=== PATIENT | female | born 1955 | race African-American/Black ===

== ENCOUNTER → 2017-08-27 | Outpatient (CLI) | payer BC ==
[2017-06-03 15:07] VITALS: BP 156/99
[~2017-08-27] MED LIST: CHOL100014 PO; CLOP75TA57 PO; CYAN10005 PO; FERR-26 PO; INSU100V12 SQ; LIRA0.6P2 SQ; LOSA1TAB22 PO; LUBI8CAP4 PO; METO-239 PO; METO25TA4 PO; METO50TA29 PO; MULT-18 PO; OXYC-323 PO; PARO25TA11 PO; PARO40TA61 PO; PREG75CA PO; QUET25TA PO; QUET25TA5 PO; QUET400T PO; QUET400T6 PO; QUET50TA8 PO; RANI150C PO; ROPI0.5T PO; ROPI2TAB PO; ROPI5TAB2 PO; SIMV40TA3 PO
--- NOTE | 2017-08-27 10:16 | RAD ---
DATE: 08/27/2017 EXAM: DIGITAL SCREEN BILAT W/CAD HISTORY: Routine screening COMPARISON: 04/17/2016 This study was interpreted with the benefit of Computerized Aided Detection (CAD). The breast parenchyma shows scattered fibroglandular densities. Breast parenchyma level B. FINDINGS: An unchanged asymmetric density medially in the left breast is probably due to scarring. No new or enlarging breast densities are seen. There are scattered benign type calcifications. No suspicious microcalcifications have developed. IMPRESSION: Stable mammograms without evidence of malignancy. BI-RADS CATEGORY: 2 BENIGN FINDING(S) RECOMMENDED FOLLOW-UP: 12M 12 MONTH FOLLOW-UP PQRS compliance statement: Patient information was entered into a reminder system with a target due date for the next mammogram. Mammography is a sensitive method for finding small breast cancers, but it does not detect them all and is not a substitute for careful clinical examination. A negative mammogram does not negate a clinically suspicious finding and should not result in delay in biopsying a clinically suspicious abnormality. "Our facility is accredited by the [employer]ammography [employer]."
== END | disposition home or self-care (01) ==
LOC: MAMMO 07:59
PROVIDERS: ATTEND Family Medicine
DX: Z12.31 Encounter for screening mammogram for malignant neoplasm of breast (principal)
CPT/HCPCS: G0202; 77067

== ENCOUNTER → 2018-08-17 | Outpatient (CLI) | payer BC ==
[2017-06-03 15:07] VITALS: BP 156/99
[~2018-08-17] MED LIST changes: -FERR-26 PO; +FERR325T14 PO; -ROPI5TAB2 PO; +ROPI5TAB4 PO
--- NOTE | 2018-08-17 17:12 | RAD ---
Indication:Elevated LFT's TECHNIQUE: Grayscale, color Doppler and spectral waveform is of the limited abdomen obtained. COMPARISON:Previous exam from 10/01/2013. FINDINGS: Suboptimal is elevation of pancreas due to overlying bowel gas. No gallstones, pericholecystic fluid or gallbladder wall thickening. IVC is within normal limits. 1.8 x 2.7 x 2.6 cm echogenic lesion is seen in the liver with trace internal vascularity. Main portal vein is patent. CBD measures 3 mm in diameter and is within normal limits. Right kidney measures 11.2 cm in length without hydronephrosis. Liver is normal in size measuring 17 cm in length with diffusely increased echogenicity and decreased through transmission. IMPRESSION: 1. Hepatic steatosis. 2. Echogenic liver lesion likely hemangioma. Nonemergent MRI of the abdomen with IV contrast is recommended for definite confirmation unless this is a known finding on prior or outside imaging. 3. No cholelithiasis or sonographic evidence of acute cholecystitis. Electronically signed by: Saul Bobo DO (08/17/2018 5:08 PM) [facility]
== END | disposition home or self-care (01) ==
LOC: US 10:20
PROVIDERS: ATTEND Family Medicine
DX: K76.0 Fatty (change of) liver, not elsewhere classified (principal); K76.89 Other specified diseases of liver
CPT/HCPCS: 76705

== ENCOUNTER → 2018-09-03 | Outpatient (CLI) | payer BC ==
[2017-06-03 15:07] VITALS: BP 156/99
[~2018-09-03] MED LIST changes: -OXYC-323 PO; +OXYC1TAB15 PO
--- NOTE | 2018-09-04 11:16 | RAD ---
DATE: 09/03/2018 EXAM: MAMMO QUINTIN SCREENING BILATERAL HISTORY: Routine screening COMPARISON: 08/27/2017 This study was interpreted with the benefit of Computerized Aided Detection (CAD). Breast Density: SCATTERED The breast parenchyma shows scattered fibroglandular densities. Breast parenchyma level B. FINDINGS: 2-D and 3-D tomosynthesis imaging was performed in CC and MLO projections. There is an unchanged vague opacity containing a calcification in the medial aspect of the left breast most likely due to scarring. A similar appearance was present on older studies such as 12/23/2013. No new or enlarging breast densities are seen. Additional bilateral breast calcifications are stable and probably benign. IMPRESSION: Stable mammograms without evidence of malignancy. BI-RADS CATEGORY: 2 BENIGN FINDING(S) RECOMMENDED FOLLOW-UP: 12M 12 MONTH FOLLOW-UP PQRS compliance statement: Patient information was entered into a reminder system with a target due date for the next mammogram. Mammography is a sensitive method for finding small breast cancers, but it does not detect them all and is not a substitute for careful clinical examination. A negative mammogram does not negate a clinically suspicious finding and should not result in delay in biopsying a clinically suspicious abnormality. "Our facility is accredited by the [employer]ammography [employer]."
== END | disposition home or self-care (01) ==
LOC: MAMMO 11:04
PROVIDERS: ATTEND Family Medicine
DX: Z12.31 Encounter for screening mammogram for malignant neoplasm of breast (principal)
CPT/HCPCS: 77063; 77067

== ENCOUNTER → 2018-12-16 | Outpatient (CLI) | payer BC, OTHER ==
[2017-06-03 15:07] VITALS: BP 156/99
[~2018-12-16] VITALS: Ht 177.8 cm; Wt 95.7 kg
[~2018-12-16] MED LIST changes: +APIX5TAB PO; -QUET400T6 PO; +QUET400T7 PO; -QUET50TA8 PO; +QUET50TA9 PO; +SINCALIDE 1.91 MCG in IV NORMAL SALINE 50ML 30 ML IV ONE
--- NOTE | 2018-12-16 08:18 | RAD ---
Indication:RUQ PAIN TECHNIQUE: Grayscale, color Doppler and spectral waveform is of the abdomen obtained. COMPARISON:08/17/2018 FINDINGS: Pancreas is not visualized due to overlying bowel gas. IVC is patent. Aorta are not visualized due to overlying bowel gas. Main portal vein is patent. No gallstones, pericholecystic fluid or gallbladder wall thickening. Right kidney measures 10.6 cm in length without hydronephrosis. CBD measures 4 mm in diameter and is within normal limits. Redemonstrated is an echogenic lesion in the liver measuring 3.2 x 2.6 x 2.0 cm without internal vascularity. Spleen measures 10.4 cm in length and is normal in size. Left kidney measures 10.8 cm in length without hydronephrosis. Diffuse echogenic parenchyma of the liver is seen. IMPRESSION: 1. Redemonstration of echogenic lesion in the liver with interval increase in size which may be due to technical differences in obtaining measurements or axial increase in the size of the lesion. Nonemergent MRI of the abdomen with IV contrast is recommended. 2. Mild hepatic steatosis. 3. No cholelithiasis or sonographic evidence of acute cholecystitis. Electronically signed by: Saul Bobo DO (12/16/2018 8:15 AM) [facility]
--- NOTE | 2018-12-16 13:30 | RAD ---
HEPATOBILIARY SCAN WITH EJECTION FRACTION 12/16/2018 1:26 PM History: Right upper quadrant pain x1 month. Procedure: Serial static images are obtained of the liver and biliary system in the frontal projection following IV administration of 5.5 mCi of Technetium 99m Choletec. After filling of the gallbladder, 1.9 mcg of sincalide were infused over 30 minutes and dynamic imaging continued over this period. The gallbladder ejection fraction was calculated. Findings: There is prompt hepatic clearance of tracer from the blood pool. There is homogeneous distribution throughout the liver. The gallbladder ejection fraction measures 68% (normal gallbladder EF is 35% or greater). IMPRESSION: 1. The cystic duct and common bile duct are patent. Negative for acute cholecystitis. 2. The gallbladder ejection fraction is normal Electronically signed by: Priyank Trujillo MD (12/16/2018 1:28 PM) [id number]
== END | disposition home or self-care (01) ==
LOC: US 07:32
PROVIDERS: ATTEND Internal Medicine Gastroenterology
DX: K76.0 Fatty (change of) liver, not elsewhere classified (principal); K76.89 Other specified diseases of liver
CPT/HCPCS: 76700; 78227; A9537; J2805

== ENCOUNTER → 2019-01-06 | Outpatient (CLI) | payer OTHER ==
[2017-06-03 15:07] VITALS: BP 156/99
[~2019-01-06] MED LIST changes: +GADOBUTROL 10 MMOL/10 ML VIAL IV ONE; -SINCALIDE 1.91 MCG in IV NORMAL SALINE 50ML 30 ML IV ONE
[2019-01-06 11:09] LABS: CREATININE 1.4 mg/dL (0.6-1.0); GFR 45.7
== END | disposition home or self-care (01) ==
LOC: MRI 10:41
PROVIDERS: ATTEND Family Medicine
DX: E11.49 Type 2 diabetes mellitus with other diabetic neurological complication (principal)
CPT/HCPCS: 36415; 82565

== ENCOUNTER → 2019-02-01 | Outpatient (CLI) | payer OTHER ==
[2017-06-03 15:07] VITALS: BP 156/99
[~2019-02-01] MED LIST changes: -GADOBUTROL 10 MMOL/10 ML VIAL IV ONE; +GADOTERATE 7.5 MMOL/15ML VIAL. IVP ONE
--- NOTE | 2019-02-01 16:28 | RAD ---
ABDOMEN MRI STUDY WITH AND WITHOUT CONTRAST Clinical indications: Right upper quadrant pain. Echogenic lesion seen within the liver on sonogram dated December 16, 2018. COMPARISON: Abdomen ultrasound study December 16, 2018 and abdomen MRI study dated November 28, 2011. CT study of the abdomen dated October 18, 2011. Technique: T1 and T2 weighted MRI sequences of the abdomen was performed in the axial and coronal planes. In phase and out of phase MRI sequences were performed as well. After IV infusion of 19 mL of Dotarem, multiphasic postcontrast enhanced MRI sequences of the abdomen were performed. Findings: No liver mass is seen to correspond to the abdomen ultrasound or the CT study. There is focal slight decrease in signal here on the out of phase sequence. Therefore, finding is consistent with focal fatty infiltration of the liver. No liver mass is seen on diffusion-weighted sequence. The spleen is not enlarged. Pancreas is normal. The gallbladder is normal. No abnormal dilatation of the intrahepatic or extrahepatic biliary tree is seen. No adrenal gland mass is seen. Both kidneys are normal. No focal aneurysmal dilatation of the abdominal aorta is seen. No enlarged abdominal lymphadenopathy is seen. No ascites is seen.. Impression: The finding seen on ultrasound represents focal fatty infiltration of the liver. No liver mass is seen. Electronically signed by: Ricky Bhakta MD (02/01/2019 4:26 PM) [facility]
== END | disposition home or self-care (01) ==
LOC: MRI 09:45
PROVIDERS: ATTEND Family Medicine
DX: K76.89 Other specified diseases of liver (principal)
CPT/HCPCS: 74183; A9575

== ENCOUNTER 2019-02-27 14:45 | Inpatient (IN) | payer MEDICARE, OTHER ==
[~2019-02-27] VITALS: Ht 177.8 cm; Wt 93.2 kg
[2019-02-27] VITALS (8 sets, daily range): BP systolic 98–135; BP diastolic 57–74
[~2019-02-27 14:45] MED LIST changes: -APIX5TAB PO; -GADOTERATE 7.5 MMOL/15ML VIAL. IVP ONE
[2019-02-27] MEDS ORDERED: IV NORMAL SALINE 1000ML BAG 1,000 ML IV SCH (15:05)
[2019-02-27] MEDS ORDERED: dilTIAZem INJ 125 MG in IV DEXTROSE 5% 100ML 100 ML IV ONE (15:15)
[2019-02-27] MEDS ORDERED: dilTIAZem IV PUSH 25 MG/5 ML VIAL IVP ONE (15:15)
[2019-02-27 15:19] LABS: BASO # 0.1 x10^3/uL (0.0-0.2); BASO % 1 % (0-3); EOS # 0.2 x10^3/uL (0.0-0.7); EOS % 3 % (0-3); HEMATOCRIT 36.2 % (36.0-47.0); HEMOGLOBIN 12.2 g/dL (12.0-15.5); LYMPH # 3.3 x10^3/uL (1.0-4.8); LYMPH % 43 % (24-48); MEAN CORPUSCULAR HEMOGLOBIN 27 pg (25-35); MEAN CORPUSCULAR HGB CONC 34 g/dL (31-37); MEAN CORPUSCULAR VOLUME 81 fL (79-100); MONO # 0.5 x10^3/uL (0.0-1.1); MONO % 7 % (0-9); NEUT # 3.6 x10^3uL (1.8-7.7); NEUT % 47 % (31-73); PLATELET COUNT 293 x10^3/uL (140-400); RED BLOOD COUNT 4.47 x10^6/uL (3.50-5.40); RED CELL DISTRIBUTION WIDTH 15.1 % (11.5-14.5); WHITE BLOOD COUNT 7.7 x10^3/uL (4.0-11.0)
--- NOTE | 2019-02-27 15:26 | PDOC1 ---
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 She is now c/o 7/10 epigastric tenderness. Found in Afib with RVR on telemetry, given 10mg diltiazem bolus and started on 5mg/hr and called for admission. CT head and CXR negative. D dimer also negative. Nuclear cardiac stress testing 06/02/2017 was negative for reversible ischemia, EF 72% at that time. Past Medical History Cardiovascular: AFIB, HTN, Syncope, Hyperlipidemia Pulmonary: No pertinent hx GI: No pertinent hx Heme/Onc: No pertinent hx Hepatobiliary: No pertinent hx Psych: No pertinent hx Rheumatologic: No pertinent hx Infectious disease: No pertinent hx ENT: No pertinent hx Renal/: Chronic renal insuff Endocrine: Diabetes Dermatology: No pertinent hx Past Surgical History Past Surgical History: CABG Family History Family History: Coronary Artery Disease, Diabetes, High Cholestrol, Hypertension Social History Smoke: No ALCOHOL: rare Drugs: None Current Medications Current Medications Current Medications Diltiazem HCl (Cardizem Iv Push) 20 mg 1X ONCE IVP Last administered on 02/27/19at 15:12; Start 02/27/19 at 15:15; Stop 02/27/19 at 15:16; Status DC Diltiazem HCl 125 mg/Dextrose 125 ml @ 10 mls/hr 1X ONCE IV Last administered on 02/27/19at 15:17; Start 02/27/19 at 15:15; Stop 02/28/19 at 03:44 Sodium Chloride 1,000 ml @ 1,000 mls/hr Q1H IV Last administered on 02/27/19at 15:11; Start 02/27/19 at 15:05; Stop 02/27/19 at 16:04 Active Scripts Active Metoprolol Succinate ( Xl ) (Metoprolol Succinate) 25 Mg Tab.er.24h 2 Tab PO DAILY Reported Ferrous Sulfate 325 Mg Tablet 1 Tab PO DAILY Vitamin B-12 (Cyanocobalamin (Vitamin B-12)) 1,000 Mcg Tablet 1 Tab PO DAILY Requip (Ropinirole Hcl) 0.5 Mg Tablet 1 Tab PO QHS Metoprolol Succinate 50 Mg Tab.er.24h 50 Mg PO BID Novolog Mix 70-30 Vial (Insuln Asp Prt/Insulin Aspart) 100 Unit/1 Ml Vial 100 Unit SQ TIDAC Vitamin D3 (Cholecalciferol (Vitamin D3)) 1,000 Unit Capsule 1,000 Unit PO DAILY Amitiza (Lubiprostone) 8 Mcg Capsule 1 Cap PO BID Quetiapine Fumarate 25 Mg Tablet 25 Mg PO BID Ranitidine Hcl 150 Mg Capsule 150 Mg PO BID Seroquel Xr (Quetiapine Fumarate) 400 Mg Tab.er.24h 400 Mg PO HS Lyrica (Pregabalin) 75 Mg Capsule 75 Mg PO BID Daily Vitamin (Multivitamin) 1 Each Tablet 1 Each PO DAILY Plavix (Clopidogrel Bisulfate) 75 Mg Tablet 75 Mg PO DAILY Losartan-Hctz 100-25 Mg Tab (Losartan/Hydrochlorothiazide) 1 Each Tablet 1 Each PO DAILY Allergies Allergies: Coded Allergies: Penicillins (Verified Allergy, Severe, HIVES, SHORTNESS OF BREATH, 07/28/15) clindamycin (Verified Allergy, Severe, shortness of breath and generalized weakness, 07/28/15) Pt states after taking new prescription of ABX she developed SOB and weakness and was brought to ER by friend. Was found to have elevated BP by chance but the reaction was brought her in initially. ibuprofen (Unverified Allergy, Severe, Anaphylaxis, 07/28/15) latex (Verified Allergy, Severe, ITCHING AND SWELLING, 07/28/15) aspirin (Unverified Allergy, Intermediate, Hives, 07/28/15) lisinopril (Verified Allergy, Intermediate, cough, 07/28/15) methocarbamol (Verified Allergy, Intermediate, hives, 07/28/15) metformin (Verified Adverse Reaction, Intermediate, Nausea and Vomiting, 07/28/15) ROS General: YES: Fatigue, Malaise, Appetite; No: Chills, Night Sweats, Other PSYCHOLOGICAL ROS: YES: Anxiety; No: Behavioral Disorder, Concentration difficultie, Decreased libido, Depression, Disorientation, Hallucinations, Hostility, Irritablity, Memory difficulties, Mood Swings, Obsessive thoughts, Physical abuse, Sexual abuse, Sleep disturbances, Suicidal ideation, Other Eyes: No Blurry vision, No Decreased vision, No Double vision, No Dry eyes, No Excessive tearing, No Eye Pain, No Itchy Eyes, No Loss of vision, No Photophobia, No Scotomata, No Uses contacts, No Uses glasses, No Other HEENT: YES: Heacaches; No: Visual Changes, Hearing change, Nasal congestion, Nasal discharge, Oral lesions, Sinus pain, Sore Throat, Epistaxis, Sneezing, Snoring, Tinnitus, Vertigo, Vocal changes, Other ALLERGY AND IMMUNOLOGY: No: Hives, Insect Bite Sensitivity, Itchy/Watery Eyes, Nasal Congestion, Post Nasal Drip, Seasonal Allergies, Other Hematological and Lymphatic: No: Bleeding Problems, Blood Clots, Blood Transfusions, Brusing, Night Sweats, Pallor, Swollen Lymph Nodes, Other ENDOCRINE: No: Breast Changes, Galactorrhea, Hair Pattern Changes, Hot Flashes, Malaise/lethargy, Mood Swings, Palpitations, Polydipsia/polyuria, Skin Changes, Temperature Intolerance, Unexpected Weight Changes, Other Breast: No New/Changing Breast Lumps, No Nipple changes, No Nipple discharge, No Other Respiratory: YES: Shortness of breath; No: Cough, Hemoptysis, Orthopnea, Pleuritic Pain, SOB with excertion, Sputum Changes, Stridor, Tachypnea, Wheezing, Other Cardiovascular: yes Palpitations; No Chest Pain, No Orthopnea, No Paroxysmal Noc. Dyspnea, No Edema, No Lt H eadedness, No Other Gastrointestinal: Yes Nausea, Yes Abdominal Pain; No Vomiting, No Diarrhea, No Constipation, No Melena, No Hematochezia, No Other Genitourinary: No Dysuria, No Frequency, No Incontinence, No Hematuria, No Retention, No Discharge, No Urgency, No Pain, No Flank Pain, No Other, No , No , No , No , No , No , No Musculoskeletal: No Gait Disturbance, No Joint Pain, No Joint Stiffness, No Joint Swelling, No Muscle Pain, No Muscular Weakness, No Pain In:, No Swelling In:, No Other Neurological: No Behavorial Changes, No Bowel/Bladder ControlChng, No Confusion, No Dizziness, No Gait Disturbance, No Headaches, No Impaired Coord/balance, No Memory Loss, No Numbness/Tingling, No Seizures, No Speech Problems, No Tremors, No Visual Changes, No Weakness, No Other Skin: No Dry Skin, No Eczema, No Hair Changes, No Lumps, No Mole Changes, No Mottling, No Nail Changes, No Pruritus, No Rash, No Skin Lesion Changes, No Other, No Acne Physical Exam General: Alert, Oriented X3, Cooperative, No acute distress HEENT: Atraumatic, PERRLA, EOMI, Mucous membr. moist/pink Lungs: Clear to auscultation, Normal air movement Heart: S1S2, irregularly irregular Abdomen: Normal bowel sounds, Soft, No tenderness, No hepatosplenomegaly, No masses Extremities: No clubbing, No cyanosis, No edema, Normal pulses, No tenderness/swelling Skin: No rashes, No breakdown, No significant lesion Neuro: Normal gait, Normal speech, Strength at 5/5 X4 ext, Normal tone, Sensation intact, Cranial nerves 3-12 NL, Reflexes 2+ Psych/Mental Status: Mental status NL, Mood NL Vitals Vitals Vital Signs Date Time Temp Pulse Resp B/P (MAP) Pulse Ox O2 Delivery O2 Flow Rate FiO2 02/27/19 15:12 134 106/63 02/27/19 14:50 97.9 18 99 Room Air 97.9 Images Images CXR - No radiographic evidence of an acute cardiopulmonary process. CT Head - no acute intracranial findings VTE Prophylaxis Ordered VTE Prophylaxis Devices: Yes VTE Pharmacological Prophylaxi: Yes Assessment/Plan Assessment/Plan A/P: Atrial fibrillation with RVR - diltiazem bolus and infusion, restart her home BB. Heparin GTT for elevated [id number] of 4 and 6.7% risk of CVA or systemic embolism Syncope - will obtain echo, CT head. Cardiology to see Epigastric abdominal pain - has had abdominal pain for months, has been evaluated, seen by GI already, had colonoscopy. This is difficult, will consult GI Transaminitis - She has had abdominal pain since prior to November, had recent RUQ US and subsequent HIDA revealing an echogenic liver mass that was not red emonstrated on subsequent MRI on 02/01/19. ALICIA on CKD - likely vasomotor nephropathy. IVF. Baseline Cr 1.4, now 1.9 Coronary artery disease s/p CABG in 2002 or 2005 - cont BB, plavix Hypertension - will cont meds Hyperlipidemia - cont statin for goal LDL < 70mg/dL Depression - cont meds Diabetes mellitus type 2 - sliding scale basal bolus plus regimen Mild rhabdo - likely from syncope, will hydrate gently Medication compliance difficulties - historical, may be cause of her current predicament FEN - ADA cardiac diet PPX - Heparin FULL CODE Admit CVC for afib with RVR and syncope, likely 2 midnights CATHLEEN DRIVER MD Feb 27, 2019 15:26
[2019-02-27 15:28] LABS: PROTHROMBIN TIME PATIENT 13.1 SEC (11.7-14.0)
[2019-02-27 15:31] LABS: D-DIMER 0.45 ug/mlFEU (0.00-0.50)
[2019-02-27 15:42] LABS: CALCIUM 9.2 mg/dL (8.5-10.1); CREATININE 1.9 mg/dL (0.6-1.0); GFR 32.1; POTASSIUM 4.1 mmol/L (3.5-5.1)
[2019-02-27 15:48] LABS: ALBUMIN 3.4 g/dL (3.4-5.0); ALBUMIN/GLOBULIN RATIO 0.8 (1.0-1.7); MAGNESIUM 1.8 mg/dL (1.8-2.4); TOTAL BILIRUBIN 0.8 mg/dL (0.2-1.0); TOTAL PROTEIN 7.6 g/dL (6.4-8.2)
--- NOTE | 2019-02-27 15:56 | PHYS DOC ---
Past Medical History Past Medical History: A-Fib, CAD, Depression, Diabetes-Type II Past Surgical History: Coronary Bypass Surgery Alcohol Use: None Drug Use: None Adult General Chief Complaint Chief Complaint: DIZZY/LIGHT HEADED [facility] HPI Patient is a 63 year old female who presents with complaining of dizziness and chest pain and passing out. Patient states she was at fourth and fifth dizziness with epigastric pain and shortness of breath. Patient had a syncopal episode without having head injury and seizure activity. Patient complaining of lower chest pain and upper abdominal pain and rated her pain 7/10 with shortness of breath, dizziness, nausea and generalized weakness. Patient denies history of syncope. Patient has history of hypertension, dyslipidemia, diabetes mellitus and CABG. Patient states she had irregular heartbeats coded to EMR she has atrial fibrillation. Review of Systems Review of Systems Constitutional: Denies fever or chills [] Eyes: Denies change in visual acuity, redness, or eye pain [] HENT: Denies nasal congestion or sore throat [] Respiratory: Denies cough, reports shortness of breath [] Cardiovascular: No additional information not addressed in HPI [] GI: Denies abdominal pain, nausea, vomiting, bloody stools or diarrhea [] : Denies dysuria or hematuria [] Musculoskeletal: Denies back pain or joint pain [] Integument: Denies rash or skin lesions [] Neurologic: Reports dizziness and headache, denies focal weakness or sensory changes [] Endocrine: Denies polyuria or polydipsia [] All other systems were reviewed and found to be within normal limits, except as documented in this note. Current Medications Current Medications Current Medications Medications (Trade) Dose Ordered Sig/Parul Start Time Stop Time Status Last Admin Dose Admin Sodium Chloride 1,000 ml @ 1,000 mls/hr Q1H 02/27/19 15:05 02/27/19 16:04 DC 02/27/19 15:11 1,000 MLS/HR Allergies Allergies Allergies Coded Allergies Type Severity Reaction Last Updated Verified Penicillins Allergy Severe HIVES, SHORTNESS OF BREATH 07/28/15 Yes clindamycin Allergy Severe shortness of breath and generalized weakness 07/28/15 Yes ibuprofen Allergy Severe Anaphylaxis 07/28/15 No latex Allergy Severe ITCHING AND SWELLING 07/28/15 Yes aspirin Allergy Intermediate Hives 07/28/15 No lisinopril Allergy Intermediate cough 07/28/15 Yes methocarbamol Allergy Intermediate hives 07/28/15 Yes metformin Adverse Reaction Intermediate Nausea and Vomiting 07/28/15 Yes Physical Exam Physical Exam Constitutional: Well developed, well nourished, moderately distress, non-toxic appearance. [] HENT: Normocephalic, atraumatic, oropharynx dry. Eyes: PERRLA, EOMI, conjunctiva normal, no discharge. [] Neck: Normal range of motion, no tenderness, supple, no stridor. [] Cardiovascular: Irregularly irregular rhythm tachycardia, no murmur [] Lungs & Thorax: Bilateral breath sounds clear to auscultation [] Abdomen: Bowel sounds normal, soft, no tenderness, no masses, no pulsatile masses. [] Skin: Warm, dry, no erythema, no rash. [] Back: No tenderness, no CVA tenderness. [] Extremities: No tenderness, no cyanosis, no clubbing, ROM intact, no edema. [] Neurologic: Alert and oriented X 3, normal motor function, normal sensory function, no focal deficits noted. [] Psychologic: Affect normal, judgement normal, mood normal. [] Current Patient Data Vital Signs Vital Signs Date Time Temp Pulse Resp B/P (MAP) Pulse Ox O2 Delivery O2 Flow Rate FiO2 02/27/19 14:50 97.9 128 18 106/63 (77) 99 Room Air 97.9 Lab Values Laboratory Tests Test 02/27/19 15:01 White Blood Count 7.7 x10^3/uL (4.0-11.0) Red Blood Count 4.47 x10^6/uL (3.50-5.40) Hemoglobin 12.2 g/dL (12.0-15.5) Hematocrit 36.2 % (36.0-47.0) Mean Corpuscular Volume 81 fL (79-100) Mean Corpuscular Hemoglobin 27 pg (25-35) Mean Corpuscular Hemoglobin Concent 34 g/dL (31-37) Red Cell Distribution Width 15.1 % (11.5-14.5) H Platelet Count 293 x10^3/uL (140-400) Neutrophils (%) (Auto) 47 % (31-73) Lymphocytes (%) (Auto) 43 % (24-48) Monocytes (%) (Auto) 7 % (0-9) Eosinophils (%) (Auto) 3 % (0-3) Basophils (%) (Auto) 1 % (0-3) Neutrophils # (Auto) 3.6 x10^3uL (1.8-7.7) Lymphocytes # (Auto) 3.3 x10^3/uL (1.0-4.8) Monocytes # (Auto) 0.5 x10^3/uL (0.0-1.1) Eosinophils # (Auto) 0.2 x10^3/uL (0.0-0.7) Basophils # (Auto) 0.1 x10^3/uL (0.0-0.2) Prothrombin Time 13.1 SEC (11.7-14.0) Prothrombin Time INR 1.0 (0.8-1.1) D-Dimer (Jaye) 0.45 ug/mlFEU (0.00-0.50) Sodium Level 140 mmol/L (136-145) Potassium Level 4.1 mmol/L (3.5-5.1) Chloride Level 105 mmol/L (98-107) Carbon Dioxide Level 23 mmol/L (21-32) Anion Gap 12 (6-14) Blood Urea Nitrogen 27 mg/dL (7-20) H Creatinine 1.9 mg/dL (0.6-1.0) H Estimated GFR (Cockcroft-Gault) 32.1 BUN/Creatinine Ratio 14 (6-20) Glucose Level 216 mg/dL (70-99) H Calcium Level 9.2 mg/dL (8.5-10.1) Magnesium Level 1.8 mg/dL (1.8-2.4) Total Bilirubin 0.8 mg/dL (0.2-1.0) Aspartate Amino Transferase (AST) 67 U/L (15-37) H Alanine Aminotransferase (ALT) 70 U/L (14-59) H Alkaline Phosphatase 117 U/L (46-116) H Creatine Kinase 742 U/L (26-192) H Troponin I Quantitative < 0.017 ng/mL (0.000-0.055) IB-Kqk-Z-Type Natriuretic Peptide 710 pg/mL (0-124) H Total Protein 7.6 g/dL (6.4-8.2) Albumin 3.4 g/dL (3.4-5.0) Albumin/Globulin Ratio 0.8 (1.0-1.7) L Lipase 121 U/L (73-393) Laboratory Tests 02/27/19 15:01 Laboratory Tests 02/27/19 15:01 EKG EKG EKG interpreted by me. EKG at 1456 showed atrial fibrilation with RVR, poor R- wave progress in anteroseptal leads, ST depression in inferior leads, no acute ST and T-wave abnormalities. Radiology/Procedures Radiology/Procedures [address] [id number] [place] [address] IMAGING REPORT Signed PATIENT: BRENDA BAR ACCOUNT: [id number] : 1955 LOCATION: [address] [place] [address] AGE: 63 SEX: F EXAM STATUS: ADM IN ORD. PHYSICIAN: STEVEN ALONSO MD REASON: shortness of breath and syncope PROCEDURE: PORTABLE CHEST 1V EXAM: CHEST 1 VIEW History: Shortness of breath COMPARISON: 05/31/2017 TECHNIQUE: Single portable radiograph of the chest FINDINGS: The cardiac silhouette is unremarkable. The lungs are clear bilaterally. The costophrenic sulci are clear and well demarcated. IMPRESSION: No radiographic evidence of an acute cardiopulmonary process. Electronically signed by: Floyd Marcos MD (02/27/2019 4:19 PM) [facility] DICTATED and SIGNED BY: FLOYD MARCOS MD DATE: 02/27/[address] [address] IMAGING REPORT Signed PATIENT: BRENDA BAR ACCOUNT: [id number] : 1955 LOCATION: ER AGE: 63 SEX: F EXAM STATUS: REG ER ORD. PHYSICIAN: STEVEN ALONSO MD REASON: syncope PROCEDURE: CT HEAD WO CONTRAST CT HEAD INDICATION: Syncope COMPARISON: None Available. Exposure: One or more of the following individualized dose reduction techniques were utilized for this examination: 1. Automated exposure control 2. Adjustment of the mA and/or kV according to patient size 3. Use of iterative reconstruction technique TECHNIQUE: 5 mm contiguous axial images were obtained from the skull base to the vertex in both bone and soft tissue algorithm. FINDINGS: No abnormal attenuation within the brain parenchyma. No evidence of acute intracranial hemorrhage. No extra-axial fluid collections. No mass effect or midline shift. Ventricular size is appropriate. Basal cisterns are patent. No fractures identified.Chase-white differentiation is preserved.Globes and orbits are within normal limits. Paranasal sinuses and mastoid air cells are clear. IMPRESSION: No acute intracranial findings. Electronically signed by: Floyd Marcos MD (02/27/2019 3:51 PM) [facility] DICTATED and SIGNED BY: FLOYD MARCOS MD DATE: 02/27/191550 Course & Med Decision Making Course & Med Decision Making Pertinent Labs and Imaging studies reviewed. (See chart for details) Evaluation of patient in ER showed 63-year-old female patient with complaining of dizziness, syncope, chest pain. Patient had atrial flutter patient with RVR and treated with Cardizem bolus and drip with conversion of heart rate to sinus rhythm at rate of 70s improvement of dizziness. CT head and chest x-ray was unremarkable.Patient requiring admission for further evaluation and treatment. Discussed with Dr. Gupta who is in agreement with admission. Discussed findings and plan with patient and family, who acknowledge understanding and agreement. Dragon Disclaimer Dragon Disclaimer This electronic medical record was generated, in whole or in part, using a voice recognition dictation system. Departure Departure Impression: Primary Impression: Atrial fibrillation with RVR Additional Impressions: Syncope Chest pain Renal insufficiency Elevated liver function tests Uncontrolled diabetes mellitus Elevated brain natriuretic peptide (BNP) level Disposition: 09 ADMITTED INPATIENT (at 1515) Admitting Physician: ZAHIDA (Dr. Gupta accepted admission at 1513) Condition: GUARDED Referrals: KELBY BOOGIE MD (PCP) Critical Care Time Critical care time was 60 minutes exclusive of procedures. Problem Qualifiers Additional Impressions: Syncope Syncope type: unspecified Qualified Codes: R55 - Syncope and collapse Chest pain Chest pain type: unspecified Qualified Codes: R07.9 - Chest pain, unspecified STEVEN ALONSO MD Feb 27, 2019 15:56
[2019-02-27] MEDS ORDERED: fentaNYL PF VIAL 100 MCG/2 ML VIAL IV ONE (16:00)
--- NOTE | 2019-02-27 16:22 | RAD ---
EXAM: CHEST 1 VIEW History: Shortness of breath COMPARISON: 05/31/2017 TECHNIQUE: Single portable radiograph of the chest FINDINGS: The cardiac silhouette is unremarkable. The lungs are clear bilaterally. The costophrenic sulci are clear and well demarcated. IMPRESSION: No radiographic evidence of an acute cardiopulmonary process. Electronically signed by: Floyd Marcos MD (02/27/2019 4:19 PM) [facility]
[2019-02-27] MEDS ORDERED: SENNOSIDES/DOCUSATE 8.6/50MG TABLET. PO PRN (17:00)
[2019-02-27] MEDS ORDERED: MORPHINE SULFATE 2 MG/ML VIAL. IV PRN (17:00)
[2019-02-27] MEDS ORDERED: HEPARIN 25,000UTS/500ML PREMIX 500 ML IV PRN (17:00)
[2019-02-27] MEDS ORDERED: DEXTROSE 50% 25 GM / 50ML DISP.SYRIN. IV PRN (17:00)
[2019-02-27] MEDS ORDERED: HEPARIN for IV BOLUS 10,000 UNIT/10 ML VIAL. IV PRN (17:00)
[2019-02-27] MEDS ORDERED: traMADol 50 MG TABLET PO PRN (17:00)
[2019-02-27] MEDS ORDERED: HEPARIN for IV BOLUS 10,000 UNIT/10 ML VIAL. IV ONE (17:00)
[2019-02-27] MEDS ORDERED: ONDANSETRON PF 4 MG/2 ML VIAL. IV PRN (17:00)
[2019-02-27] MEDS ORDERED: ANTI-COAG MONITOR BY PHARMACY. MC PRN (17:15)
--- NOTE | 2019-02-27 18:00 | NUR ---
Patient arrived to room 200 via bed from ER at 1800. Patient A&OX4. VSS. No complaints of pain. Will continue to monitor.
[2019-02-27 18:41] LABS: BILIRUBIN,URINE NEGATIVE (NEG); CLARITY,URINE CLEAR; COLOR,URINE YELLOW; NITRITE,URINE POSITIVE (NEG); PH,URINE 5.5; PROTEIN,URINE NEGATIVE (NEG-TRACE)
[2019-02-27 18:49] LABS: AMPHETAMINE/METHAMPHETAMINE NEG (NEG); BARBITURATES NEG (NEG); BENZODIAZEPINES NEG (NEG); CANNABINOIDS NEG (NEG); COCAINE NEG (NEG); METHADONE NEG (NEG); OPIATES NEG (NEG); PHENCYCLIDINE NEG (NEG)
[2019-02-27 19:01] LABS: BACTERIA,URINE MANY /HPF (0-FEW); RBC,URINE 0 /HPF (0-2); SQUAMOUS EPITHELIAL CELL,UR FEW /LPF
[2019-02-27] MEDS: INSULIN LISPRO 300 UNITS/3 ML INSULN.PEN. SQ SCH (19:28)
[2019-02-27] MEDS ORDERED: PREGABALIN 75 MG CAPSULE PO SCH (21:00)
[2019-02-27] MEDS: INSULIN GLARGINE 300 UNITS/3 ML INSULN.PEN. SQ SCH (21:00)
[2019-02-27] MEDS ORDERED: QUEtiapine 300 MG TAB.ER.24H. PO SCH (21:00)
[2019-02-27] MEDS ORDERED: QUEtiapine 50 MG TAB.ER.24H. PO SCH (21:00)
[2019-02-27] MEDS ORDERED: LUBIPROSTONE 8 MCG CAPSULE PO SCH (21:00)
[2019-02-27] MEDS: QUEtiapine 50 MG TAB.ER.24H. PO SCH (21:05)
[2019-02-27] MEDS: rOPINIRole 0.25 MG TABLET. PO SCH (21:05)
[2019-02-27] MEDS: LUBIPROSTONE 8 MCG CAPSULE PO SCH (21:05)
[2019-02-27] MEDS: FAMOTIDINE 20 MG TABLET. PO SCH (21:05)
[2019-02-27] MEDS: QUEtiapine 300 MG TAB.ER.24H. PO SCH (21:05)
[2019-02-28] VITALS (19 sets, daily range): BP systolic 104–151; BP diastolic 52–79
[2019-02-28 05:54] LABS: HEMATOCRIT 30.8 % (36.0-47.0); HEMOGLOBIN 10.7 g/dL (12.0-15.5); RED BLOOD COUNT 3.84 x10^6/uL (3.50-5.40); RED CELL DISTRIBUTION WIDTH 14.8 % (11.5-14.5); WHITE BLOOD COUNT 6.1 x10^3/uL (4.0-11.0)
[2019-02-28 06:22] LABS: ALBUMIN 2.9 g/dL (3.4-5.0); ALBUMIN/GLOBULIN RATIO 0.9 (1.0-1.7); CALCIUM 9.2 mg/dL (8.5-10.1); CREATININE 1.3 mg/dL (0.6-1.0); GFR 49.7; POTASSIUM 3.9 mmol/L (3.5-5.1); TOTAL BILIRUBIN 0.8 mg/dL (0.2-1.0); TOTAL PROTEIN 6.1 g/dL (6.4-8.2)
--- NOTE | 2019-02-28 07:53 | PDOC ---
PROGRESS NOTES Chief Complaint Chief Complaint A/P: Atrial fibrillation with RVR - diltiazem bolus and infusion, restart her home BB. Heparin GTT for elevated [id number] of 4 and 6.7% risk of CVA or systemic embolism. Will stop heparin, start eliquis 5mg BID Syncope - will obtain echo, CT head. Cardiology to see Epigastric abdominal pain - has had abdominal pain for months, has been evaluated, seen by GI already, had colonoscopy. This is difficult, will consult GI. abdominal US Transaminitis - She has had abdominal pain since prior to November, had recent RUQ US and subsequent HIDA revealing an echogenic liver mass that was not redemonstrated on subsequent MRI on 02/01/19. ALICIA on CKD - likely vasomotor nephropathy. IVF. Baseline Cr 1.4. Was 1.9 on admit, now 1.3 Coronary artery disease s/p CABG in 2002 or 2005 - cont BB, plavix Hypertension - will cont meds Hyperlipidemia - cont statin for goal LDL < 70mg/dL Depression - cont meds Diabetes mellitus type 2 - sliding scale basal bolus plus regimen Mild rhabdo - likely from syncope, will hydrate gently UTI - empiric rocephin, will await culture results Medication compliance difficulties - historical, may be cause of her current predicament FEN - ADA cardiac diet PPX - Eliquis FULL CODE Admit [facility] for afib with RVR and syncope, likely 2 midnights History of Present Illness History of Present Illness Ms Robertson is a 63yo F w/ PMHx DM2, HTN, HLD, Afib, CKD1, CAD s/p CABG who presents via private vehicle after she experienced a 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 She is now c/o 7/10 epigastric tenderness. Found in Afib with RVR on telemetry, given 10mg diltiazem bolus and started on 5mg/hr and called for admission. CT head and CXR negative. D dimer also negative. Nuclear cardiac stress testing 06/02/2017 was negative for reversible ischemia, EF 72% at that time. Overnight HR controlled better. Cr down to 1.3 now. Urine returned with +LE and nitrites, started on rocephin. Will transition to oral rate control this morning, have d/w Cardiology. Vitals Vitals Vital Signs Date Time Temp Pulse Resp B/P (MAP) Pulse Ox O2 Delivery O2 Flow Rate FiO2 02/28/19 07:00 98.0 59 18 140/68 (92) 95 Room Air 98.0 Physical Exam General: Alert, Oriented X3, Cooperative, No acute distress Abdomen: Normal bowel sounds, Soft, No tenderness, No hepatosplenomegaly, No masses Extremities: No clubbing, No cyanosis, No edema, Normal pulses, No tenderness /swelling Skin: No rashes, No breakdown, No significant lesion Labs LABS Laboratory Tests Test 02/27/19 15:01 02/27/19 18:30 02/27/19 18:58 02/27/19 21:00 White Blood Count 7.7 x10^3/uL (4.0-11.0) Red Blood Count 4.47 x10^6/uL (3.50-5.40) Hemoglobin 12.2 g/dL (12.0-15.5) Hematocrit 36.2 % (36.0-47.0) Mean Corpuscular Volume 81 fL (79-100) Mean Corpuscular Hemoglobin 27 pg (25-35) Mean Corpuscular Hemoglobin Concent 34 g/dL (31-37) Red Cell Distribution Width 15.1 % (11.5-14.5) Platelet Count 293 x10^3/uL (140-400) Neutrophils (%) (Auto) 47 % (31-73) Lymphocytes (%) (Auto) 43 % (24-48) Monocytes (%) (Auto) 7 % (0-9) Eosinophils (%) (Auto) 3 % (0-3) Basophils (%) (Auto) 1 % (0-3) Neutrophils # (Auto) 3.6 x10^3uL (1.8-7.7) Lymphocytes # (Auto) 3.3 x10^3/uL (1.0-4.8) Monocytes # (Auto) 0.5 x10^3/uL (0.0-1.1) Eosinophils # (Auto) 0.2 x10^3/uL (0.0-0.7) Basophils # (Auto) 0.1 x10^3/uL (0.0-0.2) Prothrombin Time 13.1 SEC (11.7-14.0) Prothromb Time International Ratio 1.0 (0.8-1.1) D-Dimer (Jaye) 0.45 ug/mlFEU (0.00-0.50) Sodium Level 140 mmol/L (136-145) Potassium Level 4.1 mmol/L (3.5-5.1) Chloride Level 105 mmol/L (98-107) Carbon Dioxide Level 23 mmol/L (21-32) Anion Gap 12 (6-14) Blood Urea Nitrogen 27 mg/dL (7-20) Creatinine 1.9 mg/dL (0.6-1.0) Estimated GFR (Cockcroft-Gault) 32.1 BUN/Creatinine Ratio 14 (6-20) Glucose Level 216 mg/dL (70-99) Calcium Level 9.2 mg/dL (8.5-10.1) Magnesium Level 1.8 mg/dL (1.8-2.4) Total Bilirubin 0.8 mg/dL (0.2-1.0) Aspartate Amino Transf (AST/SGOT) 67 U/L (15-37) Alanine Aminotransferase (ALT/SGPT) 70 U/L (14-59) Alkaline Phosphatase 117 U/L (46-116) Creatine Kinase 742 U/L (26-192) Troponin I Quantitative < 0.017 ng/mL (0.000-0.055) XX-Vdy-R-Type Natriuretic Peptide 710 pg/mL (0-124) Total Protein 7.6 g/dL (6.4-8.2) Albumin 3.4 g/dL (3.4-5.0) Albumin/Globulin Ratio 0.8 (1.0-1.7) Lipase 121 U/L (73-393) Urine Collection Type Unknown Urine Color Yellow Urine Clarity Clear Urine pH 5.5 Urine Specific [place] 1.010 Urine Protein Negative mg/dL (NEG-TRACE) Urine Glucose (UA) Negative mg/dL (NEG) Urine Ketones (Stick) Negative mg/dL (NEG) Urine Blood Negative (NEG) Urine Nitrite Positive (NEG) Urine Bilirubin Negative (NEG) Urine Urobilinogen Dipstick 1.0 mg/dL (0.2 mg/dL) Urine Leukocyte Esterase Small (NEG) Urine RBC 0 /HPF (0-2) Urine WBC 5-10 /HPF (0-4) Urine Squamous Epithelial Cells Few /LPF Urine Bacteria Many /HPF (0-FEW) Urine Opiates Screen Neg (NEG) Urine Methadone Screen Neg (NEG) Urine Barbiturates Neg (NEG) Urine Phencyclidine Screen Neg (NEG) Urine Amphetamine/Methamphetamine Neg (NEG) Urine Benzodiazepines Screen Neg (NEG) Urine Cocaine Screen Neg (NEG) Urine Cannabinoids Screen Neg (NEG) Urine Ethyl Alcohol Neg (NEG) Glucose (Fingerstick) 236 mg/dL (70-99) 136 mg/dL (70-99) Heparin Anti-Xa Act, Unfractionated 0.34 IU/mL (0.30-0.70) Test 02/27/19 22:30 02/28/19 05:40 02/28/19 07:03 Troponin I Quantitative 0.588 ng/mL (0.000-0.055) 0.487 ng/mL (0.000-0.055) White Blood Count 6.1 x10^3/uL (4.0-11.0) Red Blood Count 3.84 x10^6/uL (3.50-5.40) Hemoglobin 10.7 g/dL (12.0-15.5) Hematocrit 30.8 % (36.0-47.0) Mean Corpuscular Volume 80 fL (79-100) Mean Corpuscular Hemoglobin 28 pg (25-35) Mean Corpuscular Hemoglobin Concent 35 g/dL (31-37) Red Cell Distribution Width 14.8 % (11.5-14.5) Platelet Count 210 x10^3/uL (140-400) Heparin Anti-Xa Act, Unfractionated 0.49 IU/mL (0.30-0.70) Sodium Level 143 mmol/L (136-145) Potassium Level 3.9 mmol/L (3.5-5.1) Chloride Level 109 mmol/L (98-107) Carbon Dioxide Level 21 mmol/L (21-32) Anion Gap 13 (6-14) Blood Urea Nitrogen 25 mg/dL (7-20) Creatinine 1.3 mg/dL (0.6-1.0) Estimated GFR (Cockcroft-Gault) 49.7 BUN/Creatinine Ratio 19 (6-20) Glucose Level 114 mg/dL (70-99) Calcium Level 9.2 mg/dL (8.5-10.1) Total Bilirubin 0.8 mg/dL (0.2-1.0) Aspartate Amino Transf (AST/SGOT) 48 U/L (15-37) Alanine Aminotransferase (ALT/SGPT) 56 U/L (14-59) Alkaline Phosphatase 98 U/L (46-116) Creatine Kinase 418 U/L (26-192) Total Protein 6.1 g/dL (6.4-8.2) Albumin 2.9 g/dL (3.4-5.0) Albumin/Globulin Ratio 0.9 (1.0-1.7) Glucose (Fingerstick) 110 mg/dL (70-99) Assessment and Plan Assessmemt and Plan Problems Medical Problems: (1) Atrial fibrillation with RVR Status: Acute (2) Chest pain Status: Acute (3) Elevated brain natriuretic peptide (BNP) level Status: Acute (4) Elevated liver function tests Status: Acute (5) Renal insufficiency Status: Acute (6) Syncope Status: Acute (7) Uncontrolled diabetes mellitus Status: Acute Comment Review of Relevant I have reviewed the following items judd (where applicable) has been applied. Labs Laboratory Tests Test 02/27/19 15:01 02/27/19 18:30 02/27/19 18:58 02/27/19 21:00 White Blood Count 7.7 x10^3/uL (4.0-11.0) Red Blood Count 4.47 x10^6/uL (3.50-5.40) Hemoglobin 12.2 g/dL (12.0-15.5) Hematocrit 36.2 % (36.0-47.0) Mean Corpuscular Volume 81 fL (79-100) Mean Corpuscular Hemoglobin 27 pg (25-35) Mean Corpuscular Hemoglobin Concent 34 g/dL (31-37) Red Cell Distribution Width 15.1 % (11.5-14.5) Platelet Count 293 x10^3/uL (140-400) Neutrophils (%) (Auto) 47 % (31-73) Lymphocytes (%) (Auto) 43 % (24-48) Monocytes (%) (Auto) 7 % (0-9) Eosinophils (%) (Auto) 3 % (0-3) Basophils (%) (Auto) 1 % (0-3) Neutrophils # (Auto) 3.6 x10^3uL (1.8-7.7) Lymphocytes # (Auto) 3.3 x10^3/uL (1.0-4.8) Monocytes # (Auto) 0.5 x10^3/uL (0.0-1.1) Eosinophils # (Auto) 0.2 x10^3/uL (0.0-0.7) Basophils # (Auto) 0.1 x10^3/uL (0.0-0.2) Prothrombin Time 13.1 SEC (11.7-14.0) Prothromb Time International Ratio 1.0 (0.8-1.1) D-Dimer (Jaye) 0.45 ug/mlFEU (0.00-0.50) Sodium Level 140 mmol/L (136-145) Potassium Level 4.1 mmol/L (3.5-5.1) Chloride Level 105 mmol/L (98-107) Carbon Dioxide Level 23 mmol/L (21-32) Anion Gap 12 (6-14) Blood Urea Nitrogen 27 mg/dL (7-20) Creatinine 1.9 mg/dL (0.6-1.0) Estimated GFR (Cockcroft-Gault) 32.1 BUN/Creatinine Ratio 14 (6-20) Glucose Level 216 mg/dL (70-99) Calcium Level 9.2 mg/dL (8.5-10.1) Magnesium Level 1.8 mg/dL (1.8-2.4) Total Bilirubin 0.8 mg/dL (0.2-1.0) Aspartate Amino Transf (AST/SGOT) 67 U/L (15-37) Alanine Aminotransferase (ALT/SGPT) 70 U/L (14-59) Alkaline Phosphatase 117 U/L (46-116) Creatine Kinase 742 U/L (26-192) Troponin I Quantitative < 0.017 ng/mL (0.000-0.055) DV-Pxj-U-Type Natriuretic Peptide 710 pg/mL (0-124) Total Protein 7.6 g/dL (6.4-8.2) Albumin 3.4 g/dL (3.4-5.0) Albumin/Globulin Ratio 0.8 (1.0-1.7) Lipase 121 U/L (73-393) Urine Collection Type Unknown Urine Color Yellow Urine Clarity Clear Urine pH 5.5 Urine Specific [place] 1.010 Urine Protein Negative mg/dL (NEG-TRACE) Urine Glucose (UA) Negative mg/dL (NEG) Urine Ketones (Stick) Negative mg/dL (NEG) Urine Blood Negative (NEG) Urine Nitrite Positive (NEG) Urine Bilirubin Negative (NEG) Urine Urobilinogen Dipstick 1.0 mg/dL (0.2 mg/dL) Urine Leukocyte Esterase Small (NEG) Urine RBC 0 /HPF (0-2) Urine WBC 5-10 /HPF (0-4) Urine Squamous Epithelial Cells Few /LPF Urine Bacteria Many /HPF (0-FEW) Urine Opiates Screen Neg (NEG) Urine Methadone Screen Neg (NEG) Urine Barbiturates Neg (NEG) Urine Phencyclidine Screen Neg (NEG) Urine Amphetamine/Methamphetamine Neg (NEG) Urine Benzodiazepines Screen Neg (NEG) Urine Cocaine Screen Neg (NEG) Urine Cannabinoids Screen Neg (NEG) Urine Ethyl Alcohol Neg (NEG) Glucose (Fingerstick) 236 mg/dL (70-99) 136 mg/dL (70-99) Heparin Anti-Xa Act, Unfractionated 0.34 IU/mL (0.30-0.70) Test 02/27/19 22:30 02/28/19 05:40 02/28/19 07:03 Troponin I Quantitative 0.588 ng/mL (0.000-0.055) 0.487 ng/mL (0.000-0.055) White Blood Count 6.1 x10^3/uL (4.0-11.0) Red Blood Count 3.84 x10^6/uL (3.50-5.40) Hemoglobin 10.7 g/dL (12.0-15.5) Hematocrit 30.8 % (36.0-47.0) Mean Corpuscular Volume 80 fL (79-100) Mean Corpuscular Hemoglobin 28 pg (25-35) Mean Corpuscular Hemoglobin Concent 35 g/dL (31-37) Red Cell Distribution Width 14.8 % (11.5-14.5) Platelet Count 210 x10^3/uL (140-400) Heparin Anti-Xa Act, Unfractionated 0.49 IU/mL (0.30-0.70) Sodium Level 143 mmol/L (136-145) Potassium Level 3.9 mmol/L (3.5-5.1) Chloride Level 109 mmol/L (98-107) Carbon Dioxide Level 21 mmol/L (21-32) Anion Gap 13 (6-14) Blood Urea Nitrogen 25 mg/dL (7-20) Creatinine 1.3 mg/dL (0.6-1.0) Estimated GFR (Cockcroft-Gault) 49.7 BUN/Creatinine Ratio 19 (6-20) Glucose Level 114 mg/dL (70-99) Calcium Level 9.2 mg/dL (8.5-10.1) Total Bilirubin 0.8 mg/dL (0.2-1.0) Aspartate Amino Transf (AST/SGOT) 48 U/L (15-37) Alanine Aminotransferase (ALT/SGPT) 56 U/L (14-59) Alkaline Phosphatase 98 U/L (46-116) Creatine Kinase 418 U/L (26-192) Total Protein 6.1 g/dL (6.4-8.2) Albumin 2.9 g/dL (3.4-5.0) Albumin/Globulin Ratio 0.9 (1.0-1.7) Glucose (Fingerstick) 110 mg/dL (70-99) Laboratory Tests Test 02/27/19 15:01 02/27/19 18:30 02/27/19 18:58 02/27/19 21:00 White Blood Count 7.7 x10^3/uL (4.0-11.0) Red Blood Count 4.47 x10^6/uL (3.50-5.40) Hemoglobin 12.2 g/dL (12.0-15.5) Hematocrit 36.2 % (36.0-47.0) Mean Corpuscular Volume 81 fL (79-100) Mean Corpuscular Hemoglobin 27 pg (25-35) Mean Corpuscular Hemoglobin Concent 34 g/dL (31-37) Red Cell Distribution Width 15.1 % (11.5-14.5) Platelet Count 293 x10^3/uL (140-400) Neutrophils (%) (Auto) 47 % (31-73) Lymphocytes (%) (Auto) 43 % (24-48) Monocytes (%) (Auto) 7 % (0-9) Eosinophils (%) (Auto) 3 % (0-3) Basophils (%) (Auto) 1 % (0-3) Neutrophils # (Auto) 3.6 x10^3uL (1.8-7.7) Lymphocytes # (Auto) 3.3 x10^3/uL (1.0-4.8) Monocytes # (Auto) 0.5 x10^3/uL (0.0-1.1) Eosinophils # (Auto) 0.2 x10^3/uL (0.0-0.7) Basophils # (Auto) 0.1 x10^3/uL (0.0-0.2) Prothrombin Time 13.1 SEC (11.7-14.0) Prothromb Time International Ratio 1.0 (0.8-1.1) D-Dimer (Jaye) 0.45 ug/mlFEU (0.00-0.50) Sodium Level 140 mmol/L (136-145) Potassium Level 4.1 mmol/L (3.5-5.1) Chloride Level 105 mmol/L (98-107) Carbon Dioxide Level 23 mmol/L (21-32) Anion Gap 12 (6-14) Blood Urea Nitrogen 27 mg/dL (7-20) Creatinine 1.9 mg/dL (0.6-1.0) Estimated GFR (Cockcroft-Gault) 32.1 BUN/Creatinine Ratio 14 (6-20) Glucose Level 216 mg/dL (70-99) Calcium Level 9.2 mg/dL (8.5-10.1) Magnesium Level 1.8 mg/dL (1.8-2.4) Total Bilirubin 0.8 mg/dL (0.2-1.0) Aspartate Amino Transf (AST/SGOT) 67 U/L (15-37) Alanine Aminotransferase (ALT/SGPT) 70 U/L (14-59) Alkaline Phosphatase 117 U/L (46-116) Creatine Kinase 742 U/L (26-192) Troponin I Quantitative < 0.017 ng/mL (0.000-0.055) XD-Nqb-A-Type Natriuretic Peptide 710 pg/mL (0-124) Total Protein 7.6 g/dL (6.4-8.2) Albumin 3.4 g/dL (3.4-5.0) Albumin/Globulin Ratio 0.8 (1.0-1.7) Lipase 121 U/L (73-393) Urine Collection Type Unknown Urine Color Yellow Urine Clarity Clear Urine pH 5.5 Urine Specific [place] 1.010 Urine Protein Negative mg/dL (NEG-TRACE) Urine Glucose (UA) Negative mg/dL (NEG) Urine Ketones (Stick) Negative mg/dL (NEG) Urine Blood Negative (NEG) Urine Nitrite Positive (NEG) Urine Bilirubin Negative (NEG) Urine Urobilinogen Dipstick 1.0 mg/dL (0.2 mg/dL) Urine Leukocyte Esterase Small (NEG) Urine RBC 0 /HPF (0-2) Urine WBC 5-10 /HPF (0-4) Urine Squamous Epithelial Cells Few /LPF Urine Bacteria Many /HPF (0-FEW) Urine Opiates Screen Neg (NEG) Urine Methadone Screen Neg (NEG) Urine Barbiturates Neg (NEG) Urine Phencyclidine Screen Neg (NEG) Urine Amphetamine/Methamphetamine Neg (NEG) Urine Benzodiazepines Screen Neg (NEG) Urine Cocaine Screen Neg (NEG) Urine Cannabinoids Screen Neg (NEG) Urine Ethyl Alcohol Neg (NEG) Glucose (Fingerstick) 236 mg/dL (70-99) 136 mg/dL (70-99) Heparin Anti-Xa Act, Unfractionated 0.34 IU/mL (0.30-0.70) Test 02/27/19 22:30 02/28/19 05:40 02/28/19 07:03 Troponin I Quantitative 0.588 ng/mL (0.000-0.055) 0.487 ng/mL (0.000-0.055) White Blood Count 6.1 x10^3/uL (4.0-11.0) Red Blood Count 3.84 x10^6/uL (3.50-5.40) Hemoglobin 10.7 g/dL (12.0-15.5) Hematocrit 30.8 % (36.0-47.0) Mean Corpuscular Volume 80 fL (79-100) Mean Corpuscular Hemoglobin 28 pg (25-35) Mean Corpuscular Hemoglobin Concent 35 g/dL (31-37) Red Cell Distribution Width 14.8 % (11.5-14.5) Platelet Count 210 x10^3/uL (140-400) Heparin Anti-Xa Act, Unfractionated 0.49 IU/mL (0.30-0.70) Sodium Level 143 mmol/L (136-145) Potassium Level 3.9 mmol/L (3.5-5.1) Chloride Level 109 mmol/L (98-107) Carbon Dioxide Level 21 mmol/L (21-32) Anion Gap 13 (6-14) Blood Urea Nitrogen 25 mg/dL (7-20) Creatinine 1.3 mg/dL (0.6-1.0) Estimated GFR (Cockcroft-Gault) 49.7 BUN/Creatinine Ratio 19 (6-20) Glucose Level 114 mg/dL (70-99) Calcium Level 9.2 mg/dL (8.5-10.1) Total Bilirubin 0.8 mg/dL (0.2-1.0) Aspartate Amino Transf (AST/SGOT) 48 U/L (15-37) Alanine Aminotransferase (ALT/SGPT) 56 U/L (14-59) Alkaline Phosphatase 98 U/L (46-116) Creatine Kinase 418 U/L (26-192) Total Protein 6.1 g/dL (6.4-8.2) Albumin 2.9 g/dL (3.4-5.0) Albumin/Globulin Ratio 0.9 (1.0-1.7) Glucose (Fingerstick) 110 mg/dL (70-99) Medications Current Medications Diltiazem HCl (Cardizem Iv Push) 20 mg 1X ONCE IVP Last administered on 02/27/19at 15:12; Start 02/27/19 at 15:15; Stop 02/27/19 at 15:16; Status DC Diltiazem HCl 125 mg/Dextrose 125 ml @ 10 mls/hr 1X ONCE IV Last administered on 02/27/19at 15:17; Start 02/27/19 at 15:15; Stop 02/28/19 at 03:44; Status DC Sodium Chloride 1,000 ml @ 1,000 mls/hr Q1H IV Last administered on 02/27/19at 15:11; Start 02/27/19 at 15:05; Stop 02/27/19 at 16:04; Status DC Fentanyl Citrate (Fentanyl 2ml Vial) 50 mcg 1X ONCE IV Last administered on 02/27/19at 16:06; Start 02/27/19 at 16:00; Stop 02/27/19 at 16:01; Status DC Clopidogrel Bisulfate (Plavix) 75 mg DAILY PO ; Start 02/28/19 at 09:00; Stop 02/28/19 at 09:00; Status DC Cyanocobalamin (Vitamin B-12) 1,000 mcg DAILY PO ; Start 02/28/19 at 09:00 Ferrous Sulfate (Feosol) 325 mg DAILY PO ; Start 02/28/19 at 09:00; Stop 02/28/19 at 09:00; Status DC Lubiprostone (Amitiza) 8 mcg BID PO ; Start 02/27/19 at 21:00; Stop 02/27/19 at 21:00; Status DC Metoprolol Succinate (Toprol Xl) 50 mg DAILY PO ; Start 02/28/19 at 09:00 Pregabalin (Lyrica) 75 mg BID PO ; Start 02/27/19 at 21:00; Stop 02/27/19 at 21:00; Status DC Vitamin D (Vitamin D3) 1,000 unit DAILY PO ; Start 02/28/19 at 09:00 Quetiapine Fumarate (SEROquel) 25 mg BID92 PO ; Start 02/28/19 at 09:00; Stop 02/28/19 at 09:00; Status DC Quetiapine Fumarate (SEROquel XR) 100 mg QHS PO ; Start 02/27/19 at 21:00; Stop 02/27/19 at 21:00; Status DC Famotidine (Pepcid) 20 mg QHS PO Last administered on 02/27/19at 21:05; Start 02/27/19 at 21:00 Ropinirole HCl (Requip) 0.5 mg QHS PO Last administered on 02/27/19at 21:05; Start 02/27/19 at 21:00 Insulin Glargine (Lantus) 20 units QHS SQ ; Start 02/27/19 at 21:00 Insulin Human Lispro (HumaLOG) 0-9 UNITS TIDWMEALS SQ Last administered on 02/27/19at 19:28; Start 02/27/19 at 17:00 Dextrose (Dextrose 50%-Water Syringe) 12.5 gm PRN Q15MIN PRN IV SEE COMMENTS; Start 02/27/19 at 17:00 Heparin Sodium (Porcine) (Heparin Sodium) 4,000 unit 1X ONCE IV Last administered on 02/27/19at 17:41; Start 02/27/19 at 17:00; Stop 02/27/19 at 17:12; Status DC Heparin Sodium/ Dextrose 500 ml @ 0 mls/hr CONT PRN IV SEE I/O RECORD Last administered on 02/27/19at 17:46; Start 02/27/19 at 17:00 Heparin Sodium (Porcine) (Heparin Sodium) 2,400 unit PRN Q6HRS PRN IV FOR UFH LEVEL LESS THAN 0.2; Start 02/27/19 at 17:00 Ondansetron HCl (Zofran) 4 mg PRN Q6HRS PRN IV NAUSEA/VOMITING; Start 02/27/19 at 17:00 Morphine Sulfate (Morphine Sulfate) 2 mg PRN Q4HRS PRN IV PAIN Last administered on 02/27/19at 17:47; Start 02/27/19 at 17:00 Polyethylene Glycol (miraLAX PACKET) 17 gm DAILY PO ; Start 02/28/19 at 09:00; Stop 02/28/19 at 09:00; Status DC Senna/Docusate Sodium (Senna Plus) 1 tab PRN BID PRN PO CONSTIPATION; Start 02/27/19 at 17:00 Tramadol HCl (Ultram) 50 mg PRN Q6HRS PRN PO PAIN; Start 02/27/19 at 17:00 Info (Anti-Coagulation Monitoring By Pharmacy) 1 each PRN DAILY PRN MC SEE COMMENTS; Start 02/27/19 at 17:15 Quetiapine Fumarate (SEROquel XR) 300 mg QHS PO ; Start 02/27/19 at 21:00; Stop 02/27/19 at 21:00; Status DC Lubiprostone (Amitiza) 8 mcg QHS PO Last administered on 02/27/19at 21:05; Start 02/27/19 at 21:00 Quetiapine Fumarate (SEROquel XR) 300 mg QHS PO Last administered on 02/27/19at 21:05; Start 02/27/19 at 21:00 Quetiapine Fumarate (SEROquel XR) 100 mg QHS PO Last administered on 02/27/19at 21:05; Start 02/27/19 at 21:00 Active Scripts Active Metoprolol Succinate ( Xl ) (Metoprolol Succinate) 25 Mg Tab.er.24h 2 Tab PO DAILY Reported Ferrous Sulfate 325 Mg Tablet 1 Tab PO DAILY Vitamin B-12 (Cyanocobalamin (Vitamin B-12)) 1,000 Mcg Tablet 1 Tab PO DAILY Requip (Ropinirole Hcl) 0.5 Mg Tablet 1 Tab PO QHS Metoprolol Succinate 50 Mg Tab.er.24h 50 Mg PO BID Novolog Mix 70-30 Vial (Insuln Asp Prt/Insulin Aspart) 100 Unit/1 Ml Vial 100 Unit SQ TIDAC Vitamin D3 (Cholecalciferol (Vitamin D3)) 1,000 Unit Capsule 1,000 Unit PO DAILY Amitiza (Lubiprostone) 8 Mcg Capsule 1 Cap PO BID Quetiapine Fumarate 25 Mg Tablet 25 Mg PO BID Ranitidine Hcl 150 Mg Capsule 150 Mg PO BID Seroquel Xr (Quetiapine Fumarate) 400 Mg Tab.er.24h 400 Mg PO HS Lyrica (Pregabalin) 75 Mg Capsule 75 Mg PO BID Daily Vitamin (Multivitamin) 1 Each Tablet 1 Each PO DAILY Plavix (Clopidogrel Bisulfate) 75 Mg Tablet 75 Mg PO DAILY Losartan-Hctz 100-25 Mg Tab (Losartan/Hydrochlorothiazide) 1 Each Tablet 1 Each PO DAILY Vitals/I & O Vital Sign - Last 24 Hours 02/27/19 02/27/19 02/27/19 02/27/19 14:50 15:12 15:13 15:38 Temp 97.9 97.9 Pulse 128 134 120 104 Resp 18 22 22 B/P (MAP) 106/63 (77) 106/63 Pulse Ox 99 98 98 O2 Delivery Room Air 02/27/19 02/27/19 02/27/19 02/27/19 16:08 16:38 17:08 18:12 Pulse 72 66 66 61 Resp 18 18 18 B/P (MAP) 125/73 (90) Pulse Ox 100 100 100 02/27/19 02/27/19 02/27/19 02/27/19 18:15 18:17 18:20 19:25 Temp 97.6 97.6 Pulse 66 68 Resp 18 B/P (MAP) 134/74 (94) 135/64 (87) Pulse Ox 100 O2 Delivery Room Air Room Air Room Air 02/27/19 02/27/19 02/27/1902/27/19 20:00 20:00 21:00 22:00 Pulse 61 67 60 B/P (MAP) 120/60 (80) 103/58 (73) 98/57 (71) O2 Delivery Room Air 02/27/19 02/27/19 02/28/19 02/28/19 22:45 23:00 00:00 01:00 Temp 98.1 98.1 Pulse 61 62 58 63 Resp 18 B/P (MAP) 98/57 (71) 135/71 (92) 112/59 (76) 118/74 (89) Pulse Ox 96 O2 Delivery Room Air 02/28/19 02/28/19 02/28/19 02/28/19 02:00 02:45 03:00 04:00 Temp 98.3 98.3 Pulse 58 62 59 57 Resp 17 B/P (MAP) 118/66 (83) 118/68 (85) 150/68 (95) 126/67 (86) Pulse Ox 97 O2 Delivery Room Air 02/28/19 02/28/19 02/28/19 05:00 06:00 07:00 Temp 98.0 98.0 Pulse 58 58 59 Resp 18 B/P (MAP) 124/63 (83) 124/67 (86) 140/68 (92) Pulse Ox 95 O2 Delivery Room Air Intake and Output 02/27/19 02/27/19 02/28/19 14:59 22:59 06:59 Intake Total 309 ml Output Total 2859 ml Balance -2550 ml 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
[2019-02-28] MEDS: INSULIN LISPRO 300 UNITS/3 ML INSULN.PEN. SQ SCH ×3 (08:00→17:52)
[2019-02-28] MEDS ORDERED: CLOPIDOGREL BISULFATE 75 MG TABLET PO SCH (09:00)
[2019-02-28] MEDS ORDERED: POLYETHYLENE GLYCOL 3350 17 GM PACKET. PO SCH (09:00)
[2019-02-28] MEDS ORDERED: QUEtiapine 25 MG TABLET. PO SCH (09:00)
[2019-02-28] MEDS ORDERED: FERROUS SULFATE 325 MG TABLET. PO SCH (09:00)
[2019-02-28] MEDS: cefTRIAXone IV Push 1 GM VIAL. IVP SCH (10:52)
[2019-02-28] MEDS: CYANOCOBALAMIN (VITAMIN B-12) 1,000 MCG TABLET. PO SCH (12:17)
[2019-02-28] MEDS: LACTOBACILLUS RHAMNOSUS GG 1 CAPSULE. PO SCH ×2 (12:17→20:57)
[2019-02-28] MEDS: CHOLECALCIFEROL (VITAMIN D3) 1,000 UNIT TABLET PO SCH (12:17)
[2019-02-28] MEDS: METOPROLOL SUCC 24HR ER 50 MG TAB.ER.24H. PO SCH (12:18)
[2019-02-28] MEDS: APIXABAN 5 MG TABLET. PO SCH ×2 (12:18→20:58)
--- NOTE | 2019-02-28 13:17 | EKG ---
[facility] [address] [place] [address] Test Date: 2019-02-27 Test Time: 14:56:47 Pat Name: BRENDA BAR Department: Room: Gender: F Irs Agent: : [id number] Requested By: STEVEN ALONSO Order Number: [id number] Reading MD: Measurements Intervals [place] Rate: 121 P: UT: QRS: 18 QRSD: 82 T: 43 QT: 342 QTc: 489 Interpretive Statements IRREGULAR RHYTHM, NO P-WAVE FOUND ST & T ABNORMALITY, CONSIDER HIGH LATERAL ISCHEMIA OR LEFT VENTRICULAR STRAIN INFERIOR ISCHEMIA OR LEFT VENTRICULAR STRAIN ABNORMAL ECG RI6.01 No previous ECG available for comparison
--- NOTE | 2019-02-28 13:59 | PDOC2 ---
CONSULT Date of Consult Date of Consult DATE: 02/28/19 TIME: 13:53 Reason for Consult Reason for Consult: Syncope, atrial fib Referring Physician Referring Physician: Dr. Gupta Identification/Chief Complaint Chief Complaint Dizziness, syncope Source Source: Chart review, Patient History of Present Illness Reason for Visit: The patient is a 63-year-old female who presented to the emergency room with symptoms of dizziness, mild chest pain and syncope. Her initial evaluation showed a rapid atrial fibrillation. She was treated with IV Cardizem and conver charisma overnight to sinus rhythm. Chest x-ray showed no acute changes. CT scan of the head showed no acute intracranial findings. Troponin peaked at 0.588. The patient is resting comfortably this morning. She is an extensive medical history including apparent paroxysmal atrial fibrillation, previous coronary artery bypass surgery, diabetes mellitus, hyperlipidemia and hypertension. Past Medical History Cardiovascular: AFIB, HTN, Syncope, Hyperlipidemia Pulmonary: No pertinent hx GI: No pertinent hx Heme/Onc: No pertinent hx Hepatobiliary: No pertinent hx Psych: No pertinent hx Rheumatologic: No pertinent hx Infectious disease: No pertinent hx ENT: No pertinent hx Renal/: Chronic renal insuff Endocrine: Diabetes Dermatology: No pertinent hx Past Surgical History Past Surgical History: CABG Family History Family History: Coronary Artery Disease, Diabetes, High Cholestrol, Hypertension Social History No ALCOHOL: rare Drugs: None Current Problem List Problem List Problems Medical Problems: (1) Atrial fibrillation with RVR Status: Acute (2) Chest pain Status: Acute (3) Elevated brain natriuretic peptide (BNP) level Status: Acute (4) Elevated liver function tests Status: Acute (5) Renal insufficiency Status: Acute (6) Syncope Status: Acute (7) Uncontrolled diabetes mellitus Status: Acute Current Medications Current Medications Current Medications Diltiazem HCl (Cardizem Iv Push) 20 mg 1X ONCE IVP Last administered on 02/27/19at 15:12; Start 02/27/19 at 15:15; Stop 02/27/19 at 15:16; Status DC Diltiazem HCl 125 mg/Dextrose 125 ml @ 10 mls/hr 1X ONCE IV Last administered on 02/27/19at 15:17; Start 02/27/19 at 15:15; Stop 02/28/19 at 03:44; Status DC Sodium Chloride 1,000 ml @ 1,000 mls/hr Q1H IV Last administered on 02/27/19at 15:11; Start 02/27/19 at 15:05; Stop 02/27/19 at 16:04; Status DC Fentanyl Citrate (Fentanyl 2ml Vial) 50 mcg 1X ONCE IV Last administered on 02/27/19at 16:06; Start 02/27/19 at 16:00; Stop 02/27/19 at 16:01; Status DC Clopidogrel Bisulfate (Plavix) 75 mg DAILY PO ; Start 02/28/19 at 09:00; Stop 02/28/19 at 09:00; Status DC Cyanocobalamin (Vitamin B-12) 1,000 mcg DAILY PO Last administered on 02/28/19at 12:17; Start 02/28/19 at 09:00 Ferrous Sulfate (Feosol) 325 mg DAILY PO ; Start 02/28/19 at 09:00; Stop 02/28/19 at 09:00; Status DC Lubiprostone (Amitiza) 8 mcg BID PO ; Start 02/27/19 at 21:00; Stop 02/27/19 at 21:00; Status DC Metoprolol Succinate (Toprol Xl) 50 mg DAILY PO Last administered on 02/28/19at 12:18; Start 02/28/19 at 09:00 Pregabalin (Lyrica) 75 mg BID PO ; Start 02/27/19 at 21:00; Stop 02/27/19 at 21:00; Status DC Vitamin D (Vitamin D3) 1,000 unit DAILY PO Last administered on 02/28/19at 12:17; Start 02/28/19 at 09:00 Quetiapine Fumarate (SEROquel) 25 mg BID92 PO ; Start 02/28/19 at 09:00; Stop 02/28/19 at 09:00; Status DC Quetiapine Fumarate (SEROquel XR) 100 mg QHS PO ; Start 02/27/19 at 21:00; Stop 02/27/19 at 21:00; Status DC Famotidine (Pepcid) 20 mg QHS PO Last administered on 02/27/19at 21:05; Start 02/27/19 at 21:00 Ropinirole HCl (Requip) 0.5 mg QHS PO Last administered on 02/27/19at 21:05; Start 02/27/19 at 21:00 Insulin Glargine (Lantus) 20 units QHS SQ ; Start 02/27/19 at 21:00 Insulin Human Lispro (HumaLOG) 0-9 UNITS TIDWMEALS SQ Last administered on 02/27/19at 19:28; Start 02/27/19 at 17:00 Dextrose (Dextrose 50%-Water Syringe) 12.5 gm PRN Q15MIN PRN IV SEE COMMENTS; Start 02/27/19 at 17:00 Heparin Sodium (Porcine) (Heparin Sodium) 4,000 unit 1X ONCE IV Last administered on 02/27/19at 17:41; Start 02/27/19 at 17:00; Stop 02/27/19 at 17:12; Status DC Heparin Sodium/ Dextrose 500 ml @ 0 mls/hr CONT PRN IV SEE I/O RECORD Last administered on 02/27/19at 17:46; Start 02/27/19 at 17:00; Stop 02/28/19 at 11:33; Status DC Heparin Sodium (Porcine) (Heparin Sodium) 2,400 unit PRN Q6HRS PRN IV FOR UFH LEVEL LESS THAN 0.2; Start 02/27/19 at 17:00; Stop 02/28/19 at 11:34; Status DC Ondansetron HCl (Zofran) 4 mg PRN Q6HRS PRN IV NAUSEA/VOMITING; Start 02/27/19 at 17:00 Morphine Sulfate (Morphine Sulfate) 2 mg PRN Q4HRS PRN IV PAIN Last administere d on 02/27/19at 17:47; Start 02/27/19 at 17:00 Polyethylene Glycol (miraLAX PACKET) 17 gm DAILY PO ; Start 02/28/19 at 09:00; Stop 02/28/19 at 09:00; Status DC Senna/Docusate Sodium (Senna Plus) 1 tab PRN BID PRN PO CONSTIPATION; Start 02/27/19 at 17:00 Tramadol HCl (Ultram) 50 mg PRN Q6HRS PRN PO PAIN; Start 02/27/19 at 17:00 Info (Anti-Coagulation Monitoring By Pharmacy) 1 each PRN DAILY PRN MC SEE COMMENTS Last administered on 02/28/19at 09:56; Start 02/27/19 at 17:15 Quetiapine Fumarate (SEROquel XR) 300 mg QHS PO ; Start 02/27/19 at 21:00; Stop 02/27/19 at 21:00; Status DC Lubiprostone (Amitiza) 8 mcg QHS PO Last administered on 02/27/19at 21:05; Start 02/27/19 at 21:00 Quetiapine Fumarate (SEROquel XR) 300 mg QHS PO Last administered on 02/27/19at 21:05; Start 02/27/19 at 21:00 Quetiapine Fumarate (SEROquel XR) 100 mg QHS PO Last administered on 02/27/19at 21:05; Start 02/27/19 at 21:00 Ceftriaxone Sodium (Rocephin) 1 gm Q24H IVP Last administered on 02/28/19at 10:52; Start 02/28/19 at 10:00 Lactobacillus Rhamnosus (Culturelle) 1 cap BID PO Last administered on 02/28/19at 12:17; Start 02/28/19 at 09:00 Apixaban (Eliquis) 5 mg BID PO Last administered on 02/28/19at 12:18; Start 02/28/19 at 11:30 Active Scripts Active Metoprolol Succinate ( Xl ) (Metoprolol Succinate) 25 Mg Tab.er.24h 2 Tab PO DAILY Reported Ferrous Sulfate 325 Mg Tablet 1 Tab PO DAILY Vitamin B-12 (Cyanocobalamin (Vitamin B-12)) 1,000 Mcg Tablet 1 Tab PO DAILY Requip (Ropinirole Hcl) 0.5 Mg Tablet 1 Tab PO QHS Metoprolol Succinate 50 Mg Tab.er.24h 50 Mg PO BID Novolog Mix 70-30 Vial (Insuln Asp Prt/Insulin Aspart) 100 Unit/1 Ml Vial 100 Unit SQ TIDAC Vitamin D3 (Cholecalciferol (Vitamin D3)) 1,000 Unit Capsule 1,000 Unit PO DAILY Amitiza (Lubiprostone) 8 Mcg Capsule 1 Cap PO BID Quetiapine Fumarate 25 Mg Tablet 25 Mg PO BID Ranitidine Hcl 150 Mg Capsule 150 Mg PO BID Seroquel Xr (Quetiapine Fumarate) 400 Mg Tab.er.24h 400 Mg PO HS Lyrica (Pregabalin) 75 Mg Capsule 75 Mg PO BID Daily Vitamin (Multivitamin) 1 Each Tablet 1 Each PO DAILY Plavix (Clopidogrel Bisulfate) 75 Mg Tablet 75 Mg PO DAILY Losartan-Hctz 100-25 Mg Tab (Losartan/Hydrochlorothiazide) 1 Each Tablet 1 Each PO DAILY Allergies Allergies: Coded Allergies: Penicillins (Verified Allergy, Severe, HIVES, SHORTNESS OF BREATH, 07/28/15) clindamycin (Verified Allergy, Severe, shortness of breath and generalized weakness, 07/28/15) Pt states after taking new prescription of ABX she developed SOB and weakness and was brought to ER by friend. Was found to have elevated BP by chance but the reaction was brought her in initially. ibuprofen (Unverified Allergy, Severe, Anaphylaxis, 07/28/15) latex (Verified Allergy, Severe, ITCHING AND SWELLING, 07/28/15) aspirin (Verified Allergy, Intermediate, Hives, 02/28/19) lisinopril (Verified Allergy, Intermediate, cough, 07/28/15) methocarbamol (Verified Allergy, Intermediate, hives, 07/28/15) metformin (Verified Adverse Reaction, Intermediate, Nausea and Vomiting, 07/28/15) ROS General: YES: Fatigue Cardiovascular: yes Lt Headedness, yes Other (syncope) Physical Exam General: No acute distress HEENT: Atraumatic Lungs: Clear to auscultation Heart: Regular rate Abdomen: Normal bowel sounds Vitals VITALS Vital Signs Date Time Temp Pulse Resp B/P (MAP) Pulse Ox O2 Delivery O2 Flow Rate FiO2 02/28/19 12:18 62 140/72 02/28/19 11:00 97.9 18 98 Room Air 97.9 Labs Labs Laboratory Tests Test 02/27/19 15:01 02/27/19 18:30 02/27/19 18:58 02/27/19 21:00 White Blood Count 7.7 x10^3/uL (4.0-11.0) Red Blood Count 4.47 x10^6/uL (3.50-5.40) Hemoglobin 12.2 g/dL (12.0-15.5) Hematocrit 36.2 % (36.0-47.0) Mean Corpuscular Volume 81 fL (79-100) Mean Corpuscular Hemoglobin 27 pg (25-35) Mean Corpuscular Hemoglobin Concent 34 g/dL (31-37) Red Cell Distribution Width 15.1 % (11.5-14.5) Platelet Count 293 x10^3/uL (140-400) Neutrophils (%) (Auto) 47 % (31-73) Lymphocytes (%) (Auto) 43 % (24-48) Monocytes (%) (Auto) 7 % (0-9) Eosinophils (%) (Auto) 3 % (0-3) Basophils (%) (Auto) 1 % (0-3) Neutrophils # (Auto) 3.6 x10^3uL (1.8-7.7) Lymphocytes # (Auto) 3.3 x10^3/uL (1.0-4.8) Monocytes # (Auto) 0.5 x10^3/uL (0.0-1.1) Eosinophils # (Auto) 0.2 x10^3/uL (0.0-0.7) Basophils # (Auto) 0.1 x10^3/uL (0.0-0.2) Prothrombin Time 13.1 SEC (11.7-14.0) Prothromb Time International Ratio 1.0 (0.8-1.1) D-Dimer (Jaye) 0.45 ug/mlFEU (0.00-0.50) Sodium Level 140 mmol/L (136-145) Potassium Level 4.1 mmol/L (3.5-5.1) Chloride Level 105 mmol/L (98-107) Carbon Dioxide Level 23 mmol/L (21-32) Anion Gap 12 (6-14) Blood Urea Nitrogen 27 mg/dL (7-20) Creatinine 1.9 mg/dL (0.6-1.0) Estimated GFR (Cockcroft-Gault) 32.1 BUN/Creatinine Ratio 14 (6-20) Glucose Level 216 mg/dL (70-99) Calcium Level 9.2 mg/dL (8.5-10.1) Magnesium Level 1.8 mg/dL (1.8-2.4) Total Bilirubin 0.8 mg/dL (0.2-1.0) Aspartate Amino Transf (AST/SGOT) 67 U/L (15-37) Alanine Aminotransferase (ALT/SGPT) 70 U/L (14-59) Alkaline Phosphatase 117 U/L (46-116) Creatine Kinase 742 U/L (26-192) Troponin I Quantitative < 0.017 ng/mL (0.000-0.055) ON-Iwr-[id number]-Type Natriuretic Peptide 710 pg/mL (0-124) Total Protein 7.6 g/dL (6.4-8.2) Albumin 3.4 g/dL (3.4-5.0) Albumin/Globulin Ratio 0.8 (1.0-1.7) Lipase 121 U/L (73-393) Urine Collection Type Unknown Urine Color Yellow Urine Clarity Clear Urine pH 5.5 Urine Specific [place] 1.010 Urine Protein Negative mg/dL (NEG-TRACE) Urine Glucose (UA) Negative mg/dL (NEG) Urine Ketones (Stick) Negative mg/dL (NEG) Urine Blood Negative (NEG) Urine Nitrite Positive (NEG) Urine Bilirubin Negative (NEG) Urine Urobilinogen Dipstick 1.0 mg/dL (0.2 mg/dL) Urine Leukocyte Esterase Small (NEG) Urine RBC 0 /HPF (0-2) Urine WBC 5-10 /HPF (0-4) Urine Squamous Epithelial Cells Few /LPF Urine Bacteria Many /HPF (0-FEW) Urine Opiates Screen Neg (NEG) Urine Methadone Screen Neg (NEG) Urine Barbiturates Neg (NEG) Urine Phencyclidine Screen Neg (NEG) Urine Amphetamine/Methamphetamine Neg (NEG) Urine Benzodiazepines Screen Neg (NEG) Urine Cocaine Screen Neg (NEG) Urine Cannabinoids Screen Neg (NEG) Urine Ethyl Alcohol Neg (NEG) Glucose (Fingerstick) 236 mg/dL (70-99) 136 mg/dL (70-99) Heparin Anti-Xa Act, Unfractionated 0.34 IU/mL (0.30-0.70) Test 02/27/19 22:30 02/28/19 05:40 02/28/19 07:03 02/28/19 11:23 Troponin I Quantitative 0.588 ng/mL (0.000-0.055) 0.487 ng/mL (0.000-0.055) White Blood Count 6.1 x10^3/uL (4.0-11.0) Red Blood Count 3.84 x10^6/uL (3.50-5.40) Hemoglobin 10.7 g/dL (12.0-15.5) Hematocrit 30.8 % (36.0-47.0) Mean Corpuscular Volume 80 fL (79-100) Mean Corpuscular Hemoglobin 28 pg (25-35) Mean Corpuscular Hemoglobin Concent 35 g/dL (31-37) Red Cell Distribution Width 14.8 % (11.5-14.5) Platelet Count 210 x10^3/uL (140-400) Heparin Anti-Xa Act, Unfractionated 0.49 IU/mL (0.30-0.70) Sodium Level 143 mmol/L (136-145) Potassium Level 3.9 mmol/L (3.5-5.1) Chloride Level 109 mmol/L (98-107) Carbon Dioxide Level 21 mmol/L (21-32) Anion Gap 13 (6-14) Blood Urea Nitrogen 25 mg/dL (7-20) Creatinine 1.3 mg/dL (0.6-1.0) Estimated GFR (Cockcroft-Gault) 49.7 BUN/Creatinine Ratio 19 (6-20) Glucose Level 114 mg/dL (70-99) Calcium Level 9.2 mg/dL (8.5-10.1) Total Bilirubin 0.8 mg/dL (0.2-1.0) Aspartate Amino Transf (AST/SGOT) 48 U/L (15-37) Alanine Aminotransferase (ALT/SGPT) 56 U/L (14-59) Alkaline Phosphatase 98 U/L (46-116) Creatine Kinase 418 U/L (26-192) Total Protein 6.1 g/dL (6.4-8.2) Albumin 2.9 g/dL (3.4-5.0) Albumin/Globulin Ratio 0.9 (1.0-1.7) Glucose (Fingerstick) 110 mg/dL (70-99) 104 mg/dL (70-99) Laboratory Tests Test 02/27/19 15:01 02/27/19 18:30 02/27/19 18:58 02/27/19 21:00 White Blood Count 7.7 x10^3/uL (4.0-11.0) Red Blood Count 4.47 x10^6/uL (3.50-5.40) Hemoglobin 12.2 g/dL (12.0-15.5) Hematocrit 36.2 % (36.0-47.0) Mean Corpuscular Volume 81 fL (79-100) Mean Corpuscular Hemoglobin 27 pg (25-35) Mean Corpuscular Hemoglobin Concent 34 g/dL (31-37) Red Cell Distribution Width 15.1 % (11.5-14.5) Platelet Count 293 x10^3/uL (140-400) Neutrophils (%) (Auto) 47 % (31-73) Lymphocytes (%) (Auto) 43 % (24-48) Monocytes (%) (Auto) 7 % (0-9) Eosinophils (%) (Auto) 3 % (0-3) Basophils (%) (Auto) 1 % (0-3) Neutrophils # (Auto) 3.6 x10^3uL (1.8-7.7) Lymphocytes # (Auto) 3.3 x10^3/uL (1.0-4.8) Monocytes # (Auto) 0.5 x10^3/uL (0.0-1.1) Eosinophils # (Auto) 0.2 x10^3/uL (0.0-0.7) Basophils # (Auto) 0.1 x10^3/uL (0.0-0.2) Prothrombin Time 13.1 SEC (11.7-14.0) Prothromb Time International Ratio 1.0 (0.8-1.1) D-Dimer (Jaye) 0.45 ug/mlFEU (0.00-0.50) Sodium Level 140 mmol/L (136-145) Potassium Level 4.1 mmol/L (3.5-5.1) Chloride Level 105 mmol/L (98-107) Carbon Dioxide Level 23 mmol/L (21-32) Anion Gap 12 (6-14) Blood Urea Nitrogen 27 mg/dL (7-20) Creatinine 1.9 mg/dL (0.6-1.0) Estimated GFR (Cockcroft-Gault) 32.1 BUN/Creatinine Ratio 14 (6-20) Glucose Level 216 mg/dL (70-99) Calcium Level 9.2 mg/dL (8.5-10.1) Magnesium Level 1.8 mg/dL (1.8-2.4) Total Bilirubin 0.8 mg/dL (0.2-1.0) Aspartate Amino Transf (AST/SGOT) 67 U/L (15-37) Alanine Aminotransferase (ALT/SGPT) 70 U/L (14-59) Alkaline Phosphatase 117 U/L (46-116) Creatine Kinase 742 U/L (26-192) Troponin I Quantitative < 0.017 ng/mL (0.000-0.055) TH-Zne-J-Type Natriuretic Peptide 710 pg/mL (0-124) Total Protein 7.6 g/dL (6.4-8.2) Albumin 3.4 g/dL (3.4-5.0) Albumin/Globulin Ratio 0.8 (1.0-1.7) Lipase 121 U/L (73-393) Urine Collection Type Unknown Urine Color Yellow Urine Clarity Clear Urine pH 5.5 Urine Specific [place] 1.010 Urine Protein Negative mg/dL (NEG-TRACE) Urine Glucose (UA) Negative mg/dL (NEG) Urine Ketones (Stick) Negative mg/dL (NEG) Urine Blood Negative (NEG) Urine Nitrite Positive (NEG) Urine Bilirubin Negative (NEG) Urine Urobilinogen Dipstick 1.0 mg/dL (0.2 mg/dL) Urine Leukocyte Esterase Small (NEG) Urine RBC 0 /HPF (0-2) Urine WBC 5-10 /HPF (0-4) Urine Squamous Epithelial Cells Few /LPF Urine Bacteria Many /HPF (0-FEW) Urine Opiates Screen Neg (NEG) Urine Methadone Screen Neg (NEG) Urine Barbiturates Neg (NEG) Urine Phencyclidine Screen Neg (NEG) Urine Amphetamine/Methamphetamine Neg (NEG) Urine Benzodiazepines Screen Neg (NEG) Urine Cocaine Screen Neg (NEG) Urine Cannabinoids Screen Neg (NEG) Urine Ethyl Alcohol Neg (NEG) Glucose (Fingerstick) 236 mg/dL (70-99) 136 mg/dL (70-99) Heparin Anti-Xa Act, Unfractionated 0.34 IU/mL (0.30-0.70) Test 02/27/19 22:30 02/28/19 05:40 02/28/19 07:03 02/28/19 11:23 Troponin I Quantitative 0.588 ng/mL (0.000-0.055) 0.487 ng/mL (0.000-0.055) White Blood Count 6.1 x10^3/uL (4.0-11.0) Red Blood Count 3.84 x10^6/uL (3.50-5.40) Hemoglobin 10.7 g/dL (12.0-15.5) Hematocrit 30.8 % (36.0-47.0) Mean Corpuscular Volume 80 fL (79-100) Mean Corpuscular Hemoglobin 28 pg (25-35) Mean Corpuscular Hemoglobin Concent 35 g/dL (31-37) Red Cell Distribution Width 14.8 % (11.5-14.5) Platelet Count 210 x10^3/uL (140-400) Heparin Anti-Xa Act, Unfractionated 0.49 IU/mL (0.30-0.70) Sodium Level 143 mmol/L (136-145) Potassium Level 3.9 mmol/L (3.5-5.1) Chloride Level 109 mmol/L (98-107) Carbon Dioxide Level 21 mmol/L (21-32) Anion Gap 13 (6-14) Blood Urea Nitrogen 25 mg/dL (7-20) Creatinine 1.3 mg/dL (0.6-1.0) Estimated GFR (Cockcroft-Gault) 49.7 BUN/Creatinine Ratio 19 (6-20) Glucose Level 114 mg/dL (70-99) Calcium Level 9.2 mg/dL (8.5-10.1) Total Bilirubin 0.8 mg/dL (0.2-1.0) Aspartate Amino Transf (AST/SGOT) 48 U/L (15-37) Alanine Aminotransferase (ALT/SGPT) 56 U/L (14-59) Alkaline Phosphatase 98 U/L (46-116) Creatine Kinase 418 U/L (26-192) Total Protein 6.1 g/dL (6.4-8.2) Albumin 2.9 g/dL (3.4-5.0) Albumin/Globulin Ratio 0.9 (1.0-1.7) Glucose (Fingerstick) 110 mg/dL (70-99) 104 mg/dL (70-99) Images Images Chest x-ray shows no acute changes. CT scan of the head shows no acute intracranial findings. Assessment/Plan Assessment/Plan 1. Syncope. Patient was admitted in rapid atrial fibrillation and converted on IV Cardizem. Her rhythm has remained in sinus rhythm overnight with no significant arrhythmias. CT scan of the head shows no acute abnormalities. We'll continue on medical treatment and gradually increase activities while on telemetry. 2. Atrial fibrillation. Apparent history of paroxysmal atrial fibrillation. Now sinus rhythm as above. Patient appears to be a reasonable candidate for anticoagulation and eloquent was has been started. 3. Minimally elevated troponin at 0.588. Demand ischemia secondary to tachycardia. 4. History of bypass surgery. Chest pain resolved. MPI testing in 2017 was normal. Would consider outpatient stress testing on the patient. 5. Diabetes mellitus. Continuing present treatment. 6. Hyperlipidemia. Continue medical treatment. Check labs. Thank you for allowing us to participate in the care of your patient. ISRAEL MEJIA MD Feb 28, 2019 13:59
--- NOTE | 2019-02-28 14:19 | PDOC2 ---
CONSULT Date of Consult Date of Consult DATE: 02/28/19 TIME: 14:17 Reason for Consult Reason for Consult: Abd pain/increasedf lfts Past Medical History Cardiovascular: AFIB, HTN, Syncope, Hyperlipidemia Pulmonary: No pertinent hx GI: No pertinent hx Heme/Onc: No pertinent hx Hepatobiliary: No pertinent hx Psych: No pertinent hx Rheumatologic: No pertinent hx Infectious disease: No pertinent hx ENT: No pertinent hx Renal/: Chronic renal insuff Endocrine: Diabetes Dermatology: No pertinent hx Past Surgical History Past Surgical History: CABG Family History Family History: Coronary Artery Disease, Diabetes, High Cholestrol, Hypertension Social History No ALCOHOL: rare Drugs: None Current Problem List Problem List Problems Medical Problems: (1) Atrial fibrillation with RVR Status: Acute (2) Chest pain Status: Acute (3) Elevated brain natriuretic peptide (BNP) level Status: Acute (4) Elevated liver function tests Status: Acute (5) Renal insufficiency Status: Acute (6) Syncope Status: Acute (7) Uncontrolled diabetes mellitus Status: Acute Current Medications Current Medications Current Medications Diltiazem HCl (Cardizem Iv Push) 20 mg 1X ONCE IVP Last administered on 02/27/19at 15:12; Start 02/27/19 at 15:15; Stop 02/27/19 at 15:16; Status DC Diltiazem HCl 125 mg/Dextrose 125 ml @ 10 mls/hr 1X ONCE IV Last administered on 02/27/19at 15:17; Start 02/27/19 at 15:15; Stop 02/28/19 at 03:44; Status DC Sodium Chloride 1,000 ml @ 1,000 mls/hr Q1H IV Last administered on 02/27/19at 15:11; Start 02/27/19 at 15:05; Stop 02/27/19 at 16:04; Status DC Fentanyl Citrate (Fentanyl 2ml Vial) 50 mcg 1X ONCE IV Last administered on 02/27/19at 16:06; Start 02/27/19 at 16:00; Stop 02/27/19 at 16:01; Status DC Clopidogrel Bisulfate (Plavix) 75 mg DAILY PO ; Start 02/28/19 at 09:00; Stop 02/28/19 at 09:00; Status DC Cyanocobalamin (Vitamin B-12) 1,000 mcg DAILY PO Last administered on 02/28/19at 12:17; Start 02/28/19 at 09:00 Ferrous Sulfate (Feosol) 325 mg DAILY PO ; Start 02/28/19 at 09:00; Stop 02/28/19 at 09:00; Status DC Lubiprostone (Amitiza) 8 mcg BID PO ; Start 02/27/19 at 21:00; Stop 02/27/19 at 21:00; Status DC Metoprolol Succinate (Toprol Xl) 50 mg DAILY PO Last administered on 02/28/19at 12:18; Start 02/28/19 at 09:00 Pregabalin (Lyrica) 75 mg BID PO ; Start 02/27/19 at 21:00; Stop 02/27/19 at 21:00; Status DC Vitamin D (Vitamin D3) 1,000 unit DAILY PO Last administered on 02/28/19at 12:17; Start 02/28/19 at 09:00 Quetiapine Fumarate (SEROquel) 25 mg BID92 PO ; Start 02/28/19 at 09:00; Stop 02/28/19 at 09:00; Status DC Quetiapine Fumarate (SEROquel XR) 100 mg QHS PO ; Start 02/27/19 at 21:00; Stop 02/27/19 at 21:00; Status DC Famotidine (Pepcid) 20 mg QHS PO Last administered on 02/27/19at 21:05; Start 02/27/19 at 21:00 Ropinirole HCl (Requip) 0.5 mg QHS PO Last administered on 02/27/19at 21:05; Start 02/27/19 at 21:00 Insulin Glargine (Lantus) 20 units QHS SQ ; Start 02/27/19 at 21:00 Insulin Human Lispro (HumaLOG) 0-9 UNITS TIDWMEALS SQ Last administered on 02/27/19at 19:28; Start 02/27/19 at 17:00 Dextrose (Dextrose 50%-Water Syringe) 12.5 gm PRN Q15MIN PRN IV SEE COMMENTS; Start 02/27/19 at 17:00 Heparin Sodium (Porcine) (Heparin Sodium) 4,000 unit 1X ONCE IV Last administered on 02/27/19at 17:41; Start 02/27/19 at 17:00; Stop 02/27/19 at 17:12; Status DC Heparin Sodium/ Dextrose 500 ml @ 0 mls/hr CONT PRN IV SEE I/O RECORD Last administered on 02/27/19at 17:46; Start 02/27/19 at 17:00; Stop 02/28/19 at 11:33; Status DC Heparin Sodium (Porcine) (Heparin Sodium) 2,400 unit PRN Q6HRS PRN IV FOR UFH LEVEL LESS THAN 0.2; Start 02/27/19 at 17:00; Stop 02/28/19 at 11:34; Status DC Ondansetron HCl (Zofran) 4 mg PRN Q6HRS PRN IV NAUSEA/VOMITING; Start 02/27/19 at 17:00 Morphine Sulfate (Morphine Sulfate) 2 mg PRN Q4HRS PRN IV PAIN Last administered on 02/27/19at 17:47; Start 02/27/19 at 17:00 Polyethylene Glycol (miraLAX PACKET) 17 gm DAILY PO ; Start 02/28/19 at 09:00; Stop 02/28/19 at 09:00; Status DC Senna/Docusate Sodium (Senna Plus) 1 tab PRN BID PRN PO CONSTIPATION; Start 02/27/19 at 17:00 Tramadol HCl (Ultram) 50 mg PRN Q6HRS PRN PO PAIN; Start 02/27/19 at 17:00 Info (Anti-Coagulation Monitoring By Pharmacy) 1 each PRN DAILY PRN MC SEE COMMENTS Last administered on 02/28/19at 09:56; Start 02/27/19 at 17:15 Quetiapine Fumarate (SEROquel XR) 300 mg QHS PO ; Start 02/27/19 at 21:00; Stop 02/27/19 at 21:00; Status DC Lubiprostone (Amitiza) 8 mcg QHS PO Last administered on 02/27/19at 21:05; Start 02/27/19 at 21:00 Quetiapine Fumarate (SEROquel XR) 300 mg QHS PO Last administered on 02/27/19at 21:05; Start 02/27/19 at 21:00 Quetiapine Fumarate (SEROquel XR) 100 mg QHS PO Last administered on 02/27/19at 21:05; Start 02/27/19 at 21:00 Ceftriaxone Sodium (Rocephin) 1 gm Q24H IVP Last administered on 02/28/19at 10:52; Start 02/28/19 at 10:00 Lactobacillus Rhamnosus (Culturelle) 1 cap BID PO Last administered on 02/28/19at 12:17; Start 02/28/19 at 09:00 Apixaban (Eliquis) 5 mg BID PO Last administered on 02/28/19at 12:18; Start 02/28/19 at 11:30 Active Scripts Active Metoprolol Succinate ( Xl ) (Metoprolol Succinate) 25 Mg Tab.er.24h 2 Tab PO DAILY Reported Ferrous Sulfate 325 Mg Tablet 1 Tab PO DAILY Vitamin B-12 (Cyanocobalamin (Vitamin B-12)) 1,000 Mcg Tablet 1 Tab PO DAILY Requip (Ropinirole Hcl) 0.5 Mg Tablet 1 Tab PO QHS Metoprolol Succinate 50 Mg Tab.er.24h 50 Mg PO BID Novolog Mix 70-30 Vial (Insuln Asp Prt/Insulin Aspart) 100 Unit/1 Ml Vial 100 Unit SQ TIDAC Vitamin D3 (Cholecalciferol (Vitamin D3)) 1,000 Unit Capsule 1,000 Unit PO DAILY Amitiza (Lubiprostone) 8 Mcg Capsule 1 Cap PO BID Quetiapine Fumarate 25 Mg Tablet 25 Mg PO BID Ranitidine Hcl 150 Mg Capsule 150 Mg PO BID Seroquel Xr (Quetiapine Fumarate) 400 Mg Tab.er.24h 400 Mg PO HS Lyrica (Pregabalin) 75 Mg Capsule 75 Mg PO BID Daily Vitamin (Multivitamin) 1 Each Tablet 1 Each PO DAILY Plavix (Clopidogrel Bisulfate) 75 Mg Tablet 75 Mg PO DAILY Losartan-Hctz 100-25 Mg Tab (Losartan/Hydrochlorothiazide) 1 Each Tablet 1 Each PO DAILY Allergies Allergies: Coded Allergies: Penicillins (Verified Allergy, Severe, HIVES, SHORTNESS OF BREATH, 07/28/15) clindamycin (Verified Allergy, Severe, shortness of breath and generalized weakness, 07/28/15) Pt states after taking new prescription of ABX she developed SOB and weakness and was brought to ER by friend. Was found to have elevated BP by chance but the reaction was brought her in initially. ibuprofen (Unverified Allergy, Severe, Anaphylaxis, 07/28/15) latex (Verified Allergy, Severe, ITCHING AND SWELLING, 07/28/15) aspirin (Verified Allergy, Intermediate, Hives, 02/28/19) lisinopril (Verified Allergy, Intermediate, cough, 07/28/15) methocarbamol (Verified Allergy, Intermediate, hives, 07/28/15) metformin (Verified Adverse Reaction, Intermediate, Nausea and Vomiting, 07/28/15) Vitals VITALS Vital Signs Date Time Temp Pulse Resp B/P (MAP) Pulse Ox O2 Delivery O2 Flow Rate FiO2 02/28/19 12:18 62 140/72 02/28/19 11:00 97.9 18 98 Room Air 97.9 Labs Labs Laboratory Tests Test 02/27/19 15:01 02/27/19 18:30 02/27/19 18:58 02/27/19 21:00 White Blood Count 7.7 x10^3/uL (4.0-11.0) Red Blood Count 4.47 x10^6/uL (3.50-5.40) Hemoglobin 12.2 g/dL (12.0-15.5) Hematocrit 36.2 % (36.0-47.0) Mean Corpuscular Volume 81 fL (79-100) Mean Corpuscular Hemoglobin 27 pg (25-35) Mean Corpuscular Hemoglobin Concent 34 g/dL (31-37) Red Cell Distribution Width 15.1 % (11.5-14.5) Platelet Count 293 x10^3/uL (140-400) Neutrophils (%) (Auto) 47 % (31-73) Lymphocytes (%) (Auto) 43 % (24-48) Monocytes (%) (Auto) 7 % (0-9) Eosinophils (%) (Auto) 3 % (0-3) Basophils (%) (Auto) 1 % (0-3) Neutrophils # (Auto) 3.6 x10^3uL (1.8-7.7) Lymphocytes # (Auto) 3.3 x10^3/uL (1.0-4.8) Monocytes # (Auto) 0.5 x10^3/uL (0.0-1.1) Eosinophils # (Auto) 0.2 x10^3/uL (0.0-0.7) Basophils # (Auto) 0.1 x10^3/uL (0.0-0.2) Prothrombin Time 13.1 SEC (11.7-14.0) Prothromb Time International Ratio 1.0 (0.8-1.1) D-Dimer (Jaye) 0.45 ug/mlFEU (0.00-0.50) Sodium Level 140 mmol/L (136-145) Potassium Level 4.1 mmol/L (3.5-5.1) Chloride Level 105 mmol/L (98-107) Carbon Dioxide Level 23 mmol/L (21-32) Anion Gap 12 (6-14) Blood Urea Nitrogen 27 mg/dL (7-20) Creatinine 1.9 mg/dL (0.6-1.0) Estimated GFR (Cockcroft-Gault) 32.1 BUN/Creatinine Ratio 14 (6-20) Glucose Level 216 mg/dL (70-99) Calcium Level 9.2 mg/dL (8.5-10.1) Magnesium Level 1.8 mg/dL (1.8-2.4) Total Bilirubin 0.8 mg/dL (0.2-1.0) Aspartate Amino Transf (AST/SGOT) 67 U/L (15-37) Alanine Aminotransferase (ALT/SGPT) 70 U/L (14-59) Alkaline Phosphatase 117 U/L (46-116) Creatine Kinase 742 U/L (26-192) Troponin I Quantitative < 0.017 ng/mL (0.000-0.055) KY-Qcm-H-Type Natriuretic Peptide 710 pg/mL (0-124) Total Protein 7.6 g/dL (6.4-8.2) Albumin 3.4 g/dL (3.4-5.0) Albumin/Globulin Ratio 0.8 (1.0-1.7) Lipase 121 U/L (73-393) Urine Collection Type Unknown Urine Color Yellow Urine Clarity Clear Urine pH 5.5 Urine Specific Kingsley 1.010 Urine Protein Negative mg/dL (NEG-TRACE) Urine Glucose (UA) Negative mg/dL (NEG) Urine Ketones (Stick) Negative mg/dL (NEG) Urine Blood Negative (NEG) Urine Nitrite Positive (NEG) Urine Bilirubin Negative (NEG) Urine Urobilinogen Dipstick 1.0 mg/dL (0.2 mg/dL) Urine Leukocyte Esterase Small (NEG) Urine RBC 0 /HPF (0-2) Urine WBC 5-10 /HPF (0-4) Urine Squamous Epithelial Cells Few /LPF Urine Bacteria Many /HPF (0-FEW) Urine Opiates Screen Neg (NEG) Urine Methadone Screen Neg (NEG) Urine Barbiturates Neg (NEG) Urine Phencyclidine Screen Neg (NEG) Urine Amphetamine/Methamphetamine Neg (NEG) Urine Benzodiazepines Screen Neg (NEG) Urine Cocaine Screen Neg (NEG) Urine Cannabinoids Screen Neg (NEG) Urine Ethyl Alcohol Neg (NEG) Glucose (Fingerstick) 236 mg/dL (70-99) 136 mg/dL (70-99) Heparin Anti-Xa Act, Unfractionated 0.34 IU/mL (0.30-0.70) Test 02/27/19 22:30 02/28/19 05:40 02/28/19 07:03 02/28/19 11:23 Troponin I Quantitative 0.588 ng/mL (0.000-0.055) 0.487 ng/mL (0.000-0.055) White Blood Count 6.1 x10^3/uL (4.0-11.0) Red Blood Count 3.84 x10^6/uL (3.50-5.40) Hemoglobin 10.7 g/dL (12.0-15.5) Hematocrit 30.8 % (36.0-47.0) Mean Corpuscular Volume 80 fL (79-100) Mean Corpuscular Hemoglobin 28 pg (25-35) Mean Corpuscular Hemoglobin Concent 35 g/dL (31-37) Red Cell Distribution Width 14.8 % (11.5-14.5) Platelet Count 210 x10^3/uL (140-400) Heparin Anti-Xa Act, Unfractionated 0.49 IU/mL (0.30-0.70) Sodium Level 143 mmol/L (136-145) Potassium Level 3.9 mmol/L (3.5-5.1) Chloride Level 109 mmol/L (98-107) Carbon Dioxide Level 21 mmol/L (21-32) Anion Gap 13 (6-14) Blood Urea Nitrogen 25 mg/dL (7-20) Creatinine 1.3 mg/dL (0.6-1.0) Estimated GFR (Cockcroft-Gault) 49.7 BUN/Creatinine Ratio 19 (6-20) Glucose Level 114 mg/dL (70-99) Calcium Level 9.2 mg/dL (8.5-10.1) Total Bilirubin 0.8 mg/dL (0.2-1.0) Aspartate Amino Transf (AST/SGOT) 48 U/L (15-37) Alanine Aminotransferase (ALT/SGPT) 56 U/L (14-59) Alkaline Phosphatase 98 U/L (46-116) Creatine Kinase 418 U/L (26-192) Total Protein 6.1 g/dL (6.4-8.2) Albumin 2.9 g/dL (3.4-5.0) Albumin/Globulin Ratio 0.9 (1.0-1.7) Glucose (Fingerstick) 110 mg/dL (70-99) 104 mg/dL (70-99) Laboratory Tests Test 02/27/19 15:01 02/27/19 18:30 02/27/19 18:58 02/27/19 21:00 White Blood Count 7.7 x10^3/uL (4.0-11.0) Red Blood Count 4.47 x10^6/uL (3.50-5.40) Hemoglobin 12.2 g/dL (12.0-15.5) Hematocrit 36.2 % (36.0-47.0) Mean Corpuscular Volume 81 fL (79-100) Mean Corpuscular Hemoglobin 27 pg (25-35) Mean Corpuscular Hemoglobin Concent 34 g/dL (31-37) Red Cell Distribution Width 15.1 % (11.5-14.5) Platelet Count 293 x10^3/uL (140-400) Neutrophils (%) (Auto) 47 % (31-73) Lymphocytes (%) (Auto) 43 % (24-48) Monocytes (%) (Auto) 7 % (0-9) Eosinophils (%) (Auto) 3 % (0-3) Basophils (%) (Auto) 1 % (0-3) Neutrophils # (Auto) 3.6 x10^3uL (1.8-7.7) Lymphocytes # (Auto) 3.3 x10^3/uL (1.0-4.8) Monocytes # (Auto) 0.5 x10^3/uL (0.0-1.1) Eosinophils # (Auto) 0.2 x10^3/uL (0.0-0.7) Basophils # (Auto) 0.1 x10^3/uL (0.0-0.2) Prothrombin Time 13.1 SEC (11.7-14.0) Prothromb Time International Ratio 1.0 (0.8-1.1) D-Dimer (Jaye) 0.45 ug/mlFEU (0.00-0.50) Sodium Level 140 mmol/L (136-145) Potassium Level 4.1 mmol/L (3.5-5.1) Chloride Level 105 mmol/L (98-107) Carbon Dioxide Level 23 mmol/L (21-32) Anion Gap 12 (6-14) Blood Urea Nitrogen 27 mg/dL (7-20) Creatinine 1.9 mg/dL (0.6-1.0) Estimated GFR (Cockcroft-Gault) 32.1 BUN/Creatinine Ratio 14 (6-20) Glucose Level 216 mg/dL (70-99) Calcium Level 9.2 mg/dL (8.5-10.1) Magnesium Level 1.8 mg/dL (1.8-2.4) Total Bilirubin 0.8 mg/dL (0.2-1.0) Aspartate Amino Transf (AST/SGOT) 67 U/L (15-37) Alanine Aminotransferase (ALT/SGPT) 70 U/L (14-59) Alkaline Phosphatase 117 U/L (46-116) Creatine Kinase 742 U/L (26-192) Troponin I Quantitative < 0.017 ng/mL (0.000-0.055) MG-Esx-N-Type Natriuretic Peptide 710 pg/mL (0-124) Total Protein 7.6 g/dL (6.4-8.2) Albumin 3.4 g/dL (3.4-5.0) Albumin/Globulin Ratio 0.8 (1.0-1.7) Lipase 121 U/L (73-393) Urine Collection Type Unknown Urine Color Yellow Urine Clarity Clear Urine pH 5.5 Urine Specific Kingsley 1.010 Urine Protein Negative mg/dL (NEG-TRACE) Urine Glucose (UA) Negative mg/dL (NEG) Urine Ketones (Stick) Negative mg/dL (NEG) Urine Blood Negative (NEG) Urine Nitrite Positive (NEG) Urine Bilirubin Negative (NEG) Urine Urobilinogen Dipstick 1.0 mg/dL (0.2 mg/dL) Urine Leukocyte Esterase Small (NEG) Urine RBC 0 /HPF (0-2) Urine WBC 5-10 /HPF (0-4) Urine Squamous Epithelial Cells Few /LPF Urine Bacteria Many /HPF (0-FEW) Urine Opiates Screen Neg (NEG) Urine Methadone Screen Neg (NEG) Urine Barbiturates Neg (NEG) Urine Phencyclidine Screen Neg (NEG) Urine Amphetamine/Methamphetamine Neg (NEG) Urine Benzodiazepines Screen Neg (NEG) Urine Cocaine Screen Neg (NEG) Urine Cannabinoids Screen Neg (NEG) Urine Ethyl Alcohol Neg (NEG) Glucose (Fingerstick) 236 mg/dL (70-99) 136 mg/dL (70-99) Heparin Anti-Xa Act, Unfractionated 0.34 IU/mL (0.30-0.70) Test 02/27/19 22:30 02/28/19 05:40 02/28/19 07:03 02/28/19 11:23 Troponin I Quantitative 0.588 ng/mL (0.000-0.055) 0.487 ng/mL (0.000-0.055) White Blood Count 6.1 x10^3/uL (4.0-11.0) Red Blood Count 3.84 x10^6/uL (3.50-5.40) Hemoglobin 10.7 g/dL (12.0-15.5) Hematocrit 30.8 % (36.0-47.0) Mean Corpuscular Volume 80 fL (79-100) Mean Corpuscular Hemoglobin 28 pg (25-35) Mean Corpuscular Hemoglobin Concent 35 g/dL (31-37) Red Cell Distribution Width 14.8 % (11.5-14.5) Platelet Count 210 x10^3/uL (140-400) Heparin Anti-Xa Act, Unfractionated 0.49 IU/mL (0.30-0.70) Sodium Level 143 mmol/L (136-145) Potassium Level 3.9 mmol/L (3.5-5.1) Chloride Level 109 mmol/L (98-107) Carbon Dioxide Level 21 mmol/L (21-32) Anion Gap 13 (6-14) Blood Urea Nitrogen 25 mg/dL (7-20) Creatinine 1.3 mg/dL (0.6-1.0) Estimated GFR (Cockcroft-Gault) 49.7 BUN/Creatinine Ratio 19 (6-20) Glucose Level 114 mg/dL (70-99) Calcium Level 9.2 mg/dL (8.5-10.1) Total Bilirubin 0.8 mg/dL (0.2-1.0) Aspartate Amino Transf (AST/SGOT) 48 U/L (15-37) Alanine Aminotransferase (ALT/SGPT) 56 U/L (14-59) Alkaline Phosphatase 98 U/L (46-116) Creatine Kinase 418 U/L (26-192) Total Protein 6.1 g/dL (6.4-8.2) Albumin 2.9 g/dL (3.4-5.0) Albumin/Globulin Ratio 0.9 (1.0-1.7) Glucose (Fingerstick) 110 mg/dL (70-99) 104 mg/dL (70-99) Assessment/Plan Assessment/Plan Abd pain- with OHD/DM, differential includes: PUD, malignancy, GB disease, gastroparesis, and/or OHD with RCA involvement. Plan US GB/HIDA EF in am to further assess Full note dictated, JAY JAY FUNES MD Feb 28, 2019 14:19
[2019-02-28] MEDS: FAMOTIDINE 20 MG TABLET. PO SCH (20:57)
[2019-02-28] MEDS: QUEtiapine 50 MG TAB.ER.24H. PO SCH (20:57)
[2019-02-28] MEDS: QUEtiapine 300 MG TAB.ER.24H. PO SCH (20:57)
[2019-02-28] MEDS: rOPINIRole 0.25 MG TABLET. PO SCH (20:58)
[2019-02-28] MEDS: LUBIPROSTONE 8 MCG CAPSULE PO SCH (20:58)
[2019-02-28] MEDS: INSULIN GLARGINE 300 UNITS/3 ML INSULN.PEN. SQ SCH (21:00)
[2019-03-01 03:25] VITALS: BP 160/76
[2019-03-01 06:48] LABS: ALBUMIN 2.9 g/dL (3.4-5.0); ALBUMIN/GLOBULIN RATIO 0.7 (1.0-1.7); CALCIUM 8.8 mg/dL (8.5-10.1); CREATININE 1.3 mg/dL (0.6-1.0); GFR 49.7; POTASSIUM 3.9 mmol/L (3.5-5.1); TOTAL BILIRUBIN 0.5 mg/dL (0.2-1.0); TOTAL PROTEIN 6.9 g/dL (6.4-8.2)
[2019-03-01 07:00] VITALS: BP 149/73
[2019-03-01] MEDS: INSULIN LISPRO 300 UNITS/3 ML INSULN.PEN. SQ SCH ×3 (08:00→17:00)
--- NOTE | 2019-03-01 08:23 | PDOC ---
PROGRESS NOTES Chief Complaint Chief Complaint A/P: Atrial fibrillation with RVR - diltiazem bolus and infusion, restart her home BB. Heparin GTT for elevated [id number] of 4 and 6.7% risk of CVA or systemic embolism. Will stop heparin, start eliquis 5mg BID Syncope - will obtain echo, CT head. Cardiology to see Epigastric abdominal pain - has had abdominal pain for months, has been evaluated, seen by GI already, had colonoscopy. This is difficult, will consult GI. abdominal US Transaminitis - She has had abdominal pain since prior to November, had recent RUQ US and subsequent HIDA revealing an echogenic liver mass that was not redemonstrated on subsequent MRI on 02/01/19. ALICIA on CKD - likely vasomotor nephropathy. IVF. Baseline Cr 1.4. Was 1.9 on admit, now 1.3 Coronary artery disease s/p CABG in 2002 or 2005 - cont BB, plavix Hypertension - will cont meds Hyperlipidemia - cont statin for goal LDL < 70mg/dL Depression - cont meds Diabetes mellitus type 2 - sliding scale basal bolus plus regimen Mild rhabdo - likely from syncope, will hydrate gently UTI - empiric rocephin, will await culture results Medication compliance difficulties - historical, may be cause of her current predicament FEN - ADA cardiac diet PPX - Eliquis FULL CODE Admit CVC for afib with RVR and syncope, likely 2 midnights History of Present Illness History of Present Illness Ms Robertson is a 63yo F w/ PMHx DM2, HTN, HLD, Afib, CKD1, CAD s/p CABG who presents via private vehicle after she experienced 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 She is now c/o 7/10 epigastric tenderness. Found in Afib with RVR on telemetry, given 10mg diltiazem bolus and started on 5mg/hr and called for admission. CT head and CXR negative. D dimer also negative. Nuclear cardiac stress testing 06/02/2017 was negative for reversible ischemia, EF 72% at that time. Overnight HR controlled better. Cr down to 1.3 now. Urine returned with +LE and nitrites, started on rocephin. HIDA consistent with 8% EF, though this was after morphine administration. Seen by surgery for outpatient consideration of biliary dyskinesia. Vitals Vitals Vital Signs Date Time Temp Pulse Resp B/P (MAP) Pulse Ox O2 Delivery O2 Flow Rate FiO2 03/01/19 07:00 97.4 77 18 149/73 (98) 99 Room Air 97.4 Physical Exam General: Alert, Oriented X3, Cooperative, No acute distress Heart: Regular rate Abdomen: Normal bowel sounds Extremities: No clubbing, No cyanosis, No edema, Normal pulses, No tenderness/swelling Skin: No rashes, No breakdown, No significant lesion Labs LABS Laboratory Tests Test 02/28/19 11:23 02/28/19 17:16 02/28/19 20:47 03/01/19 06:15 Glucose (Fingerstick) 104 mg/dL (70-99) 158 mg/dL (70-99) 147 mg/dL (70-99) Sodium Level 142 mmol/L (136-145) Potassium Level 3.9 mmol/L (3.5-5.1) Chloride Level 107 mmol/L (98-107) Carbon Dioxide Level 25 mmol/L (21-32) Anion Gap 10 (6-14) Blood Urea Nitrogen 23 mg/dL (7-20) Creatinine 1.3 mg/dL (0.6-1.0) Estimated GFR (Cockcroft-Gault) 49.7 BUN/Creatinine Ratio 18 (6-20) Glucose Level 122 mg/dL (70-99) Calcium Level 8.8 mg/dL (8.5-10.1) Total Bilirubin 0.5 mg/dL (0.2-1.0) Aspartate Amino Transf (AST/SGOT) 32 U/L (15-37) Alanine Aminotransferase (ALT/SGPT) 49 U/L (14-59) Alkaline Phosphatase 103 U/L (46-116) Creatine Kinase 263 U/L (26-192) Total Protein 6.9 g/dL (6.4-8.2) Albumin 2.9 g/dL (3.4-5.0) Albumin/Globulin Ratio 0.7 (1.0-1.7) Test 03/01/19 07:18 Glucose (Fingerstick) 110 mg/dL (70-99) Assessment and Plan Assessmemt and Plan Problems Medical Problems: (1) Atrial fibrillation with RVR Status: Acute (2) Chest pain Status: Acute (3) Elevated brain natriuretic peptide (BNP) level Status: Acute (4) Elevated liver function tests Status: Acute (5) Renal insufficiency Status: Acute (6) Syncope Status: Acute (7) Uncontrolled diabetes mellitus Status: Acute Comment Review of Relevant I have reviewed the following items judd (where applicable) has been applied. Labs Laboratory Tests Test 02/27/19 15:01 02/27/19 18:30 02/27/19 18:58 02/27/19 21:00 White Blood Count 7.7 x10^3/uL (4.0-11.0) Red Blood Count 4.47 x10^6/uL (3.50-5.40) Hemoglobin 12.2 g/dL (12.0-15.5) Hematocrit 36.2 % (36.0-47.0) Mean Corpuscular Volume 81 fL (79-100) Mean Corpuscular Hemoglobin 27 pg (25-35) Mean Corpuscular Hemoglobin Concent 34 g/dL (31-37) Red Cell Distribution Width 15.1 % (11.5-14.5) Platelet Count 293 x10^3/uL (140-400) Neutrophils (%) (Auto) 47 % (31-73) Lymphocytes (%) (Auto) 43 % (24-48) Monocytes (%) (Auto) 7 % (0-9) Eosinophils (%) (Auto) 3 % (0-3) Basophils (%) (Auto) 1 % (0-3) Neutrophils # (Auto) 3.6 x10^3uL (1.8-7.7) Lymphocytes # (Auto) 3.3 x10^3/uL (1.0-4.8) Monocytes # (Auto) 0.5 x10^3/uL (0.0-1.1) Eosinophils # (Auto) 0.2 x10^3/uL (0.0-0.7) Basophils # (Auto) 0.1 x10^3/uL (0.0-0.2) Prothrombin Time 13.1 SEC (11.7-14.0) Prothromb Time International Ratio 1.0 (0.8-1.1) D-Dimer (Jaye) 0.45 ug/mlFEU (0.00-0.50) Sodium Level 140 mmol/L (136-145) Potassium Level 4.1 mmol/L (3.5-5.1) Chloride Level 105 mmol/L (98-107) Carbon Dioxide Level 23 mmol/L (21-32) Anion Gap 12 (6-14) Blood Urea Nitrogen 27 mg/dL (7-20) Creatinine 1.9 mg/dL (0.6-1.0) Estimated GFR (Cockcroft-Gault) 32.1 BUN/Creatinine Ratio 14 (6-20) Glucose Level 216 mg/dL (70-99) Calcium Level 9.2 mg/dL (8.5-10.1) Magnesium Level 1.8 mg/dL (1.8-2.4) Total Bilirubin 0.8 mg/dL (0.2-1.0) Aspartate Amino Transf (AST/SGOT) 67 U/L (15-37) Alanine Aminotransferase (ALT/SGPT) 70 U/L (14-59) Alkaline Phosphatase 117 U/L (46-116) Creatine Kinase 742 U/L (26-192) Troponin I Quantitative < 0.017 ng/mL (0.000-0.055) RH-Yah-X-Type Natriuretic Peptide 710 pg/mL (0-124) Total Protein 7.6 g/dL (6.4-8.2) Albumin 3.4 g/dL (3.4-5.0) Albumin/Globulin Ratio 0.8 (1.0-1.7) Lipase 121 U/L (73-393) Urine Collection Type Unknown Urine Color Yellow Urine Clarity Clear Urine pH 5.5 Urine Specific [place] 1.010 Urine Protein Negative mg/dL (NEG-TRACE) Urine Glucose (UA) Negative mg/dL (NEG) Urine Ketones (Stick) Negative mg/dL (NEG) Urine Blood Negative (NEG) Urine Nitrite Positive (NEG) Urine Bilirubin Negative (NEG) Urine Urobilinogen Dipstick 1.0 mg/dL (0.2 mg/dL) Urine Leukocyte Esterase Small (NEG) Urine RBC 0 /HPF (0-2) Urine WBC 5-10 /HPF (0-4) Urine Squamous Epithelial Cells Few /LPF Urine Bacteria Many /HPF (0-FEW) Urine Opiates Screen Neg (NEG) Urine Methadone Screen Neg (NEG) Urine Barbiturates Neg (NEG) Urine Phencyclidine Screen Neg (NEG) Urine Amphetamine/Methamphetamine Neg (NEG) Urine Benzodiazepines Screen Neg (NEG) Urine Cocaine Screen Neg (NEG) Urine Cannabinoids Screen Neg (NEG) Urine Ethyl Alcohol Neg (NEG) Glucose (Fingerstick) 236 mg/dL (70-99) 136 mg/dL (70-99) Heparin Anti-Xa Act, Unfractionated 0.34 IU/mL (0.30-0.70) Test 02/27/19 22:30 02/28/19 05:40 02/28/19 07:03 02/28/19 11:23 Troponin I Quantitative 0.588 ng/mL (0.000-0.055) 0.487 ng/mL (0.000-0.055) White Blood Count 6.1 x10^3/uL (4.0-11.0) Red Blood Count 3.84 x10^6/uL (3.50-5.40) Hemoglobin 10.7 g/dL (12.0-15.5) Hematocrit 30.8 % (36.0-47.0) Mean Corpuscular Volume 80 fL (79-100) Mean Corpuscular Hemoglobin 28 pg (25-35) Mean Corpuscular Hemoglobin Concent 35 g/dL (31-37) Red Cell Distribution Width 14.8 % (11.5-14.5) Platelet Count 210 x10^3/uL (140-400) Heparin Anti-Xa Act, Unfractionated 0.49 IU/mL (0.30-0.70) Sodium Level 143 mmol/L (136-145) Potassium Level 3.9 mmol/L (3.5-5.1) Chloride Level 109 mmol/L (98-107) Carbon Dioxide Level 21 mmol/L (21-32) Anion Gap 13 (6-14) Blood Urea Nitrogen 25 mg/dL (7-20) Creatinine 1.3 mg/dL (0.6-1.0) Estimated GFR (Cockcroft-Gault) 49.7 BUN/Creatinine Ratio 19 (6-20) Glucose Level 114 mg/dL (70-99) Calcium Level 9.2 mg/dL (8.5-10.1) Total Bilirubin 0.8 mg/dL (0.2-1.0) Aspartate Amino Transf (AST/SGOT) 48 U/L (15-37) Alanine Aminotransferase (ALT/SGPT) 56 U/L (14-59) Alkaline Phosphatase 98 U/L (46-116) Creatine Kinase 418 U/L (26-192) Total Protein 6.1 g/dL (6.4-8.2) Albumin 2.9 g/dL (3.4-5.0) Albumin/Globulin Ratio 0.9 (1.0-1.7) Glucose (Fingerstick) 110 mg/dL (70-99) 104 mg/dL (70-99) Test 02/28/19 17:16 02/28/19 20:47 03/01/19 06:15 03/01/19 07:18 Glucose (Fingerstick) 158 mg/dL (70-99) 147 mg/dL (70-99) 110 mg/dL (70-99) Sodium Level 142 mmol/L (136-145) Potassium Level 3.9 mmol/L (3.5-5.1) Chloride Level 107 mmol/L (98-107) Carbon Dioxide Level 25 mmol/L (21-32) Anion Gap 10 (6-14) Blood Urea Nitrogen 23 mg/dL (7-20) Creatinine 1.3 mg/dL (0.6-1.0) Estimated GFR (Cockcroft-Gault) 49.7 BUN/Creatinine Ratio 18 (6-20) Glucose Level 122 mg/dL (70-99) Calcium Level 8.8 mg/dL (8.5-10.1) Total Bilirubin 0.5 mg/dL (0.2-1.0) Aspartate Amino Transf (AST/SGOT) 32 U/L (15-37) Alanine Aminotransferase (ALT/SGPT) 49 U/L (14-59) Alkaline Phosphatase 103 U/L (46-116) Creatine Kinase 263 U/L (26-192) Total Protein 6.9 g/dL (6.4-8.2) Albumin 2.9 g/dL (3.4-5.0) Albumin/Globulin Ratio 0.7 (1.0-1.7) Laboratory Tests Test 02/28/19 11:23 02/28/19 17:16 02/28/19 20:47 03/01/19 06:15 Glucose (Fingerstick) 104 mg/dL (70-99) 158 mg/dL (70-99) 147 mg/dL (70-99) Sodium Level 142 mmol/L (136-145) Potassium Level 3.9 mmol/L (3.5-5.1) Chloride Level 107 mmol/L (98-107) Carbon Dioxide Level 25 mmol/L (21-32) Anion Gap 10 (6-14) Blood Urea Nitrogen 23 mg/dL (7-20) Creatinine 1.3 mg/dL (0.6-1.0) Estimated GFR (Cockcroft-Gault) 49.7 BUN/Creatinine Ratio 18 (6-20) Glucose Level 122 mg/dL (70-99) Calcium Level 8.8 mg/dL (8.5-10.1) Total Bilirubin 0.5 mg/dL (0.2-1.0) Aspartate Amino Transf (AST/SGOT) 32 U/L (15-37) Alanine Aminotransferase (ALT/SGPT) 49 U/L (14-59) Alkaline Phosphatase 103 U/L (46-116) Creatine Kinase 263 U/L (26-192) Total Protein 6.9 g/dL (6.4-8.2) Albumin 2.9 g/dL (3.4-5.0) Albumin/Globulin Ratio 0.7 (1.0-1.7) Test 03/01/19 07:18 Glucose (Fingerstick) 110 mg/dL (70-99) Medications Current Medications Diltiazem HCl (Cardizem Iv Push) 20 mg 1X ONCE IVP Last administered on 02/27/19at 15:12; Start 02/27/19 at 15:15; Stop 02/27/19 at 15:16; Status DC Diltiazem HCl 125 mg/Dextrose 125 ml @ 10 mls/hr 1X ONCE IV Last administered on 02/27/19at 15:17; Start 02/27/19 at 15:15; Stop 02/28/19 at 03:44; Status DC Sodium Chloride 1,000 ml @ 1,000 mls/hr Q1H IV Last administered on 02/27/19at 15:11; Start 02/27/19 at 15:05; Stop 02/27/19 at 16:04; Status DC Fentanyl Citrate (Fentanyl 2ml Vial) 50 mcg 1X ONCE IV Last administered on 02/27/19at 16:06; Start 02/27/19 at 16:00; Stop 02/27/19 at 16:01; Status DC Clopidogrel Bisulfate (Plavix) 75 mg DAILY PO ; Start 02/28/19 at 09:00; Stop 02/28/19 at 09:00; Status DC Cyanocobalamin (Vitamin B-12) 1,000 mcg DAILY PO Last administered on 02/28/19at 12:17; Start 02/28/19 at 09:00 Ferrous Sulfate (Feosol) 325 mg DAILY PO ; Start 02/28/19 at 09:00; Stop 02/28/19 at 09:00; Status DC Lubiprostone (Amitiza) 8 mcg BID PO ; Start 02/27/19 at 21:00; Stop 02/27/19 at 21:00; Status DC Metoprolol Succinate (Toprol Xl) 50 mg DAILY PO Last administered on 02/28/19at 12:18; Start 02/28/19 at 09:00 Pregabalin (Lyrica) 75 mg BID PO ; Start 02/27/19 at 21:00; Stop 02/27/19 at 21:00; Status DC Vitamin D (Vitamin D3) 1,000 unit DAILY PO Last administered on 02/28/19at 12:17; Start 02/28/19 at 09:00 Quetiapine Fumarate (SEROquel) 25 mg BID92 PO ; Start 02/28/19 at 09:00; Stop 02/28/19 at 09:00; Status DC Quetiapine Fumarate (SEROquel XR) 100 mg QHS PO ; Start 02/27/19 at 21:00; Stop 02/27/19 at 21:00; Status DC Famotidine (Pepcid) 20 mg QHS PO Last administered on 02/28/19at 20:57; Start 02/27/19 at 21:00 Ropinirole HCl (Requip) 0.5 mg QHS PO Last administered on 02/28/19at 20:58; Start 02/27/19 at 21:00 Insulin Glargine (Lantus) 20 units QHS SQ Last administered on 02/28/19at 21:00; Start 02/27/19 at 21:00 Insulin Human Lispro (HumaLOG) 0-9 UNITS TIDWMEALS SQ Last administered on 02/28/19at 17:52; Start 02/27/19 at 17:00 Dextrose (Dextrose 50%-Water Syringe) 12.5 gm PRN Q15MIN PRN IV SEE COMMENTS; Start 02/27/19 at 17:00 Heparin Sodium (Porcine) (Heparin Sodium) 4,000 unit 1X ONCE IV Last administered on 02/27/19at 17:41; Start 02/27/19 at 17:00; Stop 02/27/19 at 17:12; Status DC Heparin Sodium/ Dextrose 500 ml @ 0 mls/hr CONT PRN IV SEE I/O RECORD Last administered on 02/27/19at 17:46; Start 02/27/19 at 17:00; Stop 02/28/19 at 11:33; Status DC Heparin Sodium (Porcine) (Heparin Sodium) 2,400 unit PRN Q6HRS PRN IV FOR UFH LEVEL LESS THAN 0.2; Start 02/27/19 at 17:00; Stop 02/28/19 at 11:34; Status DC Ondansetron HCl (Zofran) 4 mg PRN Q6HRS PRN IV NAUSEA/VOMITING; Start 02/27/19 at 17:00 Morphine Sulfate (Morphine Sulfate) 2 mg PRN Q4HRS PRN IV PAIN Last administered on 02/27/19at 17:47; Start 02/27/19 at 17:00 Polyethylene Glycol (miraLAX PACKET) 17 gm DAILY PO ; Start 02/28/19 at 09:00; Stop 02/28/19 at 09:00; Status DC Senna/Docusate Sodium (Senna Plus) 1 tab PRN BID PRN PO CONSTIPATION; Start 02/27/19 at 17:00 Tramadol HCl (Ultram) 50 mg PRN Q6HRS PRN PO PAIN; Start 02/27/19 at 17:00 Info (Anti-Coagulation Monitoring By Pharmacy) 1 each PRN DAILY PRN MC SEE COMMENTS Last administered on 02/28/19at 09:56; Start 02/27/19 at 17:15 Quetiapine Fumarate (SEROquel XR) 300 mg QHS PO ; Start 02/27/19 at 21:00; Stop 02/27/19 at 21:00; Status DC Lubiprostone (Amitiza) 8 mcg QHS PO Last administered on 02/28/19at 20:58; Start 02/27/19 at 21:00 Quetiapine Fumarate (SEROquel XR) 300 mg QHS PO Last administered on 02/28/19at 20:57; Start 02/27/19 at 21:00 Quetiapine Fumarate (SEROquel XR) 100 mg QHS PO Last administered on 02/28/19at 20:57; Start 02/27/19 at 21:00 Ceftriaxone Sodium (Rocephin) 1 gm Q24H IVP Last administered on 02/28/19at 10:52; Start 02/28/19 at 10:00 Lactobacillus Rhamnosus (Culturelle) 1 cap BID PO Last administered on 02/28/19at 20:57; Start 02/28/19 at 09:00 Apixaban (Eliquis) 5 mg BID PO Last administered on 02/28/19at 20:58; Start 02/28/19 at 11:30 Active Scripts Active Metoprolol Succinate ( Xl ) (Metoprolol Succinate) 25 Mg Tab.er.24h 2 Tab PO DAILY Reported Ferrous Sulfate 325 Mg Tablet 1 Tab PO DAILY Vitamin B-12 (Cyanocobalamin (Vitamin B-12)) 1,000 Mcg Tablet 1 Tab PO DAILY Requip (Ropinirole Hcl) 0.5 Mg Tablet 1 Tab PO QHS Metoprolol Succinate 50 Mg Tab.er.24h 50 Mg PO BID Novolog Mix 70-30 Vial (Insuln Asp Prt/Insulin Aspart) 100 Unit/1 Ml Vial 100 Unit SQ TIDAC Vitamin D3 (Cholecalciferol (Vitamin D3)) 1,000 Unit Capsule 1,000 Unit PO DAILY Amitiza (Lubiprostone) 8 Mcg Capsule 1 Cap PO BID Quetiapine Fumarate 25 Mg Tablet 25 Mg PO BID Ranitidine Hcl 150 Mg Capsule 150 Mg PO BID Seroquel Xr (Quetiapine Fumarate) 400 Mg Tab.er.24h 400 Mg PO HS Lyrica (Pregabalin) 75 Mg Capsule 75 Mg PO BID Daily Vitamin (Multivitamin) 1 Each Tablet 1 Each PO DAILY Plavix (Clopidogrel Bisulfate) 75 Mg Tablet 75 Mg PO DAILY Losartan-Hctz 100-25 Mg Tab (Losartan/Hydrochlorothiazide) 1 Each Tablet 1 Each PO DAILY Vitals/I & O Vital Sign - Last 24 Hours 6/202/28/19 02/28/19 02/28/19 09:18 10:18 11:00 11:18 Temp 97.9 97.9 Pulse 66 64 58 62 Resp 18 B/P (MAP) 150/73 (98) 140/71 (94) 140/52 (81) 140/72 (94) Pulse Ox 98 O2 Delivery Room Air 02/28/19 02/28/19 02/28/19 02/28/19 12:18 12:18 15:00 19:35 Temp 98.3 97.9 98.3 97.9 Pulse 64 62 81 81 Resp 18 18 B/P (MAP) 151/79 (103) 140/72 107/52 (70) 119/59 (79) Pulse Ox 98 94 O2 Delivery Room Air Room Air 02/28/19 02/28/19 03/01/19 03/01/19 20:09 23:10 03:25 07:00 Temp 97.7 97.6 97.4 97.7 97.6 97.4 Pulse 73 71 77 Resp 18 18 B/P (MAP) 129/70 (89) 160/76 (104) 149/73 (98) Pulse Ox 96 95 99 O2 Delivery Room Air Room Air Room Air Room Air Intake and Output 02/28/19 02/28/19 03/01/19 14:59 22:59 06:59 Intake Total 500 ml Balance 500 ml CATHLEEN DRIVER MD Mar 01, 2019 08:23
[2019-03-01] MEDS ORDERED: MORPHINE SULFATE 4 MG/ML VIAL. IV ONE (09:00)
[2019-03-01] MEDS ORDERED: MORPHINE SULFATE 4 MG/ML VIAL. ONE (09:01)
[2019-03-01] MEDS ORDERED: SINCALIDE 1.9 MCG in IV NORMAL SALINE 50ML 30 ML IV ONE (09:15)
[2019-03-01] MEDS: CHOLECALCIFEROL (VITAMIN D3) 1,000 UNIT TABLET PO SCH (10:20)
[2019-03-01] MEDS: APIXABAN 5 MG TABLET. PO SCH (10:20)
[2019-03-01] MEDS: CYANOCOBALAMIN (VITAMIN B-12) 1,000 MCG TABLET. PO SCH (10:20)
[2019-03-01] MEDS: LACTOBACILLUS RHAMNOSUS GG 1 CAPSULE. PO SCH (10:21)
[2019-03-01] MEDS: METOPROLOL SUCC 24HR ER 50 MG TAB.ER.24H. PO SCH (10:21)
[2019-03-01] MEDS: cefTRIAXone IV Push 1 GM VIAL. IVP SCH (10:21)
[2019-03-01 11:00] VITALS: BP 167/84
--- NOTE | 2019-03-01 11:09 | CONS ---
DATE OF CONSULTATION: 02/28/2019 REASON FOR CONSULTATION: Epigastric abdominal pain, nausea, and increased liver function tests. HISTORY OF PRESENT ILLNESS: This is a 63-year-old -[place] female whose past medical history is significant for organic heart disease, diabetes, hypertension, hyperlipidemia, AFib, chronic renal insufficiency type 1, status post CABG, who was admitted to [facility] for syncopal episode with AFib with rapid ventricular response. The patient has subsequently been converted with heparin and Cardizem drip. She also noted persistent epigastric pain which lasted for several hours without radiation, associated with some nausea. No fatty, greasy food intolerance. There is a family history of gallbladder disease with her mother. She has had no previous episodes similar to this, but does wish to avoid additional tacks as they are quite severe. PAST MEDICAL HISTORY: AFib, hypertension, syncope, hyperlipidemia, status post bypass surgery, chronic renal insufficiency, status post coronary artery bypass graft. FAMILY HISTORY: Significant for coronary heart disease, gallbladder disease, diabetes and hyperlipidemia. ALLERGIES: PENICILLIN, ASPIRIN, CLINDAMYCIN, IBUPROFEN, LISINOPRIL, METFORMIN AND METHOCARBAMOL. MEDICATIONS: Include Eliquis, Rocephin, vitamin D, metoprolol, vitamin B12, Seroquel, Amitiza, Requip, Pepcid, and tramadol. REVIEW OF SYSTEMS: Per records. PHYSICAL EXAMINATION: GENERAL: Reveals a well-nourished, well-developed female who is alert, cooperative in no acute distress. VITAL SIGNS: Temperature 97.9, pulse 62, respiratory rate is 18, blood pressure 140/72. HEENT: Reveals normocephalic and atraumatic head. Pupils and extraocular muscles are not tested. Sclerae anicteric. NECK: Supple. LUNGS: Clear. CARDIOVASCULAR: Reveals S1, S2 without S3, S4 or appreciable murmur. ABDOMEN: Reveals soft abdomen, normal bowel sounds without appreciable hepatosplenomegaly with mild epigastric tenderness to deep palpation. EXTREMITIES: Reveals no cyanosis, clubbing or edema. LABORATORY STUDIES: Hemoglobin ____, hematocrit is ____, white count 5.1, platelet count is 212,000. Sodium 143, potassium 3.9, chloride 109, BUN 25, creatinine 1.3, glucose 114, magnesium 0.8, AST of 48, ALT of 56 and alkaline phosphatase of 98. CPK of 418. Total protein 6.1 and albumin 2.9. Ultrasound of the liver and PIPIDA scan are presently pending. IMPRESSION: Abdominal pain, etiology is to be determined. Differential includes peptic ulcer disease, gastroparesis, as well as chronic cholecystitis; organic heart disease with right coronary involvement. Therefore, recommend ultrasound of the gallbladder and PIPIDA scan with ejection fraction to further assess. JAY JAY FUNES MD DR: ALLYSON/mary JOB#: [id number] / [id number] CATHLEEN Howell MD, Terry
--- NOTE | 2019-03-01 11:40 | CARD ---
MR#: [id number] Date of Study: 03/01/2019 Ordering Physician: CATHLEEN DRIVER, Referring Physician: CATLHEEN DRIVER, Tech: Arlette Hartmann [facility] APPROVED REPORT EXAM: Two-dimensional and M-mode echocardiogram with Doppler and color Doppler. Other Information Quality : AverageHR: 80bpm Rhythm : NSRTechnically limited study due to body habitus and CABG. INDICATION Atrial Fibrillation Surgery/Intervention CABG: Date: 2005 2D DIMENSIONS RVDd3.2 (2.9-3.5cm)Left Atrium(2D)3.8 (1.6-4.0cm) IVSd1.1 (0.7-1.1cm)Aortic Root(2D)2.8 (2.0-3.7cm) LVDd4.4 (3.9-5.9cm)LVOT Diameter2.2 (1.8-2.4cm) PWd1.2 (0.7-1.1cm)LVDs2.7 (2.5-4.0cm) FS (%) 38.8 %SV61.8 ml M-Mode DIMENSIONS Left Atrium(MM)3.96 (2.5-4.0cm)Aortic Root2.88 (2.2-3.7cm) Aortic Valve AoV Peak Armin.94.0cm/sAoV VTI16.4cm AO Peak GR.3.5mmHgLVOT Peak Armin.98.4cm/s AO Mean GR.2mmHgAVA (VMAX)4.00cm2 CARLOS MANUEL (VTI)3.80cm2 Mitral Valve MV E Focildrk13.7cm/sMV DECEL [id number] MV A Otacorvs26.0cm/sE/A Ratio0.5 Pulmonary Valve PV Peak Oaybtfhz78.1cm/s Tricuspid Valve TR P. Lssajwvw834un/sRAP [id number] TR Peak Gr.02uvVlCITC55haKv LEFT VENTRICLE The left ventricle is normal size. There is mild concentric left ventricular hypertrophy. The left ve ntricular systolic function is normal and the ejection fraction is within normal range. The Ejection Fraction is 60-65%. There is normal LV segmental wall motion. Transmitral Doppler flow pattern is Gra de I-abnormal relaxation pattern. RIGHT VENTRICLE The right ventricle is normal size. There is normal right ventricular wall thickness. The right ventr icular systolic function is normal. ATRIA The left atrium size is normal. The right atrium size is normal. The interatrial septum is intact wit h no evidence for an atrial septal defect or patent foramen ovale as noted on 2-D or Doppler imaging. AORTIC VALVE The right coronary cusp is calcified. The aortic valve is trileaflet. Doppler and Color Flow revealed no significant aortic regurgitation. There is no significant aortic valvular stenosis. MITRAL VALVE There is systolic anterior motion of the mitral valve. The anterior mitral valve leaflet is thickened . There is no evidence of mitral valve prolapse. There is no mitral valve stenosis. Doppler and Color -flow revealed trace mitral regurgitation. TRICUSPID VALVE The tricuspid valve is normal in structure and function. Doppler and Color Flow revealed trace tricus pid regurgitation The PA pressure was estimated at 36 mmHg. There is no tricuspid valve prolapse or v egetation. There is no tricuspid valve stenosis. PULMONIC VALVE The pulmonic valve is not well visualized. GREAT VESSELS The aortic root is normal in size. The ascending aorta is normal in size. The IVC is normal in size a nd collapses >50% with inspiration. PERICARDIAL EFFUSION There is no evidence of significant pericardial effusion. Critical Notification Critical Value: No <Conclusion> The left ventricle is normal size. The left ventricular systolic function is normal and the ejection fraction is within normal range. The Ejection Fraction is 60-65%. There is mild concentric left ventricular hypertrophy. There is no significant aortic valvular stenosis. Doppler and Color Flow revealed no significant aortic regurgitation. Doppler and Color-flow revealed trace mitral regurgitation. Doppler and Color Flow revealed trace tricuspid regurgitation The PA pressure was estimated at 36 mmHg. Signed by : Ermias Albright MD Electronically Approved : 03/01/2019 11:40:14
--- NOTE | 2019-03-01 11:44 | RAD ---
EXAM: HEPATOBILIARY SCINTIGRAPHY WITH GALLBLADDER EJECTION FRACTION. HISTORY: Abdominal pain/nausea. TECHNIQUE: Scintigraphic images are obtained of the liver and biliary system following intravenous administration of 5.5 mCi of technetium-99m Choletec. FINDINGS: There is prompt hepatic clearance of tracer from the blood pool. There is homogeneous distribution throughout the liver. Activity clears into the biliary tree and small bowel. The common duct appears prominent, but is not dilated on concurrent anatomic imaging. The gallbladder did not fill within 60 minutes. Intravenous morphine was administered and another image was obtained at 80 minutes. Most of the activity had already cleared into the small bowel, but a small amount is noted in the gallbladder. 1.9 mcg Kinevac were administered and the gallbladder ejection fraction calculated at 8% (normal >35%). IMPRESSION: 1. Delayed filling of the gallbladder, but it was visualized after morphine administration. Pancreas and gallbladder ejection fraction calculation is low in this setting, but it was decreased at 8%, suggesting biliary dyskinesia. Electronically signed by: Geena Magana MD (03/01/2019 11:41 AM) [facility]
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
--- NOTE | 2019-03-01 13:22 | PDOC2 ---
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 Found in Afib in ER Reports occurs with epigastric pain. Typically occurs after eating meal, works at [employer]. This has been occurring for a few months, has been seeing her PCP. This attack was severe. Denies any radiation to her back, no emesis HIDA showed EF 8%, however denies reproduction of symptoms with CCK currently eating and no pain does not typically follow a low fat diet Past Medical History Cardiovascular: AFIB, HTN, Syncope, Hyperlipidemia Pulmonary: No pertinent hx GI: No pertinent hx Heme/Onc: No pertinent hx Hepatobiliary: No pertinent hx Psych: No pertinent hx Rheumatologic: No pertinent hx Infectious disease: No pertinent hx ENT: No pertinent hx Renal/: Chronic renal insuff Endocrine: Diabetes Dermatology: No pertinent hx Past Surgical History Past Surgical History: CABG, Other (gastric bypass ) Family History Family History: Coronary Artery Disease, Diabetes, High Cholestrol, Hypertension Social History No ALCOHOL: rare Drugs: None Current Problem List Problem List Problems Medical Problems: (1) Atrial fibrillation with RVR Status: Acute (2) Chest pain Status: Acute (3) Elevated brain natriuretic peptide (BNP) level Status: Acute (4) Elevated liver function tests Status: Acute (5) Renal insufficiency Status: Acute (6) Syncope Status: Acute (7) Uncontrolled diabetes mellitus Status: Acute Current Medications Current Medications Current Medications Diltiazem HCl (Cardizem Iv Push) 20 mg 1X ONCE IVP Last administered on 02/27/19at 15:12; Start 02/27/19 at 15:15; Stop 02/27/19 at 15:16; Status DC Diltiazem HCl 125 mg/Dextrose 125 ml @ 10 mls/hr 1X ONCE IV Last administered on 02/27/19at 15:17; Start 02/27/19 at 15:15; Stop 02/28/19 at 03:44; Status DC Sodium Chloride 1,000 ml @ 1,000 mls/hr Q1H IV Last administered on 02/27/19at 15:11; Start 02/27/19 at 15:05; Stop 02/27/19 at 16:04; Status DC Fentanyl Citrate (Fentanyl 2ml Vial) 50 mcg 1X ONCE IV Last administered on 02/27/19at 16:06; Start 02/27/19 at 16:00; Stop 02/27/19 at 16:01; Status DC Clopidogrel Bisulfate (Plavix) 75 mg DAILY PO ; Start 02/28/19 at 09:00; Stop 02/28/19 at 09:00; Status DC Cyanocobalamin (Vitamin B-12) 1,000 mcg DAILY PO Last administered on 03/01/19at 10:20; Start 02/28/19 at 09:00 Ferrous Sulfate (Feosol) 325 mg DAILY PO ; Start 02/28/19 at 09:00; Stop 02/28/19 at 09:00; Status DC Lubiprostone (Amitiza) 8 mcg BID PO ; Start 02/27/19 at 21:00; Stop 02/27/19 at 21:00; Status DC Metoprolol Succinate (Toprol Xl) 50 mg DAILY PO Last administered on 03/01/19at 10:21; Start 02/28/19 at 09:00 Pregabalin (Lyrica) 75 mg BID PO ; Start 02/27/19 at 21:00; Stop 02/27/19 at 21:00; Status DC Vitamin D (Vitamin D3) 1,000 unit DAILY PO Last administered on 03/01/19at 10:20; Start 02/28/19 at 09:00 Quetiapine Fumarate (SEROquel) 25 mg BID92 PO ; Start 02/28/19 at 09:00; Stop 02/28/19 at 09:00; Status DC Quetiapine Fumarate (SEROquel XR) 100 mg QHS PO ; Start 02/27/19 at 21:00; Stop 02/27/19 at 21:00; Status DC Famotidine (Pepcid) 20 mg QHS PO Last administered on 02/28/19at 20:57; Start 02/27/19 at 21:00 Ropinirole HCl (Requip) 0.5 mg QHS PO Last administered on 02/28/19at 20:58; Start 02/27/19 at 21:00 Insulin Glargine (Lantus) 20 units QHS SQ Last administered on 6/2/19at 21:00; Start 02/27/19 at 21:00 Insulin Human Lispro (HumaLOG) 0-9 UNITS TIDWMEALS SQ Last administered on 02/28/19at 17:52; Start 02/27/19 at 17:00 Dextrose (Dextrose 50%-Water Syringe) 12.5 gm PRN Q15MIN PRN IV SEE COMMENTS; Start 02/27/19 at 17:00 Heparin Sodium (Porcine) (Heparin Sodium) 4,000 unit 1X ONCE IV Last administered on 02/27/19at 17:41; Start 02/27/19 at 17:00; Stop 02/27/19 at 17:12; Status DC Heparin Sodium/ Dextrose 500 ml @ 0 mls/hr CONT PRN IV SEE I/O RECORD Last administered on 02/27/19at 17:46; Start 02/27/19 at 17:00; Stop 02/28/19 at 11:33; Status DC Heparin Sodium (Porcine) (Heparin Sodium) 2,400 unit PRN Q6HRS PRN IV FOR UFH LEVEL LESS THAN 0.2; Start 02/27/19 at 17:00; Stop 02/28/19 at 11:34; Status DC Ondansetron HCl (Zofran) 4 mg PRN Q6HRS PRN IV NAUSEA/VOMITING; Start 02/27/19 at 17:00 Morphine Sulfate (Morphine Sulfate) 2 mg PRN Q4HRS PRN IV PAIN Last administered on 02/27/19at 17:47; Start 02/27/19 at 17:00 Polyethylene Glycol (miraLAX PACKET) 17 gm DAILY PO ; Start 02/28/19 at 09:00; Stop 02/28/19 at 09:00; Status DC Senna/Docusate Sodium (Senna Plus) 1 tab PRN BID PRN PO CONSTIPATION; Start 02/27/19 at 17:00 Tramadol HCl (Ultram) 50 mg PRN Q6HRS PRN PO PAIN; Start 02/27/19 at 17:00 Info (Anti-Coagulation Monitoring By Pharmacy) 1 each PRN DAILY PRN MC SEE COMMENTS Last administered on 02/28/19at 09:56; Start 02/27/19 at 17:15 Quetiapine Fumarate (SEROquel XR) 300 mg QHS PO ; Start 02/27/19 at 21:00; Stop 02/27/19 at 21:00; Status DC Lubiprostone (Amitiza) 8 mcg QHS PO Last administered on 02/28/19at 20:58; Start 02/27/19 at 21:00 Quetiapine Fumarate (SEROquel XR) 300 mg QHS PO Last administered on 02/28/19at 20:57; Start 02/27/19 at 21:00 Quetiapine Fumarate (SEROquel XR) 100 mg QHS PO Last administered on 02/28/19at 20:57; Start 02/27/19 at 21:00 Ceftriaxone Sodium (Rocephin) 1 gm Q24H IVP Last administered on 03/01/19 10:21; Start 02/28/19 at 10:00 Lactobacillus Rhamnosus (Culturelle) 1 cap BID PO Last administered on 03/01/19 10:21; Start 02/28/19 at 09:00 Apixaban (Eliquis) 5 mg BID PO Last administered on 03/01/19at 10:20; Start 02/28/19 at 11:30 Morphine Sulfate (Morphine Sulfate) 4 mg 1X ONCE IV ; Start 03/01/19 at 09:00; Stop 03/01/19 at 09:01; Status DC Sincalide 1.9 mcg/ Sodium Chloride 30 ml @ 120 mls/hr 1X ONCE IV Last administered on 03/01/19at 10:12; Start 03/01/19 at 09:15; Stop 03/01/19 at 09:29; Status DC Active Scripts Active Metoprolol Succinate ( Xl ) (Metoprolol Succinate) 25 Mg Tab.er.24h 2 Tab PO DAILY Reported Ferrous Sulfate 325 Mg Tablet 1 Tab PO DAILY Vitamin B-12 (Cyanocobalamin (Vitamin B-12)) 1,000 Mcg Tablet 1 Tab PO DAILY Requip (Ropinirole Hcl) 0.5 Mg Tablet 1 Tab PO QHS Metoprolol Succinate 50 Mg Tab.er.24h 50 Mg PO BID Novolog Mix 70-30 Vial (Insuln Asp Prt/Insulin Aspart) 100 Unit/1 Ml Vial 100 Unit SQ TIDAC Vitamin D3 (Cholecalciferol (Vitamin D3)) 1,000 Unit Capsule 1,000 Unit PO DAILY Amitiza (Lubiprostone) 8 Mcg Capsule 1 Cap PO BID Quetiapine Fumarate 25 Mg Tablet 25 Mg PO BID Ranitidine Hcl 150 Mg Capsule 150 Mg PO BID Seroquel Xr (Quetiapine Fumarate) 400 Mg Tab.er.24h 400 Mg PO HS Lyrica (Pregabalin) 75 Mg Capsule 75 Mg PO BID Daily Vitamin (Multivitamin) 1 Each Tablet 1 Each PO DAILY Plavix (Clopidogrel Bisulfate) 75 Mg Tablet 75 Mg PO DAILY Losartan-Hctz 100-25 Mg Tab (Losartan/Hydrochlorothiazide) 1 Each Tablet 1 Each PO DAILY Allergies Allergies: Coded Allergies: Penicillins (Verified Allergy, Severe, HIVES, SHORTNESS OF BREATH, 07/28/15) clindamycin (Verified Allergy, Severe, shortness of breath and generalized weakness, 07/28/15) Pt states after taking new prescription of ABX she developed SOB and weakness and was brought to ER by friend. Was found to have elevated BP by chance but the reaction was brought her in initially. ibuprofen (Verified Allergy, Severe, Anaphylaxis, 03/01/19) latex (Verified Allergy, Severe, ITCHING AND SWELLING, 07/28/15) aspirin (Verified Allergy, Intermediate, Hives, 02/28/19) lisinopril (Verified Allergy, Intermediate, cough, 07/28/15) methocarbamol (Verified Allergy, Intermediate, hives, 07/28/15) metformin (Verified Adverse Reaction, Intermediate, Nausea and Vomiting, 07/28/15) ROS General: No: Chills, Other (fevers ) PSYCHOLOGICAL ROS: No: Anxiety, Depression Eyes: No Blurry vision, No Double vision HEENT: No: Heacaches, Sore Throat Hematological and Lymphatic: YES: Bleeding Problems; No: Blood Clots Respiratory: No: Cough, Shortness of breath Cardiovascular: yes Chest Pain, yes Palpitations Gastrointestinal: Yes Other (see hpi) Genitourinary: No Dysuria, No Hematuria Musculoskeletal: No Joint Pain, No Muscle Pain Neurological: No Confusion, No Impaired Coord/balance Skin: No Pruritus, No Rash Physical Exam General: Alert, Oriented X3, Cooperative, No acute distress HEENT: PERRLA, Mucous membr. moist/pink Lungs: Clear to auscultation, Normal air movement Heart: Regular rate, Normal S1, Normal S2, No murmurs Abdomen: Soft, Other (ND, NTTP) Extremities: No clubbing, No cyanosis Skin: No rashes, No breakdown Neuro: Normal gait, Normal speech Psych/Mental Status: Mental status NL, Mood NL MUSCULOSKELETAL: No deformity, No swelling Vitals VITALS Vital Signs Date Time Temp Pulse Resp B/P (MAP) Pulse Ox O2 Delivery O2 Flow Rate FiO2 03/01/19 11:00 97.7 91 18 167/84 (111) 98 Room Air 97.7 Labs Labs Laboratory Tests Test 02/27/19 15:01 02/27/19 18:30 02/27/19 18:58 02/27/19 21:00 White Blood Count 7.7 x10^3/uL (4.0-11.0) Red Blood Count 4.47 x10^6/uL (3.50-5.40) Hemoglobin 12.2 g/dL (12.0-15.5) Hematocrit 36.2 % (36.0-47.0) Mean Corpuscular Volume 81 fL (79-100) Mean Corpuscular Hemoglobin 27 pg (25-35) Mean Corpuscular Hemoglobin Concent 34 g/dL (31-37) Red Cell Distribution Width 15.1 % (11.5-14.5) Platelet Count 293 x10^3/uL (140-400) Neutrophils (%) (Auto) 47 % (31-73) Lymphocytes (%) (Auto) 43 % (24-48) Monocytes (%) (Auto) 7 % (0-9) Eosinophils (%) (Auto) 3 % (0-3) Basophils (%) (Auto) 1 % (0-3) Neutrophils # (Auto) 3.6 x10^3uL (1.8-7.7) Lymphocytes # (Auto) 3.3 x10^3/uL (1.0-4.8) Monocytes # (Auto) 0.5 x10^3/uL (0.0-1.1) Eosinophils # (Auto) 0.2 x10^3/uL (0.0-0.7) Basophils # (Auto) 0.1 x10^3/uL (0.0-0.2) Prothrombin Time 13.1 SEC (11.7-14.0) Prothromb Time International Ratio 1.0 (0.8-1.1) D-Dimer (Jaye) 0.45 ug/mlFEU (0.00-0.50) Sodium Level 140 mmol/L (136-145) Potassium Level 4.1 mmol/L (3.5-5.1) Chloride Level 105 mmol/L (98-107) Carbon Dioxide Level 23 mmol/L (21-32) Anion Gap 12 (6-14) Blood Urea Nitrogen 27 mg/dL (7-20) Creatinine 1.9 mg/dL (0.6-1.0) Estimated GFR (Cockcroft-Gault) 32.1 BUN/Creatinine Ratio 14 (6-20) Glucose Level 216 mg/dL (70-99) Calcium Level 9.2 mg/dL (8.5-10.1) Magnesium Level 1.8 mg/dL (1.8-2.4) Total Bilirubin 0.8 mg/dL (0.2-1.0) Aspartate Amino Transf (AST/SGOT) 67 U/L (15-37) Alanine Aminotransferase (ALT/SGPT) 70 U/L (14-59) Alkaline Phosphatase 117 U/L (46-116) Creatine Kinase 742 U/L (26-192) Troponin I Quantitative < 0.017 ng/mL (0.000-0.055) BC-Rpk-K-Type Natriuretic Peptide 710 pg/mL (0-124) Total Protein 7.6 g/dL (6.4-8.2) Albumin 3.4 g/dL (3.4-5.0) Albumin/Globulin Ratio 0.8 (1.0-1.7) Lipase 121 U/L (73-393) Urine Collection Type Unknown Urine Color Yellow Urine Clarity Clear Urine pH 5.5 Urine Specific [place] 1.010 Urine Protein Negative mg/dL (NEG-TRACE) Urine Glucose (UA) Negative mg/dL (NEG) Urine Ketones (Stick) Negative mg/dL (NEG) Urine Blood Negative (NEG) Urine Nitrite Positive (NEG) Urine Bilirubin Negative (NEG) Urine Urobilinogen Dipstick 1.0 mg/dL (0.2 mg/dL) Urine Leukocyte Esterase Small (NEG) Urine RBC 0 /HPF (0-2) Urine WBC 5-10 /HPF (0-4) Urine Squamous Epithelial Cells Few /LPF Urine Bacteria Many /HPF (0-FEW) Urine Opiates Screen Neg (NEG) Urine Methadone Screen Neg (NEG) Urine Barbiturates Neg (NEG) Urine Phencyclidine Screen Neg (NEG) Urine Amphetamine/Methamphetamine Neg (NEG) Urine Benzodiazepines Screen Neg (NEG) Urine Cocaine Screen Neg (NEG) Urine Cannabinoids Screen Neg (NEG) Urine Ethyl Alcohol Neg (NEG) Glucose (Fingerstick) 236 mg/dL (70-99) 136 mg/dL (70-99) Heparin Anti-Xa Act, Unfractionated 0.34 IU/mL (0.30-0.70) Test 02/27/19 22:30 02/28/19 05:40 02/28/19 07:03 02/28/19 11:23 Troponin I Quantitative 0.588 ng/mL (0.000-0.055) 0.487 ng/mL (0.000-0.055) White Blood Count 6.1 x10^3/uL (4.0-11.0) Red Blood Count 3.84 x10^6/uL (3.50-5.40) Hemoglobin 10.7 g/dL (12.0-15.5) Hematocrit 30.8 % (36.0-47.0) Mean Corpuscular Volume 80 fL (79-100) Mean Corpuscular Hemoglobin 28 pg (25-35) Mean Corpuscular Hemoglobin Concent 35 g/dL (31-37) Red Cell Distribution Width 14.8 % (11.5-14.5) Platelet Count 210 x10^3/uL (140-400) Heparin Anti-Xa Act, Unfractionated 0.49 IU/mL (0.30-0.70) Sodium Level 143 mmol/L (136-145) Potassium Level 3.9 mmol/L (3.5-5.1) Chloride Level 109 mmol/L (98-107) Carbon Dioxide Level 21 mmol/L (21-32) Anion Gap 13 (6-14) Blood Urea Nitrogen 25 mg/dL (7-20) Creatinine 1.3 mg/dL (0.6-1.0) Estimated GFR (Cockcroft-Gault) 49.7 BUN/Creatinine Ratio 19 (6-20) Glucose Level 114 mg/dL (70-99) Calcium Level 9.2 mg/dL (8.5-10.1) Total Bilirubin 0.8 mg/dL (0.2-1.0) Aspartate Amino Transf (AST/SGOT) 48 U/L (15-37) Alanine Aminotransferase (ALT/SGPT) 56 U/L (14-59) Alkaline Phosphatase 98 U/L (46-116) Creatine Kinase 418 U/L (26-192) Total Protein 6.1 g/dL (6.4-8.2) Albumin 2.9 g/dL (3.4-5.0) Albumin/Globulin Ratio 0.9 (1.0-1.7) Glucose (Fingerstick) 110 mg/dL (70-99) 104 mg/dL (70-99) Test 02/28/19 17:16 02/28/19 20:47 03/01/19 06:15 03/01/19 07:18 Glucose (Fingerstick) 158 mg/dL (70-99) 147 mg/dL (70-99) 110 mg/dL (70-99) Sodium Level 142 mmol/L (136-145) Potassium Level 3.9 mmol/L (3.5-5.1) Chloride Level 107 mmol/L (98-107) Carbon Dioxide Level 25 mmol/L (21-32) Anion Gap 10 (6-14) Blood Urea Nitrogen 23 mg/dL (7-20) Creatinine 1.3 mg/dL (0.6-1.0) Estimated GFR (Cockcroft-Gault) 49.7 BUN/Creatinine Ratio 18 (6-20) Glucose Level 122 mg/dL (70-99) Calcium Level 8.8 mg/dL (8.5-10.1) Total Bilirubin 0.5 mg/dL (0.2-1.0) Aspartate Amino Transf (AST/SGOT) 32 U/L (15-37) Alanine Aminotransferase (ALT/SGPT) 49 U/L (14-59) Alkaline Phosphatase 103 U/L (46-116) Creatine Kinase 263 U/L (26-192) Total Protein 6.9 g/dL (6.4-8.2) Albumin 2.9 g/dL (3.4-5.0) Albumin/Globulin Ratio 0.7 (1.0-1.7) Test 03/01/19 11:32 Glucose (Fingerstick) 134 mg/dL (70-99) Laboratory Tests Test 02/28/19 17:16 02/28/19 20:47 03/01/19 06:15 03/01/19 07:18 Glucose (Fingerstick) 158 mg/dL (70-99) 147 mg/dL (70-99) 110 mg/dL (70-99) Sodium Level 142 mmol/L (136-145) Potassium Level 3.9 mmol/L (3.5-5.1) Chloride Level 107 mmol/L (98-107) Carbon Dioxide Level 25 mmol/L (21-32) Anion Gap 10 (6-14) Blood Urea Nitrogen 23 mg/dL (7-20) Creatinine 1.3 mg/dL (0.6-1.0) Estimated GFR (Cockcroft-Gault) 49.7 BUN/Creatinine Ratio 18 (6-20) Glucose Level 122 mg/dL (70-99) Calcium Level 8.8 mg/dL (8.5-10.1) Total Bilirubin 0.5 mg/dL (0.2-1.0) Aspartate Amino Transf (AST/SGOT) 32 U/L (15-37) Alanine Aminotransferase (ALT/SGPT) 49 U/L (14-59) Alkaline Phosphatase 103 U/L (46-116) Creatine Kinase 263 U/L (26-192) Total Protein 6.9 g/dL (6.4-8.2) Albumin 2.9 g/dL (3.4-5.0) Albumin/Globulin Ratio 0.7 (1.0-1.7) Test 03/01/19 11:32 Glucose (Fingerstick) 134 mg/dL (70-99) Assessment/Plan Assessment/Plan AFib, syncope biliary dyskinesia on eliquis recommended a low fat diet can Fu with Dr Maxwell to eval for zheng when eliquis is safe to be held JYOTI MAXWELL MD 03/01/19 1447: CONSULT Assessment/Plan Assessment/Plan Pt seen and examined. Agree with Ms. Acevedo's note Pt with episodic epigastric abd pain HIDA c/w chronic acalculous cholecystitis will check CT to evaluate for other causes and given hx of gastric bypass (100 lbs weight loss) OK to d/c and f/u for elective outpt lap zheng with gram, will need cardiac evaluation prior to. Thanks for consult! RENU ACEVEDO APRN Mar 01, 2019 13:22 JYOTI MAXWELL MD Mar 01, 2019 14:47
--- NOTE | 2019-03-01 13:24 | PDOC ---
CARDIO Progress Notes Date and Time Date of Service 03/01/19 Time of Evaluation 1300 Subjective Subjective: No Chest Pain, No shortness of breath Vitals Vitals Vital Signs Date Time Temp Pulse Resp B/P (MAP) Pulse Ox O2 Delivery O2 Flow Rate FiO2 03/01/19 11:00 97.7 91 18 167/84 (111) 98 Room Air 97.7 Weight Weight [ ] Input and Output Intake and Output Intake and Output 03/01/19 06:59 Intake Total 500 ml Balance 500 ml Intake Oral 500 ml Laboratory Labs Laboratory Tests Test 02/28/19 17:16 02/28/19 20:47 03/01/19 06:15 03/01/19 07:18 Glucose (Fingerstick) 158 mg/dL (70-99) 147 mg/dL (70-99) 110 mg/dL (70-99) Sodium Level 142 mmol/L (136-145) Potassium Level 3.9 mmol/L (3.5-5.1) Chloride Level 107 mmol/L (98-107) Carbon Dioxide Level 25 mmol/L (21-32) Anion Gap 10 (6-14) Blood Urea Nitrogen 23 mg/dL (7-20) Creatinine 1.3 mg/dL (0.6-1.0) Estimated GFR (Cockcroft-Gault) 49.7 BUN/Creatinine Ratio 18 (6-20) Glucose Level 122 mg/dL (70-99) Calcium Level 8.8 mg/dL (8.5-10.1) Total Bilirubin 0.5 mg/dL (0.2-1.0) Aspartate Amino Transf (AST/SGOT) 32 U/L (15-37) Alanine Aminotransferase (ALT/SGPT) 49 U/L (14-59) Alkaline Phosphatase 103 U/L (46-116) Creatine Kinase 263 U/L (26-192) Total Protein 6.9 g/dL (6.4-8.2) Albumin 2.9 g/dL (3.4-5.0) Albumin/Globulin Ratio 0.7 (1.0-1.7) Test 03/01/19 11:32 Glucose (Fingerstick) 134 mg/dL (70-99) Physical Exam HEENT: Neck Supple W Full Motion Chest: Symmetric LUNGS: Clear to Auscultation Heart: S1S2, RRR, irregularly irregular Abdomen: Soft N/T Extremities: No Edema Neurology: alert, oriented, follow commands Assessment Assessment 1. PAFIB with RVR; converted on IV Cardizem. Eliquis initiated. Has remained in SR without arrhythmias. Metoprolol for rate control 2. Elevated troponin; peak 3. Minimally elevated troponin at 0.588. Probably type II, demand ischemia secondary to tachycardia. 4. CAD s/p; CABG. Echo with preserved LV systolic function. Will plan for outpatient ischemic eval. 5. DM, II 6. Hyperlipidemia; statin 7. Abnormal HIDA; outpatient surgical f/u for possible lab BYRON Obrien APRN Mar 01, 2019 13:24
--- NOTE | 2019-03-01 13:55 | RAD ---
EXAM: ABDOMINAL ULTRASOUND. HISTORY: Abdominal pain. COMPARISON: 02/01/2019. FINDINGS: Sonographic evaluation of the abdomen was performed. The liver appears normal in parenchymal echotexture. A region of hyperechogenicity within the right hepatic lobe measures 2.5 x 1.4 cm and corresponds with a region of focal steatosis on prior MRI. The spleen measures 8.8 cm. The gallbladder is unremarkable without evidence of stones, wall thickening or pericholecystic fluid. There is no sonographic Russell sign. The common duct measures 4 mm. The pancreas is mostly obscured. It was unremarkable on recent MRI. The right kidney measures 9.9 cm. Cortical thickness and echogenicity are preserved. There is no hydronephrosis. The left kidney measures 10.6 cm. Cortical thickness and echogenicity are preserved. A lobulated region at the left renal lower pole is not associated with an abnormality on prior MRI. This is likely a variant of normal. There is no hydronephrosis. The visualized portions of the abdominal aorta and inferior vena cava are grossly patent and normal in caliber. IMPRESSION: 1. 2.5 cm region of focal steatosis within the right hepatic lobe. No suspicious lesions are identified. 2. No cause for pain is identified. Electronically signed by: Geena Magana MD (03/01/2019 1:52 PM) [facility]
[2019-03-01] MEDS ORDERED: APIX5TAB PO (14:12)
--- NOTE | 2019-03-01 14:16 | PDOC3 ---
Discharge Summary Visit Information Date of Admission: Feb 27, 2019 Date of Discharge: Mar 01, 2019 Admitting Diagnosis: Afib with RVR Final Diagnosis Problems Medical Problems: (1) Atrial fibrillation with RVR Status: Acute (2) Chest pain Status: Acute (3) Elevated brain natriuretic peptide (BNP) level Status: Acute (4) Elevated liver function tests Status: Acute (5) Renal insufficiency Status: Acute (6) Syncope Status: Acute (7) Uncontrolled diabetes mellitus Status: Acute Brief Hospital Course Allergies Allergies Coded Allergies Type Severity Reaction Last Updated Verified Penicillins Allergy Severe HIVES, SHORTNESS OF BREATH 07/28/15 Yes clindamycin Allergy Severe shortness of breath and generalized weakness 07/28/15 Yes ibuprofen Allergy Severe Anaphylaxis 03/01/19 Yes latex Allergy Severe ITCHING AND SWELLING 07/28/15 Yes aspirin Allergy Intermediate Hives 02/28/19 Yes lisinopril Allergy Intermediate cough 07/28/15 Yes methocarbamol Allergy Intermediate hives 07/28/15 Yes metformin Adverse Reaction Intermediate Nausea and Vomiting 07/28/15 Yes Vital Signs Vital Signs Date Time Temp Pulse Resp B/P (MAP) Pulse Ox O2 Delivery O2 Flow Rate FiO2 03/01/19 11:00 97.7 91 18 167/84 (111) 98 Room Air 97.7 Lab Results Laboratory Tests Test 02/27/19 15:01 02/27/19 18:30 02/27/19 18:58 02/27/19 21:00 White Blood Count 7.7 x10^3/uL (4.0-11.0) Red Blood Count 4.47 x10^6/uL (3.50-5.40) Hemoglobin 12.2 g/dL (12.0-15.5) Hematocrit 36.2 % (36.0-47.0) Mean Corpuscular Volume 81 fL (79-100) Mean Corpuscular Hemoglobin 27 pg (25-35) Mean Corpuscular Hemoglobin Concent 34 g/dL (31-37) Red Cell Distribution Width 15.1 % (11.5-14.5) Platelet Count 293 x10^3/uL (140-400) Neutrophils (%) (Auto) 47 % (31-73) Lymphocytes (%) (Auto) 43 % (24-48) Monocytes (%) (Auto) 7 % (0-9) Eosinophils (%) (Auto) 3 % (0-3) Basophils (%) (Auto) 1 % (0-3) Neutrophils # (Auto) 3.6 x10^3uL (1.8-7.7) Lymphocytes # (Auto) 3.3 x10^3/uL (1.0-4.8) Monocytes # (Auto) 0.5 x10^3/uL (0.0-1.1) Eosinophils # (Auto) 0.2 x10^3/uL (0.0-0.7) Basophils # (Auto) 0.1 x10^3/uL (0.0-0.2) Prothrombin Time 13.1 SEC (11.7-14.0) Prothromb Time International Ratio 1.0 (0.8-1.1) D-Dimer (Jaye) 0.45 ug/mlFEU (0.00-0.50) Sodium Level 140 mmol/L (136-145) Potassium Level 4.1 mmol/L (3.5-5.1) Chloride Level 105 mmol/L (98-107) Carbon Dioxide Level 23 mmol/L (21-32) Anion Gap 12 (6-14) Blood Urea Nitrogen 27 mg/dL (7-20) Creatinine 1.9 mg/dL (0.6-1.0) Estimated GFR (Cockcroft-Gault) 32.1 BUN/Creatinine Ratio 14 (6-20) Glucose Level 216 mg/dL (70-99) Calcium Level 9.2 mg/dL (8.5-10.1) Magnesium Level 1.8 mg/dL (1.8-2.4) Total Bilirubin 0.8 mg/dL (0.2-1.0) Aspartate Amino Transf (AST/SGOT) 67 U/L (15-37) Alanine Aminotransferase (ALT/SGPT) 70 U/L (14-59) Alkaline Phosphatase 117 U/L (46-116) Creatine Kinase 742 U/L (26-192) Troponin I Quantitative < 0.017 ng/mL (0.000-0.055) AH-Qvy-G-Type Natriuretic Peptide 710 pg/mL (0-124) Total Protein 7.6 g/dL (6.4-8.2) Albumin 3.4 g/dL (3.4-5.0) Albumin/Globulin Ratio 0.8 (1.0-1.7) Lipase 121 U/L (73-393) Urine Collection Type Unknown Urine Color Yellow Urine Clarity Clear Urine pH 5.5 Urine Specific Ruby 1.010 Urine Protein Negative mg/dL (NEG-TRACE) Urine Glucose (UA) Negative mg/dL (NEG) Urine Ketones (Stick) Negative mg/dL (NEG) Urine Blood Negative (NEG) Urine Nitrite Positive (NEG) Urine Bilirubin Negative (NEG) Urine Urobilinogen Dipstick 1.0 mg/dL (0.2 mg/dL) Urine Leukocyte Esterase Small (NEG) Urine RBC 0 /HPF (0-2) Urine WBC 5-10 /HPF (0-4) Urine Squamous Epithelial Cells Few /LPF Urine Bacteria Many /HPF (0-FEW) Urine Opiates Screen Neg (NEG) Urine Methadone Screen Neg (NEG) Urine Barbiturates Neg (NEG) Urine Phencyclidine Screen Neg (NEG) Urine Amphetamine/Methamphetamine Neg (NEG) Urine Benzodiazepines Screen Neg (NEG) Urine Cocaine Screen Neg (NEG) Urine Cannabinoids Screen Neg (NEG) Urine Ethyl Alcohol Neg (NEG) Glucose (Fingerstick) 236 mg/dL (70-99) 136 mg/dL (70-99) Heparin Anti-Xa Act, Unfractionated 0.34 IU/mL (0.30-0.70) Test 02/27/19 22:30 02/28/19 05:40 02/28/19 07:03 02/28/19 11:23 Troponin I Quantitative 0.588 ng/mL (0.000-0.055) 0.487 ng/mL (0.000-0.055) White Blood Count 6.1 x10^3/uL (4.0-11.0) Red Blood Count 3.84 x10^6/uL (3.50-5.40) Hemoglobin 10.7 g/dL (12.0-15.5) Hematocrit 30.8 % (36.0-47.0) Mean Corpuscular Volume 80 fL (79-100) Mean Corpuscular Hemoglobin 28 pg (25-35) Mean Corpuscular Hemoglobin Concent 35 g/dL (31-37) Red Cell Distribution Width 14.8 % (11.5-14.5) Platelet Count 210 x10^3/uL (140-400) Heparin Anti-Xa Act, Unfractionated 0.49 IU/mL (0.30-0.70) Sodium Level 143 mmol/L (136-145) Potassium Level 3.9 mmol/L (3.5-5.1) Chloride Level 109 mmol/L (98-107) Carbon Dioxide Level 21 mmol/L (21-32) Anion Gap 13 (6-14) Blood Urea Nitrogen 25 mg/dL (7-20) Creatinine 1.3 mg/dL (0.6-1.0) Estimated GFR (Cockcroft-Gault) 49.7 BUN/Creatinine Ratio 19 (6-20) Glucose Level 114 mg/dL (70-99) Calcium Level 9.2 mg/dL (8.5-10.1) Total Bilirubin 0.8 mg/dL (0.2-1.0) Aspartate Amino Transf (AST/SGOT) 48 U/L (15-37) Alanine Aminotransferase (ALT/SGPT) 56 U/L (14-59) Alkaline Phosphatase 98 U/L (46-116) Creatine Kinase 418 U/L (26-192) Total Protein 6.1 g/dL (6.4-8.2) Albumin 2.9 g/dL (3.4-5.0) Albumin/Globulin Ratio 0.9 (1.0-1.7) Glucose (Fingerstick) 110 mg/dL (70-99) 104 mg/dL (70-99) Test 02/28/19 17:16 02/28/19 20:47 03/01/19 06:15 03/01/19 07:18 Glucose (Fingerstick) 158 mg/dL (70-99) 147 mg/dL (70-99) 110 mg/dL (70-99) Sodium Level 142 mmol/L (136-145) Potassium Level 3.9 mmol/L (3.5-5.1) Chloride Level 107 mmol/L (98-107) Carbon Dioxide Level 25 mmol/L (21-32) Anion Gap 10 (6-14) Blood Urea Nitrogen 23 mg/dL (7-20) Creatinine 1.3 mg/dL (0.6-1.0) Estimated GFR (Cockcroft-Gault) 49.7 BUN/Creatinine Ratio 18 (6-20) Glucose Level 122 mg/dL (70-99) Calcium Level 8.8 mg/dL (8.5-10.1) Iron Level 34 ug/dL (50-170) Total Iron Binding Capacity 267 ug/dL (250-450) Iron Saturation 13 % (15-34) Total Bilirubin 0.5 mg/dL (0.2-1.0) Aspartate Amino Transf (AST/SGOT) 32 U/L (15-37) Alanine Aminotransferase (ALT/SGPT) 49 U/L (14-59) Alkaline Phosphatase 103 U/L (46-116) Creatine Kinase 263 U/L (26-192) Total Protein 6.9 g/dL (6.4-8.2) Albumin 2.9 g/dL (3.4-5.0) Albumin/Globulin Ratio 0.7 (1.0-1.7) Vitamin B12 Level 479 pg/mL (247-911) Test 03/01/19 11:32 Glucose (Fingerstick) 134 mg/dL (70-99) Laboratory Tests Test 02/28/19 17:16 02/28/19 20:47 03/01/19 06:15 03/01/19 07:18 Glucose (Fingerstick) 158 mg/dL (70-99) 147 mg/dL (70-99) 110 mg/dL (70-99) Sodium Level 142 mmol/L (136-145) Potassium Level 3.9 mmol/L (3.5-5.1) Chloride Level 107 mmol/L (98-107) Carbon Dioxide Level 25 mmol/L (21-32) Anion Gap 10 (6-14) Blood Urea Nitrogen 23 mg/dL (7-20) Creatinine 1.3 mg/dL (0.6-1.0) Estimated GFR (Cockcroft-Gault) 49.7 BUN/Creatinine Ratio 18 (6-20) Glucose Level 122 mg/dL (70-99) Calcium Level 8.8 mg/dL (8.5-10.1) Iron Level 34 ug/dL (50-170) Total Iron Binding Capacity 267 ug/dL (250-450) Iron Saturation 13 % (15-34) Total Bilirubin 0.5 mg/dL (0.2-1.0) Aspartate Amino Transf (AST/SGOT) 32 U/L (15-37) Alanine Aminotransferase (ALT/SGPT) 49 U/L (14-59) Alkaline Phosphatase 103 U/L (46-116) Creatine Kinase 263 U/L (26-192) Total Protein 6.9 g/dL (6.4-8.2) Albumin 2.9 g/dL (3.4-5.0) Albumin/Globulin Ratio 0.7 (1.0-1.7) Vitamin B12 Level 479 pg/mL (247-911) Test 03/01/19 11:32 Glucose (Fingerstick) 134 mg/dL (70-99) Brief Hospital Course Ms Robertson is a 63yo F w/ PMHx DM2, HTN, HLD, Afib, CKD1, CAD s/p CABG who presents via private vehicle after she experienced 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 She is now c/o 7/10 epigastric tenderness. Found in Afib with RVR on telemetry, given 10mg diltiazem bolus and started on 5mg/hr and called for admission. CT head and CXR negative. D dimer also negative. Nuclear cardiac stress testing 06/02/2017 was negative for reversible ischemia, EF 72% at that time. Overnight HR controlled better. Cr down to 1.3 now. Urine returned with +LE and nitrites, started on rocephin. HIDA consistent with 8% EF, though this was after morphine administration. Seen by surgery for outpatient consideration of biliary dyskinesia. Given 3 days of antibiotics, UTI was treated. Sent out on 5mg Eliquis BID. A/P: Atrial fibrillation with RVR - diltiazem bolus and infusion, restarted her home BB. Heparin GTT for elevated [id number] of 4 and 6.7% risk of CVA or systemic embolism. Will stop heparin, start eliquis 5mg BID Syncope - CT head. Cardiology to see Epigastric abdominal pain - has had abdominal pain for months, has been evaluated, seen by GI already, had colonoscopy. This is difficult, will consult GI. abdominal US Transaminitis - She has had abdominal pain since prior to November, had recent RUQ US and subsequent HIDA revealing an echogenic liver mass that was not redemonstrated on subsequent MRI on 02/01/19. ALICIA on CKD - likely vasomotor nephropathy. IVF. Baseline Cr 1.4. Was 1.9 on admit, now 1.3 Coronary artery disease s/p CABG in 2002 or 2005 - cont BB, plavix Hypertension - will cont meds Hyperlipidemia - cont statin for goal LDL < 70mg/dL Depression - cont meds Diabetes mellitus type 2 - sliding scale basal bolus plus regimen Mild rhabdo - likely from syncope, will hydrate gently UTI - empiric rocephin, will await culture results Medication compliance difficulties - historical, may be cause of her current predicament Greater than 30 minutes spent on discharge Discharge Information Condition at Discharge: Improved Follow Up: Weeks Disposition/Orders: D/C to Home Scheduled Apixaban (Eliquis) 5 Mg Tablet, 5 MG PO BID for AFIB for 30 Days, #60 Ref 2 Prescribed by: CATHLEEN DRIVER MD on 03/01/19 1412 Cholecalciferol (Vitamin D3) (Vitamin D3) 1,000 Unit Capsule, 1,000 UNIT PO DAILY, (Reported) Entered as Reported by: MARCELO GALVEZ on 07/19/15 1234 Last Action: Converted on 02/27/191658 by CATHLEEN DRIVER MD Clopidogrel Bisulfate (Plavix) 75 Mg Tablet, 75 MG PO DAILY, (Reported) Entered as Reported by: RENEE ZAFAR on 02/02/14 0745 Last Action: Continued on 02/27/191658 by CATHLEEN DRIVER MD Cyanocobalamin (Vitamin B-12) (Vitamin B-12) 1,000 Mcg Tablet, 1 TAB PO DAILY, #30 Ref 2 (Reported) Entered as Reported by: LEATHA HAYES on 05/31/172231 Last Action: Continued on 02/27/191658 by CATHELEN DRIVER MD Ferrous Sulfate (Ferrous Sulfate) 325 Mg Tablet, 1 TAB PO DAILY, #30 Ref 3 (Reported) Entered as Reported by: LEATHA HAYES on 05/31/172231 Last Action: Continued on 02/27/191658 by CATHLEEN DRIVER MD Insuln Asp Prt/Insulin Aspart (Novolog Mix 70-30 Vial) 100 Unit/1 Ml Vial, 100 UNIT SQ TIDAC, (Reported) Entered as Reported by: MARCELO GALVEZ on 07/19/151233 Lubiprostone (Amitiza) 8 Mcg Capsule, 1 CAP PO BID, #60 Ref 3 (Reported) Entered as Reported by: MARCELO GALVEZ on 07/19/151233 Last Action: Continued on 02/27/191658 by CATHLEEN DRIVER MD Metoprolol Succinate (Metoprolol Succinate) 50 Mg Tab.er.24h, 50 MG PO BID, (Reported) Entered as Reported by: MARCELO GALVEZ on 07/19/151233 Metoprolol Succinate (Metoprolol Succinate ( Xl )) 25 Mg Tab.er.24h, 2 TAB PO DAILY, #30 Ref 5 Prescribed by: GABY LOCKHART on 06/03/17 1158 Last Action: Continued on 02/27/191658 by CATHLEEN DRIVER MD Multivitamin (Daily Vitamin) 1 Each Tablet, 1 EACH PO DAILY, (Reported) Entered as Reported by: RENEE ZAFAR on 02/02/14 0745 Pregabalin (Lyrica) 75 Mg Capsule, 75 MG PO BID, (Reported) Entered as Reported by: MARCELO GALVEZ on 07/19/151233 Last Action: Continued on 02/27/191658 by CATHLEEN DRIVER MD Quetiapine Fumarate (Seroquel Xr) 400 Mg Tab.er.24h, 400 MG PO HS, (Reported) Entered as Reported by: MARCELO GALVEZ on 07/19/151233 Last Action: Converted on 02/27/191658 by CATHLEEN DRIVER MD Quetiapine Fumarate (Quetiapine Fumarate) 25 Mg Tablet, 25 MG PO BID, (Reported) Entered as Reported by: MARCELO GALVEZ on 07/19/151233 Last Action: Converted on 02/27/191658 by CATHLEEN DRIVER MD Ranitidine Hcl (Ranitidine Hcl) 150 Mg Capsule, 150 MG PO BID, (Reported) Entered as Reported by: MARCELO GALVEZ on 07/19/151233 Last Action: Converted on 02/27/191658 by CATHLEEN DRIVER MD Ropinirole Hcl (Requip) 0.5 Mg Tablet, 1 TAB PO QHS, #30 Ref 2 (Reported) Entered as Reported by: LEATHA HAYES on 05/31/172 Last Action: Converted on 02/27/19 1659 by CATHLEEN DRIVER MD Discontinued Medications Losartan/Hydrochlorothiazide (Losartan-Hctz 100-25 Mg Tab) 1 Each Tablet, 1 EACH PO DAILY, (Reported) Entered as Reported by: RENEE ZAFAR on 02/02/14 0745 CATHLEEN DRIVER MD Mar 01, 2019 14:16
[2019-03-01] MEDS ORDERED: CONTRAST GIVEN. MC PRN (14:30)
[2019-03-01] MEDS ORDERED: IOHEXOL 240 MG/ML 50ML VIAL. PO ONE (14:30)
[2019-03-01 15:06] VITALS: BP 119/70
--- NOTE | 2019-03-01 17:07 | RAD ---
EXAM: CT ABDOMEN/PELVIS WITHOUT CONTRAST. HISTORY: Abdominal pain. TECHNIQUE: Computed tomography of the abdomen and pelvis was performed without intravenous contrast. COMPARISON: Today's ultrasound, 02/01/2019, 10/18/2011. FINDINGS: Lung windows through the visualized portions of the bases reveal mild atelectasis. Coronary and aortic valve calcifications are noted. Bone windows reveal no suspicious lesions. Median sternotomy changes are noted. There are changes of gastric bypass procedure. There is no small bowel obstruction. The region of the efferent anastomosis is mildly dilated, likely normal postoperative appearance. Stool throughout the right colon suggests mild constipation. The left colon is relatively decompressed. The appendix is not inflamed. The liver, gallbladder, pancreas, adrenal glands and spleen are unremarkable without contrast. There is no nephroureterolithiasis or hydronephrosis. No suspicious renal lesions are seen without contrast. There are no pathologically enlarged lymph nodes. The uterus is surgically absent. IMPRESSION: 1. No cause for acute pain is identified. Correlate for mild constipation. 2. Aortic valve calcifications. Correlate for aortic stenosis. *One or more of the following individualized dose reduction techniques were utilized for this examination: 1. Automated exposure control. 2. Adjustment of the mA and/or kV according to patient size. 3. Use of iterative reconstruction technique. Electronically signed by: Geena Magana MD (03/01/2019 5:04 PM) [facility]
--- NOTE | 2019-03-01 18:27 | NUR ---
Discharge Note: BRENDA BAR Discharge instructions and discharge home medications reviewed with Patient and a copy given. All questions have been answered and understanding verbalized. ]
== END 2019-03-01 18:29 | disposition home or self-care (01) | DRG 871 ==
LOC: ER 14:45 → 2 NORTH 15:10
PROVIDERS: ADMIT Internal Medicine; ATTEND Internal Medicine
DX: A41.9 Sepsis, unspecified organism (principal); N17.0 Acute kidney failure with tubular necrosis; M62.82 Rhabdomyolysis; N39.0 Urinary tract infection, site not specified; I24.8 Other forms of acute ischemic heart disease; I48.0 Paroxysmal atrial fibrillation; E11.22 Type 2 diabetes mellitus with diabetic chronic kidney disease; I25.10 Atherosclerotic heart disease of native coronary artery without angina pectoris; F32.9 Major depressive disorder, single episode, unspecified; E78.5 Hyperlipidemia, unspecified; I12.9 Hypertensive chronic kidney disease with stage 1 through stage 4 chronic kidney disease, or unspecified chronic kidney disease; N18.1 Chronic kidney disease, stage 1; K82.8 Other specified diseases of gallbladder; D64.9 Anemia, unspecified; K21.9 Gastro-esophageal reflux disease without esophagitis; Z95.1 Presence of aortocoronary bypass graft; Z88.0 Allergy status to penicillin; Z88.8 Allergy status to other drugs, medicaments and biological substances; Z88.6 Allergy status to analgesic agent; Z88.1 Allergy status to other antibiotic agents; Z91.040 Latex allergy status; Z82.49 Family history of ischemic heart disease and other diseases of the circulatory system; Z83.3 Family history of diabetes mellitus; Z79.4 Long term (current) use of insulin; Z98.84 Bariatric surgery status; Z91.19 Patient's noncompliance with other medical treatment and regimen
CPT/HCPCS: 36415; 70450; 71045; 74176; 76700; 78227; 80053; 80307; 81001; 82550; 82607; 82962; 83540; 83550; 83690; 83735; 83880; 84484; 85025; 85027; 85379; 85520; 85610; 87086; 87186; 93005; 93306; 96365; 96366; 96375; 96376; A9537; J0696; J1644; J1815; J2270; J2805; J3010; J3490; J7030; Q9966; 99291-25

== ENCOUNTER 2019-04-20 07:55 | Day surgery (SDC) | payer MEDICARE ==
[~2019-04-20] VITALS: Ht 176.5 cm; Wt 93.5 kg
[~2019-04-20 07:55] MED LIST changes: +ALPR2TAB2 PO; +APIX5TAB PO; +BISACODYL 10 MG SUPP.RECT. ONE; +BUPIVAC MPF-EPI 0.5%-1:200000 30 ML VIAL. ONE; +CYAN-25 PO; -CYAN10005 PO; +CYCL10TA2 PO; +HEPARIN 1,000 UNIT in IV NORMAL SALINE 1,000 ML for SURG PERIOP IRR ONE; +HYDROmorphone 2 MG/ML VIAL IV PRN; +IOHEXOL 300 MG/ML 50 ML VIAL. ONE; +IV RINGERS,LACTATED 1000ML 1,000 ML IV SCH; +LIDOCAINE 1% PF 2 ML VIAL. ID PRN; +METO100T7 PO; +MORPHINE SULFATE 2 MG/ML VIAL. IV PRN; +ONDANSETRON PF 4 MG/2 ML VIAL. IV PRN; +PROCHLORPERAZINE 10 MG/2 ML VIAL. IV PRN; +SURGICEL HEMOSTAT 4X8 EACH. ONE; +VANCOMYCIN 1GM IVPB FOR OMNI 250 ML IV PRN; +fentaNYL PF VIAL 100 MCG/2 ML VIAL IV PRN
[2019-04-20] MEDS ORDERED: PROPOFOL 100 ML IV ONE (08:22)
[2019-04-20] MEDS ORDERED: ROCURONIUM 50 MG/5 ML VIAL. ONE (08:22)
[2019-04-20] MEDS ORDERED: LIDOCAINE 2% PF 5 ML VIAL. ONE (08:22)
[2019-04-20] MEDS ORDERED: FAMOTIDINE 20 MG/2 ML VIAL ONE (08:25)
[2019-04-20] MEDS ORDERED: fentaNYL PF VIAL 100 MCG/2 ML VIAL ONE (08:25)
[2019-04-20] MEDS ORDERED: DEXAMETHASONE SOD PHOS 4 MG/ML VIAL ONE (08:26)
[2019-04-20] MEDS ORDERED: ONDANSETRON PF 4 MG/2 ML VIAL. ONE (08:29)
--- NOTE | 2019-04-20 08:49 | PDOC ---
SURGICAL PROGRESS NOTE Subjective 63 yo F with RUQ pain and biliary dyskinesia TO OR for laparoscopic versus open cholecystectomy with cholangiogram R/R/B/A d/w pt. Risks, including, but not limited to: bleeding, infection, damage to surrounding structures, risk of anesthesia, risk of open, risk of . She appears to understand, her questions are answered and she elects to proceed. Office note H&P reviewed and unchanged. Vital Signs Vital Signs Date Time Temp Pulse Resp B/P (MAP) Pulse Ox O2 Delivery O2 Flow Rate FiO2 04/20/19 08:26 97.2 71 16 141/74 96 Room Air 97.2 Labs Laboratory Tests Test 04/20/19 08:31 Glucose (Fingerstick) 102 mg/dL (70-99) Laboratory Tests Test 04/20/19 08:31 Glucose (Fingerstick) 102 mg/dL (70-99) JYOTI SLOAN MD Apr 20, 2019 08:49
[2019-04-20] MEDS ORDERED: PROPOFOL 20 ML IV ONE (09:41)
[2019-04-20] MEDS ORDERED: GLYCOPYRROLATE 1 MG/5 ML VIAL. ONE (10:26)
[2019-04-20] MEDS ORDERED: NEOSTIGMINE 10 MG/10 ML VIAL. ONE (10:27)
[2019-04-20] MEDS ORDERED: hydrALAZINE 20 MG/ML VIAL. ONE (10:31)
--- NOTE | 2019-04-20 10:35 | RAD ---
Examination: CHOLANGIOGRAM INTRAOPERATIVE History: Cholangiogram Comparison/Correlation: 03/01/2019 CT abdomen and pelvis with oral contrast Findings: Fluoroscopy was utilized for 0.2 minutes. A total of 2 images were provided. Cholecystectomy noted. No extravasation of contrast. Contrast opacification of the common bile duct, common hepatic duct, and the cystic duct is unremarkable. No suspicious filling defects or strictures noted. Impression: Unremarkable intraoperative cholangiogram. Electronically signed by: Serafin Echavarria MD (04/20/2019 10:32 AM) [id number]
--- NOTE | 2019-04-20 10:50 | PDOC4 ---
OPERATIVE NOTE Date: Date: Apr 20, 2019 Pre-Op Diagnosis: Biliary dyskinesia Post-Op Diagnosis: same, chronic acalculous cholecystitis Procedure Performed: Laparoscopic cholecystectomy with cholangiogram, diaphragm biopsy Surgeon: Mg Sloan Anesthesia Type: GETA plus local Blood Loss: 50 Specimans Obtained: gallbladder, diaphragm mass Findings: Chronic adhesions to gallbladder, small 0.5 mass underside right diaphragm, normal cholangiogram Complications: none Operative Note: After obtaining informed consent, patient was taken to OR, induced under GETA and prepped in the usual fashion. 5 mm port placed umbilical and RUQ, 12 port placed epigastric, all under laparoscopic guidance. Abdominal cavity was explored. Patient is obese making the procedure difficult throughout. Small 0.5 cm mass noted on underside of right diaphragm. This was grasped, removed and sent to pathology for evaluation. Falciform ligament and associated round ligament unattached. Suspect done at time of gastric bypass. Liver grossly normal in appearance. Gallbladder has chronic adhesions. Adhesions cleared sharply. Gallbladder taken off fossa in dome down manner. Cystic artery, anterior and posterior, divided between clips. Critical view obtained with cystic duct only remaining structure. Cholangiogram obtained which was normal. Cystic duct secured with hemolok and clips. Gallbladder placed in bag, delivered and sent to pathology for evaluation. Copious irrigation. No evidence of bleeding or other pathology. Ports removed without bleeding. Fascia repaired with 0 vicryl. Skin repaired with 4 0 monocryl. Dressing applied. Patient tolerated procedure well and sent to PACU in stable condition. All counts correct. JYOTI SLOAN MD Apr 20, 2019 10:50
[2019-04-20] MEDS ORDERED: HYDROcodone/APAP 5/325MG 1 TAB TABLET PO PRN (11:00)
[2019-04-20] MEDS ORDERED: SEVOFLURANE 61 TO 120 MINUTES. IH ONE (11:01)
[2019-04-20] MEDS: fentaNYL PF VIAL 100 MCG/2 ML VIAL IV PRN ×2 (11:22→13:45)
[2019-04-20] MEDS ORDERED: HYDR-3164 PO (12:10)
[2019-04-20] MEDS ORDERED: SENN-80 PO (12:12)
[2019-04-20] MEDS: INSULIN LISPRO 100 UNIT/ML 3ML VIAL for OP,RR ONLY. SQ PRN ×2 (12:25→13:45)
[2019-04-20 13:05] VITALS: BP 167/76
--- NOTE | 2019-04-21 17:06 | PATHOLOGY ---
[facility] Accession Number: [id number] . 01 Material submitted: . PART A: gallbladder - GALLBLADDER PART B: abdomen - DIAPHRAGM MASS . 01 Clinical history: . Cholelithiasis. . 02 Diagnosis: A. Gallbladder, cholecystectomy: - Chronic cholecystitis. . B. Segment of focal mesothelial-lined fibroadipose tissue, diaphragm mass: - Nodular focus of hyalinization and calcification. (JPM:brittney; 04/21/2019) QMS/04/21/2019 . 02 Comment: There are no calculi identified within the gallbladder lumen or the specimen container. There is no evidence of malignancy. (JPM:brittney; 04/21/2019) . 02 Electronically signed: . Alexander Gibbons MD, Pathologist NPI- [id number] . 01 Gross description: . A. Received in formalin labeled "Melissa Scherer, gallbladder" is an intact cholecystectomy specimen measuring 7.7 x 3.3 x 2.6 cm. The serosa is pink-coreas and smooth and the specimen is opened to reveal coreas-green velvety mucosa without polyps or masses. The average wall thickness is 0.2 cm. Calculi are not present within the container or within the gallbladder. [employer] sections of the fundus and body and the cystic duct margin are submitted in A1. . B. Received in formalin labeled "Isrealy, Melissa, diaphragm mass" is a coreas-yellow nodule measuring 0.7 x 0.5 x 0.2 cm. The specimen is submitted without sectioning in cassette B1. ([facility] [place]; 04/20/2019) SYC/SYC . 02 Pathologist provided ICD-10: K81.1, R22.9 . 02 CPT . 186397, 306952 Specimen Comment: A courtesy copy of this report has been sent to Specimen Comment: [phone], . Specimen Comment: Report sent to / DR BOOGIE Performed at: 01 [facility] [address], [place] [id number] MD Aristeo Morales MD Phone: [phone] Performed at: 02 [facility] [address] [place], [place] [id number] MD Alexander Gibbons MD Phone: [phone]
== END 2019-04-20 13:18 | disposition home or self-care (01) ==
LOC: SURG 07:55
PROVIDERS: ATTEND Surgery
DX: K81.1 Chronic cholecystitis (principal); I10 Essential (primary) hypertension; I25.10 Atherosclerotic heart disease of native coronary artery without angina pectoris; E78.5 Hyperlipidemia, unspecified; G47.33 Obstructive sleep apnea (adult) (pediatric); E11.40 Type 2 diabetes mellitus with diabetic neuropathy, unspecified; Z98.890 Other specified postprocedural states; Z86.73 Personal history of transient ischemic attack (TIA), and cerebral infarction without residual deficits; Z90.710 Acquired absence of both cervix and uterus; Z95.1 Presence of aortocoronary bypass graft; Z98.41 Cataract extraction status, right eye; Z96.1 Presence of intraocular lens; Z79.84 Long term (current) use of oral hypoglycemic drugs
CPT/HCPCS: 47563; 74300; 82962; 88304; A7015; J0360; J0696; J1100; J1644; J2001; J2405; J2704; J2710; J3010; J3490; J7030; Q9967

== ENCOUNTER → 2019-09-30 | Outpatient (CLI) | payer MEDICARE ==
[2019-09-07 16:54] VITALS: BP 189/84
[~2019-09-30] MED LIST changes: +AMLO5TAB10 PO; -BISACODYL 10 MG SUPP.RECT. ONE; -BUPIVAC MPF-EPI 0.5%-1:200000 30 ML VIAL. ONE; -HEPARIN 1,000 UNIT in IV NORMAL SALINE 1,000 ML for SURG PERIOP IRR ONE; +HYDR-3164 PO; -HYDROmorphone 2 MG/ML VIAL IV PRN; -IOHEXOL 300 MG/ML 50 ML VIAL. ONE; -IV RINGERS,LACTATED 1000ML 1,000 ML IV SCH; -LIDOCAINE 1% PF 2 ML VIAL. ID PRN; +LOSA25TA54 PO; +METO50TA4 PO; -MORPHINE SULFATE 2 MG/ML VIAL. IV PRN; -ONDANSETRON PF 4 MG/2 ML VIAL. IV PRN; -PROCHLORPERAZINE 10 MG/2 ML VIAL. IV PRN; +SENN-80 PO; +SIMV40TA18 PO; -SIMV40TA3 PO; -SURGICEL HEMOSTAT 4X8 EACH. ONE; -VANCOMYCIN 1GM IVPB FOR OMNI 250 ML IV PRN; -fentaNYL PF VIAL 100 MCG/2 ML VIAL IV PRN
--- NOTE | 2019-09-30 13:13 | KCIC ---
EXAM: Left shoulder, 3 views. HISTORY: Pain. COMPARISON: None. FINDINGS: 3 views of the left shoulder obtained. There is mild acromioclavicular os arthritis with a small inferiorly directed distal clavicular spur. There is moderate glenohumeral spurring with slight subchondral sclerosis. There is no fracture, dislocation or subluxation. There are findings consistent with prior CABG. IMPRESSION: 1. Mild left acromioclavicular and moderate left glenohumeral osteoarthritis. 2. No acute osseous finding. Electronically signed by: Danette Torres MD (09/30/2019 1:10 PM) [facility]
== END | disposition home or self-care (01) ==
LOC: KCIC 11:35
PROVIDERS: ATTEND Family Medicine
DX: M19.012 Primary osteoarthritis, left shoulder (principal); Z95.1 Presence of aortocoronary bypass graft
CPT/HCPCS: 73030

== ENCOUNTER → 2019-11-16 | Outpatient (CLI) | payer BC ==
[2019-09-07 16:54] VITALS: BP 189/84
--- NOTE | 2019-11-17 18:31 | RAD ---
BILATERAL SCREENING MAMMOGRAM, 3-D History: Routine screening. Comparison: 12/23/2013, 04/17/2016, 08/27/2017, 09/03/2018 mammographic exams. Technique: MLO and CC digital tomosynthesis (3D) images obtained. Radiologist reviewed these images on dedicated workstation. Findings: Breast Tissue Density B : There are scattered areas of fibroglandular density. There are no dominant masses, suspicious microcalcifications, or architectural distortion. Focal asymmetry involving the left lower inner breast is similar compared to the prior exams IMPRESSION: No mammographic evidence of malignancy. Recommend routine screening. BI-RADS category 1: Negative. The images were reviewed with computer-aided detection. Patient information is entered into reminder system with a target due date for the next screening mammogram. Mammography is the most sensitive method for finding small breast cancers, but it does not detect them all and is not a substitute for careful clinical examination. A negative mammogram does not negate a clinically suspicious finding and should not result in delay in biopsying a clinically suspicious abnormality. "Our facility is accredited by the [employer] Mammography Program." Electronically signed by: Serafin Echavarria MD (11/17/2019 6:27 PM) [facility]
== END | disposition home or self-care (01) ==
LOC: MAMMO 13:53
PROVIDERS: ATTEND Family Medicine
DX: Z12.31 Encounter for screening mammogram for malignant neoplasm of breast (principal); N64.89 Other specified disorders of breast
CPT/HCPCS: 77063; 77067

== ENCOUNTER → 2020-02-28 | Outpatient (CLI) | payer BC ==
[2019-09-07 16:54] VITALS: BP 189/84
[~2020-02-28] MED LIST changes: +PREG-9 PO; -PREG75CA PO; +SENN-182 PO; -SENN-80 PO
--- NOTE | 2020-02-28 16:46 | RAD ---
Left knee 4 views. HISTORY: Acute pain left knee M 26.662 3 views were taken of the left knee. There is evidence of osteoarthritis. There is hypertrophic burning. There is mild joint space narrowing medially. There is also spurring and joint space narrowing at the patellofemoral compartment. There is vascular calcification. IMPRESSION: 1. Osteoarthritis left knee. Electronically signed by: Raymond Chi MD (02/28/2020 4:44 PM) [id number]
== END | disposition home or self-care (01) ==
LOC: RAD 15:52
PROVIDERS: ATTEND Family Medicine
DX: M17.12 Unilateral primary osteoarthritis, left knee (principal); M25.562 Pain in left knee; M25.862 Other specified joint disorders, left knee; M76.892 Other specified enthesopathies of left lower limb, excluding foot
CPT/HCPCS: 73564

== ENCOUNTER 2021-12-05 23:24 | Inpatient (IN) | payer BC ==
[~2021-12-05] VITALS: Ht 175.3 cm; Wt 88.7 kg
[~2021-12-05 23:24] MED LIST changes: +AMLO-186 PO; -AMLO5TAB10 PO; +CYCL10TA19 PO; -CYCL10TA2 PO; -PARO25TA11 PO; +PARO25TA18 PO; -QUET25TA PO; +QUET25TA3 PO; -QUET400T PO; +QUET400T2 PO
[2021-12-05] MEDS ORDERED: NALOXONE 0.4 MG/ML VIAL. ONE (23:34)
[2021-12-05 23:49] LABS: BASO % 1 % (0-3); EOS # 0.2 x10^3/uL (0.0-0.7); EOS % 3 % (0-3); HEMOGLOBIN 11.8 g/dL (12.0-15.5); LYMPH # 2.1 x10^3/uL (1.0-4.8); LYMPH % 36 % (24-48); MEAN CORPUSCULAR HEMOGLOBIN 27 pg (25-35); MEAN CORPUSCULAR HGB CONC 33 g/dL (31-37); MEAN CORPUSCULAR VOLUME 83 fL (79-100); MONO # 0.6 x10^3/uL (0.0-1.1); MONO % 10 % (0-9); NEUT % 51 % (31-73); PLATELET COUNT 237 x10^3/uL (140-400); RED BLOOD COUNT 4.34 x10^6/uL (3.50-5.40); RED CELL DISTRIBUTION WIDTH 14.4 % (11.5-14.5)
--- NOTE | 2021-12-05 23:56 | RAD ---
EXAMINATION: CT head without IV contrast. INDICATION:66 years, Female, altered mental status, code stroke. COMPARISON: 02/27/2019 TECHNIQUE: Spiral acquisition of contiguous images from the skull base to the vertex were obtained. S agittal and coronal 2D reformatted series were provided by the technologist. Soft tissue and bone win subhash algorithms were reviewed. Exposure: One or more of the following individualized dose reduction techniques were utilized for thi s examination: 1. Automated exposure control 2. Adjustment of the mA and/or kV according to patient size 3. Use of iterative reconstruction technique. FINDINGS: Neither mass, midline shift, intracranial hemorrhage, acute/subacute ischemic changes, nor extraaxial fluid collections are seen. The brain parenchyma is normal in appearance.The ventricles are normal in size. The paranasal sinuses, mastoid air cells, and middle ears are clear.The orbital contents appear withi n normal limits. IMPRESSION: No evidence of acute intracranial abnormality. FOR INTERNAL CODING PURPOSES Critical result: Findings discussed with SUKHI PATTERSON MD at 12/05/2021 11:53 PM. RESULT CODE: (C) Electronically signed by: Pietro Wade MD (12/05/2021 11:54 PM) [facility]
[2021-12-05 23:57] LABS: CALCIUM 9.1 mg/dL (8.5-10.1); CREATININE 1.4 mg/dL (0.6-1.0); GFR 45.2; POTASSIUM 3.7 mmol/L (3.5-5.1)
[2021-12-06 00:04] LABS: ALBUMIN 3.3 g/dL (3.4-5.0); ALBUMIN/GLOBULIN RATIO 0.8 (1.0-1.7); MAGNESIUM 2.1 mg/dL (1.8-2.4); TOTAL BILIRUBIN 0.5 mg/dL (0.2-1.0); TOTAL PROTEIN 7.4 g/dL (6.4-8.2)
--- NOTE | 2021-12-06 00:04 | RAD ---
XR CHEST 1V History: Reason: Altered mental status / Spl. Instructions: / History: Comparison: September 06, 2019 Findings: Low lung volumes. Mild patchy mid and bibasilar opacities. No pleural effusion. No pneumothorax. Prio r median sternotomy. Unchanged heart size. Impression: 1. Low lung volumes with patchy mid and bibasilar opacities, may represent atelectasis or developing infiltrates. Electronically signed by: Sean Villagran DO (12/06/2021 12:02 AM) [facility]
[2021-12-06] MEDS ORDERED: CONTRAST GIVEN. MC PRN (00:45)
[2021-12-06 00:55] LABS: BILIRUBIN,URINE NEGATIVE (NEG); CLARITY,URINE HAZY; COLOR,URINE STRAW; NITRITE,URINE POSITIVE (NEG); PH,URINE 6.5 (<5.0-8.0); PROTEIN,URINE NEGATIVE (NEG-TRACE); UROBILINOGEN,URINE 0.2 mg/dL (0.2 mg/dL)
[2021-12-06] MEDS ORDERED: IOHEXOL 350 MG/ML 100 ML VIAL. IV ONE (01:00)
--- NOTE | 2021-12-06 01:00 | RAD ---
EXAMINATION: CTA HEAD AND NECK W/WO CONTRAST INDICATION:66 years, Female, altered mental status, delayed speech. TECHNIQUE: After bolus of intravenous contrast, volumetric CT data acquisition was acquired of the he ad and neck. Multiplanar reconstruction images to include MIP and 3-D reconstruction images are submi tted. Exposure: One or more of the following individualized dose reduction techniques were utilized for thi s examination: 1. Automated exposure control 2. Adjustment of the mA and/or kV according to patient size 3. Use of iterative reconstruction technique. COMPARISON: None FINDINGS: Any determination of stenosis is based on NASCET criteria. Head CTA: ICA: Atherosclerotic calcifications in the cavernous and supraclinoid ICAs causing approximately perc ent process. MCA: No stenosis, occlusion or aneurysm. STACY: No stenosis, occlusion or aneurysm. 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 Basilar artery: No stenosis, occlusion or aneurysm. Distal vertebral arteries: No stenosis, occlusion or aneurysm. CT angiogram neck: Aortic arch: Normal. Common carotid arteries: No stenosis, occlusion or dissection. Internal carotid arteries: Dense atherosclerotic calcifications in bilateral proximal internal caroti d artery, causing near complete occlusion of the right and 50 percent stenosis in the left internal c arotid arteries External carotid arteries: Patent Vertebral arteries: No stenosis, occlusion or dissection. Imaged lung apices are unremarkable. Soft tissues appear normal. Bones: No pathologic osseous lesions. Multilevel degenerative changes. IMPRESSION: 1. Dense atherosclerotic calcifications in bilateral proximal internal carotid arteries, causing jenny r complete occlusion on the right and 50 percent stenosis on the left. 2. No significant arterial stenosis or occlusion within the head. Electronically signed by: Pietro Wade MD (12/06/2021 12:58 AM) [facility]
[2021-12-06 01:01] LABS: AMPHETAMINE/METHAMPHETAMINE NEG (NEG); BARBITURATES NEG (NEG); BENZODIAZEPINES NEG (NEG); CANNABINOIDS NEG (NEG); COCAINE NEG (NEG); METHADONE NEG (NEG); OPIATES NEG (NEG); PHENCYCLIDINE NEG (NEG)
[2021-12-06 01:07] LABS: BACTERIA,URINE MANY /HPF (0-FEW)
--- NOTE | 2021-12-06 01:42 | PHYS DOC ---
Past Medical History Past Medical History: A-Fib, CAD, Depression, Diabetes-Type II, High Cholesterol, Hypertension Past Surgical History: Cholecystectomy, Coronary Bypass Surgery Smoking Status: Never Smoker Alcohol Use: None Drug Use: None General Adult EDM: Chief Complaint: ALTERED MENTAL STATUS HPI: HPI: Patient is a 66 year old female who presents with altered mental status. The patient was brought to the emergency department by EMS after family had found the patient earlier this evening at 2230 to be minimally responsive. They state that the patient's last known well was earlier today at 1600. At baseline patient is able to walk and talk independently. Patient had slurred speech and did not follow commands for EMS. Upon arrival, the patient is unable to provide any history. Reported history from family includes hyperlipidemia and hypertension. No previous history of stroke. Review of Systems: Review of Systems: Unable to obtain from patient due to altered mental status Heart Score: C/O Chest Pain: No Risk Factors: Risk Factors: DM, Current or recent (<one month) smoker, HTN, HLP, family history of CAD, obesity. Risk Scores: Score 0 - 3: 2.5% MACE over next 6 weeks - Discharge Home Score 4 - 6: 20.3% MACE over next 6 weeks - Admit for Clinical Observation Score 7 - 10: 72.7% MACE over next 6 weeks - Early Invasive Strategies Current Medications: Current Medications Medications (Trade) Dose Ordered Sig/Parul Start Time Stop Time Status Last Admin Dose Admin Info (CONTRAST GIVEN -- Rx MONITORING) 1 each PRN DAILY PRN 12/06/21 00:45 12/08/21 00:44 Iohexol (Omnipaque 350 Mg/ml) 60 ml 1X ONCE 12/06/21 01:00 12/06/21 01:01 DC 12/06/21 00:34 60 ML Naloxone HCl (Narcan) 0.4 mg STK-MED ONCE 12/05/21 23:34 12/05/21 23:34 DC Allergies: Allergies: Allergies Coded Allergies Type Severity Reaction Last Updated Verified Penicillins Allergy Severe HIVES, SHORTNESS OF BREATH 12/06/21 Yes clindamycin Allergy Severe shortness of breath and generalized weakness 12/06/21 Yes ibuprofen Allergy Severe Anaphylaxis 12/06/21 Yes latex Allergy Severe ITCHING AND SWELLING 12/06/21 Yes aspirin Allergy Intermediate Hives 12/06/21 Yes lisinopril Allergy Intermediate cough 12/06/21 Yes methocarbamol Allergy Intermediate hives 04/20/19 Yes metformin Adverse Reaction Intermediate Nausea and Vomiting 04/20/19 Yes Physical Exam: PE: Constitutional: Opens eyes spontaneously, follows commands aphasic. [] HENT: Normocephalic, atraumatic, bilateral external ears normal, oropharynx moist, no oral exudates, nose normal. [] Eyes: PERRLA, EOMI, conjunctiva normal, no discharge. [] Neck: Normal range of motion, no tenderness, supple, no stridor. [] Cardiovascular:Heart rate regular rhythm, no murmur [] Lungs & Thorax: Bilateral breath sounds clear to auscultation [] Abdomen: Bowel sounds normal, soft, no tenderness, no masses, no pulsatile masses. [] Skin: Warm, dry, no erythema, no rash. [] Back: No tenderness, no CVA tenderness. [] Extremities: No tenderness, no cyanosis, no clubbing, ROM intact, no edema. [] Neurologic: GCS 14, bilaterally symmetric upper and lower extremity weakness 4 out of 5, no sensory deficit. [] Current Patient Data: Labs: Laboratory Tests Test 12/05/21 23:40 12/06/21 00:42 White Blood Count 6.0 x10^3/uL (4.0-11.0) Red Blood Count 4.34 x10^6/uL (3.50-5.40) Hemoglobin 11.8 g/dL (12.0-15.5) L Hematocrit 36.0 % (36.0-47.0) Mean Corpuscular Volume 83 fL (79-100) Mean Corpuscular Hemoglobin 27 pg (25-35) Mean Corpuscular Hemoglobin Concent 33 g/dL (31-37) Red Cell Distribution Width 14.4 % (11.5-14.5) Platelet Count 237 x10^3/uL (140-400) Neutrophils (%) (Auto) 51 % (31-73) Lymphocytes (%) (Auto) 36 % (24-48) Monocytes (%) (Auto) 10 % (0-9) H Eosinophils (%) (Auto) 3 % (0-3) Basophils (%) (Auto) 1 % (0-3) Neutrophils # (Auto) 3.0 x10^3/uL (1.8-7.7) Lymphocytes # (Auto) 2.1 x10^3/uL (1.0-4.8) Monocytes # (Auto) 0.6 x10^3/uL (0.0-1.1) Eosinophils # (Auto) 0.2 x10^3/uL (0.0-0.7) Basophils # (Auto) 0.0 x10^3/uL (0.0-0.2) Sodium Level 137 mmol/L (136-145) Potassium Level 3.7 mmol/L (3.5-5.1) Chloride Level 103 mmol/L (98-107) Carbon Dioxide Level 26 mmol/L (21-32) Anion Gap 8 (6-14) Blood Urea Nitrogen 24 mg/dL (7-20) H Creatinine 1.4 mg/dL (0.6-1.0) H Estimated GFR (Cockcroft-Gault) 45.2 BUN/Creatinine Ratio 17 (6-20) Glucose Level 263 mg/dL (70-99) H Lactic Acid Level 2.2 mmol/L (0.4-2.0) H Calcium Level 9.1 mg/dL (8.5-10.1) Magnesium Level 2.1 mg/dL (1.8-2.4) Total Bilirubin 0.5 mg/dL (0.2-1.0) Aspartate Amino Transferase (AST) 24 U/L (15-37) Alanine Aminotransferase (ALT) 52 U/L (14-59) Alkaline Phosphatase 125 U/L (46-116) H Troponin I High Sensitivity 10 ng/L (4-50) Total Protein 7.4 g/dL (6.4-8.2) Albumin 3.3 g/dL (3.4-5.0) L Albumin/Globulin Ratio 0.8 (1.0-1.7) L Urine Collection Type Unknown Urine Color Straw Urine Clarity Hazy Urine pH 6.5 (<5.0-8.0) Urine Specific [place] 1.015 (1.000-1.030) Urine Protein Negative mg/dL (NEG-TRACE) Urine Glucose (UA) 100 mg/dL (NEG) Urine Ketones (Stick) Negative mg/dL (NEG) Urine Blood Trace (NEG) Urine Nitrite Positive (NEG) Urine Bilirubin Negative (NEG) Urine Urobilinogen Dipstick 0.2 mg/dL (0.2 mg/dL) Urine Leukocyte Esterase Small (NEG) Urine RBC 1-2 /HPF (0-2) Urine WBC 1-4 /HPF (0-4) Urine Squamous Epithelial Cells Few /LPF Urine Bacteria Many /HPF (0-FEW) Urine Opiates Screen Neg (NEG) Urine Methadone Screen Neg (NEG) Urine Barbiturates Neg (NEG) Urine Phencyclidine Screen Neg (NEG) Urine Amphetamine/Methamphetamine Neg (NEG) Urine Benzodiazepines Screen Neg (NEG) Urine Cocaine Screen Neg (NEG) Urine Cannabinoids Screen Neg (NEG) Urine Ethyl Alcohol Neg (NEG) Laboratory Tests 12/05/21 23:40 Laboratory Tests 12/05/21 23:40 Vital Signs: Blood pressure 199/89, pulse 80, SPO2 100%, respirations 18 EKG: EKG: Interpreted by me: Heart rate 108, sinus tachycardia, normal intervals, normal axis, no acute ST/T wave abnormalities present [] Radiology/Procedures: Radiology/Procedures: [place] [address] IMAGING REPORT Signed PATIENT: BRENDA BAR: [id number] : 1955 LOCATION: ER AGE: 66 SEX: F EXAM STATUS: REG ER ORD. PHYSICIAN: SUKHI PATTERSON MD REASON: Altered mental status PROCEDURE: PORTABLE CHEST 1V XR CHEST 1V History: Reason: Altered mental status / Spl. Instructions: / History: Comparison: September 06, 2019 Findings: Low lung volumes. Mild patchy mid and bibasilar opacities. No pleural effusion. No pneumothorax. Prior median sternotomy. Unchanged heart size. Impression: 1. Low lung volumes with patchy mid and bibasilar opacities, may represent atelectasis or developing infiltrates. Electronically signed by: Sean Villagran DO (12/06/2021 12:02 AM) [facility] DICTATED and SIGNED BY: SEAN VILLAGRAN DO DATE: 12/06/21 [id number] [address] [id number] IMAGING REPORT Signed PATIENT: BRENDA BAR: [id number] : 1955 LOCATION: ER AGE: 66 SEX: F EXAM STATUS: REG ER ORD. PHYSICIAN: SUKHI PATTERSON MD REASON: Altered mental status, last known well 1600 today PROCEDURE: CT CODE STROKE HEAD WO EXAMINATION: CT head without IV contrast. INDICATION:66 years, Female, altered mental status, code stroke. COMPARISON: 02/27/2019 TECHNIQUE: Spiral acquisition of contiguous images from the skull base to the vertex were obtained. Sagittal and coronal 2D reformatted series were provided by the technologist. Soft tissue and bone window algorithms were reviewed. Exposure: One or more of the following individualized dose reduction techniques were utilized for this examination: 1. Automated exposure control 2. Adjustment of the mA and/or kV according to patient size 3. Use of iterative reconstruction technique. FINDINGS: Neither mass, midline shift, intracranial hemorrhage, acute/subacute ischemic changes, nor extraaxial fluid collections are seen. The brain parenchyma is nor mal in appearance.The ventricles are normal in size. The paranasal sinuses, mastoid air cells, and middle ears are clear.The orbital contents appear within normal limits. IMPRESSION: No evidence of acute intracranial abnormality. FOR INTERNAL CODING PURPOSES Critical result: Findings discussed with SUKHI PATTERSON MD at 12/05/2021 11:53 PM. RESULT CODE: (C) Electronically signed by: Shantelle Wade MD (12/05/2021 11:54 PM) [facility] DICTATED and SIGNED BY: SHANTELLE WADE MD DATE: 12/05/21 [id number] [facility] [address] [place], [place] [id number] IMAGING REPORT Signed PATIENT: BRENDA BAR: [id number] : 1955 LOCATION: ER AGE: 66 SEX: F EXAM STATUS: REG ER ORD. PHYSICIAN: SUKHI PATTERSON MD REASON: Altered mental status, delayed speech;OMNI 350,60ML PROCEDURE: CT ANGIOGRAPHY HEAD AND NECK EXAMINATION: CTA HEAD AND NECK W/WO CONTRAST INDICATION:66 years, Female, altered mental status, delayed speech. TECHNIQUE: After bolus of intravenous contrast, volumetric CT data acquisition was acquired of the head and neck. Multiplanar reconstruction images to include MIP and 3-D reconstruction images are submitted. Exposure: One or more of the following individualized dose reduction techniques were utilized for this examination: 1. Automated exposure control 2. Adjustment of the mA and/or kV according to patient size 3. Use of iterative reconstruction technique. COMPARISON: None FINDINGS: Any determination of stenosis is based on NASCET criteria. Head CTA: ICA: Atherosclerotic calcifications in the cavernous and supraclinoid ICAs causing approximately percent process. MCA: No stenosis, occlusion or aneurysm. STACY: No stenosis, occlusion or aneurysm. 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 Basilar artery: No stenosis, occlusion or aneurysm. Distal vertebral arteries: No stenosis, occlusion or aneurysm. CT angiogram neck: Aortic arch: Normal. Common carotid arteries: No stenosis, occlusion or dissection. Internal carotid arteries: Dense atherosclerotic calcifications in bilateral proximal internal carotid artery, causing near complete occlusion of the right and 50 percent stenosis in the left internal carotid arteries External carotid arteries: Patent Vertebral arteries: No stenosis, occlusion or dissection. Imaged lung apices are unremarkable. Soft tissues appear normal. Bones: No pathologic osseous lesions. Multilevel degenerative changes. IMPRESSION: 1. Dense atherosclerotic calcifications in bilateral proximal internal carotid arteries, causing near complete occlusion on the right and 50 percent stenosis on the left. 2. No significant arterial stenosis or occlusion within the head. Electronically signed by: Shantelle Wade MD (12/06/2021 12:58 AM) [facility] DICTATED and SIGNED BY: SHANTELLE WADE MD DATE: 12/06/21 [id number] [] Course & Med Decision Making: Course & Med Decision Making Pertinent Labs and Imaging studies reviewed. (See chart for details) Patient was trialed on IV Narcan with no significant improvement. Patient underwent emergent CT scan which was found to be negative. Patient then underwent a CT angiogram which showed evidence of a near total occlusion of the right internal carotid artery and 50% stenosis of the left carotid artery. A ngiogram of the brain showed no large vessel occlusion. I consulted Dr. Hunter of neurology and spoke with him regarding the case. Given that the patient's last known well was at 1600 before patient was found 6 hours later in an altered state, the patient was deemed to not be a candidate for TPA. He advised that we speak with the stroke neurologist at [facility] to ensure no need for immediate intervention. I spoke with Dr. Salgado, stroke neurologist at [facility] regarding the case. He agreed that the patient is not a candidate for immediate intervention but would need admission for further stroke evaluation and work-up. The patient was admitted to Dr. Russo. Consults placed to neurology and vascular surgery. Spoke with family regarding plan of care and they are in agreement at time of disposition. Critical CARE time excluding procedures: 65 minutes [] Dragon Disclaimer: Dragon Disclaimer: This electronic medical record was generated, in whole or in part, using a voice recognition dictation system. Departure Departure Impression: Primary Impression: Acute encephalopathy Additional Impressions: Carotid stenosis, right Carotid stenosis, left Urinary tract infection Qualified Codes: N39.0 - Urinary tract infection, site not specified Disposition: ADMITTED INPATIENT Admitting Physician: ZAHIDA Condition: GUARDED Referrals: KELBY BOOGIE MD (PCP) SUKHI PATTERSON MD Dec 06, 2021 01:42
[2021-12-06 01:45] LABS: INFLUENZA A PATIENT NEGATIVE (NEGATIVE); INFLUENZA B PATIENT NEGATIVE (NEGATIVE)
[2021-12-06] MEDS ORDERED: LABETALOL 20 MG/4 ML DISP.SYRIN. IVP ONE (02:30)
[2021-12-06] MEDS ORDERED: cefTRIAXone IV Push 1 GM VIAL. IVP ONE (02:30)
[2021-12-06 03:06] VITALS: BP 190/96
--- NOTE | 2021-12-06 03:30 | NUR ---
The patient, BRENDA BAR, 66 y/o, F admitted by DEXTER LANIER MD, was given written information regarding hospital policies, unit procedures and contact persons. Valuables checked and documented. pt appeared sleepy but arousable. pt able to answer some questions. pt verbalized name, , place and year. 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 pt verbalized sensation sharper on left than right. assessment complete and documented, call light in reach will cont to monitor pt. pmrn
[2021-12-06] MEDS ORDERED: MORPHINE SULFATE 2 MG/ML INJ. IVP PRN (04:45)
[2021-12-06] MEDS ORDERED: METOPROLOL IV PUSH 5 MG/5 ML VIAL. IVP PRN (04:45)
--- NOTE | 2021-12-06 06:07 | EKG ---
[facility] [address] [place] [address] Test Date: 2021-12-05 Test Time: 23:35:01 Pat Name: BRENDA BAR Department: Room: [facility] 1 Gender: F Tobacco Blender: : 1955 Requested By: SUKHI PATTERSON Order Number: [id number] Reading MD: Van Valenzuela Measurements Intervals [place] Rate: 108 P: 63 WI: 112 QRS: 40 QRSD: 86 T: 163 QT: 328 QTc: 443 Interpretive Statements SINUS TACHYCARDIA LEFT ATRIAL ABNORMALITY ST & T ABNORMALITY, CONSIDER ANTEROLATERAL ISCHEMIA OR LEFT VENTRICULAR STRAIN ABNORMAL ECG Electronically Signed On 12-06-2021 8:23:12 CAFETERIA TEAM LEADER by Van Valenzuela
[2021-12-06 07:00] VITALS: BP 165/73
[2021-12-06] MEDS ORDERED: INSU100V38 SQ (09:08)
[2021-12-06] MEDS ORDERED: FAMO20TA5 PO (09:08)
[2021-12-06] MEDS ORDERED: OLME1TAB27 PO (09:08)
[2021-12-06] MEDS: IV NORMAL SALINE 1000ML BAG 1,000 ML IV SCH (10:24)
--- NOTE | 2021-12-06 10:25 | SSS ---
DATE OF SERVICE: 12/06/2021 ADMIT DATE: 12/06/2021 CHIEF COMPLAINT: Mental status change. HISTORY OF PRESENT ILLNESS: The patient is a pleasant 66-year-old female who developed mental status change yesterday. Her family called EMS. When she got to the ER, where she was noted to have a UTI with metabolic encephalopathy. We also discovered that she has carotid disease. I discussed the case with the ER physician. We admitted her. We are giving IV antibiotics and fluids. We are consulting Neurology and Vascular Surgery. PAST MEDICAL HISTORY: AFib, CAD, depression, diabetes, hyperlipidemia, hypertension, cholecystectomy, coronary bypass surgery, okay, we will up above. ALLERGIES: PENICILLIN, ASPIRIN, CLINDAMYCIN, IBUPROFEN, LATEX, LISINOPRIL, METFORMIN, METHOCARBAMOL. FAMILY HISTORY: Coronary artery disease. SOCIAL HISTORY: She does not drink, smoke or take drugs. She is not working. MEDICATIONS: Reviewed. Please refer to the MRAD. REVIEW OF SYSTEMS: GENERAL: No history of weight change, weakness or fevers. SKIN: No bruising, hair changes or rashes. EYES: No blurred, double or loss of vision. NOSE AND THROAT: No history of nosebleeds, hoarseness or sore throat. HEART: No history of palpitations, chest pain or shortness of breath on exertion. LUNGS: Denies cough, hemoptysis, wheezing or shortness of breath. GASTROINTESTINAL: Denies changes in appetite, nausea, vomiting, diarrhea or constipation. GENITOURINARY: No history of frequency, urgency, hesitancy or nocturia. NEUROLOGIC: She complains of weakness. PSYCHIATRIC: No history of panic, anxiety or depression. ENDOCRINE: No history of heat or cold intolerance, polyuria or polydipsia. EXTREMITIES: Denies muscle weakness, joint pain, pain on walking or stiffness. PHYSICAL EXAMINATION: VITALS: Within normal limits and are stable. GENERAL: She is very weak, but alert and talking to me. She knows the year today. HEENT: Normal cephalic atraumatic, external auditory canals are patent. EYES: Extraocular muscles are intact, pupils are equally round and reactive to light and accommodation. MUSCULOSKELETAL: Well developed, well nourished, good range of motion. ENDOCRINE: No thyromegaly was palpated. LYMPHATICS: No cervical chain or axillary nodes were noted. HEMATOPOIETIC: No bruising. NECK: Supple, no JVD, no thyromegaly was noted. LUNGS: Clear to auscultation in all lung howell without rhonchi or wheezing. HEART: RRR, S1, S2 present. Peripheral pulses intact, no obvious murmurs were noted. ABDOMEN: Soft, nontender. Positive bowel sounds no organomegaly, normal bowel sounds. EXTREMITIES: Without any cyanosis, clubbing, or edema. Pedal pulses intact, Homans sign is negative. NEUROLOGIC: She is very weak, but alert and talking to me. She knows the year today. PSYCHIATRIC: Normal affect, normal mood. Stable. SKIN: No ulcerations or rashes, good skin turgor, no jaundice. VASCULAR: Good capillary refill, neurovascular bundle appears to be intact. LABORATORY DATA: White count 6. BUN is 24, creatinine 1.4. Drug screen negative. Urinalysis shows a small amount of leukocyte esterase and 4 white cells. COVID testing is negative. CT angiography of the head and neck shows carotid disease, greater on the right than the left. ASSESSMENT AND PLAN: Urinary tract infection, metabolic encephalopathy, carotid disease in a middle-aged female with the above noted comorbidities. The patient has been admitted. We will start IV Rocephin, IV fluids. Consult Neurology. Consult Vascular Surgery. Home meds. Deep venous thrombosis prophylaxis. Full code. Encourage p.o. intake. Trend labs. JAIME/AUBREE DR: JAIME/mary TID: [id number]
[2021-12-06 11:00] VITALS: BP 188/89
[2021-12-06] MEDS: cefTRIAXone IV Push 1 GM VIAL. IVP SCH (11:06)
--- NOTE | 2021-12-06 12:10 | PDOC2 ---
CONSULT Date of Service Date of Service DATE: 12/06/21 TIME: 11:45 Reason for Consult Reason for Consult: Carotid artery stenosis Identification/Chief Complaint Chief Complaint Altered mental status Source Source: Patient History of Present Illness Reason for Visit: This is a pleasant 66-year-old female who presents to the hospital yesterday for altered mental status. She reports she was lying down yesterday evening and talking to her daughter on the phone and she felt funny, then suddenly felt like she could not breathe and could not get up like she was trying to. At some point her daughter arrived to help her and patient only recalls waking up in the hospital. She is a poor historian regarding the events that brought her into the hospital. She denies any one-sided weakness, reports overall body soreness limiting her ability to perform exam with generalized weakness. She denies any visual symptoms. She did not report this to me however the nurse reports that she has a history of a TIA. Unsure of the events that occurred from that. She denies a family history of stroke, however her mother did have a heart attack and had dementia. She reports sometimes having memory problems. She recently underwent CABG I believe in May per her report. She reports she takes Eliquis for her heart disease (Afib?). She has an allergy to aspirin. She was very hypertensive on admission. CT of the head was negative for acute findings. CT angio of the neck showed near occlusion of the right internal carotid artery and about 50% stenosis of the left per report. She reports she has had prior neck surgery she believes on the right side although cannot recall when, who performed or what this was done for, she believes for her spine. Denies neck radiation. Denies history of smoking. Past Medical History Cardiovascular: AFIB, HTN, Syncope, Hyperlipidemia Pulmonary: No pertinent hx GI: No pertinent hx Heme/Onc: No pertinent hx Hepatobiliary: No pertinent hx Psych: No pertinent hx Rheumatologic: No pertinent hx Infectious disease: No pertinent hx Renal/: Chronic renal insuff Endocrine: Diabetes Past Surgical History Past Surgical History 04/20/19 Laparoscopic cholecystectomy with cholangiogram, diaphragm biopsy Dr. Bolivar 07/27/15 OPERATION PERFORMED: 1. Anterior cervical microdiskectomy, C3-C4. 2. Anterior cervical interbody fusion, C3-C4 with allograft bone. 3. Anterior cervical plate C3-C4. Regarding location: "Using fluoroscopic guidance, an incision was made down the midline around to the right side in the skin crease. I dissected down skin subcutaneous tissue and then dissected on the medial aspect of the sternocleidomastoid and carotid artery sheath down the anterior cervical vertebral bodies. I gently reflected the trachea and esophagus contralaterally. There was a very large anterior spur with marked compression of the esophageal structures and I isolated this large spur, and then using a high-speed air drill, I drilled this down, relatively flushed with the vertebral body." Past Surgical History: CABG, Hysterectomy, Other Family History Family History Mother - dementia, MS Family History: Coronary Artery Disease Social History No ALCOHOL: none Drugs: None Lives: Alone Current Problem List Problem List Problems Medical Problems: (1) Carotid stenosis, left Status: Acute (2) Carotid stenosis, right Status: Acute (3) Urinary tract infection Status: Acute Current Medications Current Medications Current Medications Naloxone HCl (Narcan) 0.4 mg STK-MED ONCE .ROUTE ; Start 12/05/21 at 23:34; Stop 12/05/21 at 23:34; Status DC Iohexol (Omnipaque 350 Mg/ml) 60 ml 1X ONCE IV Last administered on 12/06/21at 00:34; Start 12/06/21 at 01:00; Stop 12/06/21 at 01:01; Status DC Info (CONTRAST GIVEN -- Rx MONITORING) 1 each PRN DAILY PRN MC SEE COMMENTS; Start 12/06/21 at 00:45; Stop 12/08/21 at 00:44 Labetalol HCl (Normodyne Iv Push) 20 mg 1X ONCE IVP Last administered on 12/06/21at 02:33; Start 12/06/21 at 02:30; Stop 12/06/21 at 02:31; Status DC Ceftriaxone Sodium (Rocephin) 1 gm 1X ONCE IVP Last administered on 12/06/21at 02:42; Start 12/06/21 at 02:30; Stop 12/06/21 at 02:31; Status DC Morphine Sulfate (Morphine Sulfate) 2 mg PRN Q2HR PRN IVP SEVERE PAIN 7-10; S tart 12/06/21 at 04:45 Metoprolol Tartrate (Lopressor Vial) 5 mg PRN Q6HRS PRN IVP HYPERTENSION; Start 12/06/21 at 04:45 Ceftriaxone Sodium (Rocephin) 1 gm Q24H IVP Last administered on 12/06/21at 11:06; Start 12/06/21 at 11:00 Sodium Chloride 1,000 ml @ 75 mls/hr [id number] IV Last administered on 12/06/21at 10:24; Start 12/06/21 at 10:15 Active Scripts Active Eliquis (Apixaban) 5 Mg Tablet 5 Mg PO BID 30 Days Reported Insulin Lispro 100 Unit/1 Ml Vial 20 Unit SQ 0800,1200 Famotidine 20 Mg Tablet 20 Mg PO BID Tribenzor 20-5-12.5 Mg Tablet (Olmesartan/Amlodipin/Hcthiazid) 1 Each Tablet 1 Tab PO DAILY 30 Days Leola 5-325 Tablet (Acetaminophen/Hydrocodone Bitart) 1 Each Tablet 1 Tab PO Q4HRS Requip (Ropinirole Hcl) 0.5 Mg Tablet 1 Tab PO QHS Amitiza (Lubiprostone) 8 Mcg Capsule 1 Cap PO BID Allergies Allergies: Coded Allergies: Penicillins (Verified Allergy, Severe, HIVES, SHORTNESS OF BREATH, 12/06/21) clindamycin (Verified Allergy, Severe, shortness of breath and generalized weakness, 12/06/21) Pt states after taking new prescription of ABX she developed SOB and weakness and was brought to ER by friend. Was found to have elevated BP by chance but the reaction was brought her in initially. ibuprofen (Verified Allergy, Severe, Anaphylaxis, 12/06/21) latex (Verified Allergy, Severe, ITCHING AND SWELLING, 12/06/21) aspirin (Verified Allergy, Intermediate, Hives, 12/06/21) lisinopril (Verified Allergy, Intermediate, cough, 12/06/21) methocarbamol (Verified Allergy, Intermediate, hives, 04/20/19) metformin (Verified Adverse Reaction, Intermediate, Nausea and Vomiting, 04/20/19) ROS General: YES: Fatigue, Malaise; No: Chills Eyes: Yes Blurry vision (Not new), Yes Double vision (not new, mainly left eye, reports has had it looked into in past) HEENT: No: Heacaches, Visual Changes Hematological and Lymphatic: No: Bleeding Problems, Blood Clots, Brusing Respiratory: No: Cough, Shortness of breath Cardiovascular: No Chest Pain, No Palpitations, No Edema Gastrointestinal: No Nausea, No Vomiting, No Abdominal Pain, No Diarrhea Musculoskeletal: Yes Gait Disturbance Skin: No Rash, No Skin Lesion Changes Physical Exam General: Alert, Oriented X3, Cooperative, No acute distress HEENT: Atraumatic, EOMI, Other (Right carotid bruit, no obvious neck scar anteriorly or L or R. ) Lungs: Normal air movement (room air) Heart: Other (irreg rythym, reg rate) Abdomen: Soft, No tenderness Extremities: Other (Minimal bilateral UE edema. Normal bilateral radial and pedal pulses. ) Skin: No rashes, No significant lesion Neuro: Normal speech, Normal tone, Other (Overall strength seems weak, however it is symmetrical. Facial symmetry, tongue midline, speech clear and fluent. ) Psych/Mental Status: Mental status NL, Mood NL Vitals VITALS Vital Signs Date Time Temp Pulse Resp B/P (MAP) Pulse Ox O2 Delivery O2 Flow Rate FiO2 12/06/21 11:00 97.1 70 16 188/89 (122) 100 Room Air 97.1 Labs Labs Laboratory Tests Test 12/05/21 23:40 12/06/21 00:38 12/06/21 00:42 12/06/21 02:40 White Blood Count 6.0 x10^3/uL (4.0-11.0) Red Blood Count 4.34 x10^6/uL (3.50-5.40) Hemoglobin 11.8 g/dL (12.0-15.5) Hematocrit 36.0 % (36.0-47.0) Mean Corpuscular Volume 83 fL (79-100) Mean Corpuscular Hemoglobin 27 pg (25-35) Mean Corpuscular Hemoglobin Concent 33 g/dL (31-37) Red Cell Distribution Width 14.4 % (11.5-14.5) Platelet Count 237 x10^3/uL (140-400) Neutrophils (%) (Auto) 51 % (31-73) Lymphocytes (%) (Auto) 36 % (24-48) Monocytes (%) (Auto) 10 % (0-9) Eosinophils (%) (Auto) 3 % (0-3) Basophils (%) (Auto) 1 % (0-3) Neutrophils # (Auto) 3.0 x10^3/uL (1.8-7.7) Lymphocytes # (Auto) 2.1 x10^3/uL (1.0-4.8) Monocytes # (Auto) 0.6 x10^3/uL (0.0-1.1) Eosinophils # (Auto) 0.2 x10^3/uL (0.0-0.7) Basophils # (Auto) 0.0 x10^3/uL (0.0-0.2) Sodium Level 137 mmol/L (136-145) Potassium Level 3.7 mmol/L (3.5-5.1) Chloride Level 103 mmol/L (98-107) Carbon Dioxide Level 26 mmol/L (21-32) Anion Gap 8 (6-14) Blood Urea Nitrogen 24 mg/dL (7-20) Creatinine 1.4 mg/dL (0.6-1.0) Estimated GFR (Cockcroft-Gault) 45.2 BUN/Creatinine Ratio 17 (6-20) Glucose Level 263 mg/dL (70-99) Lactic Acid Level 2.2 mmol/L (0.4-2.0) 2.1 mmol/L (0.4-2.0) Calcium Level 9.1 mg/dL (8.5-10.1) Magnesium Level 2.1 mg/dL (1.8-2.4) Total Bilirubin 0.5 mg/dL (0.2-1.0) Aspartate Amino Transf (AST/SGOT) 24 U/L (15-37) Alanine Aminotransferase (ALT/SGPT) 52 U/L (14-59) Alkaline Phosphatase 125 U/L (46-116) Troponin I High Sensitivity 10 ng/L (4-50) Total Protein 7.4 g/dL (6.4-8.2) Albumin 3.3 g/dL (3.4-5.0) Albumin/Globulin Ratio 0.8 (1.0-1.7) Influenza Type A Antigen Negative (NEGATIVE) Influenza Type B Antigen Negative (NEGATIVE) SARS-CoV-2 Antigen (Rapid) Negative (NEGATIVE) Urine Collection Type Unknown Urine Color Straw Urine Clarity Hazy Urine pH 6.5 (<5.0-8.0) Urine Specific Antelope 1.015 (1.000-1.030) Urine Protein Negative mg/dL (NEG-TRACE) Urine Glucose (UA) 100 mg/dL (NEG) Urine Ketones (Stick) Negative mg/dL (NEG) Urine Blood Trace (NEG) Urine Nitrite Positive (NEG) Urine Bilirubin Negative (NEG) Urine Urobilinogen Dipstick 0.2 mg/dL (0.2 mg/dL) Urine Leukocyte Esterase Small (NEG) Urine RBC 1-2 /HPF (0-2) Urine WBC 1-4 /HPF (0-4) Urine Squamous Epithelial Cells Few /LPF Urine Bacteria Many /HPF (0-FEW) Urine Opiates Screen Neg (NEG) Urine Methadone Screen Neg (NEG) Urine Barbiturates Neg (NEG) Urine Phencyclidine Screen Neg (NEG) Urine Amphetamine/Methamphetamine Neg (NEG) Urine Benzodiazepines Screen Neg (NEG) Urine Cocaine Screen Neg (NEG) Urine Cannabinoids Screen Neg (NEG) Urine Ethyl Alcohol Neg (NEG) Test 12/06/21 05:16 Glucose (Fingerstick) 189 mg/dL (70-99) Laboratory Tests Test 12/05/21 23:40 12/06/21 00:38 12/06/21 00:42 12/06/21 02:40 White Blood Count 6.0 x10^3/uL (4.0-11.0) Red Blood Count 4.34 x10^6/uL (3.50-5.40) Hemoglobin 11.8 g/dL (12.0-15.5) Hematocrit 36.0 % (36.0-47.0) Mean Corpuscular Volume 83 fL (79-100) Mean Corpuscular Hemoglobin 27 pg (25-35) Mean Corpuscular Hemoglobin Concent 33 g/dL (31-37) Red Cell Distribution Width 14.4 % (11.5-14.5) Platelet Count 237 x10^3/uL (140-400) Neutrophils (%) (Auto) 51 % (31-73) Lymphocytes (%) (Auto) 36 % (24-48) Monocytes (%) (Auto) 10 % (0-9) Eosinophils (%) (Auto) 3 % (0-3) Basophils (%) (Auto) 1 % (0-3) Neutrophils # (Auto) 3.0 x10^3/uL (1.8-7.7) Lymphocytes # (Auto) 2.1 x10^3/uL (1.0-4.8) Monocytes # (Auto) 0.6 x10^3/uL (0.0-1.1) Eosinophils # (Auto) 0.2 x10^3/uL (0.0-0.7) Basophils # (Auto) 0.0 x10^3/uL (0.0-0.2) Sodium Level 137 mmol/L (136-145) Potassium Level 3.7 mmol/L (3.5-5.1) Chloride Level 103 mmol/L (98-107) Carbon Dioxide Level 26 mmol/L (21-32) Anion Gap 8 (6-14) Blood Urea Nitrogen 24 mg/dL (7-20) Creatinine 1.4 mg/dL (0.6-1.0) Estimated GFR (Cockcroft-Gault) 45.2 BUN/Creatinine Ratio 17 (6-20) Glucose Level 263 mg/dL (70-99) Lactic Acid Level 2.2 mmol/L (0.4-2.0) 2.1 mmol/L (0.4-2.0) Calcium Level 9.1 mg/dL (8.5-10.1) Magnesium Level 2.1 mg/dL (1.8-2.4) Total Bilirubin 0.5 mg/dL (0.2-1.0) Aspartate Amino Transf (AST/SGOT) 24 U/L (15-37) Alanine Aminotransferase (ALT/SGPT) 52 U/L (14-59) Alkaline Phosphatase 125 U/L (46-116) Troponin I High Sensitivity 10 ng/L (4-50) Total Protein 7.4 g/dL (6.4-8.2) Albumin 3.3 g/dL (3.4-5.0) Albumin/Globulin Ratio 0.8 (1.0-1.7) Influenza Type A Antigen Negative (NEGATIVE) Influenza Type B Antigen Negative (NEGATIVE) SARS-CoV-2 Antigen (Rapid) Negative (NEGATIVE) Urine Collection Type Unknown Urine Color Straw Urine Clarity Hazy Urine pH 6.5 (<5.0-8.0) Urine Specific Antelope 1.015 (1.000-1.030) Urine Protein Negative mg/dL (NEG-TRACE) Urine Glucose (UA) 100 mg/dL (NEG) Urine Ketones (Stick) Negative mg/dL (NEG) Urine Blood Trace (NEG) Urine Nitrite Positive (NEG) Urine Bilirubin Negative (NEG) Urine Urobilinogen Dipstick 0.2 mg/dL (0.2 mg/dL) Urine Leukocyte Esterase Small (NEG) Urine RBC 1-2 /HPF (0-2) Urine WBC 1-4 /HPF (0-4) Urine Squamous Epithelial Cells Few /LPF Urine Bacteria Many /HPF (0-FEW) Urine Opiates Screen Neg (NEG) Urine Methadone Screen Neg (NEG) Urine Barbiturates Neg (NEG) Urine Phencyclidine Screen Neg (NEG) Urine Amphetamine/Methamphetamine Neg (NEG) Urine Benzodiazepines Screen Neg (NEG) Urine Cocaine Screen Neg (NEG) Urine Cannabinoids Screen Neg (NEG) Urine Ethyl Alcohol Neg (NEG) Test 12/06/21 05:16 Glucose (Fingerstick) 189 mg/dL (70-99) Images Images Reviewed CTA images, significant right > left AYDE, anatomy is slightly challenging for me to assess more precise level of stenosis. Per report it's near occlusion on the right and 50% on the left. Will have surgeon review Assessment/Plan Assessment/Plan High-grade right internal carotid artery stenosis. At least moderate left c arotid stenosis CAD s/p CABG On Eliquis, I believe for AFib 66-year-old female here for altered mental status and generalized weakness event. Her history is difficult to obtain accurately. From what I can tell I do not see lateralizing neurologic stroke like symptoms, visual symptoms or typical carotid artery disease manifestations. An MRI has been ordered which will be helpful. Neurology has been consulted. I will have surgeon review her CTA, she will eventually benefit from at least right CEA for stroke prevention, will discuss with surgeon regarding timing. As of right now this is not urgent, but will see what MRI shows and neurology input. She has had prior right sided neck spine surgery as noted above, no radiation. I discussed this all with her in detail today, she exhibited understanding of the plan, all her questions were answered to satisfaction. SABRINA CANALES Dec 06, 2021 12:10
--- NOTE | 2021-12-06 12:32 | PDOC2 ---
NEUROLOGY CONSULT Date of Service DOS: DATE: 12/06/21 TIME: 12:26 Reason for Consult Reason for Consult: Altered mental status Referring Physician Referring Physician: Dr. Baez Source Source: Chart review, Patient History of Present Illness History of Present Illness The patient is a 66-year-old right-handed female last known normal at 1600 yesterday. She was talking on the phone with her daughter and complaining of shortness of breath. That is about the last thing she remembers. As best I can determine after the phone conversation, daughter came over and found the patient minimally responsive, that was at 2230. I discussed the case with Dr. Rivera at 0 130 this morning and we agreed that the patient was not a candidate for alteplase. The patient was found on CTA to have severe right carotid artery stenosis. I had Dr. Wilburn run that by the stroke neurologist at who declined transfer. Patient also also has evidence of sepsis and urinary tract infection and indeed is much more alert now that she is received some antibiotics. There is no prior history of stroke, seizure, or head injury. At baseline she is independent, living on her own. Her children check on her frequently, though. 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 Current Medications Current Medications Current Medications Naloxone HCl (Narcan) 0.4 mg STK-MED ONCE .ROUTE ; Start 12/05/21 at 23:34; Stop 12/05/21 at 23:34; Status DC Iohexol (Omnipaque 350 Mg/ml) 60 ml 1X ONCE IV Last administered on 12/06/21at 00:34; Start 12/06/21 at 01:00; Stop 12/06/21 at 01:01; Status DC Info (CONTRAST GIVEN -- Rx MONITORING) 1 each PRN DAILY PRN MC SEE COMMENTS; Start 12/06/21 at 00:45; Stop 12/08/21 at 00:44 Labetalol HCl (Normodyne Iv Push) 20 mg 1X ONCE IVP Last administered on 11/27 at 02:33; Start 12/06/21 at 02:30; Stop 12/06/21 at 02:31; Status DC Ceftriaxone Sodium (Rocephin) 1 gm 1X ONCE IVP Last administered on 12/06/21at 02:42; Start 12/06/21 at 02:30; Stop 12/06/21 at 02:31; Status DC Morphine Sulfate (Morphine Sulfate) 2 mg PRN Q2HR PRN IVP SEVERE PAIN 7-10; Start 12/06/21 at 04:45 Metoprolol Tartrate (Lopressor Vial) 5 mg PRN Q6HRS PRN IVP HYPERTENSION; Start 12/06/21 at 04:45 Ceftriaxone Sodium (Rocephin) 1 gm Q24H IVP Last administered on 12/06/21at 11:06; Start 12/06/21 at 11:00 Sodium Chloride 1,000 ml @ 75 mls/hr [id number] IV Last administered on 12/06/21at 10:24; Start 12/06/21 at 10:15 Active Scripts Active Eliquis (Apixaban) 5 Mg Tablet 5 Mg PO BID 30 Days Reported Insulin Lispro 100 Unit/1 Ml Vial 20 Unit SQ 0800,1200 Famotidine 20 Mg Tablet 20 Mg PO BID Tribenzor 20-5-12.5 Mg Tablet (Olmesartan/Amlodipin/Hcthiazid) 1 Each Tablet 1 Tab PO DAILY 30 Days [place] 5-325 Tablet (Acetaminophen/Hydrocodone Bitart) 1 Each Tablet 1 Tab PO Q4HRS Requip (Ropinirole Hcl) 0.5 Mg Tablet 1 Tab PO QHS Amitiza (Lubiprostone) 8 Mcg Capsule 1 Cap PO BID Allergies Allergies: Coded Allergies: Penicillins (Verified Allergy, Severe, HIVES, SHORTNESS OF BREATH, 12/06/21) clindamycin (Verified Allergy, Severe, shortness of breath and generalized weakness, 12/06/21) Pt states after taking new prescription of ABX she developed SOB and weakness and was brought to ER by friend. Was found to have elevated BP by chance but the reaction was brought her in initially. ibuprofen (Verified Allergy, Severe, Anaphylaxis, 12/06/21) latex (Verified Allergy, Severe, ITCHING AND SWELLING, 12/06/21) aspirin (Verified Allergy, Intermediate, Hives, 12/06/21) lisinopril (Verified Allergy, Intermediate, cough, 12/06/21) methocarbamol (Verified Allergy, Intermediate, hives, 04/20/19) metformin (Verified Adverse Reaction, Intermediate, Nausea and Vomiting, 04/20/19) ROS Review of System Negative for fever, chills, weight loss, shortness of breath, chest pain, indigestion, hematochezia, melena, and dysuria. Full 14-point review of systems is negative. Physical Exam Physical Examination General: Well-developed, well-nourished, white female, in no acute distress HEENT: Normocephalic andatraumatic. Temporal arteriespulsatile and nontender.Fundoscopic exam unremarkable Neck: Supple without bruit, no meningismus Musculoskeletal: Stability:see neurologic. Gait exam:see neurologic. Tone:see neurologic.Strength:see neurologic. Neurological: Mental Status:intact, orientation, memory, attention span/concentration, language, fund of knowledge normal. Cranial Nerves:Pupils equal and reactive to light, extraocular movements areintact, visual howell are full to confrontation. Facial sensation is normal. There is no facial asymmetry. Vestibulo-ocular reflex is intact. Palate elevates and tongue protrudes in midline. All other cranial related problems are negative except as mentioned before.Reflexes:1+ and symmetric with flexor plantar responses. Motor:5-/5 strength with normal tone and bulk. Coordination:Finger-nose finger and [id number] testing are normal. Rapid alternating movements and fine finger movements are intact. Gait: Not tested. Sensory:Normal pinprick, vibration, light touch, proprioception. Vitals VITALS Vital Signs Date Time Temp Pulse Resp B/P (MAP) Pulse Ox O2 Delivery O2 Flow Rate FiO2 12/06/21 11:00 97.1 70 16 188/89 (122) 100 Room Air 97.1 Labs Labs Laboratory Tests Test 12/05/21 23:40 12/06/21 00:38 12/06/21 00:42 12/06/21 02:40 White Blood Count 6.0 x10^3/uL (4.0-11.0) Red Blood Count 4.34 x10^6/uL (3.50-5.40) Hemoglobin 11.8 g/dL (12.0-15.5) Hematocrit 36.0 % (36.0-47.0) Mean Corpuscular Volume 83 fL (79-100) Mean Corpuscular Hemoglobin 27 pg (25-35) Mean Corpuscular Hemoglobin Concent 33 g/dL (31-37) Red Cell Distribution Width 14.4 % (11.5-14.5) Platelet Count 237 x10^3/uL (140-400) Neutrophils (%) (Auto) 51 % (31-73) Lymphocytes (%) (Auto) 36 % (24-48) Monocytes (%) (Auto) 10 % (0-9) Eosinophils (%) (Auto) 3 % (0-3) Basophils (%) (Auto) 1 % (0-3) Neutrophils # (Auto) 3.0 x10^3/uL (1.8-7.7) Lymphocytes # (Auto) 2.1 x10^3/uL (1.0-4.8) Monocytes # (Auto) 0.6 x10^3/uL (0.0-1.1) Eosinophils # (Auto) 0.2 x10^3/uL (0.0-0.7) Basophils # (Auto) 0.0 x10^3/uL (0.0-0.2) Sodium Level 137 mmol/L (136-145) Potassium Level 3.7 mmol/L (3.5-5.1) Chloride Level 103 mmol/L (98-107) Carbon Dioxide Level 26 mmol/L (21-32) Anion Gap 8 (6-14) Blood Urea Nitrogen 24 mg/dL (7-20) Creatinine 1.4 mg/dL (0.6-1.0) Estimated GFR (Cockcroft-Gault) 45.2 BUN/Creatinine Ratio 17 (6-20) Glucose Level 263 mg/dL (70-99) Lactic Acid Level 2.2 mmol/L (0.4-2.0) 2.1 mmol/L (0.4-2.0) Calcium Level 9.1 mg/dL (8.5-10.1) Magnesium Level 2.1 mg/dL (1.8-2.4) Total Bilirubin 0.5 mg/dL (0.2-1.0) Aspartate Amino Transf (AST/SGOT) 24 U/L (15-37) Alanine Aminotransferase (ALT/SGPT) 52 U/L (14-59) Alkaline Phosphatase 125 U/L (46-116) Troponin I High Sensitivity 10 ng/L (4-50) Total Protein 7.4 g/dL (6.4-8.2) Albumin 3.3 g/dL (3.4-5.0) Albumin/Globulin Ratio 0.8 (1.0-1.7) Influenza Type A Antigen Negative (NEGATIVE) Influenza Type B Antigen Negative (NEGATIVE) SARS-CoV-2 Antigen (Rapid) Negative (NEGATIVE) Urine Collection Type Unknown Urine Color Straw Urine Clarity Hazy Urine pH 6.5 (<5.0-8.0) Urine Specific [place] 1.015 (1.000-1.030) Urine Protein Negative mg/dL (NEG-TRACE) Urine Glucose (UA) 100 mg/dL (NEG) Urine Ketones (Stick) Negative mg/dL (NEG) Urine Blood Trace (NEG) Urine Nitrite Positive (NEG) Urine Bilirubin Negative (NEG) Urine Urobilinogen Dipstick 0.2 mg/dL (0.2 mg/dL) Urine Leukocyte Esterase Small (NEG) Urine RBC 1-2 /HPF (0-2) Urine WBC 1-4 /HPF (0-4) Urine Squamous Epithelial Cells Few /LPF Urine Bacteria Many /HPF (0-FEW) Urine Opiates Screen Neg (NEG) Urine Methadone Screen Neg (NEG) Urine Barbiturates Neg (NEG) Urine Phencyclidine Screen Neg (NEG) Urine Amphetamine/Methamphetamine Neg (NEG) Urine Benzodiazepines Screen Neg (NEG) Urine Cocaine Screen Neg (NEG) Urine Cannabinoids Screen Neg (NEG) Urine Ethyl Alcohol Neg (NEG) Test 12/06/21 05:16 Glucose (Fingerstick) 189 mg/dL (70-99) Laboratory Tests Test 12/05/21 23:40 12/06/21 00:38 12/06/21 00:42 12/06/21 02:40 White Blood Count 6.0 x10^3/uL (4.0-11.0) Red Blood Count 4.34 x10^6/uL (3.50-5.40) Hemoglobin 11.8 g/dL (12.0-15.5) Hematocrit 36.0 % (36.0-47.0) Mean Corpuscular Volume 83 fL (79-100) Mean Corpuscular Hemoglobin 27 pg (25-35) Mean Corpuscular Hemoglobin Concent 33 g/dL (31-37) Red Cell Distribution Width 14.4 % (11.5-14.5) Platelet Count 237 x10^3/uL (140-400) Neutrophils (%) (Auto) 51 % (31-73) Lymphocytes (%) (Auto) 36 % (24-48) Monocytes (%) (Auto) 10 % (0-9) Eosinophils (%) (Auto) 3 % (0-3) Basophils (%) (Auto) 1 % (0-3) Neutrophils # (Auto) 3.0 x10^3/uL (1.8-7.7) Lymphocytes # (Auto) 2.1 x10^3/uL (1.0-4.8) Monocytes # (Auto) 0.6 x10^3/uL (0.0-1.1) Eosinophils # (Auto) 0.2 x10^3/uL (0.0-0.7) Basophils # (Auto) 0.0 x10^3/uL (0.0-0.2) Sodium Level 137 mmol/L (136-145) Potassium Level 3.7 mmol/L (3.5-5.1) Chloride Level 103 mmol/L (98-107) Carbon Dioxide Level 26 mmol/L (21-32) Anion Gap 8 (6-14) Blood Urea Nitrogen 24 mg/dL (7-20) Creatinine 1.4 mg/dL (0.6-1.0) Estimated GFR (Cockcroft-Gault) 45.2 BUN/Creatinine Ratio 17 (6-20) Glucose Level 263 mg/dL (70-99) Lactic Acid Level 2.2 mmol/L (0.4-2.0) 2.1 mmol/L (0.4-2.0) Calcium Level 9.1 mg/dL (8.5-10.1) Magnesium Level 2.1 mg/dL (1.8-2.4) Total Bilirubin 0.5 mg/dL (0.2-1.0) Aspartate Amino Transf (AST/SGOT) 24 U/L (15-37) Alanine Aminotransferase (ALT/SGPT) 52 U/L (14-59) Alkaline Phosphatase 125 U/L (46-116) Troponin I High Sensitivity 10 ng/L (4-50) Total Protein 7.4 g/dL (6.4-8.2) Albumin 3.3 g/dL (3.4-5.0) Albumin/Globulin Ratio 0.8 (1.0-1.7) Influenza Type A Antigen Negative (NEGATIVE) Influenza Type B Antigen Negative (NEGATIVE) SARS-CoV-2 Antigen (Rapid) Negative (NEGATIVE) Urine Collection Type Unknown Urine Color Straw Urine Clarity Hazy Urine pH 6.5 (<5.0-8.0) Urine Specific [place] 1.015 (1.000-1.030) Urine Protein Negative mg/dL (NEG-TRACE) Urine Glucose (UA) 100 mg/dL (NEG) Urine Ketones (Stick) Negative mg/dL (NEG) Urine Blood Trace (NEG) Urine Nitrite Positive (NEG) Urine Bilirubin Negative (NEG) Urine Urobilinogen Dipstick 0.2 mg/dL (0.2 mg/dL) Urine Leukocyte Esterase Small (NEG) Urine RBC 1-2 /HPF (0-2) Urine WBC 1-4 /HPF (0-4) Urine Squamous Epithelial Cells Few /LPF Urine Bacteria Many /HPF (0-FEW) Urine Opiates Screen Neg (NEG) Urine Methadone Screen Neg (NEG) Urine Barbiturates Neg (NEG) Urine Phencyclidine Screen Neg (NEG) Urine Amphetamine/Methamphetamine Neg (NEG) Urine Benzodiazepines Screen Neg (NEG) Urine Cocaine Screen Neg (NEG) Urine Cannabinoids Screen Neg (NEG) Urine Ethyl Alcohol Neg (NEG) Test 12/06/21 05:16 Glucose (Fingerstick) 189 mg/dL (70-99) Images Images CT head without IV contrast. INDICATION:66 years, Female, altered mental status, code stroke. COMPARISON: 02/27/2019 TECHNIQUE: Spiral acquisition of contiguous images from the skull base to the vertex were obtained. Sagittal and coronal 2D reformatted series were provided by the technologist. Soft tissue and bone window algorithms were reviewed. Exposure: One or more of the following individualized dose reduction techniques were utilized for this examination: 1. Automated exposure control 2. Adjustment of the mA and/or kV according to patient size 3. Use of iterative reconstruction technique. FINDINGS: Neither mass, midline shift, intracranial hemorrhage, acute/subacute ischemic changes, nor extraaxial fluid collections are seen. The brain parenchyma is normal in appearance.The ventricles are normal in size. The paranasal sinuses, mastoid air cells, and middle ears are clear.The orbital contents appear within normal limits. IMPRESSION: No evidence of acute intracranial abnormality. CTA HEAD AND NECK W/WO CONTRAST INDICATION:66 years, Female, altered mental status, delayed speech. TECHNIQUE: After bolus of intravenous contrast, volumetric CT data acquisition was acquired of the head and neck. Multiplanar reconstruction images to include MIP and 3-D reconstruction images are submitted. Exposure: One or more of the following individualized dose reduction techniques were utilized for this examination: 1. Automated exposure control 2. Adjustment of the mA and/or kV according to patient size 3. Use of iterative reconstruction technique. COMPARISON: None FINDINGS: Any determination of stenosis is based on NASCET criteria. Head CTA: ICA: Atherosclerotic calcifications in the cavernous and supraclinoid ICAs causing approximately percent process. MCA: No stenosis, occlusion or aneurysm. STACY: No stenosis, occlusion or aneurysm. DIRECTOR ENGINEERING: No stenosis, occlusion or aneurysm. Basilar artery: No stenosis, occlusion or aneurysm. Distal vertebral arteries: No stenosis, occlusion or aneurysm. CT angiogram neck: Aortic arch: Normal. Common carotid arteries: No stenosis, occlusion or dissection. Internal carotid arteries: Dense atherosclerotic calcifications in bilateral proximal internal carotid artery, causing near complete occlusion of the right and 50 percent stenosis in the left internal carotid arteries External carotid arteries: Patent Vertebral arteries: No stenosis, occlusion or dissection. Imaged lung apices are unremarkable. Soft tissues appear normal. Bones: No pathologic osseous lesions. Multilevel degenerative changes. IMPRESSION: 1. Dense atherosclerotic calcifications in bilateral proximal internal carotid arteries, causing near complete occlusion on the right and 50 percent stenosis on the left. 2. No significant arterial stenosis or occlusion within the head. Assessment/Plan Assessment/Plan Impression: Metabolic encephalopathy, most likely due to her urinary tract infection with evidence of sepsis. No lateralizing findings on the exam Dense atherosclerotic calcifications in bilateral proximal internal carotid arteries, causing near complete occlusion on the right and 50 percent stenosis on the left. Recommendations: MRI of the brain Agree with vascular surgery management of the carotid stenosis which, unless the MRI is abnormal, is asymptomatic. Treatment of medical issues. Thank you for letting me help with the patient's care. AUDREY RICHARDS MD Dec 06, 2021 12:32
--- NOTE | 2021-12-06 12:54 | NUR ---
SS following for discharge planning. SS reviewed pt chart and discussed with pt RN. Pt is from home and is currently on room air. Pt on IV Rocephin. COVID19 PCR test pending. Vascular and Neurology ordered. NPO. ST ordered. Brain MRI ordered. Possible need for PT/OT. SS will continue to follow for discharge planning.
--- NOTE | 2021-12-06 13:24 | RAD ---
XR RT SHOULDER 1 VIEW Clinical Indication: Reason: RIGHT SHOULDER PAIN, POSS FALL Comparison: Right shoulder, 3 views May 31, 2014. Findings: There is moderate arthropathy of the shoulder, progressed from the prior study. Humeral head osteophy te has increased in size. There is at least one loose joint body, and different position from prior s tudy. There is narrowing of the acromiohumeral distance which is new and may be due to chronic rotato r cuff tear. No acute fracture is identified. No evidence of dislocation. ACDF hardware is partially seen. There are median sternotomy wires. The right lung is clear. IMPRESSION: No acute fracture. Electronically signed by: Gerardo Baez MD (12/06/2021 1:22 PM) [id number]
[2021-12-06 15:00] VITALS: BP 189/103
--- NOTE | 2021-12-06 16:16 | RAD ---
MRI BRAIN WITHOUT CONTRAST History: Altered mental status, right carotid near occlusion. Comparison: CTA head and neck with contrast, earlier same day. Technique: Multiplanar multiple pulse sequence images of the brain were obtained without contrast. Findings: There is no restricted diffusion. There is a 5 mm focus of increased T2 and FLAIR signal in the right centrum semiovale. Finding may be incidental or due to chronic small vessel ischemic disease. Ventri cles and sulci are normal for patient age. There is a small old infarct of the right cerebellum. There is no midline shift or mass effect. No extra-axial fluid collection or evidence of intraparench ymal hemorrhage. Visualized vascular flow voids are intact. Globes and orbits are normal. The visualized paranasal s inuses and mastoid air cells are clear. No cerebellar tonsillar ectopia. Partially empty sella. IMPRESSION: 1. No acute infarct or hemorrhage. 2. 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 Electronically signed by: Gerardo Baez MD (12/06/2021 4:14 PM) [id number]
[2021-12-06 19:29] VITALS: BP 196/95
[2021-12-06] MEDS: hydrALAZINE 20 MG/ML VIAL. IVP PRN (20:43)
[2021-12-06 22:39] VITALS: BP 157/71
[2021-12-07] VITALS (9 sets, daily range): BP systolic 131–212; BP diastolic 58–118
[2021-12-07] MEDS: IV NORMAL SALINE 1000ML BAG 1,000 ML IV SCH ×3 (01:23→15:18)
[2021-12-07] MEDS: hydrALAZINE 20 MG/ML VIAL. IVP PRN (02:48)
[2021-12-07] MEDS: hydroCHLOROthiazide 12.5 MG CAPSULE PO SCH (08:42)
[2021-12-07] MEDS: LOSARTAN POTASSIUM 50 MG TABLET. PO SCH (08:43)
--- NOTE | 2021-12-07 09:15 | PDOC ---
PROGRESS NOTES Date of Service DATE: 12/07/21 TIME: 09:11 Assessment Problems Medical Problems: (1) Carotid stenosis, left Status: Acute (2) Carotid stenosis, right Status: Acute (3) Urinary tract infection Status: Acute Metabolic encephalopathy, most likely due to her urinary tract infection with evidence of sepsis. 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 Plan No need for any additional stroke work-up or treatment Vascular surgery to follow up on carotid stenosis, carotid Doppler pending, I reviewed images in the room, looks like any stenosis is very high up in the neck Treatment of medical issues. Okay for discharge Follow-up with neurology as needed Subjective No complaints, wants to go home Objective Vital Signs Date Time Temp Pulse Resp B/P (MAP) Pulse Ox O2 Delivery O2 Flow Rate FiO2 12/07/21 08:43 94 135/70 12/07/21 07:00 97.5 18 98 Room Air 97.5 Intake and Output 12/07/21 07:00 Intake Total 1140 ml Output Total 550 ml Balance 590 ml Intake Oral 220 ml IV Total 920 ml Output Urine Total 550 ml PHYSICAL EXAM Alert. Oriented to time, place and person. PERRL. EOMI. CN: no focal findings. Muscle tone: normal. Muscle strength: 5 -/5 DTR: 1+ Plantar reflex: Flexor Gait: not examined in bed. Sensory exam: no abnormal findings. No cerebellar signs elicited. Review of Relevant I have reviewed the following items judd (where applicable) has been applied. Labs Laboratory Tests Test 12/05/21 23:40 12/06/21 00:03 12/06/21 00:38 12/06/21 00:42 White Blood Count 6.0 x10^3/uL (4.0-11.0) Red Blood Count 4.34 x10^6/uL (3.50-5.40) Hemoglobin 11.8 g/dL (12.0-15.5) Hematocrit 36.0 % (36.0-47.0) Mean Corpuscular Volume 83 fL (79-100) Mean Corpuscular Hemoglobin 27 pg (25-35) Mean Corpuscular Hemoglobin Concent 33 g/dL (31-37) Red Cell Distribution Width 14.4 % (11.5-14.5) Platelet Count 237 x10^3/uL (140-400) Neutrophils (%) (Auto) 51 % (31-73) Lymphocytes (%) (Auto) 36 % (24-48) Monocytes (%) (Auto) 10 % (0-9) Eosinophils (%) (Auto) 3 % (0-3) Basophils (%) (Auto) 1 % (0-3) Neutrophils # (Auto) 3.0 x10^3/uL (1.8-7.7) Lymphocytes # (Auto) 2.1 x10^3/uL (1.0-4.8) Monocytes # (Auto) 0.6 x10^3/uL (0.0-1.1) Eosinophils # (Auto) 0.2 x10^3/uL (0.0-0.7) Basophils # (Auto) 0.0 x10^3/uL (0.0-0.2) Sodium Level 137 mmol/L (136-145) Potassium Level 3.7 mmol/L (3.5-5.1) Chloride Level 103 mmol/L (98-107) Carbon Dioxide Level 26 mmol/L (21-32) Anion Gap 8 (6-14) Blood Urea Nitrogen 24 mg/dL (7-20) Creatinine 1.4 mg/dL (0.6-1.0) Estimated GFR (Cockcroft-Gault) 45.2 BUN/Creatinine Ratio 17 (6-20) Glucose Level 263 mg/dL (70-99) Lactic Acid Level 2.2 mmol/L (0.4-2.0) Calcium Level 9.1 mg/dL (8.5-10.1) Magnesium Level 2.1 mg/dL (1.8-2.4) Total Bilirubin 0.5 mg/dL (0.2-1.0) Aspartate Amino Transf (AST/SGOT) 24 U/L (15-37) Alanine Aminotransferase (ALT/SGPT) 52 U/L (14-59) Alkaline Phosphatase 125 U/L (46-116) Troponin I High Sensitivity 10 ng/L (4-50) Total Protein 7.4 g/dL (6.4-8.2) Albumin 3.3 g/dL (3.4-5.0) Albumin/Globulin Ratio 0.8 (1.0-1.7) Coronavirus (COVID-19)(PCR) Not detected (NOT DETECTD) Influenza Type A Antigen Negative (NEGATIVE) Influenza Type B Antigen Negative (NEGATIVE) SARS-CoV-2 Antigen (Rapid) Negative (NEGATIVE) Urine Collection Type Unknown Urine Color Straw Urine Clarity Hazy Urine pH 6.5 (<5.0-8.0) Urine Specific [place] 1.015 (1.000-1.030) Urine Protein Negative mg/dL (NEG-TRACE) Urine Glucose (UA) 100 mg/dL (NEG) Urine Ketones (Stick) Negative mg/dL (NEG) Urine Blood Trace (NEG) Urine Nitrite Positive (NEG) Urine Bilirubin Negative (NEG) Urine Urobilinogen Dipstick 0.2 mg/dL (0.2 mg/dL) Urine Leukocyte Esterase Small (NEG) Urine RBC 1-2 /HPF (0-2) Urine WBC 1-4 /HPF (0-4) Urine Squamous Epithelial Cells Few /LPF Urine Bacteria Many /HPF (0-FEW) Urine Opiates Screen Neg (NEG) Urine Methadone Screen Neg (NEG) Urine Barbiturates Neg (NEG) Urine Phencyclidine Screen Neg (NEG) Urine Amphetamine/Methamphetamine Neg (NEG) Urine Benzodiazepines Screen Neg (NEG) Urine Cocaine Screen Neg (NEG) Urine Cannabinoids Screen Neg (NEG) Urine Ethyl Alcohol Neg (NEG) Test 12/06/21 02:40 12/06/21 05:16 12/06/21 18:08 12/06/21 21:18 Lactic Acid Level 2.1 mmol/L (0.4-2.0) Glucose (Fingerstick) 189 mg/dL (70-99) 125 mg/dL (70-99) 197 mg/dL (70-99) Test 12/07/21 07:40 Glucose (Fingerstick) 226 mg/dL (70-99) Laboratory Tests Test 12/06/21 18:08 12/06/21 21:18 12/07/21 07:40 Glucose (Fingerstick) 125 mg/dL (70-99) 197 mg/dL (70-99) 226 mg/dL (70-99) Microbiology 12/06/21 Blood Culture - Preliminary, Resulted NO GROWTH AFTER 1 DAY 12/06/21 Urine Culture - Final, Complete Medications Current Medications Naloxone HCl (Narcan) 0.4 mg STK-MED ONCE .ROUTE ; Start 12/05/21 at 23:34; Stop 12/05/21 at 23:34; Status DC Iohexol (Omnipaque 350 Mg/ml) 60 ml 1X ONCE IV Last administered on 12/06/21at 00:34; Start 12/06/21 at 01:00; Stop 12/06/21 at 01:01; Status DC Info (CONTRAST GIVEN -- Rx MONITORING) 1 each PRN DAILY PRN MC SEE COMMENTS; Start 12/06/21 at 00:45; Stop 12/08/21 at 00:44 Labetalol HCl (Normodyne Iv Push) 20 mg 1X ONCE IVP Last administered on 12/06/21at 02:33; Start 12/06/21 at 02:30; Stop 12/06/21 at 02:31; Status DC Ceftriaxone Sodium (Rocephin) 1 gm 1X ONCE IVP Last administered on 12/06/21at 02:42; Start 12/06/21 at 02:30; Stop 12/06/21 at 02:31; Status DC Morphine Sulfate (Morphine Sulfate) 2 mg PRN Q2HR PRN IVP SEVERE PAIN 7-10 Last administered on 12/06/21at 16:51; Start 12/06/21 at 04:45 Metoprolol Tartrate (Lopressor Vial) 5 mg PRN Q6HRS PRN IVP HYPERTENSION Last administered on 12/06/21at 17:03; Start 12/06/21 at 04:45 Ceftriaxone Sodium (Rocephin) 1 gm Q24H IVP Last administered on 12/06/21at 11:06; Start 12/06/21 at 11:00 Sodium Chloride 1,000 ml @ 75 mls/hr [id number] IV Last administered on 12/07/21at 01:23; Start 12/06/21 at 10:15 Hydralazine HCl (Apresoline Inj) 10 mg PRN Q6HRS PRN IVP ELEVATED BP, SEE COMMENTS Last administered on 12/07/21at 02:48; Start 12/06/21 at 20:15 Losartan Potassium (Cozaar) 100 mg DAILY PO Last administered on 12/07/21at 08:43; Start 12/07/21 at 09:00 Amlodipine Besylate (Norvasc) 5 mg DAILY PO Last administered on 12/07/21at 08:43; Start 12/07/21 at 09:00 Hydrochlorothiazide (Microzide) 12.5 mg DAILY PO Last administered on 12/07/21at 08:42; Start 12/07/21 at 09:00 Active Scripts Active Eliquis (Apixaban) 5 Mg Tablet 5 Mg PO BID 30 Days Reported Insulin Lispro 100 Unit/1 Ml Vial 20 Unit SQ 0800,1200 Famotidine 20 Mg Tablet 20 Mg PO BID Tribenzor 20-5-12.5 Mg Tablet (Olmesartan/Amlodipin/Hcthiazid) 1 Each Tablet 1 Tab PO DAILY 30 Days Ottertail 5-325 Tablet (Acetaminophen/Hydrocodone Bitart) 1 Each Tablet 1 Tab PO Q4HRS Requip (Ropinirole Hcl) 0.5 Mg Tablet 1 Tab PO QHS Amitiza (Lubiprostone) 8 Mcg Capsule 1 Cap PO BID Vitals/I & O Vital Sign - Last 24 Hours 12/06/21 12/06/21 12/06/21 12/06/21 11:00 15:00 16:51 17:03 Temp 97.1 97.3 97.1 97.3 Pulse 70 71 71 Resp 16 16 18 B/P (MAP) 188/89 (122) 189/103 (131) 189/103 Pulse Ox 100 100 O2 Delivery Room Air Room Air 12/06/21 12/06/21 12/06/21 12/06/21 17:21 19:29 20:00 20:43 Temp 97.6 97.6 Pulse 73 70 Resp 16 16 B/P (MAP) 196/95 (128) 216/95 Pulse Ox 100 99 O2 Delivery Room Air Room Air Room Air 12/06/21 12/07/21 12/07/21 12/07/21 22:39 02:40 02:48 07:00 Temp 98.2 98.2 97.5 98.2 98.2 97.5 Pulse 75 76 76 94 Resp 16 18 18 B/P (MAP) 157/71 (99) 184/85 (118) 184/85 135/70 (91) Pulse Ox 100 100 98 O2 Delivery Room Air Room Air Room Air 12/07/21 12/07/21 08:43 08:43 Pulse 94 94 B/P (MAP) 135/70 135/70 Intake and Output 12/06/21 12/06/2122 15:00 23:00 07:00 Intake Total 0 ml 220 ml 920 ml Output Total 300 ml 250 ml Balance 0 ml -80 ml 670 ml Images MRI BRAIN WITHOUT CONTRAST History: Altered mental status, right carotid near occlusion. Comparison: CTA head and neck with contrast, earlier same day. Technique: Multiplanar multiple pulse sequence images of the brain were obtained without contrast. Findings: There is no restricted diffusion. There is a 5 mm focus of increased T2 and FLA IR signal in the right centrum semiovale. Finding may be incidental or due to chronic small vessel ischemic disease. Ventricles and sulci are normal for patient age. There is a small old infarct of the right cerebellum. There is no midline shift or mass effect. No extra-axial fluid collection or evidence of intraparenchymal hemorrhage. Visualized vascular flow voids are intact. Globes and orbits are normal. The visualized paranasal sinuses and mastoid air cells are clear. No cerebellar tonsillar ectopia. Partially empty sella. IMPRESSION: 1. No acute infarct or hemorrhage. 2. 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 Justicifation of Admission Dx: Justifications for Admission: Justification of Admission Dx: N/A AUDREY RICHARDS MD Dec 07, 2021 09:15
--- NOTE | 2021-12-07 09:19 | RAD ---
EXAM: Bilateral carotid duplex with waveform analysis. CLINICAL HISTORY: Reason: stenosis seen on CTA; Confusion; Syncope / Spl. Instructions: / History: . . TECHNIQUE: Longitudinal and transverse sonographic images of the bilateral carotid arteries was perfo rmed utilizing grayscale, color and spectral Doppler techniques. COMPARISON: CTA of the previous day. FINDINGS: Right Carotid: No visible stenosis or significant plaque. There is prominent vessel tortuosity. Left Carotid: No visible stenosis or significant plaque. There is prominent vessel tortuosity. Vertebrals: Antegrade flow bilaterally. Right: PSV CCA (cm/s): 164 PSV ICA (cm/s): 82 EDV ICA (cm/s): 19 PSV ECA (cm/s): 84 ICA/CCA Ratio: 0.5 Left: PSV CCA (cm/s): 134 PSV ICA (cm/s): 199 EDV ICA (cm/s): 59 PSV ECA (cm/s): 113 ICA/CCA Ratio: 1.48 IMPRESSION: There is some velocity elevation of the left ICA suggesting 50-69 percent stenosis. No elevation is s een on the right, but visualization of the vessels was limited due to tortuosity, and the CTA should be considered more reliable in determining stenosis. Consensus Panel Chase-scale and Doppler US Criteria for Diagnosis of ICA Stenosis Degree of Stenosis (%) ICA PSV (Cm/sec) Plaque Estimate (%)* Normal <125 None <50 <125 <50 50-69 125-230 >50 >70 but < near occlusion >230 >50 Near occlusion High, low, or undetectable Visible Total occlusion Undetectable Visible, no detectable lumen *Plaque estimate (diameter reduction) with chase-scale and color Doppler US Degree of Stenosis (%) ICA/CCA PSV Ratio ICA EDV (cm/sec) Normal <2.0 <40 <50 <2.0 <40 50-69 2.0-4.0 40-100 >70 but < near occlusion >4.0 >100 Near occlusion Variable Variable Total occlusion Not applicable Not applicable Electronically signed by: Ermias Sarabia Jr., MD (12/07/2021 9:16 AM) [id number]
[2021-12-07] MEDS ORDERED: IV DEXTROSE 5% 250 ML BAG. IV PRN (09:45)
[2021-12-07] MEDS ORDERED: DEXTROSE 50% 25 GM / 50ML DISP.SYRIN. IV PRN (09:45)
--- NOTE | 2021-12-07 10:07 | PDOC ---
Provider Note Date of Service: DATE: 12/07/21 TIME: 10:06 Provider Note Vascular surgery See my addendum on our consultation note from December 06, 2021. Recommend right carotid endarterectomy. Cardiology has been consulted for clearance prior to surgery. We will need to start an antiplatelet medication likely Plavix since she has an aspirin allergy. Duplex scan has been ordered of the right arm for the significant swelling. Justifications for Admission Other Justification FERNANDO BARTH MD Dec 07, 2021 10:07
[2021-12-07] MEDS: cefTRIAXone IV Push 1 GM VIAL. IVP SCH (11:07)
[2021-12-07] MEDS: INSULIN LISPRO 300 UNITS/3 ML VIAL. SQ SCH ×3 (11:17→21:00)
[2021-12-07] MEDS ORDERED: LABETALOL 20 MG/4 ML DISP.SYRIN. IVP ONE (11:30)
--- NOTE | 2021-12-07 11:34 | PDOC2 ---
KELI CAMPBELL EXPANDED FUNCTION DENTAL ASSISTANT 12/07/21 1134: CARDIAC CONSULT DATE OF CONSULT Date of Consult DATE: 12/07/21 TIME: 11:06 REASON FOR CONSULT Reason for Consult: preop eval REFERRING PHYSICIAN Referring Physician: Herminia SOURCE Source: Chart review, Patient HISTORY OF PRESENT ILLNESS HISTORY OF PRESENT ILLNESS This is a pleasant 66 yo female admitted for complains of altered mental stat and shortness of breath. I discussed the details with pt and daughter and she has been acting lethargic at times falling asleep so easily. Also has been having SOA with exertion. No chest pain or palpitations. His BP was significantly high upon admission. No nausea or vomiting, no recent falls or injury. No significant leg swelling. She has been feeling weak lately as well. She has hx of CAD and had remote CABG. Consult is for preop clearance. PAST MEDICAL HISTORY Past Medical History Cardiovascular: AFIB, HTN, Syncope, Hyperlipidemia, CAD Pulmonary: No pertinent hx GI: GERD Heme/Onc: No pertinent hx Hepatobiliary: Hep C Psych: Anxiety, depression Rheumatologic: No pertinent hx Infectious disease: No pertinent hx ENT: No pertinent hx Renal/: Chronic renal insuff, UTI Endocrine: Diabetes Dermatology: No pertinent hx PAST SURGICAL HISTORY Past Surgical History CABG, Hysterectomy (partial), Other (gastric bypass), ILR FAMILY HISTORY Family History: Coronary Artery Disease SOCIAL HISTORY Smoke: No ALCOHOL: none Drugs: None Lives: with Family CURRENT MEDICATIONS CURRENT MEDICATIONS Current Medications Medications (Trade) Dose Ordered Sig/Parul Route PRN Reason Start Time Stop Time Status Last Admin Dose Admin Hydralazine HCl (Apresoline Inj) 10 mg PRN Q6HRS PRN IVP ELEVATED BP, SEE COMMENTS 12/06/21 20:15 12/07/21 02:48 Losartan Potassium (Cozaar) 100 mg DAILY PO 12/07/21 09:00 12/07/21 08:43 Amlodipine Besylate (Norvasc) 5 mg DAILY PO 12/07/21 09:00 12/07/21 08:43 Hydrochlorothiazide (Microzide) 12.5 mg DAILY PO 12/07/21 09:00 12/07/21 08:42 ALLERGIES ALLERGIES: Coded Allergies: Penicillins (Verified Allergy, Severe, HIVES, SHORTNESS OF BREATH, 12/06/21) clindamycin (Verified Allergy, Severe, shortness of breath and generalized weakness, 12/06/21) Pt states after taking new prescription of ABX she developed SOB and weakness and was brought to ER by friend. Was found to have elevated BP by chance but the reaction was brought her in initially. ibuprofen (Verified Allergy, Severe, Anaphylaxis, 12/06/21) latex (Verified Allergy, Severe, ITCHING AND SWELLING, 12/06/21) aspirin (Verified Allergy, Intermediate, Hives, 12/06/21) lisinopril (Verified Allergy, Intermediate, cough, 12/06/21) methocarbamol (Verified Allergy, Intermediate, hives, 04/20/19) metformin (Verified Adverse Reaction, Intermediate, Nausea and Vomiting, 04/20/19) ROS Review of System 14 point ROS evaluated with pertinent positives noted per HPI PHYSICAL EXAM General: Alert, Oriented X3, Cooperative, No acute distress HEENT: Atraumatic, Mucous membr. moist/pink Lungs: Other (diminished bases) Abdomen: Soft, No tenderness Extremities: No cyanosis Skin: No breakdown, No significant lesion Neuro: Normal speech, Sensation intact Psych/Mental Status: Mental status NL, Mood NL MUSCULOSKELETAL: Osteoarthritic changes both hands VITALS/I&O VITALS/I&O: Vital Signs Date Time Temp Pulse Resp B/P (MAP) Pulse Ox O2 Delivery O2 Flow Rate FiO2 12/07/21 08:43 94 135/70 12/07/21 07:00 97.5 18 98 Room Air 97.5 I & O 12/06/21 12/06/21 12/07/21 15:00 23:00 07:00 Intake Total 0 ml 220 ml 920 ml Output Total 300 ml 250 ml Balance 0 ml -80 ml 670 ml LABS Lab: Laboratory Tests Test 12/06/21 18:08 12/06/21 21:18 12/07/21 07:40 Glucose (Fingerstick) 125 mg/dL (70-99) H 197 mg/dL (70-99) H 226 mg/dL (70-99) H ASSESSMENT/PLAN ASSESSMENT/PLAN 1. Metabolic/HTN encephalopathy: possibly related to UTI. MRI neg so far for acute stroke neurology following 2. High grade RCIA stenosis: needing CEA per vascular 3. Dyspnea: possibly from diastolic CHF induced by uncontrolled HTN, appears compensated currently 4. PAFIB: SR 5. HTN urgency 6. ILR: placed on 08/2020 7. CAD; 2004 CABG, clinically stable 8. DM2: per PCP 9. HLP 10. CKD3 Recommendations 1. Labetolol, IV. Resume home BP regimen. Increase norvasc 2. Interrogate ILR via medtronic and ascertain AFIB burden. She is on eliquis at home and denies taking plavix and reported taken of it 2 yrs ago while on eliquis. Will review [facility] records Resume eliquis when clear with neurology and vascular, discussed with RN 3. TTE today. pending result she is moderate risk for perioperative CV events f or noncardiac surgery. Further cardiac testing pending report. She does follow with Dr. Jean-Baptiste at [facility] 4. Supportive care. Continue secondary prevention measures [facility] records reviewed She does have hx of CVA and possible NAFLD, Brissa-en-Y gastric bypass, NEFTALI with no CPAP. She is on eliquis and it is unclear why she is no longer on plavix as noted on her [facility] record FINDINGS: [facility] 07/19/2020 Pharmacological Stress Electrocardiogram: The patient's resting heart rate was 78 bpm and the resting blood pressure was 132/78. The patients peak stress heart rate was 90 bpm and the peak stress blood pressure was 142/84. During the stress patient complains of slight shortness of breath. Resting electrocardiogram demonstrates sinus rhythm, normal axis, short MI interval and [address] segment depression in leads V3V4. During the stress there is some baseline artifact but there are no significant changes seen when compared to resting electrocardiogram. No significant arrhythmia. Conclusion: Pharmacologic stress ECG is nondiagnostic for ischemia due to baseline ECG abnormalities. TRES VAUGHN MD 12/10/21 2343: CARDIAC CONSULT ASSESSMENT/PLAN ASSESSMENT/PLAN Late entry for 12/07/21 Pt. seen and examined. Agree with above JUNIOR ENGINEER note. Would be deemed moderate risk for surgery Discussed with daughter and patient at bedside. Supportive care. KELI CAMPBELL APRN Dec 07, 2021 11:34 TRES VAUGHN MD Dec 10, 2021 23:43
[2021-12-07] MEDS ORDERED: CLOPIDOGREL BISULFATE 75 MG TABLET PO SCH (13:00)
--- NOTE | 2021-12-07 13:53 | NUR ---
SS following up with discharge planning. SS reviewed pt chart and discussed with pt RN. Pt is from home and is currently on room air. COVID19 negative. PT/OT recommended intermediate unit. SS met with pt and discussed discharge planning and intermediate unit. Pt declining intermediate at this time. Pt agreeable to home healthcare. SS will continue to follow for discharge planning.
--- NOTE | 2021-12-07 13:54 | PDOC ---
[facility] PROGRESS NOTE Date of Service DOS: DATE: 12/07/21 TIME: 13:40 Chief Complaint Chief Complaint Metabolic/HTN encephalopathy High grade ANGÉLICA stenosis, 50% LICA stenosis: needing CEA per vascular Amaurosis Fugax: second to above Possibly diastolic CHF PAFIB HTN urgency CAD CABG DM2 History of Present Illness History of Present Illness The patient is a pleasant 66-year-old female who developed mental status change yesterday. Her family called EMS. When she got to the ER, where she was noted to have a UTI with metabolic encephalopathy. We also discovered that she has carotid disease. I discussed the case with the ER physician. We admitted her. We are giving IV antibiotics and fluids. We are consulting Neurology and Vascular Surgery. 12/07/2021: Patient seen and evaluated bedside. Afebrile; resting comfortably in no acute respiratory distress. No growth on urine culture, and patient currently denies any urinary symptoms; will discontinue Rocephin. She states that her allergy to aspirin is a rash. She was previously treated with Plavix and cannot tell me why this medication was never discontinued. We will add long-acting insulin to her inpatient regimen; takes 70/30 15 units at night. She does complain of some right arm swelling, but I believe this is secondary to her previous IV access. She has been compliant with her Eliquis. Echocardiogram pending. She is scheduled for carotid endarterectomy believe early next week. Vitals/I&O Vitals/I&O: Vital Signs Date Time Temp Pulse Resp B/P (MAP) Pulse Ox O2 Delivery O2 Flow Rate FiO2 12/07/21 11:40 144/90 (108) 12/07/21 11:27 80 12/07/21 11:16 98.6 18 100 Room Air 98.6 I & O 12/06/21 12/06/21 12/07/21 15:00 23:00 07:00 Intake Total 0 ml 220 ml 920 ml Output Total 300 ml 250 ml Balance 0 ml -80 ml 670 ml Physical Exam General: Alert, Oriented X3, Cooperative, No acute distress Heart: Other (irreg rythym, reg rate) Lungs: Clear Abdomen: Soft, No tenderness Extremities: No cyanosis Skin: No breakdown, No significant lesion Labs Labs: Laboratory Tests Test 12/06/21 18:08 12/06/21 21:18 12/07/21 07:40 12/07/21 11:13 Glucose (Fingerstick) 125 mg/dL (70-99) 197 mg/dL (70-99) 226 mg/dL (70-99) 247 mg/dL (70-99) Test 12/07/21 11:55 AP-Peo-R-Type Natriuretic Peptide 605 pg/mL (0-124) Assessment and Plan Assessmemt and Plan Problems Medical Problems: (1) Carotid stenosis, left Status: Acute (2) Carotid stenosis, right Status: Acute (3) Urinary tract infection Status: Acute Comment Review of Relevant I have reviewed the following items judd (where applicable) has been applied. Medications: Current Medications Medications (Trade) Dose Ordered Sig/Parul Route PRN Reason Start Time Stop Time Status Last Admin Dose Admin Hydralazine HCl (Apresoline Inj) 10 mg PRN Q6HRS PRN IVP ELEVATED BP, SEE COMMENTS 12/06/21 20:15 12/07/21 02:48 Losartan Potassium (Cozaar) 100 mg DAILY PO 12/07/21 09:00 12/07/21 08:43 Amlodipine Besylate (Norvasc) 5 mg DAILY PO 12/07/21 09:00 12/07/21 11:35 DC 12/07/21 08:43 Hydrochlorothiazide (Microzide) 12.5 mg DAILY PO 12/07/21 09:00 12/07/21 08:42 Insulin Human Lispro (HumaLOG) 0-5 UNITS [id number] SQ 12/07/21 12:00 12/07/21 11:17 Labetalol HCl (Normodyne Iv Push) 20 mg 1X ONCE IVP 12/07/21 11:30 12/07/21 11:31 DC 12/07/21 11:27 Clopidogrel Bisulfate (Plavix) 75 mg [id number] PO 12/07/21 13:00 12/07/21 13:10 Justifications for Admission Other Justification VERITO NEVAREZ MD Dec 07, 2021 13:54
[2021-12-07] MEDS ORDERED: ALBUTEROL SULFATE 2.5 MG/3 ML NEBU. NEB PRN (14:00)
[2021-12-07] MEDS ORDERED: APIXABAN 5 MG TABLET. PO SCH (14:00)
[2021-12-07] MEDS: LABETALOL 20 MG/4 ML DISP.SYRIN. IVP PRN (15:16)
--- NOTE | 2021-12-07 15:21 | RAD ---
INDICATION: Reason: RT arm swelling with recent IV / Spl. Instructions: / History: COMPARISON: None. TECHNIQUE: Grayscale, color and doppler ultrasound images were obtained of the right upper extremity venous vasculature. RIGHT: No thrombus identified in the internal jugular, subclavian, axillary, brachial, cephalic, radial vein s. Portions of the basilic and ulnar vein are not well seen secondary to edema obscuring IMPRESSION: * No thrombus identified in deep venous system of right upper extremity. Some of the vessels are no t well-seen secondary to overlying edema obscuring. Electronically signed by: Nikhil Villa MD (12/07/2021 3:19 PM) [id number]
[2021-12-07] MEDS: LUBIPROSTONE 24 MCG CAPSULE PO SCH (16:14)
[2021-12-07] MEDS: HYDROcodone/APAP 5/325MG 1 TAB TABLET PO SCH ×2 (16:14→21:37)
[2021-12-07] MEDS: FAMOTIDINE 20 MG TABLET. PO SCH (21:37)
[2021-12-07] MEDS: rOPINIRole 0.25 MG TABLET. PO SCH (21:37)
[2021-12-07] MEDS: INSULIN GLARGINE SYRINGE. SQ SCH (21:39)
[2021-12-08] VITALS (8 sets, daily range): BP systolic 151–201; BP diastolic 65–97
[2021-12-08] MEDS: HYDROcodone/APAP 5/325MG 1 TAB TABLET PO SCH ×6 (03:23→20:33)
[2021-12-08] MEDS: IV NORMAL SALINE 1000ML BAG 1,000 ML IV SCH (04:55)
[2021-12-08] MEDS: INSULIN LISPRO 300 UNITS/3 ML VIAL. SQ SCH ×4 (07:39→20:33)
[2021-12-08] MEDS: hydroCHLOROthiazide 12.5 MG CAPSULE PO SCH (07:48)
[2021-12-08] MEDS: LUBIPROSTONE 24 MCG CAPSULE PO SCH ×2 (07:48→16:42)
[2021-12-08] MEDS: LOSARTAN POTASSIUM 50 MG TABLET. PO SCH (07:49)
[2021-12-08] MEDS: FAMOTIDINE 20 MG TABLET. PO SCH ×2 (07:51→20:32)
[2021-12-08 09:51] LABS: ANION GAP 9 (6-14); BLOOD UREA NITROGEN 16 mg/dL (7-20); CALCIUM 8.5 mg/dL (8.5-10.1); CARBON DIOXIDE 26 mmol/L (21-32); CHLORIDE 103 mmol/L (98-107); CREATININE 1.3 mg/dL (0.6-1.0); GFR 49.3; GLUCOSE 293 mg/dL (70-99); POTASSIUM 3.6 mmol/L (3.5-5.1); SODIUM 138 mmol/L (136-145)
[2021-12-08 09:52] LABS: C-REACTIVE PROTEIN < 0.5 mg/L (0-3.3)
[2021-12-08] MEDS: CLOPIDOGREL BISULFATE 75 MG TABLET PO SCH (10:10)
[2021-12-08] MEDS: LABETALOL 20 MG/4 ML DISP.SYRIN. IVP PRN (11:56)
--- NOTE | 2021-12-08 13:45 | PDOC ---
PROGRESS NOTES Date of Service DATE: 12/08/21 TIME: 13:42 Subjective Subjective Patient seen and examined Objective Objective Vital Signs Date Time Temp Pulse Resp B/P (MAP) Pulse Ox O2 Delivery O2 Flow Rate FiO2 12/08/21 13:28 78 155/65 (95) 97 Room Air 12/08/21 11:00 97.5 18 97.5 Intake and Output 12/08/21 07:00 Intake Total 1630 ml Output Total 875 ml Balance 755 ml Intake Oral 630 ml IV Total 1000 ml Output Urine Total 875 ml Physical Exam Abdomen: Normal bowel sounds Heart: Regular rate General: No acute distress Lungs: Other (Mildly decreased breath sounds) Assessment Assessment Problems Medical Problems: (1) Carotid stenosis, left Status: Acute (2) Carotid stenosis, right Status: Acute (3) Urinary tract infection Status: Acute 1. Metabolic/HTN encephalopathy: possibly related to UTI. MRI neg so far for acute stroke neurology following. Improved today. 2. High grade RCIA stenosis: Tentatively plan carotid endarterectomy on Friday morning. 3. Dyspnea: possibly from diastolic CHF induced by uncontrolled HTN, appears compensated currently 4. PAFIB: SR 5. HTN urgency 6. ILR: placed on 08/2020 7. CAD; 2004 CABG, clinically stable. Brief episode of wide-complex tachycardia overnight. Continue present medications. Continuing to monitor. Echo pending. 8. DM2: per PCP 9. HLP 10. CKD3. Monitoring lab. [facility] records reviewed She does have hx of CVA and possible NAFLD, Brissa-en-Y gastric bypass, NEFTALI with no CPAP. She is on eliquis and it is unclear why she is no longer on plavix as noted on her [facility] record FINDINGS: [facility] 07/19/2020 Pharmacological Stress Electrocardiogram: The patient's resting heart rate was 78 bpm and the resting blood pressure was 132/78. The patients peak stress heart rate was 90 bpm and the peak stress blood pressure was 142/84. During the stress patient complains of slight shortness of breath. Resting electrocardiogram demonstrates sinus rhythm, normal axis, short ME interval and [address] segment depression in leads V3V4. During the stress there is some baseline artifact but there are no significant changes seen when compared to resting electrocardiogram. No significant arrhythmia. Conclusion: Pharmacologic stress ECG is nondiagnostic for ischemia due to baseline ECG abnormalities. Comment Review of Relevant I have reviewed the following items judd (where applicable) has been applied. Labs Laboratory Tests Test 12/06/21 18:08 12/06/21 21:18 12/07/21 07:40 12/07/21 11:13 Glucose (Fingerstick) 125 mg/dL (70-99) 197 mg/dL (70-99) 226 mg/dL (70-99) 247 mg/dL (70-99) Test 12/07/21 11:55 12/07/21 16:05 12/07/21 20:10 12/08/21 07:14 SR-Aaz-Z-Type Natriuretic Peptide 605 pg/mL (0-124) Glucose (Fingerstick) 192 mg/dL (70-99) 233 mg/dL (70-99) 223 mg/dL (70-99) Test 12/08/21 09:15 12/08/21 11:46 Sodium Level 138 mmol/L (136-145) Potassium Level 3.6 mmol/L (3.5-5.1) Chloride Level 103 mmol/L (98-107) Carbon Dioxide Level 26 mmol/L (21-32) Anion Gap 9 (6-14) Blood Urea Nitrogen 16 mg/dL (7-20) Creatinine 1.3 mg/dL (0.6-1.0) Estimated GFR (Cockcroft-Gault) 49.3 Glucose Level 293 mg/dL (70-99) Calcium Level 8.5 mg/dL (8.5-10.1) C-Reactive Protein, Quantitative < 0.5 mg/L (0-3.3) Glucose (Fingerstick) 229 mg/dL (70-99) Laboratory Tests Test 12/07/21 16:05 12/07/21 20:10 12/08/21 07:14 12/08/21 09:15 Glucose (Fingerstick) 192 mg/dL (70-99) 233 mg/dL (70-99) 223 mg/dL (70-99) Sodium Level 138 mmol/L (136-145) Potassium Level 3.6 mmol/L (3.5-5.1) Chloride Level 103 mmol/L (98-107) Carbon Dioxide Level 26 mmol/L (21-32) Anion Gap 9 (6-14) Blood Urea Nitrogen 16 mg/dL (7-20) Creatinine 1.3 mg/dL (0.6-1.0) Estimated GFR (Cockcroft-Gault) 49.3 Glucose Level 293 mg/dL (70-99) Calcium Level 8.5 mg/dL (8.5-10.1) C-Reactive Protein, Quantitative < 0.5 mg/L (0-3.3) Test 12/08/21 11:46 Glucose (Fingerstick) 229 mg/dL (70-99) Microbiology 12/06/21 Blood Culture - Preliminary, Resulted NO GROWTH AFTER 2 DAYS 12/06/21 Urine Culture - Final, Complete Medications Current Medications Naloxone HCl (Narcan) 0.4 mg STK-MED ONCE .ROUTE ; Start 12/05/21 at 23:34; Stop 12/05/21 at 23:34; Status DC Iohexol (Omnipaque 350 Mg/ml) 60 ml 1X ONCE IV Last administered on 12/06/21at 00:34; Start 12/06/21 at 01:00; Stop 12/06/21 at 01:01; Status DC Info (CONTRAST GIVEN -- Rx MONITORING) 1 each PRN DAILY PRN MC SEE COMMENTS; Start 12/06/21 at 00:45; Stop 12/08/21 at 00:44; Status DC Labetalol HCl (Normodyne Iv Push) 20 mg 1X ONCE IVP Last administered on 12/06/21at 02:33; Start 12/06/21 at 02:30; Stop 12/06/21 at 02:31; Status DC Ceftriaxone Sodium (Rocephin) 1 gm 1X ONCE IVP Last administered on 12/06/21at 02:42; Start 12/06/21 at 02:30; Stop 12/06/21 at 02:31; Status DC Morphine Sulfate (Morphine Sulfate) 2 mg PRN Q2HR PRN IVP SEVERE PAIN 7-10 Last administered on 12/06/21at 16:51; Start 12/06/21 at 04:45 Metoprolol Tartrate (Lopressor Vial) 5 mg PRN Q6HRS PRN IVP HYPERTENSION Last administered on 12/06/21at 17:03; Start 12/06/21 at 04:45 Ceftriaxone Sodium (Rocephin) 1 gm Q24H IVP Last administered on 12/07/21at 11:07; Start 12/06/21 at 11:00; Stop 12/07/21 at 12:02; Status DC Sodium Chloride 1,000 ml @ 75 mls/hr [id number] IV Last administered on 12/08/21at 04:55; Start 12/06/21 at 10:15 Hydralazine HCl (Apresoline Inj) 10 mg PRN Q6HRS PRN IVP ELEVATED BP, SEE COMMENTS Last administered on 12/07/21at 02:48; Start 12/06/21 at 20:15 Losartan Potassium (Cozaar) 100 mg DAILY PO Last administered on 12/08/21at 07:49; Start 12/07/21 at 09:00 Amlodipine Besylate (Norvasc) 5 mg DAILY PO Last administered on 12/07/21at 08:43; Start 12/07/21 at 09:00; Stop 12/07/21 at 11:35; Status DC Hydrochlorothiazide (Microzide) 12.5 mg DAILY PO Last administered on 12/08/21at 07:48; Start 12/07/21 at 09:00 Insulin Human Lispro (HumaLOG) 0-5 UNITS TIDWMEALHC SQ Last administered on 12/08/21at 11:54; Start 12/07/21 at 12:00 Dextrose (Dextrose 50%-Water Syringe) 12.5 gm PRN Q15MIN PRN IV SEE COMMENTS; Start 12/07/21 at 09:45; Stop 12/07/21 at 09:44; Status DC Dextrose (Iv Dextrose 5%) 250 ml PRN Q15MIN PRN IV SEE COMMENTS; Start 12/07/21 at 09:45; Stop 12/07/21 at 09:44; Status DC Labetalol HCl (Normodyne Iv Push) 20 mg 1X ONCE IVP Last administered on 12/07/21at 11:27; Start 12/07/21 at 11:30; Stop 12/07/21 at 11:31; Status DC Labetalol HCl (Normodyne Iv Push) 20 mg PRN Q2HR PRN IVP HYPERTENSION Last administered on 12/08/21at 11:56; Start 12/07/21 at 11:30 Amlodipine Besylate (Norvasc) 10 mg DAILY PO Last administered on 12/08/21at 07:50; Start 12/08/21 at 09:00 Clopidogrel Bisulfate (Plavix) 75 mg DAILYWBKFT PO Last administered on 12/07/21at 13:10; Start 12/07/21 at 13:00; Stop 12/07/21 at 18:22; Status DC Insulin Glargine (Lantus Syringe) 10 unit QHS SQ Last administered on 12/07/21at 21:39; Start 12/07/21 at 21:00 Apixaban (Eliquis) 5 mg BID PO Last administered on 12/07/21at 14:30; Start 12/07/21 at 14:00; Stop 12/07/21 at 18:22; Status DC Famotidine (Pepcid) 20 mg BID PO Last administered on 12/08/21at 07:51; Start 12/07/21 at 21:00 Acetaminophen/ Hydrocodone Bitart (Lortab 5/325) 1 tab Q4HRS PO Last administered on 12/08/21at 11:53; Start 12/07/21 at 16:00 Lubiprostone (Amitiza) 24 mcg BIDWMEALS PO Last administered on 12/08/21at 07:48; Start 12/07/21 at 17:00 Ropinirole HCl (Requip) 0.5 mg QHS PO Last administered on 12/07/21at 21:37; Start 12/07/21 at 21:00 Albuterol Sulfate (Ventolin Neb Soln) 2.5 mg PRN Q6HRS PRN NEB SHORTNESS OF BREATH; Start 12/07/21 at 14:00 Clopidogrel Bisulfate (Plavix) 75 mg DAILYWBKFT PO Last administered on 12/08/21at 10:10; Start 12/08/21 at 09:45 Active Scripts Active Eliquis (Apixaban) 5 Mg Tablet 5 Mg PO BID 30 Days Reported Insulin Lispro 100 Unit/1 Ml Vial 20 Unit SQ 0800,1200 Famotidine 20 Mg Tablet 20 Mg PO BID Tribenzor 20-5-12.5 Mg Tablet (Olmesartan/Amlodipin/Hcthiazid) 1 Each Tablet 1 Tab PO DAILY 30 Days [place] 5-325 Tablet (Acetaminophen/Hydrocodone Bitart) 1 Each Tablet 1 Tab PO Q4HRS Requip (Ropinirole Hcl) 0.5 Mg Tablet 1 Tab PO QHS Amitiza (Lubiprostone) 8 Mcg Capsule 1 Cap PO BID Vitals/I & O Vital Sign - Last 24 Hours 12/07/21 12/07/21 12/07/21 12/07/21 15:00 15:16 15:35 19:25 Temp 98.5 97.6 98.5 97.6 Pulse 82 85 77 Resp 16 18 B/P (MAP) 185/101 (129) 183/101 131/65 (87) 187/61 (103) Pulse Ox 100 100 O2 Delivery Room Air Room Air 12/07/21 12/07/21 12/07/21 12/07/21 20:00 21:37 22:07 22:12 Temp 98.5 98.5 Pulse 74 Resp 20 18 B/P (MAP) 143/58 (86) Pulse Ox 100 100 100 O2 Delivery Room Air Room Air Room Air Room Air 12/08/21 12/08/21 12/08/21 12/08/21 02:57 03:23 03:53 07:00 Temp 98.0 97.8 98.0 97.8 Pulse 88 80 Resp 16 18 18 18 B/P (MAP) 151/69 (96) 201/97 (131) Pulse Ox 100 100 100 100 O2 Delivery Room Air Room Air Room Air Room Air 12/08/21 12/08/21 12/08/21 12/08/21 07:49 07:50 08:00 09:00 Pulse 70 70 78 B/P (MAP) 213/97 213/97 151/76 (101) O2 Delivery Room Air 12/08/21 12/08/21 12/08/21 11:00 11:56 13:28 Temp 97.5 97.5 Pulse 76 70 78 Resp 18 B/P (MAP) 189/97 (127) 189/71 155/65 (95) Pulse Ox 97 97 O2 Delivery Room Air Room Air Intake and Output 12/07/21 12/07/21 12/08/21 15:00 23:00 07:00 Intake Total 180 ml 0 ml 1450 ml Output Total 875 ml Balance 180 ml 0 ml 575 ml Justifications for Admission Other Justification ISRAEL MEJIA MD Dec 08, 2021 13:45
--- NOTE | 2021-12-08 17:18 | PDOC ---
[facility] PROGRESS NOTE Date of Service DOS: DATE: 12/08/21 TIME: 17:17 Chief Complaint Chief Complaint Metabolic/HTN encephalopathy High grade ANGÉLICA stenosis, 50% LICA stenosis: needing CEA per vascular Amaurosis Fugax: second to above Possibly diastolic CHF PAFIB HTN urgency CAD CABG DM2 History of Present Illness History of Present Illness The patient is a pleasant 66-year-old female who developed mental status change . Her family called EMS. When she got to the ER, where she was noted to have a UTI with metabolic encephalopathy. We also discovered that she has carotid disease. I discussed the case with the ER physician. We admitted her. We are giving IV antibiotics and fluids. We are consulting Neurology and Vascular Surgery. 12/08/2021: Patient seen and evaluated Afebrile; resting comfortably in no acute respiratory distress. No growth on urine culture, and patient currently denies any urinary symptoms; will discontinue Rocephin. She states that her allergy to aspirin is a rash. She was previously treated with Plavix and cannot tell me why this medication was never discontinued. We will add long-acting insulin to her inpatient regimen; takes 70/30 15 units at night. She does complain of some right arm swelling, but I believe this is secondary to her previous IV access. She has been compliant with her Eliquis. Echocardiogram pending. She is scheduled for carotid endarterectomy believe early next week. Vitals/I&O Vitals/I&O: Vital Signs Date Time Temp Pulse Resp B/P (MAP) Pulse Ox O2 Delivery O2 Flow Rate FiO2 12/08/21 14:38 97.7 74 18 162/73 (102) 100 Room Air 97.7 I & O 12/07/21 12/07/21 12/08/21 15:00 23:00 07:00 Intake Total 180 ml 0 ml 1450 ml Output Total 875 ml Balance 180 ml 0 ml 575 ml Physical Exam General: No acute distress Heart: Regular rate Lungs: Clear Abdomen: Normal bowel sounds Extremities: No cyanosis Skin: No breakdown, No significant lesion Labs Labs: Laboratory Tests Test 12/07/21 20:10 12/08/21 07:14 12/08/21 09:15 12/08/21 11:46 Glucose (Fingerstick) 233 mg/dL (70-99) 223 mg/dL (70-99) 229 mg/dL (70-99) Sodium Level 138 mmol/L (136-145) Potassium Level 3.6 mmol/L (3.5-5.1) Chloride Level 103 mmol/L (98-107) Carbon Dioxide Level 26 mmol/L (21-32) Anion Gap 9 (6-14) Blood Urea Nitrogen 16 mg/dL (7-20) Creatinine 1.3 mg/dL (0.6-1.0) Estimated GFR (Cockcroft-Gault) 49.3 Glucose Level 293 mg/dL (70-99) Calcium Level 8.5 mg/dL (8.5-10.1) C-Reactive Protein, Quantitative < 0.5 mg/L (0-3.3) Test 12/08/21 16:28 Glucose (Fingerstick) 212 mg/dL (70-99) Assessment and Plan Assessmemt and Plan Problems Medical Problems: (1) Carotid stenosis, left Status: Acute (2) Carotid stenosis, right Status: Acute (3) Urinary tract infection Status: Acute Comment Review of Relevant I have reviewed the following items judd (where applicable) has been applied. Medications: Current Medications Medications (Trade) Dose Ordered Sig/Parul Route PRN Reason Start Time Stop Time Status Last Admin Dose Admin Amlodipine Besylate (Norvasc) 10 mg DAILY PO 12/08/21 09:00 12/08/21 07:50 Insulin Glargine (Lantus Syringe) 10 unit QHS SQ 12/07/21 21:00 12/07/21 21:39 Famotidine (Pepcid) 20 mg BID PO 12/07/21 21:00 12/08/21 07:51 Ropinirole HCl (Requip) 0.5 mg QHS PO 12/07/21 21:00 12/07/21 21:37 Clopidogrel Bisulfate (Plavix) 75 mg DAILYWBKFT PO 12/08/21 09:45 12/08/21 10:10 Justifications for Admission Other Justification DEXTER LANIER MD Dec 08, 2021 17:18
[2021-12-08] MEDS: rOPINIRole 0.25 MG TABLET. PO SCH (20:33)
[2021-12-08] MEDS: INSULIN GLARGINE SYRINGE. SQ SCH (20:33)
[2021-12-09 03:45] VITALS: BP 204/105
[2021-12-09] MEDS: LABETALOL 20 MG/4 ML DISP.SYRIN. IVP PRN ×2 (03:48→07:39)
[2021-12-09] MEDS: HYDROcodone/APAP 5/325MG 1 TAB TABLET PO SCH ×6 (03:51→21:13)
[2021-12-09] MEDS: IV NORMAL SALINE 1000ML BAG 1,000 ML IV SCH ×2 (04:55→07:50)
[2021-12-09 06:38] VITALS: BP 221/93
[2021-12-09] MEDS: INSULIN LISPRO 300 UNITS/3 ML VIAL. SQ SCH ×4 (07:39→21:00)
[2021-12-09] MEDS: hydroCHLOROthiazide 12.5 MG CAPSULE PO SCH (07:51)
[2021-12-09] MEDS: LUBIPROSTONE 24 MCG CAPSULE PO SCH ×2 (07:51→16:13)
[2021-12-09] MEDS: CLOPIDOGREL BISULFATE 75 MG TABLET PO SCH (07:51)
[2021-12-09] MEDS: FAMOTIDINE 20 MG TABLET. PO SCH ×2 (07:51→21:13)
[2021-12-09] MEDS: LOSARTAN POTASSIUM 50 MG TABLET. PO SCH (07:52)
[2021-12-09 11:19] VITALS: BP 169/75
--- NOTE | 2021-12-09 13:07 | PDOC ---
[facility] [facility] PROGRESS NOTE Date of Service DOS: DATE: 12/09/21 TIME: 13:06 Chief Complaint Chief Complaint Metabolic/HTN encephalopathy High grade ANGÉLICA stenosis, 50% LICA stenosis: needing CEA per vascular Amaurosis Fugax: second to above Possibly diastolic CHF PAFIB HTN urgency CAD CABG DM2 History of Present Illness History of Present Illness 12/09, lost IV, refuses access, will get picc, will need line for surg friday is very weak, will need PT and OT will dc tele on The patient is a pleasant 66-year-old female who developed mental status change . Her family called EMS. When she got to the ER, where she was noted to have a UTI with metabolic encephalopathy. We also discovered that she has carotid disease. I discussed the case with the ER physician. We admitted her. We are giving IV antibiotics and fluids. We are consulting Neurology and Vascular Surgery. 12/08/2021: Patient seen and evaluated Afebrile; resting comfortably in no acute respiratory distress. No growth on urine culture, and patient currently denies any urinary symptoms; will discontinue Rocephin. She states that her allergy to aspirin is a rash. She was previously treated with Plavix and cannot tell me why this medication was never discontinued. We will add long-acting insulin to her inpatient regimen; takes 70/30 15 units at night. She does complain of some right arm swelling, but I believe this is secondary to her previous IV access. She has been compliant with her Eliquis. Echocardiogram pending. She is scheduled for carotid endarterectomy believe early next week. Vitals/I&O Vitals/I&O: Vital Signs Date Time Temp Pulse Resp B/P (MAP) Pulse Ox O2 Delivery O2 Flow Rate FiO2 12/09/21 11:19 97.7 87 18 169/75 (106) 97 Room Air 97.7 I & O 12/08/21 12/08/21 12/09/21 15:00 23:00 07:00 Intake Total 180 ml 180 ml 0 ml Output Total 450 ml 1600 ml Balance -270 ml 180 ml -1600 ml Physical Exam General: No acute distress Heart: Regular rate Lungs: Clear Abdomen: Normal bowel sounds Extremities: No cyanosis Skin: No breakdown, No significant lesion Labs Labs: Laboratory Tests Test 12/08/21 16:28 12/08/21 20:16 12/08/21 20:58 12/09/21 07:24 Glucose (Fingerstick) 212 mg/dL (70-99) 162 mg/dL (70-99) 160 mg/dL (70-99) 174 mg/dL (70-99) Test 12/09/21 10:58 Glucose (Fingerstick) 154 mg/dL (70-99) Assessment and Plan Assessmemt and Plan Problems Medical Problems: (1) Carotid stenosis, left Status: Acute (2) Carotid stenosis, right Status: Acute (3) Urinary tract infection Status: Acute Comment Review of Relevant I have reviewed the following items judd (where applicable) has been applied. Justifications for Admission Other Justification DEXTER LANIER MD Dec 09, 2021 13:07
[2021-12-09] MEDS ORDERED: METOPROLOL TART IMMED RELEASE 50 MG TABLET. PO ONE (14:00)
--- NOTE | 2021-12-09 14:12 | PDOC ---
PROGRESS NOTES Date of Service DATE: 12/09/21 TIME: 14:10 Subjective Subjective Patient seen and examined Objective Objective Vital Signs Date Time Temp Pulse Resp B/P (MAP) Pulse Ox O2 Delivery O2 Flow Rate FiO2 12/09/21 11:19 97.7 87 18 169/75 (106) 97 Room Air 97.7 Intake and Output 12/09/21 07:00 Intake Total 360 ml Output Total 2050 ml Balance -1690 ml Intake Oral 360 ml Output Urine Total 2050 ml Physical Exam Abdomen: Normal bowel sounds Heart: Regular rate General: No acute distress Lungs: Clear to auscultation Assessment Assessment Problems Medical Problems: (1) Carotid stenosis, left Status: Acute (2) Carotid stenosis, right Status: Acute (3) Urinary tract infection Status: Acute 1. Metabolic/HTN encephalopathy: possibly related to UTI. MRI neg so far for acute stroke neurology following. Improved today. 2. High grade RCIA stenosis: Tentatively plan carotid endarterectomy on Friday morning. 3. Dyspnea: possibly from diastolic CHF induced by uncontrolled HTN, appears compensated currently 4. PAFIB: SR 5. HTN urgency 6. ILR: placed on 08/2020 7. CAD; 2004 CABG, clinically stable. Brief episode of wide-complex tachycardia overnight 2 nights ago. Stable last night. On beta-blockers. Echo pending. 8. DM2: per PCP 9. HLP 10. CKD3. Monitoring lab. [facility] records reviewed She does have hx of CVA and possible NAFLD, Brissa-en-Y gastric bypass, NEFTALI with no CPAP. She is on eliquis and it is unclear why she is no longer on plavix as noted on her [facility] record FINDINGS: [facility] 07/19/2020 Pharmacological Stress Electrocardiogram: The patient's resting heart rate was 78 bpm and the resting blood pressure was 132/78. The patients peak stress heart rate was 90 bpm and the peak stress blood pressure was 142/84. During the stress patient complains of slight shortness of breath. Resting electrocardiogram demonstrates sinus rhythm, normal axis, short GA interval and [address] segment depression in leads V3V4. During the stress there is some baseline artifact but there are no significant changes seen when compared to resting electrocardiogram. No significant arrhythmia. Conclusion: Pharmacologic stress ECG is nondiagnostic for ischemia due to baseline ECG abnormalities. Comment Review of Relevant I have reviewed the following items judd (where applicable) has been applied. Labs Laboratory Tests Test 12/07/21 16:05 12/07/21 20:10 12/08/21 07:14 12/08/21 09:15 Glucose (Fingerstick) 192 mg/dL (70-99) 233 mg/dL (70-99) 223 mg/dL (70-99) Sodium Level 138 mmol/L (136-145) Potassium Level 3.6 mmol/L (3.5-5.1) Chloride Level 103 mmol/L (98-107) Carbon Dioxide Level 26 mmol/L (21-32) Anion Gap 9 (6-14) Blood Urea Nitrogen 16 mg/dL (7-20) Creatinine 1.3 mg/dL (0.6-1.0) Estimated GFR (Cockcroft-Gault) 49.3 Glucose Level 293 mg/dL (70-99) Calcium Level 8.5 mg/dL (8.5-10.1) C-Reactive Protein, Quantitative < 0.5 mg/L (0-3.3) Test 12/08/21 11:46 12/08/21 16:28 12/08/21 20:16 12/08/21 20:58 Glucose (Fingerstick) 229 mg/dL (70-99) 212 mg/dL (70-99) 162 mg/dL (70-99) 160 mg/dL (70-99) Test 12/09/21 07:24 12/09/21 10:58 Glucose (Fingerstick) 174 mg/dL (70-99) 154 mg/dL (70-99) Laboratory Tests Test 12/08/21 16:28 12/08/21 20:16 12/08/21 20:58 12/09/21 07:24 Glucose (Fingerstick) 212 mg/dL (70-99) 162 mg/dL (70-99) 160 mg/dL (70-99) 174 mg/dL (70-99) Test 12/09/21 10:58 Glucose (Fingerstick) 154 mg/dL (70-99) Microbiology 12/06/21 Blood Culture - Preliminary, Resulted NO GROWTH AFTER 3 DAYS 12/06/21 Urine Culture - Final, Complete Medications Current Medications Naloxone HCl (Narcan) 0.4 mg STK-MED ONCE .ROUTE ; Start 12/05/21 at 23:34; Stop 12/05/21 at 23:34; Status DC Iohexol (Omnipaque 350 Mg/ml) 60 ml 1X ONCE IV Last administered on 12/06/21at 00:34; Start 12/06/21 at 01:00; Stop 12/06/21 at 01:01; Status DC Info (CONTRAST GIVEN -- Rx MONITORING) 1 each PRN DAILY PRN MC SEE COMMENTS; Start 12/06/21 at 00:45; Stop 12/08/21 at 00:44; Status DC Labetalol HCl (Normodyne Iv Push) 20 mg 1X ONCE IVP Last administered on 12/06/21at 02:33; Start 12/06/21 at 02:30; Stop 12/06/21 at 02:31; Status DC Ceftriaxone Sodium (Rocephin) 1 gm 1X ONCE IVP Last administered on 12/06/21at 02:42; Start 12/06/21 at 02:30; Stop 12/06/21 at 02:31; Status DC Morphine Sulfate (Morphine Sulfate) 2 mg PRN Q2HR PRN IVP SEVERE PAIN 7-10 Last administered on 12/06/21at 16:51; Start 12/06/21 at 04:45 Metoprolol Tartrate (Lopressor Vial) 5 mg PRN Q6HRS PRN IVP HYPERTENSION Last administered on 12/06/21at 17:03; Start 12/06/21 at 04:45 Ceftriaxone Sodium (Rocephin) 1 gm Q24H IVP Last administered on 12/07/21at 11:07; Start 12/06/21 at 11:00; Stop 12/07/21 at 12:02; Status DC Sodium Chloride 1,000 ml @ 75 mls/hr [id number] IV Last administered on 12/09/21at 07:50; Start 12/06/21 at 10:15 Hydralazine HCl (Apresoline Inj) 10 mg PRN Q6HRS PRN IVP ELEVATED BP, SEE COMMENTS Last administered on 12/07/21at 02:48; Start 12/06/21 at 20:15 Losartan Potassium (Cozaar) 100 mg DAILY PO Last administered on 12/09/21at 07:52; Start 12/07/21 at 09:00 Amlodipine Besylate (Norvasc) 5 mg DAILY PO Last administered on 12/07/21at 08:43; Start 12/07/21 at 09:00; Stop 12/07/21 at 11:35; Status DC Hydrochlorothiazide (Microzide) 12.5 mg DAILY PO Last administered on 12/09/21at 07:51; Start 12/07/21 at 09:00 Insulin Human Lispro (HumaLOG) 0-5 UNITS TIDWMEALHC SQ Last administered on 12/09/21at 11:24; Start 12/07/21 at 12:00 Dextrose (Dextrose 50%-Water Syringe) 12.5 gm PRN Q15MIN PRN IV SEE COMMENTS; Start 12/07/21 at 09:45; Stop 12/07/21 at 09:44; Status DC Dextrose (Iv Dextrose 5%) 250 ml PRN Q15MIN PRN IV SEE COMMENTS; Start 12/07/21 at 09:45; Stop 12/07/21 at 09:44; Status DC Labetalol HCl (Normodyne Iv Push) 20 mg 1X ONCE IVP Last administered on 12/07/21at 11:27; Start 12/07/21 at 11:30; Stop 12/07/21 at 11:31; Status DC Labetalol HCl (Normodyne Iv Push) 20 mg PRN Q2HR PRN IVP HYPERTENSION Last administered on 12/09/21at 07:39; Start 12/07/21 at 11:30; Stop 12/09/21 at 13:57; Status DC Amlodipine Besylate (Norvasc) 10 mg DAILY PO Last administered on 12/09/21at 07:51; Start 12/08/21 at 09:00 Clopidogrel Bisulfate (Plavix) 75 mg DAILYWBKFT PO Last administered on 12/07/21at 13:10; Start 12/07/21 at 13:00; Stop 12/07/21 at 18:22; Status DC Insulin Glargine (Lantus Syringe) 10 unit QHS SQ Last administered on 12/08/21at 20:33; Start 12/07/21 at 21:00 Apixaban (Eliquis) 5 mg BID PO Last administered on 12/07/21at 14:30; Start 12/07/21 at 14:00; Stop 12/07/21 at 18:22; Status DC Famotidine (Pepcid) 20 mg BID PO Last administered on 12/09/21at 07:51; Start 12/07/21 at 21:00 Acetaminophen/ Hydrocodone Bitart (Lortab 5/325) 1 tab Q4HRS PO Last administered on 12/09/21at 11:25; Start 12/07/21 at 16:00 Lubiprostone (Amitiza) 24 mcg BIDWMEALS PO Last administered on 12/09/21at 07:51; Start 12/07/21 at 17:00 Ropinirole HCl (Requip) 0.5 mg QHS PO Last administered on 12/08/21at 20:33; Start 12/07/21 at 21:00 Albuterol Sulfate (Ventolin Neb Soln) 2.5 mg PRN Q6HRS PRN NEB SHORTNESS OF BREATH; Start 12/07/21 at 14:00 Clopidogrel Bisulfate (Plavix) 75 mg DAILYWBKFT PO Last administered on 12/09/21at 07:51; Start 12/08/21 at 09:45 Metoprolol Tartrate (Lopressor) 50 mg BID PO ; Start 12/09/21 at 21:00 Metoprolol Tartrate (Lopressor) 50 mg 1X ONCE PO ; Start 12/09/21 at 14:00; Stop 12/09/21 at 14:01; Status DC Hydralazine HCl (Apresoline) 50 mg TID PO ; Start 12/09/21 at 14:00 Active Scripts Active Eliquis (Apixaban) 5 Mg Tablet 5 Mg PO BID 30 Days Reported Insulin Lispro 100 Unit/1 Ml Vial 20 Unit SQ 0800,1200 Famotidine 20 Mg Tablet 20 Mg PO BID Tribenzor 20-5-12.5 Mg Tablet (Olmesartan/Amlodipin/Hcthiazid) 1 Each Tablet 1 Tab PO DAILY 30 Days [place] 5-325 Tablet (Acetaminophen/Hydrocodone Bitart) 1 Each Tablet 1 Tab PO Q4HRS Requip (Ropinirole Hcl) 0.5 Mg Tablet 1 Tab PO QHS Amitiza (Lubiprostone) 8 Mcg Capsule 1 Cap PO BID Vitals/I & O Vital Sign - Last 24 Hours 12/08/21 12/08/21 12/08/21 12/08/21 14:38 19:46 19:54 23:11 Temp 97.7 98.5 97.6 97.7 98.5 97.6 Pulse 74 80 84 Resp 18 16 16 B/P (MAP) 162/73 (102) 178/80 (112) 190/74 (112) Pulse Ox 100 100 100 O2 Delivery Room Air Room Air Room Air Room Air 12/09/21 12/09/21 12/09/21 12/09/21 03:45 03:48 06:38 07:39 Temp 98.4 97.6 98.4 97.6 Pulse 95 95 85 85 Resp 18 18 B/P (MAP) 204/105 (138) 204/105 221/93 (135) 221/93 Pulse Ox 100 99 O2 Delivery Room Air Room Air 12/09/21 12/09/21 12/09/21 12/09/21 07:51 07:52 08:00 11:19 Temp 97.7 97.7 Pulse 85 85 87 Resp 18 B/P (MAP) 221/93 221/93 169/75 (106) Pulse Ox 97 O2 Delivery Room Air Room Air Intake and Output 12/08/21 12/08/21 12/09/21 15:00 23:00 07:00 Intake Total 180 ml 180 ml 0 ml Output Total 450 ml 1600 ml Balance -270 ml 180 ml -1600 ml Justifications for Admission Other Justification ISRAEL MEJIA MD Dec 09, 2021 14:12
[2021-12-09 15:58] VITALS: BP 160/83
--- NOTE | 2021-12-09 16:45 | CARD ---
MR#: [id number] Date of Study: 12/07/2021 Ordering Physician: KELI CAMPBELL, Referring Physician: KELI CAMPBELL Tech: Gary Momin [facility] APPROVED REPORT EXAM: Two-dimensional and M-mode echocardiogram with Doppler and color Doppler. Other Information Quality : Technically LimitedHR: 92bpm Rhythm : NSRTechnically limited study due to body habitus. INDICATION Atrial Fibrillation Pre-Op Surgery/Intervention CABG: RISK FACTORS Hypertension Obesity Hyperlipidemia Diabetes 2D DIMENSIONS Left Atrium(2D)4.0 (1.6-4.0cm)IVSd1.2 (0.7-1.1cm) Aortic Root(2D)3.1 (2.0-3.7cm)LVDd3.4 (3.9-5.9cm) LVOT Diameter2.2 (1.8-2.4cm)PWd1.2 (0.7-1.1cm) LA [id number] (18-58mL)LVDs1.8 (2.5-4.0cm) FS (%) 46.0 %SV37.7 ml Aortic Valve AoV Peak Armin.122.5cm/sAoV VTI26.9cm AO Peak GR.6.0mmHgLVOT VTI 16.76cm AO Mean GR.4mmHg Mitral Valve MV E Pedltjua06.1cm/sMV E Peak Gr.5mmHg MV DECEL [id number] A Lklpehwt06.6cm/s MV E Mean Gr.2mmHgE/A Ratio0.8 TDI Lateral E' P. V8.11cm/sMedial E' P. V6.24cm/s E/Lateral E'7.7E/Medial E'10.0 Pulmonary Valve PV Peak Kcrkeidm35.5cm/s Tricuspid Valve TR P. [id number]/sTR Peak Gr.28mmHg Pulmonary Vein S1 Cnzlpoyw46.2cm/sS2 Vhpxtsbw95.07cm/s D2 Yiwhunhc83.1cm/s LEFT VENTRICLE The left ventricle is normal size. There is mild concentric left ventricular hypertrophy. The left ve ntricular systolic function is normal and the ejection fraction is within normal range. LV ejection f raction is 55 to 60%. There is normal LV segmental wall motion. Transmitral Doppler flow pattern is G rade I-abnormal relaxation pattern. No left ventricle thrombus noted on this study. There is no ventr icular septal defect visualized. There is no left ventricular aneurysm. There is no mass noted in the left ventricle. RIGHT VENTRICLE The right ventricle is normal size. There is normal right ventricular wall thickness. The right ventr icular systolic function is normal. ATRIA The left atrium is mildly dilated. The right atrium size is normal. The interatrial septum is intact with no evidence for an atrial septal defect or patent foramen ovale as noted on 2-D or Doppler imagi ng. AORTIC VALVE The aortic valve is mildly sclerotic. Doppler and Color Flow revealed no significant aortic regurgita tion. There is no significant aortic valvular stenosis. There is no aortic valvular vegetation. MITRAL VALVE The mitral valve is thickened but opens well. There is no evidence of mitral valve prolapse. There is no mitral valve stenosis. Doppler and Color Flow revealed trace mitral valve regurgitation. TRICUSPID VALVE The tricuspid valve is normal in structure and function. Doppler and Color Flow revealed trace to mil d tricuspid regurgitation. The PA pressure was estimated at 38 mmHg. There is no tricuspid valve prol apse or vegetation. There is no tricuspid valve stenosis. PULMONIC VALVE The pulmonary valve is normal in structure and function. Doppler and Color Flow revealed no pulmonic valvular regurgitation. There is no pulmonic valvular stenosis. GREAT VESSELS The aortic root is normal in size. The ascending aorta is normal in size. The pulmonary artery is nor mal. The IVC is normal in size and collapses >50% with inspiration. PERICARDIAL EFFUSION There is no pleural effusion. There is no evidence of significant pericardial effusion. Critical Notification Critical Value: No <Conclusion> The left ventricle is normal size. The left ventricular systolic function is normal and the ejection fraction is within normal range. LV ejection fraction is 55 to 60%. There is mild concentric left ventricular hypertrophy. Doppler and Color Flow revealed no significant aortic regurgitation. There is no significant aortic valvular stenosis. Doppler and Color Flow revealed trace mitral valve regurgitation. Doppler and Color Flow revealed trace to mild tricuspid regurgitation. The PA pressure was estimated at 38 mmHg. Signed by : Ermias Albright MD Electronically Approved : 12/09/2021 16:44:52
[2021-12-09 19:21] VITALS: BP 189/87
[2021-12-09] MEDS: rOPINIRole 0.25 MG TABLET. PO SCH (21:12)
[2021-12-09] MEDS: METOPROLOL TART IMMED RELEASE 50 MG TABLET. PO SCH (21:13)
[2021-12-09] MEDS: INSULIN GLARGINE SYRINGE. SQ SCH (21:14)
[2021-12-09 23:00] VITALS: BP 186/77
[2021-12-10 02:47] VITALS: BP 129/72
[2021-12-10] MEDS: HYDROcodone/APAP 5/325MG 1 TAB TABLET PO SCH ×6 (04:00→21:45)
[2021-12-10 06:38] VITALS: BP 175/80
[2021-12-10] MEDS: INSULIN LISPRO 300 UNITS/3 ML VIAL. SQ SCH ×4 (08:00→21:00)
[2021-12-10] MEDS: METOPROLOL TART IMMED RELEASE 50 MG TABLET. PO SCH ×2 (09:04→21:46)
[2021-12-10] MEDS: hydroCHLOROthiazide 12.5 MG CAPSULE PO SCH (09:05)
[2021-12-10] MEDS: FAMOTIDINE 20 MG TABLET. PO SCH ×2 (09:05→21:47)
[2021-12-10] MEDS: LOSARTAN POTASSIUM 50 MG TABLET. PO SCH (09:05)
[2021-12-10] MEDS: LUBIPROSTONE 24 MCG CAPSULE PO SCH ×2 (09:05→17:51)
[2021-12-10] MEDS: CLOPIDOGREL BISULFATE 75 MG TABLET PO SCH (09:05)
[2021-12-10] MEDS ORDERED: HYDR-2761 PO (10:16)
[2021-12-10] MEDS ORDERED: INSU100V8 SQ (10:16)
[2021-12-10] MEDS ORDERED: HYDR-2759 PO (10:24)
--- NOTE | 2021-12-10 10:30 | PDOC ---
[employer] PROGRESS NOTE Date of Service DOS: DATE: 12/10/21 TIME: 10:30 Chief Complaint Chief Complaint Metabolic/HTN encephalopathy High grade ANGÉLICA stenosis, 50% LICA stenosis: needing CEA per vascular Amaurosis Fugax: second to above Possibly diastolic CHF PAFIB HTN urgency CAD CABG DM2 History of Present Illness History of Present Illness 12/10/2021 Patient seen and examined Discussed with case management Discussed with RN I spoke with her daughter Patient is going for carotid endarterectomy in the morning 12/09, lost IV, refuses access, will get picc, will need line for surg friday is very weak, will need PT and OT will dc tele on The patient is a pleasant 66-year-old female who developed mental status change . Her family called EMS. When she got to the ER, where she was noted to have a UTI with metabolic encephalopathy. We also discovered that she has carotid disease. I discussed the case with the ER physician. We admitted her. We are giving IV antibiotics and fluids. We are consulting Neurology and Vascular Surgery. 12/08/2021: Patient seen and evaluated Afebrile; resting comfortably in no acute respiratory distress. No growth on urine culture, and patient currently denies any urinary symptoms; will discontinue Rocephin. She states that her allergy to aspirin is a rash. She was previously treated with Plavix and cannot tell me why this medication was never discontinued. We will add long-acting insulin to her inpatient regimen; takes 70/30 15 units at night. She does complain of some right arm swelling, but I believe this is secondary to her previous IV access. She has been compliant with her Eliquis. Echocardiogram pending. She is scheduled for carotid endarterectomy believe early next week. Vitals/I&O Vitals/I&O: Vital Signs Date Time Temp Pulse Resp B/P (MAP) Pulse Ox O2 Delivery O2 Flow Rate FiO2 12/10/21 09:05 68 191/96 12/10/21 06:38 97.9 18 100 Room Air 97.9 I & O 12/09/21 12/09/21 12/10/21 15:00 23:00 07:00 Intake Total 200 ml 180 ml 0 ml Output Total 750 ml 1000 ml Balance 200 ml -570 ml -1000 ml Physical Exam General: No acute distress Heart: Regular rate Lungs: Clear Abdomen: Normal bowel sounds Extremities: No cyanosis Skin: No breakdown, No significant lesion Labs Labs: Laboratory Tests Test 12/09/21 10:58 12/09/21 16:13 12/09/21 20:36 12/10/21 07:49 Glucose (Fingerstick) 154 mg/dL (70-99) 96 mg/dL (70-99) 146 mg/dL (70-99) 114 mg/dL (70-99) Assessment and Plan Assessmemt and Plan Problems Medical Problems: (1) Carotid stenosis, left Status: Acute (2) Carotid stenosis, right Status: Acute (3) Urinary tract infection Status: Acute Metabolic/HTN encephalopathy High grade ANGÉLICA stenosis, 50% LICA stenosis: needing CEA per vascular Amaurosis Fugax: second to above Possibly diastolic CHF PAFIB HTN urgency CAD CABG DM2 Plan Patient going for carotid endarterectomy in the a.m. For now continue cardiac monitoring Home meds DVT prophylaxis Full code Discussed with RN Comment Review of Relevant I have reviewed the following items judd (where applicable) has been applied. Medications: Current Medications Medications (Trade) Dose Ordered Sig/Parul Route PRN Reason Start Time Stop Time Status Last Admin Dose Admin Metoprolol Tartrate (Lopressor) 50 mg BID PO 12/09/21 21:00 12/10/21 09:04 Metoprolol Tartrate (Lopressor) 50 mg 1X ONCE PO 12/09/21 14:00 12/09/21 14:01 DC 12/09/21 14:10 Hydralazine HCl (Apresoline) 50 mg TID PO 12/09/21 14:00 12/10/21 09:01 Justifications for Admission Other Justification RAHEL PEREZ III DO Dec 10, 2021 10:30
--- NOTE | 2021-12-10 10:52 | PDOC ---
PROGRESS NOTES Date of Service DATE: 12/10/21 TIME: 10:49 Assessment Problems Medical Problems: (1) Carotid stenosis, left Status: Acute (2) Carotid stenosis, right Status: Acute (3) Urinary tract infection Status: Acute Metabolic encephalopathy, most likely due to her urinary tract infection with evidence of sepsis. Resolved No lateralizing findings on the exam Carotid stenosis, asymptomatic: near complete occlusion on the right and 50 percent stenosis on the left. 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 Plan No need for any additional stroke work-up or treatment Vascular surgery is planning right carotid endarterectomy tomorrow Treatment of medical issues. Subjective No complaint Objective Vital Signs Date Time Temp Pulse Resp B/P (MAP) Pulse Ox O2 Delivery O2 Flow Rate FiO2 12/10/21 09:05 68 191/96 12/10/21 06:38 97.9 18 100 Room Air 97.9 Intake and Output 12/10/21 07:00 Intake Total 380 ml Output Total 1750 ml Balance -1370 ml Intake Oral 380 ml Output Urine Total 1750 ml # Bowel Movements 2 PHYSICAL EXAM Alert. Oriented to time, place and person. PERRL. EOMI. CN: no focal findings. Muscle tone: normal. Muscle strength: 5 -/5 DTR: 1+ Plantar reflex: Flexor Gait: not examined in bed. Sensory exam: no abnormal findings. No cerebellar signs elicited. Review of Relevant I have reviewed the following items judd (where applicable) has been applied. Labs Laboratory Tests Test 12/08/21 11:46 12/08/21 16:28 12/08/21 20:16 12/08/21 20:58 Glucose (Fingerstick) 229 mg/dL (70-99) 212 mg/dL (70-99) 162 mg/dL (70-99) 160 mg/dL (70-99) Test 12/09/21 07:24 12/09/21 10:58 12/09/21 16:13 12/09/21 20:36 Glucose (Fingerstick) 174 mg/dL (70-99) 154 mg/dL (70-99) 96 mg/dL (70-99) 146 mg/dL (70-99) Test 12/10/21 07:49 Glucose (Fingerstick) 114 mg/dL (70-99) Laboratory Tests Test 12/09/21 10:58 12/09/21 16:13 12/09/21 20:36 12/10/21 07:49 Glucose (Fingerstick) 154 mg/dL (70-99) 96 mg/dL (70-99) 146 mg/dL (70-99) 114 mg/dL (70-99) Microbiology 12/06/21 Blood Culture - Preliminary, Resulted NO GROWTH AFTER 4 DAYS 12/06/21 Urine Culture - Final, Complete Medications Current Medications Naloxone HCl (Narcan) 0.4 mg STK-MED ONCE .ROUTE ; Start 12/05/21 at 23:34; Stop 12/05/21 at 23:34; Status DC Iohexol (Omnipaque 350 Mg/ml) 60 ml 1X ONCE IV Last administered on 12/06/21at 00:34; Start 12/06/21 at 01:00; Stop 12/06/21 at 01:01; Status DC Info (CONTRAST GIVEN -- Rx MONITORING) 1 each PRN DAILY PRN MC SEE COMMENTS; Start 12/06/21 at 00:45; Stop 12/08/21 at 00:44; Status DC Labetalol HCl (Normodyne Iv Push) 20 mg 1X ONCE IVP Last administered on 12/06/21at 02:33; Start 12/06/21 at 02:30; Stop 12/06/21 at 02:31; Status DC Ceftriaxone Sodium (Rocephin) 1 gm 1X ONCE IVP Last administered on 12/06/21at 02:42; Start 12/06/21 at 02:30; Stop 12/06/21 at 02:31; Status DC Morphine Sulfate (Morphine Sulfate) 2 mg PRN Q2HR PRN IVP SEVERE PAIN 7-10 Last administered on 12/06/21at 16:51; Start 12/06/21 at 04:45 Metoprolol Tartrate (Lopressor Vial) 5 mg PRN Q6HRS PRN IVP HYPERTENSION Last administered on 12/06/21at 17:03; Start 12/06/21 at 04:45 Ceftriaxone Sodium (Rocephin) 1 gm Q24H IVP Last administered on 12/07/21at 11:07; Start 12/06/21 at 11:00; Stop 12/07/21 at 12:02; Status DC Sodium Chloride 1,000 ml @ 75 mls/hr [id number] IV Last administered on 12/09/21at 07:50; Start 12/06/21 at 10:15; Stop 12/09/21 at 17:03; Status DC Hydralazine HCl (Apresoline Inj) 10 mg PRN Q6HRS PRN IVP ELEVATED BP, SEE COMMENTS Last administered on 12/07/21at 02:48; Start 12/06/21 at 20:15 Losartan Potassium (Cozaar) 100 mg DAILY PO Last administered on 12/10/21at 09:05; Start 12/07/21 at 09:00 Amlodipine Besylate (Norvasc) 5 mg DAILY PO Last administered on 12/07/21at 08:43; Start 12/07/21 at 09:00; Stop 12/07/21 at 11:35; Status DC Hydrochlorothiazide (Microzide) 12.5 mg DAILY PO Last administered on 12/10/21at 09:05; Start 12/07/21 at 09:00 Insulin Human Lispro (HumaLOG) 0-5 UNITS TIDWMEALHC SQ Last administered on 12/09/21at 11:24; Start 12/07/21 at 12:00 Dextrose (Dextrose 50%-Water Syringe) 12.5 gm PRN Q15MIN PRN IV SEE COMMENTS; Start 12/07/21 at 09:45; Stop 12/07/21 at 09:44; Status DC Dextrose (Iv Dextrose 5%) 250 ml PRN Q15MIN PRN IV SEE COMMENTS; Start 12/07/21 at 09:45; Stop 12/07/21 at 09:44; Status DC Labetalol HCl (Normodyne Iv Push) 20 mg 1X ONCE IVP Last administered on 12/07/21at 11:27; Start 12/07/21 at 11:30; Stop 12/07/21 at 11:31; Status DC Labetalol HCl (Normodyne Iv Push) 20 mg PRN Q2HR PRN IVP HYPERTENSION Last administered on 12/09/21at 07:39; Start 12/07/21 at 11:30; Stop 12/09/21 at 13:57; Status DC Amlodipine Besylate (Norvasc) 10 mg DAILY PO Last administered on 12/10/21at 09:00; Start 12/08/21 at 09:00 Clopidogrel Bisulfate (Plavix) 75 mg DAILYWBKFT PO Last administered on 12/07/21 13:10; Start 12/07/21 at 13:00; Stop 12/07/21 at 18:22; Status DC Insulin Glargine (Lantus Syringe) 10 unit QHS SQ Last administered on 12/09/21 21:14; Start 12/07/21 at 21:00 Apixaban (Eliquis) 5 mg BID PO Last administered on 12/07/21at 14:30; Start 12/07/21 at 14:00; Stop 12/07/21 at 18:22; Status DC Famotidine (Pepcid) 20 mg BID PO Last administered on 12/10/21 09:05; Start 12/07/21 at 21:00 Acetaminophen/ Hydrocodone Bitart (Lortab 5/325) 1 tab Q4HRS PO Last admini stered on 12/09/21at 21:13; Start 12/07/21 at 16:00 Lubiprostone (Amitiza) 24 mcg BIDWMEALS PO Last administered on 12/10/21at 09 :05; Start 12/07/21 at 17:00 Ropinirole HCl (Requip) 0.5 mg QHS PO Last administered on 12/09/21 21:12; Start 12/07/21 at 21:00 Albuterol Sulfate (Ventolin Neb Soln) 2.5 mg PRN Q6HRS PRN NEB SHORTNESS OF BREATH; Start 12/07/21 at 14:00 Clopidogrel Bisulfate (Plavix) 75 mg DAILYWBKFT PO Last administered on 12/10/21at 09:05; Start 12/08/21 at 09:45 Metoprolol Tartrate (Lopressor) 50 mg BID PO Last administered on 12/10/21 09:04; Start 12/09/21 at 21:00 Metoprolol Tartrate (Lopressor) 50 mg 1X ONCE PO Last administered on 12/09/21 14:10; Start 12/09/21 at 14:00; Stop 12/09/21 at 14:01; Status DC Hydralazine HCl (Apresoline) 50 mg TID PO Last administered on 12/10/21at 09:01; Start 12/09/21 at 14:00 Heparin Sodium (Porcine) 5000 unit/Ringer's Solution 505 ml @ 505 mls/hr 1X ONCE IRR ; Start 12/11/21 at 06:00; Stop 12/11/21 at 06:59 Active Scripts Active Eliquis (Apixaban) 5 Mg Tablet 5 Mg PO BID 30 Days Reported Insulin Lispro 100 Unit/1 Ml Vial 20 Unit SQ 0800,1200 Famotidine 20 Mg Tablet 20 Mg PO BID Tribenzor 20-5-12.5 Mg Tablet (Olmesartan/Amlodipin/Hcthiazid) 1 Each Tablet 1 Tab PO DAILY 30 Days [place] 5-325 Tablet (Acetaminophen/Hydrocodone Bitart) 1 Each Tablet 1 Tab PO Q4HRS Requip (Ropinirole Hcl) 0.5 Mg Tablet 1 Tab PO QHS Amitiza (Lubiprostone) 8 Mcg Capsule 1 Cap PO BID Vitals/I & O Vital Sign - Last 24 Hours 12/09/21 12/09/21 12/09/21 12/09/21 11:19 14:09 14:10 15:58 Temp 97.7 97.6 97.7 97.6 Pulse 87 87 87 82 Resp 18 20 B/P (MAP) 169/75 (106) 169/75 169/75 160/83 (108) Pulse Ox 97 96 O2 Delivery Room Air Room Air 12/09/21 12/09/21 12/09/21 12/09/21 19:21 19:49 21:13 21:13 Temp 97.5 97.5 Pulse 102 102 Resp 16 B/P (MAP) 189/87 (121) 189/87 Pulse Ox 99 O2 Delivery Room Air Room Air Room Air 12/09/21 12/09/21 12/10/21 12/10/21 21:13 23:00 02:47 06:38 Temp 97.8 97.7 97.9 97.8 97.7 97.9 Pulse 102 91 87 91 Resp 16 16 18 B/P (MAP) 189/87 186/77 (113) 129/72 (91) 175/80 (111) Pulse Ox 100 100 100 O2 Delivery Room Air Room Air Room Air 12/10/21 12/10/21 12/10/21 12/10/21 09:00 09:01 09:04 09:05 Pulse 91 70 68 B/P (MAP) 191/96 191/96 191/96 191/96 Intake and Output 12/09/21 12/09/21 12/10/21 15:00 23:00 07:00 Intake Total 200 ml 180 ml 0 ml Output Total 750 ml 1000 ml Balance 200 ml -570 ml -1000 ml Justicifation of Admission Dx: Justifications for Admission: Justification of Admission Dx: N/A AUDREY RICHARDS MD Dec 10, 2021 10:52
[2021-12-10 10:59] VITALS: BP 95/62
--- NOTE | 2021-12-10 13:28 | PDOC ---
Provider Note Date of Service: DATE: 12/10/21 TIME: 13:24 Provider Note Provider Note Seen and examined today. Hypertensive. Echo pending. Denies any new complaints. regular nonlabored respirations sensation and motor intact to BUE/BLE, cranial nerves II-XII intact Planning for CEA tomorrow. Echo pending. Will need to control hypertension prior to proceeding with OR tomorrow. If BPs are persistently elevated, may have to postpone procedure. Darling Wynn DO Justicifation of Admission Dx: Justifications for Admission: Justification of Admission Dx: N/A DARLING WYNN DO Dec 10, 2021 13:28
--- NOTE | 2021-12-10 13:36 | NUR ---
SS following up with discharge planning. SS reviewed pt chart and discussed with pt RN. Pt is currently on room air. COVID19 negative. Pt having PICC line placed today and Carotid Endarterectomy tomorrow. PT/OT recommended shelter unit. Pt and pt's family declining shelter unit at this time and are requesting home healthcare with no preference of company. Referral sent to [facility], ; fax [phone]. SS will continue to follow for discharge planning.
[2021-12-10] MEDS ORDERED: niCARdipine 50 MG in IV NORMAL SALINE 250ML 250 ML IV PRN (14:00)
[2021-12-10 15:00] VITALS: BP 165/73
[2021-12-10] MEDS ORDERED: LIDOCAINE 1% PF 2 ML VIAL. ONE (15:07)
--- NOTE | 2021-12-10 18:14 | PDOC ---
PROGRESS NOTES Date of Service DATE: 12/10/21 TIME: 18:12 Subjective Subjective Patient seen and examined Objective Objective Vital Signs Date Time Temp Pulse Resp B/P (MAP) Pulse Ox O2 Delivery O2 Flow Rate FiO2 12/10/21 17:52 Room Air 12/10/21 15:00 98.9 65 20 165/73 (103) 98 98.9 Intake and Output 12/10/21 07:00 Intake Total 380 ml Output Total 1750 ml Balance -1370 ml Intake Oral 380 ml Output Urine Total 1750 ml # Bowel Movements 2 Physical Exam Abdomen: Normal bowel sounds Heart: Regular rate General: No acute distress Lungs: Clear to auscultation Assessment Assessment Problems Medical Problems: (1) Carotid stenosis, left Status: Acute (2) Carotid stenosis, right Status: Acute (3) Urinary tract infection Status: Acute 1. Metabolic/HTN encephalopathy: possibly related to UTI. MRI neg so far for acute stroke neurology following. Continues to improve. 2. High grade RCIA stenosis: Tentatively plan carotid endarterectomy on Friday morning. 3. Dyspnea: possibly from diastolic CHF induced by uncontrolled HTN, appears compensated currently 4. PAFIB: SR 5. HTN urgency. Blood pressure still elevated. Will increase medications. 6. ILR: placed on 08/2020 7. CAD; 2004 CABG, clinically stable. Brief episode of wide-complex tachycardia overnight 2 nights ago. Stable last night. On beta-blockers. Echo as above with intact LV systolic function. 8. DM2: per PCP 9. HLP 10. CKD3. Monitoring lab. Comment Review of Relevant I have reviewed the following items judd (where applicable) has been applied. Labs Laboratory Tests Test 12/08/21 20:16 12/08/21 20:58 12/09/21 07:24 12/09/21 10:58 Glucose (Fingerstick) 162 mg/dL (70-99) 160 mg/dL (70-99) 174 mg/dL (70-99) 154 mg/dL (70-99) Test 12/09/21 16:13 12/09/21 20:36 12/10/21 07:49 12/10/21 11:52 Glucose (Fingerstick) 96 mg/dL (70-99) 146 mg/dL (70-99) 114 mg/dL (70-99) 116 mg/dL (70-99) Test 12/10/21 17:38 Glucose (Fingerstick) 168 mg/dL (70-99) Laboratory Tests Test 12/09/21 20:36 12/10/21 07:49 12/10/21 11:52 12/10/21 17:38 Glucose (Fingerstick) 146 mg/dL (70-99) 114 mg/dL (70-99) 116 mg/dL (70-99) 168 mg/dL (70-99) Microbiology 12/06/21 Blood Culture - Preliminary, Resulted NO GROWTH AFTER 4 DAYS 12/06/21 Urine Culture - Final, Complete Medications Current Medications Naloxone HCl (Narcan) 0.4 mg STK-MED ONCE .ROUTE ; Start 12/05/21 at 23:34; Stop 12/05/21 at 23:34; Status DC Iohexol (Omnipaque 350 Mg/ml) 60 ml 1X ONCE IV Last administered on 12/06/21at 00:34; Start 12/06/21 at 01:00; Stop 12/06/21 at 01:01; Status DC Info (CONTRAST GIVEN -- Rx MONITORING) 1 each PRN DAILY PRN MC SEE COMMENTS; Start 12/06/21 at 00:45; Stop 12/08/21 at 00:44; Status DC Labetalol HCl (Normodyne Iv Push) 20 mg 1X ONCE IVP Last administered on 12/06/21at 02:33; Start 12/06/21 at 02:30; Stop 12/06/21 at 02:31; Status DC Ceftriaxone Sodium (Rocephin) 1 gm 1X ONCE IVP Last administered on 12/06/21at 02:42; Start 12/06/21 at 02:30; Stop 12/06/21 at 02:31; Status DC Morphine Sulfate (Morphine Sulfate) 2 mg PRN Q2HR PRN IVP SEVERE PAIN 7-10 Last administered on 12/06/21at 16:51; Start 12/06/21 at 04:45 Metoprolol Tartrate (Lopressor Vial) 5 mg PRN Q6HRS PRN IVP HYPERTENSION Last administered on 12/06/21at 17:03; Start 12/06/21 at 04:45 Ceftriaxone Sodium (Rocephin) 1 gm Q24H IVP Last administered on 12/07/21at 11:07; Start 12/06/21 at 11:00; Stop 12/07/21 at 12:02; Status DC Sodium Chloride 1,000 ml @ 75 mls/hr [id number] IV Last administered on 12/09/21at 07:50; Start 12/06/21 at 10:15; Stop 12/09/21 at 17:03; Status DC Hydralazine HCl (Apresoline Inj) 10 mg PRN Q6HRS PRN IVP ELEVATED BP, SEE COMMENTS Last administered on 12/07/21at 02:48; Start 12/06/21 at 20:15 Losartan Potassium (Cozaar) 100 mg DAILY PO Last administered on 12/10/21at 09:05; Start 12/07/21 at 09:00 Amlodipine Besylate (Norvasc) 5 mg DAILY PO Last administered on 12/07/21at 08:43; Start 12/07/21 at 09:00; Stop 12/07/21 at 11:35; Status DC Hydrochlorothiazide (Microzide) 12.5 mg DAILY PO Last administered on 12/10/21at 09:05; Start 12/07/21 at 09:00 Insulin Human Lispro (HumaLOG) 0-5 UNITS TIDWMEALHC SQ Last administered on 12/09/21at 11:24; Start 12/07/21 at 12:00 Dextrose (Dextrose 50%-Water Syringe) 12.5 gm PRN Q15MIN PRN IV SEE COMMENTS; Start 12/07/21 at 09:45; Stop 12/07/21 at 09:44; Status DC Dextrose (Iv Dextrose 5%) 250 ml PRN Q15MIN PRN IV SEE COMMENTS; Start 12/07/21 at 09:45; Stop 12/07/21 at 09:44; Status DC Labetalol HCl (Normodyne Iv Push) 20 mg 1X ONCE IVP Last administered on 12/07/21at 11:27; Start 12/07/21 at 11:30; Stop 12/07/21 at 11:31; Status DC Labetalol HCl (Normodyne Iv Push) 20 mg PRN Q2HR PRN IVP HYPERTENSION Last administered on 12/09/21at 07:39; Start 12/07/21 at 11:30; Stop 12/09/21 at 13:57; Status DC Amlodipine Besylate (Norvasc) 10 mg DAILY PO Last administered on 12/10/21 09:00; Start 12/08/21 at 09:00 Clopidogrel Bisulfate (Plavix) 75 mg DAILYWBKFT PO Last administered on 12/07/21 13:10; Start 12/07/21 at 13:00; Stop 12/07/21 at 18:22; Status DC Insulin Glargine (Lantus Syringe) 10 unit QHS SQ Last administered on 12/09/21 21:14; Start 12/07/21 at 21:00 Apixaban (Eliquis) 5 mg BID PO Last administered on 12/07/21 14:30; Start 12/07/21 at 14:00; Stop 12/07/21 at 18:22; Status DC Famotidine (Pepcid) 20 mg BID PO Last administered on 12/10/21 09:05; Start 12/07/21 at 21:00 Acetaminophen/ Hydrocodone Bitart (Lortab 5/325) 1 tab Q4HRS PO Last admi nistered on 12/10/21 17:52; Start 12/07/21 at 16:00 Lubiprostone (Amitiza) 24 mcg BIDWMEALS PO Last administered on 12/10/21 17:51; Start 12/07/21 at 17:00 Ropinirole HCl (Requip) 0.5 mg QHS PO Last administered on 12/09/21at 21:12; Start 12/07/21 at 21:00 Albuterol Sulfate (Ventolin Neb Soln) 2.5 mg PRN Q6HRS PRN NEB SHORTNESS OF BREATH; Start 12/07/21 at 14:00 Clopidogrel Bisulfate (Plavix) 75 mg DAILYWBKFT PO Last administered on 12/10/21 09:05; Start 12/08/21 at 09:45 Metoprolol Tartrate (Lopressor) 50 mg BID PO Last administered on 12/10/21 09:04; Start 12/09/21 at 21:00 Metoprolol Tartrate (Lopressor) 50 mg 1X ONCE PO Last administered on 12/09/21 14:10; Start 12/09/21 at 14:00; Stop 12/09/21 at 14:01; Status DC Hydralazine HCl (Apresoline) 50 mg TID PO Last administered on 12/10/21at 14:48; Start 12/09/21 at 14:00 Heparin Sodium (Porcine) 5000 unit/Ringer's Solution 505 ml @ 505 mls/hr 1X ONCE IRR ; Start 12/11/21 at 06:00; Stop 12/11/21 at 06:59 Fentanyl Citrate (Fentanyl 2ml Vial) 25 mcg PRN Q5MIN PRN IVP MILD PAIN 1-3; Start 12/11/21 at 06:00; Stop 12/11/21 at 20:00 Fentanyl Citrate (Fentanyl 2ml Vial) 50 mcg PRN Q5MIN PRN IVP MODERATE PAIN 4- 6; Start 12/11/21 at 06:00; Stop 12/11/21 at 20:00 Morphine Sulfate (Morphine Sulfate) 1 mg PRN Q10MIN PRN IVP SEVERE PAIN 7-10; Start 12/11/21 at 06:00; Stop 12/11/21 at 20:00 Ringer's Solution 1,000 ml @ 30 mls/hr Q24H IV ; Start 12/11/21 at 06:00; Stop 12/11/21 at 17:59 Hydromorphone HCl (Dilaudid) 0.5 mg PRN Q10MIN PRN IVP SEVERE PAIN 7-10, 2nd CHOICE; Start 12/11/21 at 06:00; Stop 12/11/21 at 20:00 Prochlorperazine Edisylate (Compazine) 5 mg PACU PRN PRN IVP NAUSEA, MRX1; Start 12/11/21 at 06:00; Stop 12/11/21 at 20:00 Nicardipine HCl 50 mg/Sodium Chloride 250 ml @ 25 mls/hr CONT PRN IV PER PROTOCOL; Start 12/10/21 at 14:00; Status Cancel Lidocaine HCl (Xylocaine-Mpf 1% 2ml Vial) 2 ml STK-MED ONCE .ROUTE ; Start 12/10/21 at 15:07; Stop 12/10/21 at 15:08; Status DC Active Scripts Active Eliquis (Apixaban) 5 Mg Tablet 5 Mg PO BID 30 Days Reported Insulin Lispro 100 Unit/1 Ml Vial 20 Unit SQ 0800,1200 Famotidine 20 Mg Tablet 20 Mg PO BID Tribenzor 20-5-12.5 Mg Tablet (Olmesartan/Amlodipin/Hcthiazid) 1 Each Tablet 1 Tab PO DAILY 30 Days [place] 5-325 Tablet (Acetaminophen/Hydrocodone Bitart) 1 Each Tablet 1 Tab PO Q4HRS Requip (Ropinirole Hcl) 0.5 Mg Tablet 1 Tab PO QHS Amitiza (Lubiprostone) 8 Mcg Capsule 1 Cap PO BID Vitals/I & O Vital Sign - Last 24 Hours 12/09/21 12/09/21 12/09/21 12/09/21 19:21 19:49 21:13 21:13 Temp 97.5 97.5 Pulse 102 102 Resp 16 B/P (MAP) 189/87 (121) 189/87 Pulse Ox 99 O2 Delivery Room Air Room Air Room Air 12/09/21 12/09/21 12/10/21 12/10/21 21:13 23:00 02:47 06:38 Temp 97.8 97.7 97.9 97.8 97.7 97.9 Pulse 102 91 87 91 Resp 16 16 18 B/P (MAP) 189/87 186/77 (113) 129/72 (91) 175/80 (111) Pulse Ox 100 100 100 O2 Delivery Room Air Room Air Room Air 12/10/21 12/10/21 12/10/21 12/10/21 08:00 09:00 09:01 09:04 Pulse 91 70 B/P (MAP) 191/96 191/96 191/96 O2 Delivery Room Air 12/10/21 12/10/21 12/10/21 12/10/21 09:05 10:59 11:46 12:16 Temp 97.9 97.9 Pulse 68 80 Resp 18 B/P (MAP) 191/96 95/62 (73) Pulse Ox 96 O2 Delivery Room Air Room Air Room Air 12/10/21 12/10/21 12/10/21 14:48 15:00 17:52 Temp 98.9 98.9 Pulse 64 65 Resp 20 B/P (MAP) 165/73 165/73 (103) Pulse Ox 98 O2 Delivery Room Air Room Air Intake and Output 12/09/21 12/09/21 12/10/21 15:00 23:00 07:00 Intake Total 200 ml 180 ml 0 ml Output Total 750 ml 1000 ml Balance 200 ml -570 ml -1000 ml Justifications for Admission Other Justification MCSWEYN,ISRAEL J MD Dec 10, 2021 18:14
[2021-12-10] MEDS ORDERED: QUET50TA5 PO (18:59)
[2021-12-10 19:09] VITALS: BP 146/78
[2021-12-10] MEDS ORDERED: QUEtiapine 100 MG TABLET. PO SCH (21:00)
[2021-12-10] MEDS: rOPINIRole 0.25 MG TABLET. PO SCH (21:45)
[2021-12-10] MEDS: INSULIN GLARGINE SYRINGE. SQ SCH (21:53)
[2021-12-10 22:40] VITALS: BP 141/70
[2021-12-11 02:52] VITALS: BP 121/56
[2021-12-11] MEDS: HYDROcodone/APAP 5/325MG 1 TAB TABLET PO SCH ×4 (04:00→11:08)
[2021-12-11] MEDS ORDERED: PROCHLORPERAZINE 10 MG/2 ML VIAL. IVP PRN (06:00)
[2021-12-11] MEDS ORDERED: IV RINGERS,LACTATED 1000ML 1,000 ML IV SCH (06:00)
[2021-12-11] MEDS ORDERED: HEPARIN SODIUM 5,000 UNIT in IV RINGERS,LACTATED 500ML 500 ML IRR ONE (06:00)
[2021-12-11] MEDS ORDERED: fentaNYL PF VIAL 100 MCG/2 ML VIAL IVP PRN ×2 (06:00)
[2021-12-11] MEDS ORDERED: MORPHINE SULFATE 2 MG/ML INJ. IVP PRN (06:00)
[2021-12-11] MEDS ORDERED: HYDROmorphone 2 MG/ML INJ. IVP PRN (06:00)
[2021-12-11 06:02] LABS: HEMATOCRIT 38.2 % (36.0-47.0); HEMOGLOBIN 12.6 g/dL (12.0-15.5); RED BLOOD COUNT 4.62 x10^6/uL (3.50-5.40); WHITE BLOOD COUNT 6.6 x10^3/uL (4.0-11.0)
[2021-12-11 06:25] LABS: CALCIUM 9.2 mg/dL (8.5-10.1); CREATININE 1.4 mg/dL (0.6-1.0); GFR 45.2
[2021-12-11 07:00] VITALS: BP 161/72
[2021-12-11] MEDS: INSULIN LISPRO 300 UNITS/3 ML VIAL. SQ SCH ×2 (07:42→12:00)
[2021-12-11] MEDS: FAMOTIDINE 20 MG TABLET. PO SCH (08:18)
[2021-12-11] MEDS: LUBIPROSTONE 24 MCG CAPSULE PO SCH (08:18)
[2021-12-11] MEDS: hydroCHLOROthiazide 12.5 MG CAPSULE PO SCH (08:18)
[2021-12-11] MEDS: CLOPIDOGREL BISULFATE 75 MG TABLET PO SCH (08:18)
[2021-12-11] MEDS: METOPROLOL TART IMMED RELEASE 50 MG TABLET. PO SCH (08:20)
[2021-12-11] MEDS: LOSARTAN POTASSIUM 50 MG TABLET. PO SCH (08:21)
--- NOTE | 2021-12-11 08:54 | PDOC ---
PROGRESS NOTES Date of Service DATE: 12/11/21 TIME: 08:53 Assessment Problems Medical Problems: (1) Carotid stenosis, left Status: Acute (2) Carotid stenosis, right Status: Acute (3) Urinary tract infection Status: Acute Metabolic encephalopathy, most likely due to her urinary tract infection with evidence of sepsis. Resolved No lateralizing findings on the exam Carotid stenosis, asymptomatic: near complete occlusion on the right and 50 percent stenosis on the left. 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 Plan No need for any additional stroke work-up or treatment, follow-up with neurology as needed Vascular surgery is planning right carotid endarterectomy, now delayed 2 weeks Treatment of medical issues. Agree with discharge, home or custodial Also discussed with patient's daughter Also discussed with Dr. Baez Subjective No complaints, but blood pressures running high Objective Vital Signs Date Time Temp Pulse Resp B/P (MAP) Pulse Ox O2 Delivery O2 Flow Rate FiO2 12/11/21 08:21 74 161/72 12/11/21 07:00 97.8 18 99 Room Air 97.8 Intake and Output 12/11/21 07:00 Intake Total 540 ml Output Total 600 ml Balance -60 ml Intake Oral 540 ml Output Urine Total 600 ml # Bowel Movements 1 PHYSICAL EXAM Alert. Oriented to time, place and person. PERRL. EOMI. CN: no focal findings. Muscle tone: normal. Muscle strength: 5 -/5 DTR: 1+ Plantar reflex: Flexor Gait: not examined in bed. Sensory exam: no abnormal findings. No cerebellar signs elicited. Review of Relevant I have reviewed the following items judd (where applicable) has been applied. Labs Laboratory Tests Test 12/09/21 10:58 12/09/21 16:13 12/09/21 20:36 12/10/21 07:49 Glucose (Fingerstick) 154 mg/dL (70-99) 96 mg/dL (70-99) 146 mg/dL (70-99) 114 mg/dL (70-99) Test 12/10/21 11:52 12/10/21 17:38 12/10/21 20:58 12/11/21 05:40 Glucose (Fingerstick) 116 mg/dL (70-99) 168 mg/dL (70-99) 217 mg/dL (70-99) White Blood Count 6.6 x10^3/uL (4.0-11.0) Red Blood Count 4.62 x10^6/uL (3.50-5.40) Hemoglobin 12.6 g/dL (12.0-15.5) Hematocrit 38.2 % (36.0-47.0) Mean Corpuscular Volume 83 fL (79-100) Mean Corpuscular Hemoglobin 27 pg (25-35) Mean Corpuscular Hemoglobin Concent 33 g/dL (31-37) Red Cell Distribution Width 15.0 % (11.5-14.5) Platelet Count 254 x10^3/uL (140-400) Sodium Level 141 mmol/L (136-145) Potassium Level 4.0 mmol/L (3.5-5.1) Chloride Level 103 mmol/L (98-107) Carbon Dioxide Level 28 mmol/L (21-32) Anion Gap 10 (6-14) Blood Urea Nitrogen 15 mg/dL (7-20) Creatinine 1.4 mg/dL (0.6-1.0) Estimated GFR (Cockcroft-Gault) 45.2 Glucose Level 112 mg/dL (70-99) Calcium Level 9.2 mg/dL (8.5-10.1) Test 12/11/21 07:31 Glucose (Fingerstick) 117 mg/dL (70-99) Laboratory Tests Test 12/10/21 11:52 12/10/21 17:38 12/10/21 20:58 12/11/21 05:40 Glucose (Fingerstick) 116 mg/dL (70-99) 168 mg/dL (70-99) 217 mg/dL (70-99) White Blood Count 6.6 x10^3/uL (4.0-11.0) Red Blood Count 4.62 x10^6/uL (3.50-5.40) Hemoglobin 12.6 g/dL (12.0-15.5) Hematocrit 38.2 % (36.0-47.0) Mean Corpuscular Volume 83 fL (79-100) Mean Corpuscular Hemoglobin 27 pg (25-35) Mean Corpuscular Hemoglobin Concent 33 g/dL (31-37) Red Cell Distribution Width 15.0 % (11.5-14.5) Platelet Count 254 x10^3/uL (140-400) Sodium Level 141 mmol/L (136-145) Potassium Level 4.0 mmol/L (3.5-5.1) Chloride Level 103 mmol/L (98-107) Carbon Dioxide Level 28 mmol/L (21-32) Anion Gap 10 (6-14) Blood Urea Nitrogen 15 mg/dL (7-20) Creatinine 1.4 mg/dL (0.6-1.0) Estimated GFR (Cockcroft-Gault) 45.2 Glucose Level 112 mg/dL (70-99) Calcium Level 9.2 mg/dL (8.5-10.1) Test 12/11/21 07:31 Glucose (Fingerstick) 117 mg/dL (70-99) Microbiology 12/06/21 Blood Culture - Final, Complete NO GROWTH AFTER 5 DAYS 12/06/21 Urine Culture - Final, Complete Medications Current Medications Naloxone HCl (Narcan) 0.4 mg STK-MED ONCE .ROUTE ; Start 12/05/21 at 23:34; Stop 12/05/21 at 23:34; Status DC Iohexol (Omnipaque 350 Mg/ml) 60 ml 1X ONCE IV Last administered on 12/06/21at 00:34; Start 12/06/21 at 01:00; Stop 12/06/21 at 01:01; Status DC Info (CONTRAST GIVEN -- Rx MONITORING) 1 each PRN DAILY PRN MC SEE COMMENTS; Start 12/06/21 at 00:45; Stop 12/08/21 at 00:44; Status DC Labetalol HCl (Normodyne Iv Push) 20 mg 1X ONCE IVP Last administered on 12/06/21at 02:33; Start 12/06/21 at 02:30; Stop 12/06/21 at 02:31; Status DC Ceftriaxone Sodium (Rocephin) 1 gm 1X ONCE IVP Last administered on 12/06/21at 02:42; Start 12/06/21 at 02:30; Stop 12/06/21 at 02:31; Status DC Morphine Sulfate (Morphine Sulfate) 2 mg PRN Q2HR PRN IVP SEVERE PAIN 7-10 Last administered on 12/06/21at 16:51; Start 12/06/21 at 04:45 Metoprolol Tartrate (Lopressor Vial) 5 mg PRN Q6HRS PRN IVP HYPERTENSION, 2ND CHOICE Last administered on 12/06/21at 17:03; Start 12/06/21 at 04:45 Ceftriaxone Sodium (Rocephin) 1 gm Q24H IVP Last administered on 12/07/21at 11 :07; Start 12/06/21 at 11:00; Stop 12/07/21 at 12:02; Status DC Sodium Chloride 1,000 ml @ 75 mls/hr [id number] IV Last administered on 12/09/21at 07:50; Start 12/06/21 at 10:15; Stop 12/09/21 at 17:03; Status DC Hydralazine HCl (Apresoline Inj) 10 mg PRN Q6HRS PRN IVP ELEVATED BP, 1ST CHOICE Last administered on 12/07/21at 02:48; Start 12/06/21 at 20:15 Losartan Potassium (Cozaar) 100 mg DAILY PO Last administered on 12/11/21at 08:21; Start 12/07/21 at 09:00 Amlodipine Besylate (Norvasc) 5 mg DAILY PO Last administered on 12/07/21at 08:43; Start 12/07/21 at 09:00; Stop 12/07/21 at 11:35; Status DC Hydrochlorothiazide (Microzide) 12.5 mg DAILY PO Last administered on 12/11/21at 08:18; Start 12/07/21 at 09:00 Insulin Human Lispro (HumaLOG) 0-5 UNITS TIDWMEALHC SQ Last administered on 12/09/21at 11:24; Start 12/07/21 at 12:00 Dextrose (Dextrose 50%-Water Syringe) 12.5 gm PRN Q15MIN PRN IV SEE COMMENTS; Start 12/07/21 at 09:45; Stop 12/07/21 at 09:44; Status DC Dextrose (Iv Dextrose 5%) 250 ml PRN Q15MIN PRN IV SEE COMMENTS; Start 12/07/21 at 09:45; Stop 12/07/21 at 09:44; Status DC Labetalol HCl (Normodyne Iv Push) 20 mg 1X ONCE IVP Last administered on 12/07/21at 11:27; Start 12/07/21 at 11:30; Stop 12/07/21 at 11:31; Status DC Labetalol HCl (Normodyne Iv Push) 20 mg PRN Q2HR PRN IVP HYPERTENSION Last administered on 12/09/21 07:39; Start 12/07/21 at 11:30; Stop 12/09/21 at 13: 57; Status DC Amlodipine Besylate (Norvasc) 10 mg DAILY PO Last administered on 12/11/21 08:20; Start 12/08/21 at 09:00 Clopidogrel Bisulfate (Plavix) 75 mg DAILYWBKFT PO Last administered on 12/07/21at 13:10; Start 12/07/21 at 13:00; Stop 12/07/21 at 18:22; Status DC Insulin Glargine (Lantus Syringe) 10 unit QHS SQ Last administered on 12/10/21 21:53; Start 12/07/21 at 21:00 Apixaban (Eliquis) 5 mg BID PO Last administered on 12/07/21 14:30; Start 12/07/21 at 14:00; Stop 12/07/21 at 18:22; Status DC Famotidine (Pepcid) 20 mg BID PO Last administered on 12/11/21 08:18; Start 12/07/21 at 21:00 Acetaminophen/ Hydrocodone Bitart (Lortab 5/325) 1 tab Q4HRS PO Last administered on 12/10/21 21:45; Start 12/07/21 at 16:00 Lubiprostone (Amitiza) 24 mcg BIDWMEALS PO Last administered on 12/11/21 08:18; Start 12/07/21 at 17:00 Ropinirole HCl (Requip) 0.5 mg QHS PO Last administered on 12/10/21at 21:45; Start 12/07/21 at 21:00 Albuterol Sulfate (Ventolin Neb Soln) 2.5 mg PRN Q6HRS PRN NEB SHORTNESS OF BR EATH; Start 12/07/21 at 14:00 Clopidogrel Bisulfate (Plavix) 75 mg DAILYWBKFT PO Last administered on 12/11/21at 08:18; Start 12/08/21 at 09:45 Metoprolol Tartrate (Lopressor) 50 mg BID PO Last administered on 12/11/21 08:20; Start 12/09/21 at 21:00 Metoprolol Tartrate (Lopressor) 50 mg 1X ONCE PO Last administered on 12/09/21at 14:10; Start 12/09/21 at 14:00; Stop 12/09/21 at 14:01; Status DC Hydralazine HCl (Apresoline) 50 mg TID PO Last administered on 12/10/21at 14:48; Start 12/09/21 at 14:00; Stop 12/10/21 at 18:19; Status DC Heparin Sodium (Porcine) 5000 unit/Ringer's Solution 505 ml @ 505 mls/hr 1X ONCE IRR ; Start 12/11/21 at 06:00; Stop 12/11/21 at 06:59; Status DC Fentanyl Citrate (Fentanyl 2ml Vial) 25 mcg PRN Q5MIN PRN IVP MILD PAIN 1-3; Start 12/11/21 at 06:00; Stop 12/11/21 at 20:00 Fentanyl Citrate (Fentanyl 2ml Vial) 50 mcg PRN Q5MIN PRN IVP MODERATE PAIN 4- 6; Start 12/11/21 at 06:00; Stop 12/11/21 at 20:00 Morphine Sulfate (Morphine Sulfate) 1 mg PRN Q10MIN PRN IVP SEVERE PAIN 7-10; Start 12/11/21 at 06:00; Stop 12/11/21 at 20:00 Ringer's Solution 1,000 ml @ 30 mls/hr Q24H IV ; Start 12/11/21 at 06:00; Stop 12/11/21 at 17:59 Hydromorphone HCl (Dilaudid) 0.5 mg PRN Q10MIN PRN IVP SEVERE PAIN 7-10, 2nd CHOICE; Start 12/11/21 at 06:00; Stop 12/11/21 at 20:00 Prochlorperazine Edisylate (Compazine) 5 mg PACU PRN PRN IVP NAUSEA, MRX1; Start 12/11/21 at 06:00; Stop 12/11/21 at 20:00 Nicardipine HCl 50 mg/Sodium Chloride 250 ml @ 25 mls/hr CONT PRN IV PER PROTOCOL; Start 12/10/21 at 14:00; Status Cancel Lidocaine HCl (Xylocaine-Mpf 1% 2ml Vial) 2 ml STK-MED ONCE .ROUTE ; Start 12/10/21 at 15:07; Stop 12/10/21 at 15:08; Status DC Hydralazine HCl (Apresoline) 75 mg TID PO Last administered on 12/11/21at 08:20; Start 12/10/21 at 21:00 Quetiapine Fumarate (SEROquel) 50 mg QHS PO Last administered on 12/10/21at 21:45; Start 12/10/21 at 21:00 Active Scripts Active Eliquis (Apixaban) 5 Mg Tablet 5 Mg PO BID 30 Days Reported Seroquel (Quetiapine Fumarate) 50 Mg Tablet 1 Tab PO QHS Insulin Lispro 100 Unit/1 Ml Vial 20 Unit SQ 0800,1200 Famotidine 20 Mg Tablet 20 Mg PO BID Tribenzor 20-5-12.5 Mg Tablet (Olmesartan/Amlodipin/Hcthiazid) 1 Each Tablet 1 Tab PO DAILY 30 Days [place] 5-325 Tablet (Acetaminophen/Hydrocodone Bitart) 1 Each Tablet 1 Tab PO Q4HRS Requip (Ropinirole Hcl) 0.5 Mg Tablet 1 Tab PO QHS Amitiza (Lubiprostone) 8 Mcg Capsule 1 Cap PO BID Vitals/I & O Vital Sign - Last 24 Hours 12/10/21 12/10/21 12/10/21 12/10/21 09:00 09:01 09:04 09:05 Pulse 91 70 68 B/P (MAP) 191/96 191/96 191/96 191/96 12/10/21 12/10/21 12/10/21 12/10/21 10:59 11:46 12:16 14:48 Temp 97.9 97.9 Pulse 80 64 Resp 18 B/P (MAP) 95/62 (73) 165/73 Pulse Ox 96 O2 Delivery Room Air Room Air Room Air 12/10/21 12/10/21 12/10/21 12/10/21 15:00 17:52 18:22 19:09 Temp 98.9 98.6 98.9 98.6 Pulse 65 81 Resp 20 16 B/P (MAP) 165/73 (103) 146/78 (100) Pulse Ox 98 99 O2 Delivery Room Air Room Air Room Air Room Air 12/10/21 12/10/21 12/10/21 12/10/21 20:00 21:46 21:48 22:40 Temp 98.1 98.1 Pulse 81 81 70 Resp 18 B/P (MAP) 146/78 146/78 141/70 (93) Pulse Ox 99 O2 Delivery Room Air Room Air 12/11/21 12/11/21 12/11/21 12/11/21 02:52 07:00 08:20 08:20 Temp 98.0 97.8 98.0 97.8 Pulse 61 74 74 74 Resp 18 18 B/P (MAP) 121/56 (77) 161/72 (101) 161/72 161/72 Pulse Ox 100 99 O2 Delivery Room Air Room Air 12/11/21 12/11/21 08:20 08:21 Pulse 74 74 B/P (MAP) 161/72 161/72 Intake and Output 12/10/21 12/10/21 12/11/21 15:00 23:00 07:00 Intake Total 180 ml 360 ml 0 ml Output Total 400 ml 200 ml Balance 180 ml -40 ml -200 ml Justicifation of Admission Dx: Justifications for Admission: Justification of Admission Dx: N/A AUDREY RICHARDS MD Dec 11, 2021 08:54
--- NOTE | 2021-12-11 10:08 | PDOC ---
PROGRESS NOTES Date of Service DATE: 12/11/21 TIME: 10:05 Subjective Subjective No acute concerns. Blood pressure 140s-160s systolic past 24 hours. Objective Objective Vital Signs Date Time Temp Pulse Resp B/P (MAP) Pulse Ox O2 Delivery O2 Flow Rate FiO2 12/11/21 08:21 74 161/72 12/11/21 07:00 97.8 18 99 Room Air 97.8 Intake and Output 12/11/21 07:00 Intake Total 540 ml Output Total 600 ml Balance -60 ml Intake Oral 540 ml Output Urine Total 600 ml # Bowel Movements 1 Physical Exam Heart: Regular rate Neuro: Normal speech, Other (Normal upper and lower extremity range of motion wtih active range of motion) Assessment Assessment Problems Medical Problems: (1) Carotid stenosis, left Status: Acute (2) Carotid stenosis, right Status: Acute (3) Urinary tract infection Status: Acu Plan Plan of Care Follow up as outpatient in 2 weeks to discuss right carotid endarterectomy for severe stenosis right internal carotid artery, asymptomatic. Continue to control hypertension with goal systolic <140 and diastolic <90 mm Hg Continue plavix given ASA allergy Comment Review of Relevant I have reviewed the following items judd (where applicable) has been applied. Labs Laboratory Tests Test 12/09/21 10:58 12/09/21 16:13 12/09/21 20:36 12/10/21 07:49 Glucose (Fingerstick) 154 mg/dL (70-99) 96 mg/dL (70-99) 146 mg/dL (70-99) 114 mg/dL (70-99) Test 12/10/21 11:52 12/10/21 17:38 12/10/21 20:58 12/11/21 05:40 Glucose (Fingerstick) 116 mg/dL (70-99) 168 mg/dL (70-99) 217 mg/dL (70-99) White Blood Count 6.6 x10^3/uL (4.0-11.0) Red Blood Count 4.62 x10^6/uL (3.50-5.40) Hemoglobin 12.6 g/dL (12.0-15.5) Hematocrit 38.2 % (36.0-47.0) Mean Corpuscular Volume 83 fL (79-100) Mean Corpuscular Hemoglobin 27 pg (25-35) Mean Corpuscular Hemoglobin Concent 33 g/dL (31-37) Red Cell Distribution Width 15.0 % (11.5-14.5) Platelet Count 254 x10^3/uL (140-400) Sodium Level 141 mmol/L (136-145) Potassium Level 4.0 mmol/L (3.5-5.1) Chloride Level 103 mmol/L (98-107) Carbon Dioxide Level 28 mmol/L (21-32) Anion Gap 10 (6-14) Blood Urea Nitrogen 15 mg/dL (7-20) Creatinine 1.4 mg/dL (0.6-1.0) Estimated GFR (Cockcroft-Gault) 45.2 Glucose Level 112 mg/dL (70-99) Calcium Level 9.2 mg/dL (8.5-10.1) Test 12/11/21 07:31 Glucose (Fingerstick) 117 mg/dL (70-99) Laboratory Tests Test 12/10/21 11:52 12/10/21 17:38 12/10/21 20:58 12/11/21 05:40 Glucose (Fingerstick) 116 mg/dL (70-99) 168 mg/dL (70-99) 217 mg/dL (70-99) White Blood Count 6.6 x10^3/uL (4.0-11.0) Red Blood Count 4.62 x10^6/uL (3.50-5.40) Hemoglobin 12.6 g/dL (12.0-15.5) Hematocrit 38.2 % (36.0-47.0) Mean Corpuscular Volume 83 fL (79-100) Mean Corpuscular Hemoglobin 27 pg (25-35) Mean Corpuscular Hemoglobin Concent 33 g/dL (31-37) Red Cell Distribution Width 15.0 % (11.5-14.5) Platelet Count 254 x10^3/uL (140-400) Sodium Level 141 mmol/L (136-145) Potassium Level 4.0 mmol/L (3.5-5.1) Chloride Level 103 mmol/L (98-107) Carbon Dioxide Level 28 mmol/L (21-32) Anion Gap 10 (6-14) Blood Urea Nitrogen 15 mg/dL (7-20) Creatinine 1.4 mg/dL (0.6-1.0) Estimated GFR (Cockcroft-Gault) 45.2 Glucose Level 112 mg/dL (70-99) Calcium Level 9.2 mg/dL (8.5-10.1) Test 12/11/21 07:31 Glucose (Fingerstick) 117 mg/dL (70-99) Microbiology 12/06/21 Blood Culture - Final, Complete NO GROWTH AFTER 5 DAYS 12/06/21 Urine Culture - Final, Complete Medications Current Medications Naloxone HCl (Narcan) 0.4 mg STK-MED ONCE .ROUTE ; Start 12/05/21 at 23:34; Stop 12/05/21 at 23:34; Status DC Iohexol (Omnipaque 350 Mg/ml) 60 ml 1X ONCE IV Last administered on 12/06/21at 00:34; Start 12/06/21 at 01:00; Stop 12/06/21 at 01:01; Status DC Info (CONTRAST GIVEN -- Rx MONITORING) 1 each PRN DAILY PRN MC SEE COMMENTS; Start 12/06/21 at 00:45; Stop 12/08/21 at 00:44; Status DC Labetalol HCl (Normodyne Iv Push) 20 mg 1X ONCE IVP Last administered on 12/06/21at 02:33; Start 12/06/21 at 02:30; Stop 12/06/21 at 02:31; Status DC Ceftriaxone Sodium (Rocephin) 1 gm 1X ONCE IVP Last administered on 12/06/21at 02:42; Start 12/06/21 at 02:30; Stop 12/06/21 at 02:31; Status DC Morphine Sulfate (Morphine Sulfate) 2 mg PRN Q2HR PRN IVP SEVERE PAIN 7-10 Last administered on 12/06/21at 16:51; Start 12/06/21 at 04:45 Metoprolol Tartrate (Lopressor Vial) 5 mg PRN Q6HRS PRN IVP HYPERTENSION, 2ND CHOICE Last administered on 12/06/21at 17:03; Start 12/06/21 at 04:45 Ceftriaxone Sodium (Rocephin) 1 gm Q24H IVP Last administered on 12/07/21at 11:07; Start 12/06/21 at 11:00; Stop 12/07/21 at 12:02; Status DC Sodium Chloride 1,000 ml @ 75 mls/hr [id number] IV Last administered on 12/09/21at 07:50; Start 12/06/21 at 10:15; Stop 12/09/21 at 17:03; Status DC Hydralazine HCl (Apresoline Inj) 10 mg PRN Q6HRS PRN IVP ELEVATED BP, 1ST CHOICE Last administered on 12/07/21at 02:48; Start 12/06/21 at 20:15 Losartan Potassium (Cozaar) 100 mg DAILY PO Last administered on 12/11/21at 08:21; Start 12/07/21 at 09:00 Amlodipine Besylate (Norvasc) 5 mg DAILY PO Last administered on 12/07/21at 08:43; Start 12/07/21 at 09:00; Stop 12/07/21 at 11:35; Status DC Hydrochlorothiazide (Microzide) 12.5 mg DAILY PO Last administered on 12/11/21at 08:18; Start 12/07/21 at 09:00 Insulin Human Lispro (HumaLOG) 0-5 UNITS TIDWMEALHC SQ Last administered on 12/09/21at 11:24; Start 12/07/21 at 12:00 Dextrose (Dextrose 50%-Water Syringe) 12.5 gm PRN Q15MIN PRN IV SEE COMMENTS; Start 12/07/21 at 09:45; Stop 12/07/21 at 09:44; Status DC Dextrose (Iv Dextrose 5%) 250 ml PRN Q15MIN PRN IV SEE COMMENTS; Start 12/07/21 at 09:45; Stop 12/07/21 at 09:44; Status DC Labetalol HCl (Normodyne Iv Push) 20 mg 1X ONCE IVP Last administered on 12/07/21at 11:27; Start 12/07/21 at 11:30; Stop 12/07/21 at 11:31; Status DC Labetalol HCl (Normodyne Iv Push) 20 mg PRN Q2HR PRN IVP HYPERTENSION Last administered on 12/09/21at 07:39; Start 12/07/21 at 11:30; Stop 12/09/21 at 13:57; Status DC Amlodipine Besylate (Norvasc) 10 mg DAILY PO Last administered on 12/11/21at 08:20; Start 12/08/21 at 09:00 Clopidogrel Bisulfate (Plavix) 75 mg DAILYWBKFT PO Last administered on 12/07/21at 13:10; Start 12/07/21 at 13:00; Stop 12/07/21 at 18:22; Status DC Insulin Glargine (Lantus Syringe) 10 unit QHS SQ Last administered on 12/10/21at 21:53; Start 12/07/21 at 21:00 Apixaban (Eliquis) 5 mg BID PO Last administered on 12/07/21at 14:30; Start 12/07/21 at 14:00; Stop 12/07/21 at 18:22; Status DC Famotidine (Pepcid) 20 mg BID PO Last administered on 12/11/21 08:18; Start 12/07/21 at 21:00 Acetaminophen/ Hydrocodone Bitart (Lortab 5/325) 1 tab Q4HRS PO Last administered on 12/10/21at 21:45; Start 12/07/21 at 16:00 Lubiprostone (Amitiza) 24 mcg BIDWMEALS PO Last administered on 12/11/21at 08:18; Start 12/07/21 at 17:00 Ropinirole HCl (Requip) 0.5 mg QHS PO Last administered on 12/10/21at 21:45; Start 12/07/21 at 21:00 Albuterol Sulfate (Ventolin Neb Soln) 2.5 mg PRN Q6HRS PRN NEB SHORTNESS OF BREATH; Start 12/07/21 at 14:00 Clopidogrel Bisulfate (Plavix) 75 mg DAILYWBKFT PO Last administered on 12/11/21at 08:18; Start 12/08/21 at 09:45 Metoprolol Tartrate (Lopressor) 50 mg BID PO Last administered on 12/11/21 08:20; Start 12/09/21 at 21:00 Metoprolol Tartrate (Lopressor) 50 mg 1X ONCE PO Last administered on 12/09/21at 14:10; Start 12/09/21 at 14:00; Stop 12/09/21 at 14:01; Status DC Hydralazine HCl (Apresoline) 50 mg TID PO Last administered on 12/10/21at 14:48; Start 12/09/21 at 14:00; Stop 12/10/21 at 18:19; Status DC Heparin Sodium (Porcine) 5000 unit/Ringer's Solution 505 ml @ 505 mls/hr 1X ONCE IRR ; Start 12/11/21 at 06:00; Stop 12/11/21 at 06:59; Status DC Fentanyl Citrate (Fentanyl 2ml Vial) 25 mcg PRN Q5MIN PRN IVP MILD PAIN 1-3; Start 12/11/21 at 06:00; Stop 12/11/21 at 20:00 Fentanyl Citrate (Fentanyl 2ml Vial) 50 mcg PRN Q5MIN PRN IVP MODERATE PAIN 4- 6; Start 12/11/21 at 06:00; Stop 12/11/21 at 20:00 Morphine Sulfate (Morphine Sulfate) 1 mg PRN Q10MIN PRN IVP SEVERE PAIN 7-10; Start 12/11/21 at 06:00; Stop 12/11/21 at 20:00 Ringer's Solution 1,000 ml @ 30 mls/hr Q24H IV ; Start 12/11/21 at 06:00; Stop 12/11/21 at 17:59 Hydromorphone HCl (Dilaudid) 0.5 mg PRN Q10MIN PRN IVP SEVERE PAIN 7-10, 2nd CHOICE; Start 12/11/21 at 06:00; Stop 12/11/21 at 20:00 Prochlorperazine Edisylate (Compazine) 5 mg PACU PRN PRN IVP NAUSEA, MRX1; Start 12/11/21 at 06:00; Stop 12/11/21 at 20:00 Nicardipine HCl 50 mg/Sodium Chloride 250 ml @ 25 mls/hr CONT PRN IV PER PROTOCOL; Start 12/10/21 at 14:00; Status Cancel Lidocaine HCl (Xylocaine-Mpf 1% 2ml Vial) 2 ml STK-MED ONCE .ROUTE ; Start 12/10/21 at 15:07; Stop 12/10/21 at 15:08; Status DC Hydralazine HCl (Apresoline) 75 mg TID PO Last administered on 12/11/21at 08:20; Start 12/10/21 at 21:00 Quetiapine Fumarate (SEROquel) 50 mg QHS PO Last administered on 12/10/21at 21:45; Start 12/10/21 at 21:00 Active Scripts Active Eliquis (Apixaban) 5 Mg Tablet 5 Mg PO BID 30 Days Reported Seroquel (Quetiapine Fumarate) 50 Mg Tablet 1 Tab PO QHS Insulin Lispro 100 Unit/1 Ml Vial 20 Unit SQ 0800,1200 Famotidine 20 Mg Tablet 20 Mg PO BID Tribenzor 20-5-12.5 Mg Tablet (Olmesartan/Amlodipin/Hcthiazid) 1 Each Tablet 1 Tab PO DAILY 30 Days [place] 5-325 Tablet (Acetaminophen/Hydrocodone Bitart) 1 Each Tablet 1 Tab PO Q4HRS Requip (Ropinirole Hcl) 0.5 Mg Tablet 1 Tab PO QHS Amitiza (Lubiprostone) 8 Mcg Capsule 1 Cap PO BID Vitals/I & O Vital Sign - Last 24 Hours 12/10/21 12/10/21 12/10/21 12/10/21 10:59 11:46 12:16 14:48 Temp 97.9 97.9 Pulse 80 64 Resp 18 B/P (MAP) 95/62 (73) 165/73 Pulse Ox 96 O2 Delivery Room Air Room Air Room Air 12/10/21 12/10/21 12/10/21 12/10/21 15:00 17:52 18:22 19:09 Temp 98.9 98.6 98.9 98.6 Pulse 65 81 Resp 20 16 B/P (MAP) 165/73 (103) 146/78 (100) Pulse Ox 98 99 O2 Delivery Room Air Room Air Room Air Room Air 12/10/21 12/10/21 12/10/21 12/10/21 20:00 21:46 21:48 22:40 Temp 98.1 98.1 Pulse 81 81 70 Resp 18 B/P (MAP) 146/78 146/78 141/70 (93) Pulse Ox 99 O2 Delivery Room Air Room Air 12/11/21 12/11/21 12/11/21 12/11/21 02:52 07:00 08:20 08:20 Temp 98.0 97.8 98.0 97.8 Pulse 61 74 74 74 Resp 18 18 B/P (MAP) 121/56 (77) 161/72 (101) 161/72 161/72 Pulse Ox 100 99 O2 Delivery Room Air Room Air 12/11/21 12/11/21 08:20 08:21 Pulse 74 74 B/P (MAP) 161/72 161/72 Intake and Output 12/10/21 12/10/21 12/11/21 15:00 23:00 07:00 Intake Total 180 ml 360 ml 0 ml Output Total 400 ml 200 ml Balance 180 ml -40 ml -200 ml Justifications for Admission Other Justification ELIZABETH HELM MD Dec 11, 2021 10:08
--- NOTE | 2021-12-11 10:22 | PDOC ---
[employer] PROGRESS NOTE Date of Service DOS: DATE: 12/11/21 TIME: 10:18 Chief Complaint Chief Complaint Metabolic/HTN encephalopathy High grade ANGÉLICA stenosis, 50% LICA stenosis: needing CEA per vascular Amaurosis Fugax: second to above Possibly diastolic CHF PAFIB HTN urgency CAD CABG DM2 History of Present Illness History of Present Illness 12/11/2021 Pt seen and examined ZACH SERRANO Case mgmt 12/10/2021 Patient seen and examined Discussed with case management Discussed with RN I spoke with her daughter Patient is going for carotid endarterectomy in the morning 12/09, lost IV, refuses access, will get picc, will need line for surg friday is very weak, will need PT and OT will dc tele on The patient is a pleasant 66-year-old female who developed mental status change . Her family called EMS. When she got to the ER, where she was noted to have a UTI with metabolic encephalopathy. We also discovered that she has carotid disease. I discussed the case with the ER physician. We admitted her. We are giving IV antibiotics and fluids. We are consulting Neurology and Vascular Surgery. 12/08/2021: Patient seen and evaluated Afebrile; resting comfortably in no acute respiratory distress. No growth on urine culture, and patient currently denies any urinary symptoms; will di scontinue Rocephin. She states that her allergy to aspirin is a rash. She was previously treated with Plavix and cannot tell me why this medication was never discontinued. We will add long-acting insulin to her inpatient regimen; takes 70/30 15 units at night. She does complain of some right arm swelling, but I believe this is secondary to her previous IV access. She has been compliant with her Eliquis. Echocardiogram pending. She is scheduled for carotid endarterectomy believe early next week. Vitals/I&O Vitals/I&O: Vital Signs Date Time Temp Pulse Resp B/P (MAP) Pulse Ox O2 Delivery O2 Flow Rate FiO2 12/11/21 08:21 74 161/72 12/11/21 07:00 97.8 18 99 Room Air 97.8 I & O 12/10/21 12/10/21 12/11/21 15:00 23:00 07:00 Intake Total 180 ml 360 ml 0 ml Output Total 400 ml 200 ml Balance 180 ml -40 ml -200 ml Physical Exam General: No acute distress Heart: Regular rate Lungs: Clear Abdomen: Normal bowel sounds Extremities: No cyanosis Skin: No breakdown, No significant lesion Labs Labs: Laboratory Tests Test 12/10/21 11:52 12/10/21 17:38 12/10/21 20:58 12/11/21 05:40 Glucose (Fingerstick) 116 mg/dL (70-99) 168 mg/dL (70-99) 217 mg/dL (70-99) White Blood Count 6.6 x10^3/uL (4.0-11.0) Red Blood Count 4.62 x10^6/uL (3.50-5.40) Hemoglobin 12.6 g/dL (12.0-15.5) Hematocrit 38.2 % (36.0-47.0) Mean Corpuscular Volume 83 fL (79-100) Mean Corpuscular Hemoglobin 27 pg (25-35) Mean Corpuscular Hemoglobin Concent 33 g/dL (31-37) Red Cell Distribution Width 15.0 % (11.5-14.5) Platelet Count 254 x10^3/uL (140-400) Sodium Level 141 mmol/L (136-145) Potassium Level 4.0 mmol/L (3.5-5.1) Chloride Level 103 mmol/L (98-107) Carbon Dioxide Level 28 mmol/L (21-32) Anion Gap 10 (6-14) Blood Urea Nitrogen 15 mg/dL (7-20) Creatinine 1.4 mg/dL (0.6-1.0) Estimated GFR (Cockcroft-Gault) 45.2 Glucose Level 112 mg/dL (70-99) Calcium Level 9.2 mg/dL (8.5-10.1) Test 12/11/21 07:31 Glucose (Fingerstick) 117 mg/dL (70-99) Assessment and Plan Assessmemt and Plan Problems Medical Problems: (1) Carotid stenosis, left Status: Acute (2) Carotid stenosis, right Status: Acute (3) Urinary tract infection Status: Acute Metabolic/HTN encephalopathy High grade ANGÉLICA stenosis, 50% LICA stenosis: needing CEA per vascular Amaurosis Fugax: second to above Possibly diastolic CHF PAFIB HTN urgency CAD CABG DM2 Plan Hope to dc to SNU in am DW Dr Boland Surgery in 2 weeks For now cont the following: Patient going for carotid endarterectomy in 2 weeks Cardiac monitoring Home meds DVT prophylaxis Full code Discussed with RN Comment Review of Relevant I have reviewed the following items judd (where applicable) has been applied. Medications: Current Medications Medications (Trade) Dose Ordered Sig/Parul Route PRN Reason Start Time Stop Time Status Last Admin Dose Admin Hydralazine HCl (Apresoline) 75 mg TID PO 12/10/21 21:00 12/11/21 08:20 Quetiapine Fumarate (SEROquel) 50 mg QHS PO 12/10/21 21:00 12/10/21 21:45 Justifications for Admission Other Justification RAHEL PEREZ III DO Dec 11, 2021 10:22
[2021-12-11 11:00] VITALS: BP 122/55
[2021-12-11] MEDS ORDERED: METO50TA6 PO (11:18)
[2021-12-11] MEDS ORDERED: HYDR-2869 PO (11:18)
[2021-12-11] MEDS ORDERED: AMLO-187 PO (11:18)
[2021-12-11] MEDS ORDERED: LOSA-73 PO (11:18)
[2021-12-11] MEDS ORDERED: HYDR12.575 PO (11:18)
[2021-12-11] MEDS ORDERED: HYDR-2761 PO (11:18)
[2021-12-11] MEDS ORDERED: CLOP75TA PO (11:18)
[2021-12-11 11:19] VITALS: BP 122/55
--- NOTE | 2021-12-11 11:20 | SNU/HH DC ---
DISCHARGE ORDERS DISCHARGE INFORMATION: FINAL DIAGNOSIS Problems Medical Problems: (1) Carotid stenosis, left Status: Acute (2) Carotid stenosis, right Status: Acute (3) Urinary tract infection Status: Acute CONDITION ON DISCHARGE: Stable CODE STATUS: Code Status: Full ALF: SNF STAY <30 DAYS: Yes HOSPICE: HOSPICE: No HOSPICE EVAL & TREAT: No POST DISCHARGE ORDERS: ACTIVITY ORDERS: Resume previous activity, Activity as tolerated WEIGHT BEARING STATUS: No restrictions, As tolerated DIET AFTER DISCHARGE: ADA WOUND/INCISION CARE: Keep wound/cast CDI, Change dressing, Reinforce dressing PRN CHECKS AFTER DISCHARGE: CHECKS AFTER DISCHARGE: Check blood press - daily, Check blood sugar, ac/hs TREATMENT/EQUIPMENT ORDERS: ADAPTIVE EQUIPMENT NEEDED: None, Walker Physical Therapy For: Evalulation/Treatment Occupational Therapy For: Evaluation/Treatment DISCHARGE MEDICATIONS: Home Meds Active Scripts Hydralazine Hcl (HYDRALAZINE HCL) 50 Mg Tablet, 75 MG PO TID for . for 30 Days, #90 TAB Prov:CASTLE,NIAL K III DO 12/11/21 Clopidogrel Bisulfate (CLOPIDOGREL) 75 Mg Tablet, 75 MG PO DAILYWBKFT for . for 30 Days, #30 TAB Prov:CASTLE,NIAL K III DO 12/11/21 Losartan Potassium (COZAAR ) 50 Mg Tablet, 100 MG PO DAILY for . for 30 Days, #30 TAB Prov:CASTLE,NIAL K III DO 12/11/21 Amlodipine Besylate (AMLODIPINE BESYLATE) 10 Mg Tablet, 10 MG PO DAILY for . for 30 Days, #30 TAB Prov:CASTLE,NIAL K III DO 12/11/21 Metoprolol Tartrate (METOPROLOL TARTRATE) 50 Mg Tablet, 50 MG PO BID for . for 30 Days, #60 TAB Prov:CASTLE,NIAL K III DO 12/11/21 Hydrochlorothiazide (HYDROCHLOROTHIAZIDE CAPSULE ) 12.5 Mg Capsule, 12.5 MG PO DAILY for . for 30 Days, #30 CAP Prov:CASTLE,NIAL K III DO 12/11/21 Hydrocodone Bit/Acetaminophen (HYDROCODONE-APAP 5-325 ) 1 Tab Tablet, 1 TAB PO Q4HRS for . for 14 Days, #30 TAB Prov:CASTLE,NIAL K III DO 12/11/21 Insulin Glargine,Hum.rec.anlog (LANTUS) 100 Unit/1 Ml Vial, 10 UNIT SQ QHS for . for 30 Days, #1 EACH Prov:RAHEL PEREZ III DO 12/10/21 Reported Medications Quetiapine Fumarate (SEROQUEL) 50 Mg Tablet, 1 TAB PO QHS for insomnia, #30 TAB 2 Refills 12/10/21 Insulin Lispro (Insulin Lispro) 100 Unit/1 Ml Vial, 20 UNIT SQ 0800,1200 for DM, EACH 12/06/21 Famotidine (FAMOTIDINE) 20 Mg Tablet, 20 MG PO BID for GERD, TAB 12/06/21 Ropinirole Hcl (REQUIP) 0.5 Mg Tablet, 1 TAB PO QHS, #30 TAB 2 Refills 05/31/17 Lubiprostone (AMITIZA) 8 Mcg Capsule, 1 CAP PO BID, #60 CAP 3 Refills 07/19/15 Discontinued Reported Medications Olmesartan/Amlodipin/Hcthiazid (TRIBENZOR 20-5-12.5 MG TABLET) 1 Each Tablet, 1 TAB PO DAILY for HTN for 30 Days, #30 TAB 0 Refills 12/06/21 Hydrocodone/Apap 5-325 (NORCO 5-325 TABLET) 1 Each Tablet, 1 TAB PO Q4HRS for PAIN, #30 TAB 04/20/19 Discontinued Scripts Apixaban (ELIQUIS) 5 Mg Tablet, 5 MG PO BID for AFIB for 30 Days, #60 TAB 2 Refills Prov:CATHLEEN DRIVER MD 03/01/19 RAHEL PEREZ III DO Dec 11, 2021 11:20
--- NOTE | 2021-12-11 12:23 | DS ---
DATE OF DISCHARGE: 12/11/2021 ADMITTING DIAGNOSES: Metabolic encephalopathy, urinary tract infection, carotid stenosis. DISCHARGE DIAGNOSES: Resolving metabolic encephalopathy, resolving urinary tract infection, chronic carotid stenosis (she is coming back in 2 weeks for carotid surgery), hypertension, atrial fibrillation, coronary artery disease, depression, diabetes, hyperlipidemia, cholecystectomy, coronary bypass surgery. CONSULTS: Vascular Surgery, Cardiology and Neurology. PROCEDURES: None (she is coming back in 2 weeks for carotid endarterectomy). HOSPITAL COURSE: The patient is a pleasant, middle-aged female who presented with UTI, metabolic encephalopathy. We gave her IV antibiotics and fluids. We incidentally found that her right carotid artery is stenosed. She was scheduled for surgery, but then her blood pressures were erratic, so the surgery has been put on hold for 2 weeks. Today, I saw and examined her. She is at her baseline. We plan to discharge to skilled. DISPOSITION: Skilled. ACTIVITY: As tolerated. DIET: Low sodium. DISCHARGE MEDICATIONS: Hydralazine 75 t.i.d., metoprolol 50 b.i.d., Norvasc 10 a day, hydrochlorothiazide 12.5 a day, Plavix 75 a day, p.r.n. hydrocodone, insulin 10 units of Lantus at bedtime and losartan 100 a day, famotidine 20 b.i.d., insulin lispro 20 units with meals b.i.d., Amitiza 8 mcg 1 b.i.d., Seroquel 1 at bedtime and Requip 0.5 at bedtime. We stopped her home Eliquis and combination product called Tribenzor. TOTAL TIME: 39 minutes. JAIME/HECTOR DR: JAIME/mary TID: [id number]
--- NOTE | 2021-12-11 13:33 | NUR ---
SS following up with discharge planning. SS reviewed pt chart and discussed with pt RN. Pt is currently on room air. COVID19 negative. Carotid Endarterectomy rescheduled for two weeks from now. PT/OT recommended longterm unit. Pt and family now agreeable to longterm unit and requested referral to [facility], ; fax [phone]. Discharge orders received and phoned and faxed to [facility] with referral. Pt had $20/day co-pay with [employer]. Pt's family agreeable and paid via phone. Pt accepted at [facility]. Pt will discharge today and [facility] 1600 and 1630[facility] Pt, pt's RN, and pt's family notified.
[2021-12-11 15:00] VITALS: BP 128/65
--- NOTE | 2021-12-11 16:20 | NUR ---
Discharge Note: BRENDA BAR L [address] [place] [address] Discharge instructions and discharge home medications reviewed with Patient/& other facility and a copy given. All questions have been answered and understanding verbalized. The following instructions and handouts were given: discharge instructions, med list, follow ups, education Discontinued lines and drains: Peripheral IV intact. [facility] with [facility] HCR set up via [facility] at 1620. Report had been given to STEPHEN De La Cruz at [facility].
== END 2021-12-11 16:28 | DRG 871 ==
LOC: ER 23:24 → 6 SOUTH 12-06 01:52
PROVIDERS: ADMIT Internal Medicine; ATTEND Internal Medicine
DX: A41.9 Sepsis, unspecified organism (principal); G93.41 Metabolic encephalopathy; I50.43 Acute on chronic combined systolic (congestive) and diastolic (congestive) heart failure; N39.0 Urinary tract infection, site not specified; I13.0 Hypertensive heart and chronic kidney disease with heart failure and stage 1 through stage 4 chronic kidney disease, or unspecified chronic kidney disease; I16.0 Hypertensive urgency; E11.22 Type 2 diabetes mellitus with diabetic chronic kidney disease; E78.00 Pure hypercholesterolemia, unspecified; E78.5 Hyperlipidemia, unspecified; I25.10 Atherosclerotic heart disease of native coronary artery without angina pectoris; I48.0 Paroxysmal atrial fibrillation; I65.23 Occlusion and stenosis of bilateral carotid arteries; F32.A Depression, unspecified; F41.9 Anxiety disorder, unspecified; K21.9 Gastro-esophageal reflux disease without esophagitis; Z91.040 Latex allergy status; Z20.822 Contact with and (suspected) exposure to COVID-19; N18.30 Chronic kidney disease, stage 3 unspecified; Z79.01 Long term (current) use of anticoagulants; Z79.02 Long term (current) use of antithrombotics/antiplatelets; Z82.49 Family history of ischemic heart disease and other diseases of the circulatory system; Z86.73 Personal history of transient ischemic attack (TIA), and cerebral infarction without residual deficits; Z88.6 Allergy status to analgesic agent; Z90.711 Acquired absence of uterus with remaining cervical stump; Z95.1 Presence of aortocoronary bypass graft; Z98.84 Bariatric surgery status; Z90.49 Acquired absence of other specified parts of digestive tract; Z88.0 Allergy status to penicillin; Z88.8 Allergy status to other drugs, medicaments and biological substances; Z88.1 Allergy status to other antibiotic agents
CPT/HCPCS: 36415; 70450; 70496; 70498; 70551; 71045; 73020; 80048; 80053; 80307; 81001; 82962; 83605; 83735; 83880; 84484; 85025; 85027; 86140; 87040; 87086; 87426; 87428; 93005; 93306; 93880; 93971; 94640; 96374; 96375; J0360; J0696; J1815; J2270; J3490; J7030; Q9967; U0003; 92610-GN; 97116-GP; 97530-GO; 97530-GP; 97535-GO; 99291-25; C8929; G0378

== ENCOUNTER → 2021-12-27 | Outpatient (CLI) | payer BC, MEDICAID ==
[2021-12-11 15:00] VITALS: BP 128/65
[~2021-12-27] MED LIST changes: +AMLO-187 PO; +CLOP75TA PO; +FAMO20TA5 PO; +HYDR-2759 PO; +HYDR-2761 PO; +HYDR-2869 PO; +HYDR12.575 PO; +INSU100V38 SQ; +INSU100V8 SQ; +IOHEXOL 300 MG/ML 100ML VIAL. IV ONE; +LOSA-73 PO; +METO50TA6 PO; +OLME1TAB27 PO; +QUET50TA5 PO
--- NOTE | 2021-12-28 07:59 | KCIC ---
CTA NECK dated 12/27/2021 2:55 PM Indication:Reason: BILATERAL CAROTID ARTERY STENOSIS. RECENT CTA AT [facility]. Instructions: 100cc Om ni 300. / History: Comparison: CTA 12/06/2021. Technique: Helical thin section images were performed using intravenous infusion of 100 mL Omnipaque 300. Multiplanar and 3-D reformations were obtained. Carotid stenoses in the neck or greater. Per VICKIE CET criteria. One or more of the following individualized dose reduction techniques were utilized for this examinat ion: 1. Automated exposure control 2. Adjustment of the mA and/or kV according to patient size 3. Use of iterative reconstruction technique Findings: There is the standard branching pattern of the great vessels from the aorta. The common carotid arter y shows some tortuosity. There is some kinking or angulation of the proximal right common carotid art marti, but no significant stenosis is seen. Dense calcified plaque is present at the carotid bifurcatio ns. On the right side, there is evidence of high-grade stenosis at the distal margin of the plaque al kecia the proximal ICA. This is best shown on sagittal reconstructions and may be up to 90 percent diam eter reduction compared to distal lumen. On the left side, milder narrowing is seen in the proximal I CA. Diameter is reduced to about 2 mm compared with 4 mm further downstream. The left ICA distal to t his shows no significant abnormality of the level of the skull base. There is calcified plaque along both internal carotid arteries at the level of the sella without appreciable narrowing. Both vertebra l arteries are patent. The left is slightly larger. No significant stenosis is seen. Although this study was not performed to evaluate other structures, no abnormalities seen in the sali vary glands or thyroid. There is no apparent mass or adenopathy in the neck. Lung apices are clear. T here is evidence of prior anterior fusion of the cervical spine with a plate and screws at C3-4. IMPRESSION: Similar findings to the previous CTA, with evidence of high-grade proximal right ICA stenosis and mod erate left ICA stenosis of 50 percent in greatest. Electronically signed by: Ermias Sarabia Jr., MD (12/28/2021 7:57 AM) [facility]
== END ==
LOC: KCIC CT 14:40
PROVIDERS: ATTEND Surgery
DX: I65.23 Occlusion and stenosis of bilateral carotid arteries (principal); Z98.1 Arthrodesis status
CPT/HCPCS: 70498; Q9967

== ENCOUNTER 2022-01-02 12:22 | Inpatient (IN) | payer BC ==
[2022-01-02] VITALS (14 sets, daily range): BP systolic 119–178; BP diastolic 45–71
[~2022-01-02] VITALS: Ht 175.3 cm; Wt 92.0 kg
[~2022-01-02 12:22] MED LIST changes: +HEPARIN SODIUM 5,000 UNIT in IV RINGERS,LACTATED 500ML 500 ML IRR ONE; -IOHEXOL 300 MG/ML 100ML VIAL. IV ONE
[2022-01-02] MEDS ORDERED: LIDOCAINE 1% PF 30 ML VIAL. ONE (13:03)
[2022-01-02] MEDS ORDERED: PROTAMINE 50 MG/5 ML VIAL. IV ONE ×2 (13:03→16:07)
[2022-01-02] MEDS ORDERED: LIDOCAINE 1%/EPI 1:100,000 20 ML VIAL. ONE (13:03)
[2022-01-02] MEDS ORDERED: SURGICEL FIBRILLAR 1X2 EACH. ONE (13:03)
[2022-01-02] MEDS ORDERED: ROPIVacaine 0.5% PF 20 ML VIAL. ONE (13:50)
[2022-01-02] MEDS ORDERED: HEPARIN for IV BOLUS 10,000 UNIT/10 ML VIAL. ONE (13:56)
[2022-01-02] MEDS ORDERED: PHENYLEPHRINE 10 MG/ML VIAL. ONE (13:56)
[2022-01-02 14:00] LABS: BASO % 1 % (0-3); EOS # 0.1 x10^3/uL (0.0-0.7); EOS % 2 % (0-3); HEMATOCRIT 33.7 % (36.0-47.0); HEMOGLOBIN 11.5 g/dL (12.0-15.5); LYMPH # 2.3 x10^3/uL (1.0-4.8); LYMPH % 40 % (24-48); MEAN CORPUSCULAR HEMOGLOBIN 28 pg (25-35); MEAN CORPUSCULAR HGB CONC 34 g/dL (31-37); MEAN CORPUSCULAR VOLUME 83 fL (79-100); MONO # 0.4 x10^3/uL (0.0-1.1); MONO % 7 % (0-9); NEUT # 2.9 x10^3/uL (1.8-7.7); NEUT % 50 % (31-73); PLATELET COUNT 226 x10^3/uL (140-400); RED BLOOD COUNT 4.08 x10^6/uL (3.50-5.40); RED CELL DISTRIBUTION WIDTH 14.7 % (11.5-14.5); WHITE BLOOD COUNT 5.7 x10^3/uL (4.0-11.0)
[2022-01-02] MEDS ORDERED: INSULIN LISPRO 100 UNIT/ML 3ML VIAL for OP,RR ONLY. SQ PRN ×2 (14:00→17:00)
[2022-01-02] MEDS: IV RINGERS,LACTATED 1000ML 1,000 ML IV SCH ×2 (14:01→18:20)
[2022-01-02] MEDS ORDERED: LIDOCAINE 2% PF 5 ML VIAL. ONE (14:06)
[2022-01-02 14:11] LABS: CREATININE 1.4 mg/dL (0.6-1.0); GFR 45.2; POTASSIUM 3.6 mmol/L (3.5-5.1)
[2022-01-02] MEDS ORDERED: fentaNYL PF VIAL 100 MCG/2 ML VIAL ONE ×2 (15:14→16:46)
[2022-01-02] MEDS ORDERED: niCARdipine INJ. IV ONE (15:48)
[2022-01-02] MEDS ORDERED: LABETALOL 20 MG/4 ML DISP.SYRIN. IVP ONE (15:48)
[2022-01-02] MEDS ORDERED: ESMOLOL 100 MG/10 ML VIAL. IVP ONE (15:52)
--- NOTE | 2022-01-02 16:56 | PDOC4 ---
OPERATIVE NOTE: Op note dictated Dx: Critical right ICA stenosis with redundancy, asymptomatic Op: right cartotid endarterectomy with shortening angioplasty Surg: Krystian Chamberlain regional block with monitored sedation findings: critical stenosis with intraplacque hemorrhage, moderately severe redundancy, tolerated clamping without shunt EBL : 25 cc. to rr in sat cond JULI CHAMBERLAIN II, MD Jan 02, 2022 16:56
[2022-01-02] MEDS: fentaNYL PF VIAL 100 MCG/2 ML VIAL IVP PRN ×3 (16:57→18:18)
[2022-01-02] MEDS ORDERED: HYDROmorphone 2 MG/ML INJ. IVP PRN (17:00)
[2022-01-02] MEDS ORDERED: MORPHINE SULFATE 2 MG/ML INJ. IVP PRN (17:00)
[2022-01-02] MEDS ORDERED: fentaNYL PF VIAL 100 MCG/2 ML VIAL IVP PRN (17:00)
[2022-01-02] MEDS ORDERED: PROCHLORPERAZINE 10 MG/2 ML VIAL. IVP PRN (17:00)
[2022-01-02] MEDS ORDERED: IV RINGERS,LACTATED 1000ML 1,000 ML IV SCH (17:00)
[2022-01-02] MEDS ORDERED: oxyCODONE/APAP 5/325 1 TAB TABLET PO PRN (17:30)
--- NOTE | 2022-01-02 18:20 | NUR ---
Pt arrived from PACU, a/ox4, on cardene drip-parameters to keep SBP <140, arterial line C/D/I, secured and leveled. Pt complaints of pain, PACU nurse administered fentanyl at bedside-see documentation. Will monitor neuro checks per orders.
--- NOTE | 2022-01-02 19:10 | OP ---
DATE OF SURGERY: 01/02/2022 PREOPERATIVE DIAGNOSIS: Asymptomatic critical preocclusive stenosis of the right internal carotid artery. POSTOPERATIVE DIAGNOSIS: Asymptomatic critical preocclusive stenosis of the right internal carotid artery. OPERATION PERFORMED: Right carotid endarterectomy. SURGEON: Jorge Chamberlain MD JUSTICE COURT JUDGE: Dev Boland MD ANESTHESIA: Regional block with monitored sedation. INDICATIONS FOR SURGERY: This is a 66-year-old female who has an incidentally found critical stenosis of the right internal carotid artery. She has undergone multiple evaluations. The internal carotid appeared patent, but critically narrowed by CT angiography. She was seen in followup in our office where a duplex scan demonstrated no flow. A second CT angiogram was performed, which demonstrated patency of the internal carotid artery with critical stenosis and very low flow. She is admitted for elective right carotid endarterectomy. The operation, risks and benefits were explained previously. The patient understood and wished to proceed. FINDINGS: The patient had critical narrowing with evidence of intraplaque hemorrhage of the internal carotid artery plaque. She tolerated clamping without the need for a shunt. An eversion endarterectomy with shortening angioplasty was performed because of redundancy of the internal carotid artery. DESCRIPTION OF PROCEDURE: The patient was placed on the operating room table in the supine position with the head rotated to the left. A cervical block and arterial line was placed by anesthesia. A timeout was called to correct operation, correct operative site and correct patient were all verified. She received IV antibiotics preprocedure. Following prep and drape, an incision was made along the anterior border of the sternocleidomastoid muscle and carried down through the skin and subcutaneous tissues. The sternocleidomastoid muscle and the internal jugular vein was retracted laterally. This exposed the carotid artery and the carotid sheath. The vagus nerve was identified and carefully preserved. An umbilical tape and Rumel tourniquet were placed around the common carotid artery proximally. Further dissection was carried distally. The patient had a relatively high bifurcation. The hypoglossal nerve was identified and carefully preserved. The bifurcation was exposed and infiltrated with 1% plain lidocaine. The external carotid artery and the superior thyroid and lingual arteries were all individually controlled with Tsang vessel loops. The distal internal carotid artery has a severe redundancy without significant kinking. Distally, the internal carotid was soft and blue. This was controlled with a vessel loop as well. The patient received 7000 units of heparin. After 3 minutes circulation, trial for cross clamping of the common carotid artery was carried out. The distal internal carotid was occluded with a bulldog clamp and the external carotid and its branches were occluded with the vessel loop with downward traction. The patient tolerated this well for a trial period of a minute. The bifurcation was then transected in a tangential manner. An eversion endarterectomy was performed of the internal carotid artery using a Armstrong dissector. A very nice endpoint was obtained distally with nice transition to normal intima. This was done under direct visualization with loupe magnification and illumination. Following this, an arteriotomy was made posteriorly because of the redundancy to perform a shortening angioplasty. The common carotid artery was incised longitudinally and endarterectomy was performed of the common and external carotid arteries. Care was taken to remove all loose strands and debris. The bifurcation was then reanastomosed using 6-0 Prolene. Prior to completing the anastomosis, the vessels were flushed first antegrade and then retrograde. The reconstruction was then completed and flow restored first to the external carotid artery for several beats and then into the internal carotid artery. Hemostasis was excellent. There was excellent flow by Doppler in the internal carotid and external carotid arteries as expected. The patient was given 50 mg of protamine. Blood pressure during this time was about 180 systolic. Following release of the clamp, Cardene was used to drop the blood pressure down in the 140 range. 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 A fully perforated Jeremy-Villarreal drain was placed within the wound space, brought out through a separate small stab incision. The wound was then approximated with 2-0 Vicryl, the skin with intracuticular 4-0 Vicryl. Steri-Strips were applied and the patient was taken to the recovery room in satisfactory condition. ESTIMATED BLOOD LOSS: 25 mL. DRAINS: Jeremy-Villarreal to bulb suction. SPECIMEN: Plaque from the common, external and internal carotid arteries, which was not sent to pathology. Carotid endarterectomy is a procedure that requires an clinical data assistant. Performing this procedure without an clinical data assistant increases the risk of complications and therefore, Dr. Boland' assistance was required for help with exposure and suturing. KEVIN/SUM DR: KEVIN/mary TID: [id number]
[2022-01-02] MEDS: MORPHINE SULFATE 2 MG/ML INJ. IVP PRN (19:59)
[2022-01-02] MEDS: METOPROLOL TART IMMED RELEASE 50 MG TABLET. PO SCH (22:23)
[2022-01-02] MEDS: FAMOTIDINE 20 MG TABLET. PO SCH (22:23)
[2022-01-02] MEDS: INSULIN GLARGINE SYRINGE. SQ SCH (22:24)
--- NOTE | 2022-01-02 23:34 | HP ---
DATE OF SERVICE: 01/02/2022 ADMIT DATE: 01/02/2022 CHIEF COMPLAINT: Carotid endarterectomy. Request for medical evaluation and treatment of comorbidities. HISTORY OF PRESENT ILLNESS: The patient is a pleasant 66-year-old female who underwent a carotid endarterectomy today. Postoperatively, she is having some hypertension. She is on a Cardene drip. We have been requested for postop evaluation and treatment of comorbidities. PAST MEDICAL HISTORY: TIA, vascular disease, hypertension, chronic pain, arthritis, depression, anxiety, GERD, diabetes. ALLERGIES: PENICILLIN, ASPIRIN, CLINDAMYCIN, IBUPROFEN, LASIX, LISINOPRIL, METFORMIN AND METHOCARBAMOL. FAMILY HISTORY: Diabetes. SOCIAL HISTORY: She does not drink, smoke or take drugs. She is retired. MEDICATIONS: Reviewed. She is on 13. Please refer to the MRAD. REVIEW OF SYSTEMS: She is sleeping. She awakes, but does not speak much. PHYSICAL EXAMINATION: VITALS: Within normal limits and are stable. GENERAL: She is sleeping. She did awake, but did not speak much. HEENT: She has clean, dry, intact dressing over the right neck. EYES: Extraocular muscles are intact, pupils are equally round and reactive to light and accommodation MUSCULOSKELETAL: Well developed, well nourished, good range of motion ENDOCRINE: No thyromegaly was palpated LYMPHATICS: No cervical chain or axillary nodes were noted HEMATOPOIETIC: No bruising NECK: Supple, no JVD, no thyromegaly was noted. LUNGS: Clear to auscultation in all lung howell without rhonchi or wheezing. HEART: RRR, S1, S2 present. Peripheral pulses intact, no obvious murmurs were noted. ABDOMEN: Soft, nontender. Positive bowel sounds no organomegaly, normal bowel sounds. EXTREMITIES: Without any cyanosis, clubbing, or edema. Pedal pulses intact, Homans sign is negative. NEUROLOGIC: She is sleeping. She did awake, but did not speak much. PSYCHIATRIC: She is sleeping. She did awake, but did not speak much. SKIN: No ulcerations or rashes, good skin turgor, no jaundice. VASCULAR: Good capillary refill, neurovascular bundle appears to be intact. LABORATORY DATA: White count 5, hemoglobin 11, platelets 226, BUN is high at 23, creatinine 1.4. COVID testing is negative. ASSESSMENT AND PLAN: Postop right carotid endarterectomy with hypertensive urgency. She is on a Cardene drip. We will wean that off. We hope to transition her back to her home p.o. medications. For now, continue wound care, ICU monitoring, home meds, DVT prophylaxis. Full code. Thank you very much for allowing us to participate in the care of this nice lady. JAIME/SAIDA DR: Rosalva TID: [id number]
[2022-01-03] VITALS (20 sets, daily range): BP systolic 119–170; BP diastolic 50–85
[2022-01-03] MEDS: MORPHINE SULFATE 2 MG/ML INJ. IVP PRN ×2 (00:04→03:30)
[2022-01-03] MEDS: hydroCHLOROthiazide 12.5 MG TABLET PO SCH (08:54)
[2022-01-03] MEDS: METOPROLOL TART IMMED RELEASE 50 MG TABLET. PO SCH ×2 (08:55→20:56)
[2022-01-03] MEDS: CLOPIDOGREL BISULFATE 75 MG TABLET PO SCH (08:55)
[2022-01-03] MEDS: LOSARTAN POTASSIUM 50 MG TABLET. PO SCH (08:56)
[2022-01-03] MEDS: INSULIN LISPRO 300 UNITS/3 ML VIAL. SQ SCH ×2 (09:34→14:08)
--- NOTE | 2022-01-03 11:33 | PDOC ---
[employer] PROGRESS NOTE Date of Service DOS: DATE: 01/03/22 TIME: 11:32 Chief Complaint Chief Complaint Postop day 1 right carotid endarterectomy Hypertensive urgency History of the following; TIA, vascular disease, hypertension, chronic pain, arthritis, depression, anxiety, GERD, diabetes History of Present Illness History of Present Illness 01/03/2022 Patient seen and examined She is doing great Has clean dry intact dressing on the right carotid Also has a drain in place We will go ahead and discharge this afternoon Vitals/I&O Vitals/I&O: Vital Signs Date Time Temp Pulse Resp B/P (MAP) Pulse Ox O2 Delivery O2 Flow Rate FiO2 01/03/22 08:57 77 143/65 01/03/22 06:00 22 99 Room Air 01/03/22 04:00 98.5 98.5 I & O 01/02/22 01/02/22 01/03/22 15:00 23:00 07:00 Intake Total 1150 ml 185 ml Output Total 425 ml 630 ml Balance 725 ml -445 ml Physical Exam General: Alert Heart: Regular rate Lungs: Clear Abdomen: Normal bowel sounds Extremities: No clubbing Skin: No rashes Labs Labs: Laboratory Tests Test 01/02/22 12:44 01/02/22 13:14 01/02/22 13:47 01/02/22 16:53 POC SARS CoV-2 Antigen Negative (NEGATIVE) Glucose (Fingerstick) 170 mg/dL (70-99) 85 mg/dL (70-99) White Blood Count 5.7 x10^3/uL (4.0-11.0) Red Blood Count 4.08 x10^6/uL (3.50-5.40) Hemoglobin 11.5 g/dL (12.0-15.5) Hematocrit 33.7 % (36.0-47.0) Mean Corpuscular Volume 83 fL (79-100) Mean Corpuscular Hemoglobin 28 pg (25-35) Mean Corpuscular Hemoglobin Concent 34 g/dL (31-37) Red Cell Distribution Width 14.7 % (11.5-14.5) Platelet Count 226 x10^3/uL (140-400) Neutrophils (%) (Auto) 50 % (31-73) Lymphocytes (%) (Auto) 40 % (24-48) Monocytes (%) (Auto) 7 % (0-9) Eosinophils (%) (Auto) 2 % (0-3) Basophils (%) (Auto) 1 % (0-3) Neutrophils # (Auto) 2.9 x10^3/uL (1.8-7.7) Lymphocytes # (Auto) 2.3 x10^3/uL (1.0-4.8) Monocytes # (Auto) 0.4 x10^3/uL (0.0-1.1) Eosinophils # (Auto) 0.1 x10^3/uL (0.0-0.7) Basophils # (Auto) 0.0 x10^3/uL (0.0-0.2) Sodium Level 141 mmol/L (136-145) Potassium Level 3.6 mmol/L (3.5-5.1) Chloride Level 105 mmol/L (98-107) Carbon Dioxide Level 28 mmol/L (21-32) Anion Gap 8 (6-14) Blood Urea Nitrogen 23 mg/dL (7-20) Creatinine 1.4 mg/dL (0.6-1.0) Estimated GFR (Cockcroft-Gault) 45.2 Glucose Level 164 mg/dL (70-99) Calcium Level 9.0 mg/dL (8.5-10.1) Test 01/02/22 22:21 01/03/22 09:27 Glucose (Fingerstick) 101 mg/dL (70-99) 158 mg/dL (70-99) Assessment and Plan Assessmemt and Plan Postop day 1 right carotid endarterectomy Hypertensive urgency History of the following; TIA, vascular disease, hypertension, chronic pain, arthritis, depression, anxiety, GERD, diabetes Plan Discharge this afternoon Comment Review of Relevant I have reviewed the following items judd (where applicable) has been applied. Medications: Current Medications Medications (Trade) Dose Ordered Sig/Parul Route PRN Reason Start Time Stop Time Status Last Admin Dose Admin Lidocaine HCl (Xylocaine 1% Pf 30ml Vial) 30 ml STK-MED ONCE .ROUTE 01/02/22 13:03 01/02/22 13:03 DC 01/02/22 14:55 Ringer's Solution 1,000 ml @ 75 mls/hr [id number] IV 01/02/22 14:00 01/02/22 18:20 Insulin Human Lispro (HumaLOG VIAL for OP,RR ONLY) 0-10 units PRN Q1HR PRN SQ PER PROTOCOL 01/02/22 14:00 01/03/22 10:00 DC 01/02/22 14:09 Nicardipine HCl 50 mg/Sodium Chloride 250 ml @ 25 mls/hr CONT PRN IV PER PROTOCOL 01/02/22 16:30 01/02/22 17:07 Fentanyl Citrate (Fentanyl 2ml Vial) 50 mcg PRN Q5MIN PRN IVP MODERATE PAIN 4-01/02/22 17:00 01/03/22 10:00 DC 01/02/22 18:18 Morphine Sulfate (Morphine Sulfate) 2 mg PRN Q2HR PRN IVP PAIN 01/02/22 17:30 01/03/22 03:30 Amlodipine Besylate (Norvasc) 10 mg DAILY PO 01/02/22 22:30 01/03/22 08:57 Clopidogrel Bisulfate (Plavix) 75 mg DAILYWBKFT PO 01/03/22 08:00 01/03/22 08:55 Famotidine (Pepcid) 20 mg QHS PO 01/02/22 22:30 01/02/22 22:23 Hydralazine HCl (Apresoline) 75 mg TID PO 01/02/22 22:30 01/03/22 08:55 Hydrochlorothiazide (Microzide) 12.5 mg DAILY PO 01/03/22 09:00 01/03/22 08:54 Insulin Glargine (Lantus Syringe) 10 unit QHS SQ 01/02/22 22:30 01/02/22 22:24 Insulin Human Lispro (HumaLOG) 20 units 0800,1200 SQ 01/03/22 08:00 01/03/22 09:34 Losartan Potassium (Cozaar) 100 mg DAILY PO 01/03/22 09:00 01/03/22 08:56 Metoprolol Tartrate (Lopressor) 50 mg BID PO 01/02/22 22:30 01/03/22 08:55 Justifications for Admission Other Justification RAHEL PEREZ III DO Jan 03, 2022 11:33
[2022-01-03] MEDS ORDERED: HYDR-2769 PO (11:35)
--- NOTE | 2022-01-03 11:36 | SNU/HH DC ---
DISCHARGE WITH HOME HEALTH DISCHARGE INFORMATION: Condition on Discharge: Stable CODE STATUS: Code Status: Full HOME HEALTH: Face to Face: I certify this patient is under my care and that I, or a nurse practitioner or physician's financial services assistant working with me, had a face to face encounter that meets the physician face to face encounter requirements with this patient on []. Medical Complications: Other (Recent carotid endarterectomy) Penitentiary For: Assess & Educate Safety RN For Eval/Treatment: Yes Physical Therapy For: Evalulation/Treatment Occupational Therapy For: Evaluation/Treatment Home Health Aide For: Self-care TANK PUMPER PANELBOARD For: Community Resources Pt Meets Homebound Status: Unsteady balance w/ amb, POST DISCHARGE ORDERS: Activity Instructions for Disc: Activity as tolerated Weight Bearing Status after Di: As tolerated DIET AFTER DISCHARGE: ADA Wound/Incision Care: Keep wound/cast CDI, Change dressing, Reinforce dressing PRN CHECKS AFTER DISCHARGE: Checks after discharge: Check blood press - daily, Check blood sugar, ac/hs, Check your Temp as needed, Weigh Yourself Daily TREATMENT/EQUIPMENT ORDERS: Adaptive Equipment Issued: None, Walker CERTIFICATION STATEMENT: Certification Statement: Certification Statement: Based on the above finding, I certify that this patient is confined to the home and needs intermittent longterm care, physical therapy and/or speech therapy, or continues to need occupational therapy.~ This patient is under my care, and I have initiated the establishment of the plan of care.~ This patient will be followed by myself or a community physician who will periodically review the plan of care. Home Meds Active Scripts Hydrocodone Bit/Acetaminophen (HYDROCODONE-APAP 10-325 ) 1 Tab Tablet, 1 TAB PO PRN Q6HRS PRN for PAIN for 14 Days, #20 TAB 0 Refills Prov:CASTLE,NIAL K III DO 01/03/22 Hydralazine Hcl (HYDRALAZINE HCL) 50 Mg Tablet, 75 MG PO TID for . for 30 Days, #90 TAB Prov:CASTLE,NIAL K III DO 12/11/21 Clopidogrel Bisulfate (CLOPIDOGREL) 75 Mg Tablet, 75 MG PO DAILYWBKFT for . for 30 Days, #30 TAB Prov:CASTLE,NIAL K III DO 12/11/21 Losartan Potassium (COZAAR ) 50 Mg Tablet, 100 MG PO DAILY for . for 30 Days, #30 TAB Prov:CASTLE,NIAL K III DO 12/11/21 Amlodipine Besylate (AMLODIPINE BESYLATE) 10 Mg Tablet, 10 MG PO DAILY for . for 30 Days, #30 TAB Prov:CASTRALFNIAL K III DO 12/11/21 Metoprolol Tartrate (METOPROLOL TARTRATE) 50 Mg Tablet, 50 MG PO BID for . for 30 Days, #60 TAB Prov:ANANIAL K III DO 12/11/21 Hydrochlorothiazide (HYDROCHLOROTHIAZIDE CAPSULE ) 12.5 Mg Capsule, 12.5 MG PO DAILY for . for 30 Days, #30 CAP Prov:ANANIAL K III DO 12/11/21 Insulin Glargine,Hum.rec.anlog (LANTUS) 100 Unit/1 Ml Vial, 10 UNIT SQ QHS for . for 30 Days, #1 EACH Prov:ANANIAL K III DO 12/10/21 Reported Medications Quetiapine Fumarate (SEROQUEL) 50 Mg Tablet, 1 TAB PO QHS for insomnia, #30 TAB 2 Refills 12/10/21 Insulin Lispro (Insulin Lispro) 100 Unit/1 Ml Vial, 20 UNIT SQ 0800,1200 for DM, EACH 12/06/21 Famotidine (FAMOTIDINE) 20 Mg Tablet, 20 MG PO BID for GERD, TAB 12/06/21 Ropinirole Hcl (REQUIP) 0.5 Mg Tablet, 1 TAB PO QHS, #30 TAB 2 Refills 05/31/17 Lubiprostone (AMITIZA) 8 Mcg Capsule, 1 CAP PO BID, #60 CAP 3 Refills 07/19/15 Discontinued Scripts Hydrocodone Bit/Acetaminophen (HYDROCODONE-APAP 5-325 ) 1 Tab Tablet, 1 TAB PO Q4HRS for . for 14 Days, #30 TAB Prov:CASTLE,NIAL K III DO 12/11/21 CASTLE,NIAL K III DO Jan 03, 2022 11:36
[2022-01-03] MEDS ORDERED: DEXTROSE 50% 25 GM / 50ML DISP.SYRIN. IV ONE ×2 (12:00→16:45)
--- NOTE | 2022-01-03 12:04 | PDOC ---
Provider Note Date of Service: DATE: 01/03/22 TIME: 12:01 Provider Note Provider Note Vascular surgery S: Patient doing well postoperatively. She has no complaints. She has not been out of bed yet. She denies any new neurologic symptoms. Denies headaches. She denies any new visual symptoms. She was able to eat without difficulty swallowing. Her blood pressure has been controlled off of the Cardene drip. O: Vital signs stable, afebrile Neck dressing removed, incision clean, dry, intact. NORMAN removed. There is minimal swelling, no ecchymosis. No hematoma. Executive Staff Assistant strength is equal bilaterally, range of motion is intact all 4 extremities with strength equal bilaterally. Tongue is midline, speech is clear and fluent. No facial droop or asymmetry. A/P: Postop day 1 of right carotid endarterectomy Patient is doing well postoperatively, her blood pressure has been controlled without need for IV antihypertensives. DC art line and fluids. She has not been out of bed yet, once she gets out of bed and ambulates without concerns, she can go from our standpoint and follow-up with us in 2 to 3 weeks as scheduled. I discussed with her in detail all the postop care instructions. She exhibited understanding of when to notify physician. Discussed with nursing. Justicifation of Admission Dx: Justifications for Admission: Justification of Admission Dx: N/A SABRINA CANALES Jan 03, 2022 12:04
--- NOTE | 2022-01-03 12:28 | DS ---
DATE OF DISCHARGE: 01/03/2022 ADMISSION DIAGNOSIS: Carotid stenosis. DISCHARGE DIAGNOSIS: Postoperative day #1, right carotid endarterectomy. HOSPITAL COURSE: The patient is a pleasant, middle-aged female who presented with carotid stenosis. She underwent elective right carotid endarterectomy. Today, I saw and examined her. She is doing well. She wants to go home. We plan to discharge if okay with her surgeon. DISPOSITION: Home. ACTIVITY: As tolerated. DIET: Low sodium. DISCHARGE MEDICATIONS: Hydrocodone 10 mg q.6 p.r.n., amlodipine 10 a day, Plavix 75 a day, Pepcid 20 b.i.d., hydralazine 75 t.i.d., hydrochlorothiazide 12.5 daily, 10 units of Lantus insulin at bedtime and 20 units of lispro daily, losartan 100 a day at 8 and 12 a.m., Amitiza 8 mcg 1 cap b.i.d., metoprolol 50 b.i.d., Seroquel 50 every day, Requip 0.5 at bedtime. TOTAL TIME: [address]: Rosalva TID: [id number]
[2022-01-03] MEDS ORDERED: DEXTROSE 50% 25 GM / 50ML DISP.SYRIN. IV PRN (16:15)
[2022-01-03] MEDS ORDERED: IV DEXTROSE 5% 250 ML BAG. IV PRN (16:15)
--- NOTE | 2022-01-03 16:44 | NUR ---
SS following for discharge planning. SS reviewed pt chart. Discharge orders received for home with home healthcare. Discharge orders and referral sent to [facility], [place], ; fax [phone]. RN notified.
[2022-01-03] MEDS ORDERED: POTASSIUM CL 20MEQ D5-0.45NACL 1,000 ML IV SCH (17:45)
[2022-01-03] MEDS: FAMOTIDINE 20 MG TABLET. PO SCH (20:55)
[2022-01-03] MEDS: INSULIN GLARGINE SYRINGE. SQ SCH (21:50)
[2022-01-03] MEDS ORDERED: INSULIN LISPRO 300 UNITS/3 ML VIAL. SQ ONE (22:00)
[2022-01-04] VITALS: BP 168/78
--- NOTE | 2022-01-04 00:21 | NUR ---
Spoke to Dr Rees regarding BP of 160/88- States OK with BP. Will cont with oral medications
[2022-01-04 04:00] VITALS: BP 171/68
[2022-01-04 08:00] VITALS: BP 159/83
[2022-01-04] MEDS ORDERED: INSULIN LISPRO 300 UNITS/3 ML VIAL. SQ SCH (08:00)
[2022-01-04] MEDS: hydroCHLOROthiazide 12.5 MG TABLET PO SCH (08:55)
[2022-01-04] MEDS: LOSARTAN POTASSIUM 50 MG TABLET. PO SCH (08:56)
[2022-01-04] MEDS: CLOPIDOGREL BISULFATE 75 MG TABLET PO SCH (08:56)
[2022-01-04] MEDS: METOPROLOL TART IMMED RELEASE 50 MG TABLET. PO SCH (08:57)
[2022-01-04 10:00] VITALS: BP 136/65
--- NOTE | 2022-01-04 11:24 | NUR ---
SS following up with discharge planning. SS reviewed pt chart and discussed with pt RN. Pt is currently on room air. Discharge orders received for home with home healthcare. Pt accepted on services with [facility], ; fax [phone]. Pt's RN notified.
--- NOTE | 2022-01-04 11:27 | PDOC ---
[employer] PROGRESS NOTE Date of Service DOS: DATE: 01/04/22 TIME: 11:26 Chief Complaint Chief Complaint Postop day 1 right carotid endarterectomy Hypertensive urgency History of the following; TIA, vascular disease, hypertension, chronic pain, arthritis, depression, anxiety, GERD, diabetes History of Present Illness History of Present Illness 01/04/2022 Patient seen and examined Discussed with RN Discussed with case management Chart reviewed Her discharge had to be held yesterday due to fluctuating glucose She seems to be back at her baseline now and wants to go home (glucose currently 138) 01/03/2022 Patient seen and examined She is doing great Has clean dry intact dressing on the right carotid Also has a drain in place We will go ahead and discharge this afternoon Vitals/I&O Vitals/I&O: Vital Signs Date Time Temp Pulse Resp B/P (MAP) Pulse Ox O2 Delivery O2 Flow Rate FiO2 01/04/22 08:58 81 159/83 01/04/22 04:00 98.2 18 100 Room Air 98.2 I & O 01/03/22 01/03/22 01/04/22 15:00 23:00 07:00 Intake Total 240 ml 120 ml Output Total 800 ml 300 ml 750 ml Balance -560 ml -180 ml -750 ml Physical Exam General: Alert Heart: Regular rate Lungs: Clear Abdomen: Normal bowel sounds Extremities: No clubbing Skin: No rashes Labs Labs: Laboratory Tests Test 01/03/22 14:03 01/03/22 16:31 01/03/22 16:52 01/03/22 17:02 Glucose (Fingerstick) 142 mg/dL (70-99) 31 mg/dL (70-99) 41 mg/dL (70-99) 85 mg/dL (70-99) Test 01/03/22 17:23 01/03/22 18:04 01/03/22 20:53 01/03/22 23:02 Glucose (Fingerstick) 86 mg/dL (70-99) 235 mg/dL (70-99) 511 mg/dL (70-99) 217 mg/dL (70-99) Test 01/04/22 08:50 Glucose (Fingerstick) 138 mg/dL (70-99) Assessment and Plan Assessmemt and Plan Postop day 2 right carotid endarterectomy Hypertensive urgency History of the following; TIA, vascular disease, hypertension, chronic pain, arthritis, depression, anxiety, GERD, diabetes Plan Discharge see dictation Comment Review of Relevant I have reviewed the following items judd (where applicable) has been applied. Medications: Current Medications Medications (Trade) Dose Ordered Sig/Parul Route PRN Reason Start Time Stop Time Status Last Admin Dose Admin Potassium Chloride/Dextrose/ Sod Cl 1,000 ml @ 75 mls/hr [id number] IV 01/03/22 17:45 01/03/22 21:38 DC 01/03/22 19:02 Insulin Human Lispro (HumaLOG) 7 units 1X ONCE SQ 01/03/22 22:00 01/03/22 22:01 DC 01/03/22 21:51 Justifications for Admission Other Justification RAHEL PEREZ III DO Jan 04, 2022 11:27
--- NOTE | 2022-01-04 13:27 | PDOC ---
Provider Note Date of Service: DATE: 01/04/22 TIME: 13:25 Provider Note Provider Note Vascular S: Patient is sitting in chair, ready for discharge O: Awake and alert Right neck incision is dry and intact. Moving all extremities, speech clear A/P: POD #2 Right CEA doing well, discharging to home Hypertension, remains 150-160s on several hypertensive medications, recommend renal US, will make arrangements as outpatient. Follow up as scheduled Justicifation of Admission Dx: Justifications for Admission: Justification of Admission Dx: N/A RIRI JEFFERSON APRN Jan 04, 2022 13:27
== END 2022-01-04 12:27 | disposition home or self-care (01) | DRG 39 ==
LOC: OPSVCIP 12:22 → EDSTATUS 14:00 → 1 WEST ICU 18:05
PROVIDERS: ADMIT Surgery; ATTEND Surgery
PROC: 03CK0ZZ Extirpation of Matter from Right Internal Carotid Artery, Open Approach (ICD-10-PCS; 2022-01-02)
PROC: 03CM0ZZ Extirpation of Matter from Right External Carotid Artery, Open Approach (ICD-10-PCS; 2022-01-02)
PROC: 037K3ZZ Dilation of Right Internal Carotid Artery, Percutaneous Approach (ICD-10-PCS; 2022-01-02)
PROC: 03CH0ZZ Extirpation of Matter from Right Common Carotid Artery, Open Approach (ICD-10-PCS; principal; 2022-01-02 14:00)
DX: I65.21 Occlusion and stenosis of right carotid artery (principal); I16.0 Hypertensive urgency; Z83.3 Family history of diabetes mellitus; E11.9 Type 2 diabetes mellitus without complications; F32.A Depression, unspecified; F41.9 Anxiety disorder, unspecified; G89.29 Other chronic pain; K21.9 Gastro-esophageal reflux disease without esophagitis; M19.90 Unspecified osteoarthritis, unspecified site; Z86.73 Personal history of transient ischemic attack (TIA), and cerebral infarction without residual deficits; I10 Essential (primary) hypertension; Z20.822 Contact with and (suspected) exposure to COVID-19
CPT/HCPCS: 36415; 80048; 82962; 85025; A4213; A4223; A4344; A4346; A4351; A4364; A4452; A6257; A6402; C1751; J0690; J1644; J1815; J2270; J2370; J2720; J2795; J3010; J3480; J3490; J7050; J7120; G0378; J7030